=== PATIENT | female | born 1945 | race Caucasian/White ===

== ENCOUNTER 2017-05-07 08:35 | Emergency (ER) | payer MEDICARE, OTHER ==
[~2017-05-07] VITALS: Ht 165.1 cm; Wt 83.5 kg
[~2017-05-07 08:35] MED LIST: ALBUTEROL SULF8.5 GM INH; AMOXICILLIN500 MG ORAL; ASPIR 8181 MG ORAL; ATORVASTATIN CA10 MG ORAL; AZITHROMYCIN250 MG ORAL; BENADRYL A12.5 MG/5 ORAL; DEBROX15 M1 BOTH EARS; IBUPROFEN600 MG ORAL; KEFLEX500 MG ORAL; LEVAQUIN750 MG ORAL; LOSARTAN-HCTZ1 EAC1 PO; PEPCID40 MG PO; PIOGLITAZONE-M1 EAC1 ORAL; PREDNISONE20 MG ORAL; PROMETHAZINE-C118 M1 ORAL; TRAMADOL HCL50 MG ORAL; TRAMADOL-ACETA1 EACH PO; TYLENOL EXTRA500 MG ORAL; ZETIA10 MG ORAL
[2017-05-07 08:53] VITALS: BP 136/89
--- NOTE | 2017-05-07 09:14 | Emergency Room Report ---
History of Present Illness General Chief Complaint: Sore Throat Source: Patient Present Illness HPI 71-year-old female with diabetes presenting with sore throat and not feeling well for 3 days. Complaints of sore throat, worse with eating, however patient states that she has still been able to eat and treatment normally. Denies fever or chills. Also complaining of generalized muscle aches around shoulders. No chest pain shortness of breath nausea vomiting diarrhea. No abdominal pain Allergies: Coded Allergies: Dust (Verified Allergy, Mild, Itching, 11/06/15) Patient History Past Medical History: see triage record Past Surgical History: none Pertinent Family History: none Reviewed Nursing Documentation: PMH: Agreed, PSxH: Agreed Nursing Documentation-PMH Hx Cardiac Problems: No Hx Hypertension: Yes Hx Pacemaker: No Hx Asthma: Yes Hx COPD: Yes Hx Diabetes: Yes Hx Cancer: No Hx Neurological Problems: No Hx Cerebrovascular Accident: No Hx Seizures: No Review of Systems All Other Systems: negative except mentioned in HPI Physical Exam Vital Signs Date Time Temp Pulse Resp B/P (MAP) Pulse Ox O2 Delivery O2 Flow Rate FiO2 05/07/17 08:43 97.0 95 20 136/89 97 Room Air Sp02 EP Interpretation: reviewed, normal General Appearance: normal inspection, well appearing, no apparent distress, alert, GCS 15, non-toxic, other - Well-appearing, nontoxic, c speaking complete sentences Head: normocephalic, atraumatic Eyes: bilateral eye normal inspection, bilateral eye PERRL, bilateral eye EOMI ENT: normal voice, moist mucus membranes, other - Mild tonsillar and uvular erythema, no exudates, no enlargement, uvula is midline Neck: normal inspection, full range of motion, supple Respiratory: normal inspection, lungs clear, normal breath sounds, no respiratory distress, no retraction, no wheezing, speaking full sentences, chest symmetrical Cardiovascular #1: normal inspection, regular rate, rhythm, no edema, normal capillary refill Cardiovascular #2: 2+ radial (R), 2+ radial (L) Gastrointestinal: normal inspection, non tender, soft, non-distended, no guarding Musculoskeletal: normal inspection, back normal, normal range of motion, non- tender Neurologic: normal inspection, alert, oriented x3, responsive, motor strength/ tone normal, sensory intact, normal gait, speech normal Psychiatric: normal inspection, judgement/insight normal, memory normal Skin: normal inspection, normal color, no rash, warm/dry, well hydrated, normal turgor Medical Decision Making Diagnostic Impression: Primary Impression: Acute viral pharyngitis ER Course 71-year-old female sore throat DDX: viral vs. versus. bacterial pharyngitis vs. allergies Other serious causes such as INSTALLMENT LOAN COLLECTOR / RPA / deep space neck infection history/physical most consistent with viral pharyngitis Plan: Tylenol ER course: Patient remains stable in ED. Pt states improvement of pain with motrin. Tolerating by mouth Disposition: Patient will be discharged to home. Patient will follow up with primary care doctor within 5 days. Strict return precautions discussed with patient such as worsening throat pain/swelling, dysphagia, high fever or chills, shortness of breath, abdominal pain, which may indicate severe illness. Patient verbalized understanding and agreed with plan. Please note that this Emergency Department Report was dictated using [employer] process manager technology software, occasionally this can lead to erroneous entry secondary to interpretation by the dictation equipment. Laboratory Tests Test 05/07/17 09:05 Urine Color Pale yellow Urine Appearance Clear Urine pH 5 (4.5-8.0) Urine Specific [place] 1.015 (1.005-1.035) Urine Protein Negative (NEGATIVE) Urine Glucose (UA) Negative (NEGATIVE) Urine Ketones Negative (NEGATIVE) Urine Occult Blood 4+ (NEGATIVE) H Urine Nitrite Negative (NEGATIVE) Urine Bilirubin Negative (NEGATIVE) Urine Urobilinogen Normal MG/DL (0.0-1.0) Urine Leukocyte Esterase 2+ (NEGATIVE) H Urine RBC 5-10 /HPF (0 - 2) H Urine WBC 2-4 /HPF (0 - 2) Urine Squamous Epithelial Cells Few /LPF (NONE/OCC) Urine Bacteria Few /HPF (NONE) Last Vital Signs Date Time Temp Pulse Resp B/P (MAP) Pulse Ox O2 Delivery O2 Flow Rate FiO2 05/07/17 08:53 20 136/89 97 Room Air 05/07/17 08:43 97.0 95 Disposition: HOME, SELF-CARE Condition: Improved Referrals: STEPAN SANTANA (PCP) Eugene Rice M.D. May 07, 2017 09:14
[2017-05-07 09:25] LABS: APPEARANCE,URINE CLEAR; KETONES,URINE NEGATIVE (NEGATIVE); LEUKOCYTE ESTERASE ,URINE 2+ (NEGATIVE); NITRITE,URINE NEGATIVE (NEGATIVE); PH,URINE 5 (4.5-8.0); PROTEIN,URINE NEGATIVE (NEGATIVE); UROBILINOGEN,URINE NORMAL MG/DL (0.0-1.0)
[2017-05-07 09:31] LABS: BACTERIA,URINE FEW /HPF; SQUAMOUS EPITHELIAL CELL,UR FEW /LPF (NONE/OCC)
[2017-05-07 09:34] VITALS: BP 136/89
== END 2017-05-07 09:48 | disposition home or self-care (01) ==
LOC: EMR 09:11
DX: J02.9 Acute pharyngitis, unspecified (principal); E11.9 Type 2 diabetes mellitus without complications; I10 Essential (primary) hypertension; J44.9 Chronic obstructive pulmonary disease, unspecified
CPT/HCPCS: 81001; 99283

== ENCOUNTER 2017-09-22 08:02 | Emergency (ER) | payer MEDICARE, OTHER ==
[~2017-09-22] VITALS: Ht 160 cm; Wt 81.6 kg
--- NOTE | 2017-09-22 08:28 | Emergency Room Report ---
History of Present Illness General Chief Complaint: Sore Throat Source: Patient Present Illness HPI 72-year-old female presents with sore throat for 2 days. States sore throat, +mild dry cough. Pain with swallowing however has still been able to eat/drink. No change in voice. No pain with extension/movement of neck. Denies fever or chills. No sick contacts. Allergies: Coded Allergies: Dust (Verified Allergy, Mild, Itching, 11/06/15) Patient History Past Medical History: see triage record Past Surgical History: none Pertinent Family History: none Now: No Reviewed Nursing Documentation: PMH: Agreed, PSxH: Agreed Nursing Documentation-PMH Past Medical History: No History, Except For Hx Cardiac Problems: No Hx Hypertension: Yes Hx Pacemaker: No Hx Asthma: Yes Hx COPD: Yes Hx Diabetes: Yes Hx Cancer: No Hx Neurological Problems: No Hx Cerebrovascular Accident: No Hx Seizures: No Review of Systems All Other Systems: negative except mentioned in HPI Physical Exam Vital Signs Date Time Temp Pulse Resp B/P (MAP) Pulse Ox O2 Delivery O2 Flow Rate FiO2 09/22/17 08:05 98.0 93 16 124/80 95 Room Air 98.1 Sp02 EP Interpretation: reviewed, normal General Appearance: normal inspection, well appearing, no apparent distress, alert, GCS 15, non-toxic Head: normocephalic, atraumatic Eyes: bilateral eye normal inspection, bilateral eye PERRL, bilateral eye EOMI ENT: normal ENT inspection, normal pharynx, normal voice, moist mucus membranes Neck: normal inspection, full range of motion, supple Respiratory: normal inspection, lungs clear, normal breath sounds, no respiratory distress, no retraction, no wheezing, speaking full sentences, chest symmetrical Cardiovascular #1: normal inspection, regular rate, rhythm, normal capillary refill Cardiovascular #2: 2+ radial (R), 2+ radial (L) Gastrointestinal: normal inspection, non tender, soft, non-distended, no guarding Musculoskeletal: normal inspection, back normal, normal range of motion, non- tender Neurologic: normal inspection, alert, oriented x3, responsive, motor strength/ tone normal, sensory intact, normal gait, speech normal Psychiatric: normal inspection, judgement/insight normal, memory normal Skin: normal inspection, normal color, no rash, warm/dry, well hydrated, normal turgor Medical Decision Making Diagnostic Impression: Primary Impression: Sore throat ER Course 72-year-old female with sore throat DDX: Viral vs. infectious mononucleosis vs. bacterial pharyngitis vs. allergies Other serious causes such as LEAF CONDITIONER / RPA / deep space neck infection history/physical most consistent with viral pharyngitis Plan: Tylenol ER course: Patient remains stable in ED. Pt states improvement of pain Disposition: Patient will be discharged to home. Patient will follow up with primary care doctor within 5 days. Strict return precautions discussed with patient such as worsening throat pain/swelling, dysphagia, high fever or chills, shortness of breath, abdominal pain, which may indicate severe illness. Patient verbalized understanding and agreed with plan. Please note that this Emergency Department Report was dictated using [employer]news department intern technology software, occasionally this can lead to erroneous entry secondary to interpretation by the dictation equipment. Last Vital Signs Date Time Temp Pulse Resp B/P (MAP) Pulse Ox O2 Delivery O2 Flow Rate FiO2 09/22/17 08:15 98.0 93 16 99 Room Air 98.0 Disposition: HOME, SELF-CARE Condition: Improved Referrals: STEPAN SANTANA (PCP) Patient Instructions: Sore Throat Eugene Rice M.D. Sep 22, 2017 08:28
[2017-09-22 09:29] VITALS: BP 129/81
== END 2017-09-22 09:34 | disposition home or self-care (01) ==
LOC: EMR 08:17
DX: J02.9 Acute pharyngitis, unspecified (principal); I10 Essential (primary) hypertension; J45.909 Unspecified asthma, uncomplicated; E11.9 Type 2 diabetes mellitus without complications
CPT/HCPCS: 99282

== ENCOUNTER 2017-12-04 22:07 | Emergency (ER) | payer MEDICARE, OTHER ==
[~2017-12-04] VITALS: Ht 162.6 cm; Wt 68.0 kg
[2017-12-04] MEDS ORDERED: CORTISPORIN EAR10 ML OTIC (22:59)
[2017-12-04] MEDS ORDERED: IBUPROFEN600 MG ORAL (22:59)
[2017-12-04 23:06] VITALS: BP 124/76
--- NOTE | 2017-12-05 02:22 | Emergency Room Report ---
History of Present Illness General Chief Complaint: Earache Source: Patient, Medical Record Present Illness HPI Patient presents with complaints of left ear discomfort Reports that prior to arrival she was having 4 out of 10 pain in that area However upon arrival she had taken 2 Advil and the pain had resolved Denies any fevers or chills denies any trauma denies any chest pain or shortness of breath Denies any neck pain Allergies: Coded Allergies: Dust (Verified Allergy, Mild, Itching, 11/06/15) Patient History Past Medical History: see triage record Pertinent Family History: none Last Menstrual Period: NA Reviewed Nursing Documentation: PMH: Agreed; PSxH: Agreed Nursing Documentation-PMH Hx Cardiac Problems: No Hx Hypertension: Yes Hx Pacemaker: No Hx Asthma: Yes Hx COPD: Yes Hx Diabetes: Yes Hx Cancer: No Hx Neurological Problems: No Hx Cerebrovascular Accident: No Hx Seizures: No Review of Systems All Other Systems: negative except mentioned in HPI Physical Exam Vital Signs Date Time Temp Pulse Resp B/P (MAP) Pulse Ox O2 Delivery O2 Flow Rate FiO2 12/04/17 22:11 98.7 90 18 124/76 98 Room Air 98.8 Sp02 EP Interpretation: reviewed, normal General Appearance: well appearing, no apparent distress Head: normocephalic, atraumatic Eyes: bilateral eye PERRL, bilateral eye EOMI ENT: normal pharynx, no angioedema, other - Left canal is mildly erythematous and edematous however patent tympanic membrane is appropriate, Neck: supple Respiratory: lungs clear Cardiovascular #1: regular rate, rhythm, no edema Gastrointestinal: non tender, soft Musculoskeletal: normal inspection Neurologic: alert, oriented x3, responsive, client services specialist III-XII nml as tested Skin: normal color, warm/dry Lymphatic: no adenopathy Medical Decision Making Diagnostic Impression: Primary Impression: otitis externa ER Course Patient's clinical findings are consistent with otitis externa she is placed on appropriate drops for that patient does use Q-tips she was advised against using that or putting anything else in the ear canal And requires close outpatient follow-up Last Vital Signs Date Time Temp Pulse Resp B/P (MAP) Pulse Ox O2 Delivery O2 Flow Rate FiO2 12/04/17 23:06 98.8 18 124/76 98 Room Air 98.8 12/04/17 22:11 90 Status: improved Disposition: HOME, SELF-CARE Condition: Stable Scripts Ibuprofen* (MOTRIN*) 600 Mg Tablet 600 MG ORAL Q8H PRN for For Pain, #20 TAB 0 Refills Prov: Luis Alberto Barlow DO 12/04/17 Neomycin/Polymyxin B Sulf/Hc* (CORTISPORIN EAR SOLUTION*) 10 Ml Solution 2 DROP OTIC THREE TIMES A DAY for 7 Days, #1 EA Instill in affected ear as directed for 7 days Prov: Luis Alberto Barlow DO 12/04/17 Referrals: Wilfred Boo MD (PCP) Patient Instructions: Otitis Externa Additional Instructions: Patient is provided with the discharge instructions notified to follow up with primary doctor in the next 2-3 days otherwise return to the er with any worsening symptoms. Please note that this report is being documented using [employer] technology. This can lead to erroneous entry secondary to incorrect interpretation by the dictating instrument. Luis Alberto Barlow DO December 05, 2017 02:22
== END 2017-12-04 23:07 | disposition home or self-care (01) ==
LOC: EDUNIT# 22:07 → EDBD 22:07 → EMR 22:28
DX: H60.92 Unspecified otitis externa, left ear (principal); I10 Essential (primary) hypertension; J44.9 Chronic obstructive pulmonary disease, unspecified; E11.9 Type 2 diabetes mellitus without complications
CPT/HCPCS: 99284

== ENCOUNTER 2018-04-27 08:11 | Emergency (ER) | payer MEDICARE, OTHER ==
[~2018-04-27] VITALS: Ht 162.6 cm; Wt 81.6 kg
[~2018-04-27 08:11] MED LIST changes: +CORTISPORIN EAR10 ML OTIC
[2018-04-27 09:32] LABS: BASOPHILS % (AUTO) 1.3 % (0.0-2.0); EOSINOPHILS % (AUTO) 0.4 % (0.0-3.0); HEMATOCRIT 38.9 % (37.0-47.0); HEMOGLOBIN 12.7 G/DL (12.0-16.0); LYMPHOCYTES % (AUTO) 28.5 % (20.0-45.0); MEAN CORPUSCULAR VOLUME 86 FL (80-99); MONOCYTES % (AUTO) 12.8 % (1.0-10.0); PLATELET COUNT 260 K/UL (150-450); RED BLOOD COUNT 4.52 M/UL (4.20-5.40); RED CELL DISTRIBUTION WIDTH 12.6 % (11.6-14.8); WHITE BLOOD COUNT 3.6 K/UL (4.8-10.8)
[2018-04-27 09:36] LABS: ANION GAP 6 mmol/L (5-15); BLOOD UREA NITROGEN 16 mg/dL (7-18); CALCIUM 9.4 MG/DL (8.5-10.1); CARBON DIOXIDE 29 MMOL/L (21-32); CHLORIDE 106 MMOL/L (98-107); CREATININE 0.8 MG/DL (0.55-1.30); POTASSIUM 3.9 MMOL/L (3.5-5.1); SODIUM 140 MMOL/L (136-145)
[2018-04-27 09:50] LABS: ALANINE AMINOTRANSFERASE 20 U/L (12-78); ALBUMIN 3.4 G/DL (3.4-5.0); ALKALINE PHOSPHATASE 52 U/L (46-116); ASPARTATE AMINO TRANSFERASE 15 U/L (15-37); BILIRUBIN,TOTAL 0.9 MG/DL (0.2-1.0); CKMB 1.2 NG/ML (0.0-3.6); CREATINE KINASE 77 U/L (26-308)
--- NOTE | 2018-04-27 09:54 | Emergency Room Report ---
History of Present Illness General Chief Complaint: Pain Source: Patient Present Illness HPI The patient complains of left shoulder pain/left upper back pain. She states that she has had this pain for 2 weeks. She is use ibuprofen and Tylenol without relief. She has a very specific location that is tender and painful. She denies trauma. She denies recent illness. She denies cough or congestion. She denies fever or chills. She has no other complaints. Allergies: Coded Allergies: Dust (Verified Allergy, Mild, Itching, 11/06/15) Patient History Past Medical History: see triage record, DM, HTN, asthma, COPD, other - HLP Social History: Denies: smoking, alcohol use, drug use Last Menstrual Period: na Reviewed Nursing Documentation: PMH: Agreed; PSxH: Agreed Nursing Documentation-PMH Past Medical History: No History, Except For Hx Cardiac Problems: Yes - high cholesterol Hx Hypertension: Yes Hx Pacemaker: No Hx Asthma: Yes Hx COPD: Yes Hx Diabetes: Yes Hx Cancer: No Hx Neurological Problems: No Hx Cerebrovascular Accident: No Hx Seizures: No Review of Systems All Other Systems: negative except mentioned in HPI Physical Exam Vital Signs Date Time Temp Pulse Resp B/P (MAP) Pulse Ox O2 Delivery O2 Flow Rate FiO2 04/27/18 08:21 97.8 84 18 130/84 98 Room Air 97.9 Sp02 EP Interpretation: reviewed, normal General Appearance: no apparent distress, alert, GCS 15, non-toxic Head: normocephalic, atraumatic Eyes: bilateral eye normal inspection, bilateral eye PERRL ENT: hearing grossly normal, normal pharynx, no angioedema, normal voice Neck: full range of motion, supple/symm/no masses Respiratory: chest non-tender, lungs clear, normal breath sounds, no respiratory distress, no retraction, no accessory muscle use, speaking full sentences Cardiovascular #1: regular rate, rhythm, no edema Gastrointestinal: normal bowel sounds, non tender, soft, non-distended, no guarding, no rebound Rectal: deferred Musculoskeletal: back normal, gait/station normal, normal range of motion, other - TTP L. upper back and localized area of trapezius m. Neurologic: alert, oriented x3, responsive, motor strength/tone normal, sensory intact, speech normal Psychiatric: judgement/insight normal, memory normal, mood/affect normal, no suicidal/homicidal ideation Skin: normal color, no rash, warm/dry, well hydrated Medical Decision Making Diagnostic Impression: Primary Impression: Musculoskeletal pain ER Course This patient does have localized pain in her left upper back and shoulder. Given the patient's age, I felt that I should work the patient up for acute coronary syndrome for atypical angina. However, the patient adamantly declined EKG. Initial troponin was negative. The patient's laboratory workup was not back and when she found out a patient Her has pneumonia she demands to leave stating she is very concerned about getting pneumonia. She refused to wait for her workup stating that she has musculoskeletal pain. I did educate her that I could not rule out acute coronary syndrome or cardiac etiology. She was educated on the signs and symptoms of atypical angina. She indicated understanding and left AGAINST MEDICAL ADVICE. Overall, her evaluation is benign but I could not fully evaluate this patient because she would not agree to a full cardiac workup which included EKG. She states this is not my heart and demanded to leave. The patient is competent and able to make her own medical decisions. Laboratory Tests Test 04/27/18 09:15 White Blood Count 3.6 K/UL (4.8-10.8) L Red Blood Count 4.52 M/UL (4.20-5.40) Hemoglobin 12.7 G/DL (12.0-16.0) Hematocrit 38.9 % (37.0-47.0) Mean Corpuscular Volume 86 FL (80-99) Mean Corpuscular Hemoglobin 28.1 PG (27.0-31.0) Mean Corpuscular Hemoglobin Concent 32.6 G/DL (32.0-36.0) Red Cell Distribution Width 12.6 % (11.6-14.8) Platelet Count 260 K/UL (150-450) Mean Platelet Volume 7.5 FL (6.5-10.1) Neutrophils (%) (Auto) 57.0 % (45.0-75.0) Lymphocytes (%) (Auto) 28.5 % (20.0-45.0) Monocytes (%) (Auto) 12.8 % (1.0-10.0) H Eosinophils (%) (Auto) 0.4 % (0.0-3.0) Basophils (%) (Auto) 1.3 % (0.0-2.0) Sodium Level 140 MMOL/L (136-145) Potassium Level 3.9 MMOL/L (3.5-5.1) Chloride Level 106 MMOL/L (98-107) Carbon Dioxide Level 29 MMOL/L (21-32) Anion Gap 6 mmol/L (5-15) Blood Urea Nitrogen 16 mg/dL (7-18) Creatinine 0.8 MG/DL (0.55-1.30) Estimate Glomerular Filtration Rate mL/min (>60) Glucose Level 126 MG/DL (74-106) H Calcium Level 9.4 MG/DL (8.5-10.1) Total Bilirubin Pending Aspartate Amino Transferase (AST) Pending Alanine Aminotransferase (ALT) Pending Alkaline Phosphatase Pending Total Creatine Kinase Pending Creatine Kinase MB Pending Troponin I 0.013 ng/mL (0.000-0.056) Total Protein Pending Albumin Pending Globulin Pending Chest X-Ray Diagnostic Results Chest X-Ray Diagnostic Results : Chest X-Ray Ordered: Yes # of Views/Limited/Complete: 1 View Indication: Other EP Interpretation: Yes Interpretation: no consolidation, no effusion, no pneumothorax, no acute cardiopulmonary disease Impression: No acute disease Electronically Signed by: Greg Other X-Ray Diagnostic Results Other X-Ray Diagnostic Results : X-Ray ordered: L. shoulder # of Views/Limited Vs Complete: Complete Indication: Pain EP Interpretation: Yes Interpretation: no dislocation, no soft tissue swelling, no fractures Impression: No acute disease Electronically Signed by: Greg Last Vital Signs Date Time Temp Pulse Resp B/P (MAP) Pulse Ox O2 Delivery O2 Flow Rate FiO2 04/27/18 08:21 97.8 84 18 130/84 98 Room Air 97.9 Status: improved Disposition: AGAINST MEDICAL ADVICE Condition: Stable Referrals: Wilfred Boo MD (PCP) Myrna Milligan DO Apr 27, 2018 09:54
[2018-04-27] MEDS ORDERED: LIDODERM700 M1 TOPIC (09:55)
--- NOTE | 2018-04-27 09:56 | Diagnostic Imaging Report ---
Indication: Chest pain Technique: One view of the chest Comparison: none Findings: The heart is borderline enlarged. Lung and pleural spaces are clear. Findings are unchanged Impression: No acute process
--- NOTE | 2018-04-27 09:57 | Diagnostic Imaging Report ---
Indication: Shoulder pain Technique: 3 views of the left shoulder Comparison: none Findings: There is calcific tendinosis of the rotator cuff on the left. No acute fractures. No dislocations. The joint spaces are preserved. Impression: No acute process Evidence of rotator cuff calcific tendinosis
[2018-04-27 10:05] VITALS: BP 128/80
== END 2018-04-27 10:05 | disposition left against medical advice (07) ==
LOC: EMR 09:11
DX: M25.512 Pain in left shoulder (principal); M54.6 Pain in thoracic spine; E11.9 Type 2 diabetes mellitus without complications; I10 Essential (primary) hypertension; J44.9 Chronic obstructive pulmonary disease, unspecified; E78.00 Pure hypercholesterolemia, unspecified
CPT/HCPCS: 36415; 71045; 80053; 82550; 82553; 84484; 85025; 99284

== ENCOUNTER 2018-07-18 10:25 | Emergency (ER) | payer MEDICARE, OTHER ==
[~2018-07-18] VITALS: Ht 165.1 cm; Wt 76.7 kg
[~2018-07-18 10:25] MED LIST changes: +LIDODERM700 M1 TOPIC
[2018-07-18 10:32] VITALS: BP 118/75
[2018-07-18] MEDS ORDERED: METFORMIN HCL850 M1 ORAL (10:38)
--- NOTE | 2018-07-18 10:55 | Emergency Room Report ---
History of Present Illness General Chief Complaint: Back Pain-No Injury Source: Patient Present Illness HPI Patient presents with complaints of right lower back pain Points to the posterior superior iliac crest region for the pain Pain started several days ago does not recall any specific trauma Denies any pain or radiation to the lower leg denies any saddle paresthesia denies any midline back pain Pain is 4 out of 10 worse with ambulation and movement better with rest denies any fevers or chills Allergies: Coded Allergies: Dust (Verified Allergy, Mild, Itching, 11/06/15) Patient History Past Medical History: see triage record Pertinent Family History: none Reviewed Nursing Documentation: PMH: Agreed; PSxH: Agreed Nursing Documentation-PMH Past Medical History: No History, Except For Hx Cardiac Problems: Yes - high cholesterol Hx Hypertension: Yes Hx Pacemaker: No Hx Asthma: Yes Hx COPD: Yes Hx Diabetes: Yes Hx Cancer: No Hx Neurological Problems: No Hx Cerebrovascular Accident: No Hx Seizures: No Review of Systems All Other Systems: negative except mentioned in HPI Physical Exam Vital Signs Date Time Temp Pulse Resp B/P (MAP) Pulse Ox O2 Delivery O2 Flow Rate FiO2 07/18/18 10:32 97.7 89 18 118/75 97 Room Air Sp02 EP Interpretation: reviewed, normal General Appearance: well appearing, no apparent distress Head: normocephalic, atraumatic Eyes: bilateral eye PERRL, bilateral eye EOMI ENT: hearing grossly normal, normal pharynx, TMs + canals normal, uvula midline Neck: full range of motion, supple, no meningismus, no bony tend Respiratory: lungs clear, normal breath sounds, no rhonchi, no respiratory distress, no retraction, no accessory muscle use Cardiovascular #1: normal peripheral pulses, regular rate, rhythm, no edema, no gallop, no JVD, no murmur Gastrointestinal: normal bowel sounds, non tender, soft, no mass, no organomegaly, non-distended, no guarding, no hernia, no pulsatile mass, no rebound Genitourinary: no CVA tenderness Musculoskeletal: other - Patient is very specific localized discomfort to the right-sided posterior superior iliac crest region, there is no midline step-off or tenderness, patient is ambulate without focal deficit sensory is intact Neurologic: oriented x3, responsive, roundsman III-XII nml as tested, motor strength/ tone normal, sensory intact Psychiatric: mood/affect normal Skin: normal color, no rash, warm/dry, palpation normal Lymphatic: normal inspection, no adenopathy Medical Decision Making Diagnostic Impression: Primary Impression: Back pain Additional Impression: Sciatica ER Course Given the patient's complaints and presentation multiple differentials were considered Including but not limited to neurological, neurosurgical, infectious and orthopedic Patient's discomfort localizes fairly specifically to the posterior superior iliac crest region on the right side Patient has otherwise a benign medical evaluation sensory is intact there was also no reports of any trauma Patient is initially being treated conservatively Has appropriate close outpatient follow-up and will return with any concerns or changes Last Vital Signs Date Time Temp Pulse Resp B/P (MAP) Pulse Ox O2 Delivery O2 Flow Rate FiO2 07/18/18 10:32 97.7 89 18 118/75 97 Room Air Status: improved Disposition: HOME, SELF-CARE Condition: Improved Scripts Methocarbamol* (ROBAXIN-750*) 750 Mg Tablet 750 MG PO TID, #21 TAB 0 Refills Prov: Luis Alberto Barlow DO 07/18/18 Tramadol Hcl* (ULTRAM*) 50 Mg Tablet 50 MG ORAL Q8HR PRN for For Pain, #15 TAB 0 Refills Prov: Luis Alberto Barlow DO 07/18/18 Referrals: Wilfred Boo MD (PCP) Additional Instructions: Patient is provided with the discharge instructions notified to follow up with primary doctor in the next 2-3 days otherwise return to the er with any worsening symptoms. Please note that this report is being documented using [employer] technology. This can lead to erroneous entry secondary to incorrect interpretation by the dictating instrument. Luis Alberto Barlow DO Jul 18, 2018 10:55
[2018-07-18] MEDS: Methocarbamol 750mg tab ORAL ONE (10:58)
[2018-07-18] MEDS: Ketorolac 60mg Inj IM ONE (10:59)
[2018-07-18] MEDS ORDERED: TRAMADOL HCL50 MG ORAL (11:23)
[2018-07-18] MEDS ORDERED: ROBAXIN-750750 MG PO (11:23)
[2018-07-18 11:52] VITALS: BP 120/68
== END 2018-07-18 11:53 | disposition home or self-care (01) ==
LOC: EMR 10:40
DX: M54.31 Sciatica, right side (principal); M54.9 Dorsalgia, unspecified; I10 Essential (primary) hypertension; E11.9 Type 2 diabetes mellitus without complications; J44.9 Chronic obstructive pulmonary disease, unspecified
CPT/HCPCS: 96372; 99283

== ENCOUNTER 2018-07-20 09:27 | Outpatient (CLI) | payer MEDICARE, OTHER ==
[~2018-07-20 09:27] MED LIST changes: +METFORMIN HCL850 M1 ORAL; +ROBAXIN-750750 MG PO
[2018-07-20] MEDS ORDERED: ROBAXIN-750750 MG PO (11:21)
--- NOTE | 2018-07-20 11:27 | Diagnostic Imaging Report ---
Indication: Mid back pain for one to 2 weeks Technique: Sagittal T1 fast spin echo, sagittal T2 fast echo, sagittal STIR, axial T1 and T2 fast spin echo images were obtained through the thoracic spine Comparison: none Findings: There is very slight anterior offset of C7 on T1, thoracic bony alignment otherwise normal. Intrinsic cord signal is normal. Vertebral body heights are preserved. The thoracic disc spaces are preserved. Within the T3 vertebral body, there is a somewhat irregular area of increased T1 and T2 signal intensity, not visible on the STIR images, consistent with benign vertebral body hemangioma. In the T4 vertebral body there is a 16 mm diameter lesion which is mixed signal intensity on the T1 images with some high signal, fairly homogeneous high signal intensity on the T2-weighted images, and demonstrates slightly high signal intensity on the STIR images. No significant thoracic disc bulge or protrusion, spinal stenosis, or neural foraminal stenosis. The lower cervical spine demonstrates degenerative disc narrowing and posterior disc protrusions at C5-6 and C6-7, both of which results in borderline narrowing of the spinal canal but no definite cord impingement. There is very mild left lateral broad-based posterior disc protrusion at T11-12, which does not significantly compromise the spinal canal or the neural foramina. The included extraspinal soft tissues are unremarkable. Impression: 16 mm lesion within the T4 vertebral body. Signal characteristics not entirely typical of a benign hemangioma. Suspect that this most likely represents an atypical benign hemangioma. However, other pathology such as static or primary neoplasm not completely excludable. Recommend bone scan to assess for metabolic activity No acute bony trauma Minimal degenerative changes, as described
== END 2018-07-20 11:27 | disposition home or self-care (01) ==
LOC: MRI 09:27
DX: M54.9 Dorsalgia, unspecified (principal); E11.9 Type 2 diabetes mellitus without complications; I10 Essential (primary) hypertension; J45.909 Unspecified asthma, uncomplicated; J44.9 Chronic obstructive pulmonary disease, unspecified; G95.89 Other specified diseases of spinal cord
CPT/HCPCS: 72146

== ENCOUNTER 2018-07-20 10:34 | Emergency (ER) | payer MEDICARE, OTHER ==
[~2018-07-20] VITALS: Ht 160 cm; Wt 72.6 kg
[2018-07-20 10:47] VITALS: BP 147/93
[2018-07-20] MEDS ORDERED: ROBAXIN-750750 MG PO (11:21)
[2018-07-20 11:33] VITALS: BP 145/89
--- NOTE | 2018-07-20 16:13 | Emergency Room Report ---
History of Present Illness General Chief Complaint: Back Pain-No Injury Source: Patient, Medical Record Present Illness HPI 72-year-old female presents ED for evaluation. Complaining of right-sided back pain times one week. Was seen here 2 days ago for pain. Was prescribed pain medications but states they're not helping. States that she had an MRI today of her back that was ordered by her PMD. Is here requesting results. Patient wants to know why her pain is not improving. Denies chest pain. Denies fevers or chills. Denies cough. Denies any recent injury. No other aggravating relieving factors. Denies any other associated symptoms Allergies: Coded Allergies: Dust (Verified Allergy, Mild, Itching, 11/06/15) Patient History Past Medical History: DM, HTN, asthma, COPD Past Surgical History: none Pertinent Family History: none Social History: Denies: smoking, alcohol use, drug use Now: No Immunizations: UTD Reviewed Nursing Documentation: PMH: Agreed; PSxH: Agreed Nursing Documentation-PMH Past Medical History: No History, Except For Hx Cardiac Problems: Yes - high cholesterol Hx Hypertension: Yes Hx Pacemaker: No Hx Asthma: Yes Hx COPD: Yes Hx Diabetes: Yes Hx Cancer: No Hx Neurological Problems: No Hx Cerebrovascular Accident: No Hx Seizures: No Review of Systems All Other Systems: negative except mentioned in HPI Physical Exam Vital Signs Date Time Temp Pulse Resp B/P (MAP) Pulse Ox O2 Delivery O2 Flow Rate FiO2 07/20/18 10:39 97.9 82 18 147/93 95 Room Air Sp02 EP Interpretation: reviewed, normal General Appearance: no apparent distress, alert, GCS 15, non-toxic Head: normocephalic Eyes: bilateral eye normal inspection, bilateral eye PERRL ENT: normal ENT inspection Neck: normal inspection Respiratory: chest non-tender, lungs clear, normal breath sounds, speaking full sentences Cardiovascular #1: regular rate, rhythm, no edema Gastrointestinal: normal inspection Rectal: deferred Genitourinary: no CVA tenderness Musculoskeletal: gait/station normal, normal range of motion, non-tender, tender - paraspinal thoracic tenderness Neurologic: alert, oriented x3, responsive, motor strength/tone normal, sensory intact, speech normal Psychiatric: normal inspection Skin: normal inspection Lymphatic: normal inspection Medical Decision Making Diagnostic Impression: Primary Impression: Back pain Qualified Codes: M54.6 - Pain in thoracic spine ER Course Hospital Course 72-year-old female presents ED complaining of upper back pain. No evidence of trauma Differential diagnoses include: pyelonephritis, kidney stone, muscle strain, Lspine fracture Clinical course Patient placed on stretcher. After initial history and physical I ordered lidoderm patch. There is no vertebral body tenderness. No step-offs or bruising. Patient was seen here 2 days ago and was prescribed pain meds. Patient had an MRI completed but not read yet as it was ordered routine by PMD Explained to patient that she needs to follow-up with her PMD as far as MRI reading. Patient has no focal weakness or incontinence suggesting neurological emergency. given lidoderm patch here. will discharge with lidoderm patches. followup with Dr Boo for MRI results Diagnosis - back pain Stable and discharged to home with prescription for lidoderm patch. Followup with PMD. Return to ED if symptoms recur or worsen Last Vital Signs Date Time Temp Pulse Resp B/P (MAP) Pulse Ox O2 Delivery O2 Flow Rate FiO2 07/20/18 11:33 97.7 75 20 145/89 98 Room Air Status: improved Disposition: HOME, SELF-CARE Condition: Stable Scripts Methocarbamol* (ROBAXIN-750*) 750 Mg Tablet 750 MG PO TID, #21 TAB 0 Refills Prov: Jeremy Leone MD 07/20/18 Referrals: Wilfred Boo MD NOT CHOSEN IPA/,REFERRING (PCP) Patient Instructions: Back Pain, Adult Jeremy Leone MD Jul 20, 2018 16:13
== END 2018-07-20 12:00 | disposition home or self-care (01) ==
LOC: EMR 11:39
DX: M54.6 Pain in thoracic spine (principal); I10 Essential (primary) hypertension; E11.9 Type 2 diabetes mellitus without complications; J44.9 Chronic obstructive pulmonary disease, unspecified
CPT/HCPCS: 99283

== ENCOUNTER 2018-08-13 12:16 | Emergency (ER) | payer MEDICARE, OTHER ==
[~2018-08-13] VITALS: Ht 165.1 cm; Wt 79.4 kg
--- NOTE | 2018-08-13 12:20 | NUR ---
ED Nurse Note: patient biba for left ankle pain pt s/p fall from home yesterday, noticed ankle welling gets worse this morning
--- NOTE | 2018-08-13 12:38 | Emergency Room Report ---
History of Present Illness General Chief Complaint: Lower Extremity Injury Source: Medical Record (Alexi Bashir) Present Illness HPI 72-year-old female patient presents the ER brought in by ambulance complaining of left ankle pain times 1 day. Patient reports that she was walking up steps yesterday when she tripped and fell. Reports that she is twisted her left ankle. Denies hitting her head or loss conscious. Denies upper extremity pain. Denies pain elsewhere in her body. Denies syncope or dizziness. Reports has not taken any medication for relief of symptoms. Reports pain with the ablation. Denies other acute aggravating or relieving factors. (Alexi Bashir) Allergies: Coded Allergies: Dust (Verified Allergy, Mild, Itching, 11/06/15) Patient History Past Medical History: see triage record Reviewed Nursing Documentation: PMH: Agreed; PSxH: Agreed (Alexi Bashir) Nursing Documentation-PMH Hx Cardiac Problems: Yes - high cholesterol Hx Hypertension: Yes Hx Pacemaker: No Hx Asthma: Yes Hx COPD: Yes Hx Diabetes: Yes Hx Cancer: No Hx Neurological Problems: No Hx Cerebrovascular Accident: No Hx Seizures: No (Alexi Bashir) Review of Systems All Other Systems: negative except mentioned in HPI (Alexi Bashir) Physical Exam Vital Signs Date Time Temp Pulse Resp B/P (MAP) Pulse Ox O2 Delivery O2 Flow Rate FiO2 08/13/18 12:12 97.7 90 18 125/85 100 Room Air Sp02 EP Interpretation: reviewed, normal General Appearance: well appearing, no apparent distress, alert, GCS 15, non- toxic Head: normocephalic, atraumatic Eyes: bilateral eye normal inspection, bilateral eye PERRL ENT: hearing grossly normal, normal pharynx, no angioedema, normal voice, uvula midline, moist mucus membranes Neck: full range of motion Respiratory: lungs clear, normal breath sounds, no rhonchi, no respiratory distress, no accessory muscle use, no wheezing, speaking full sentences Cardiovascular #1: regular rate, rhythm, no edema Cardiovascular #2: 2+ dorsalis pedis (R), 2+ dorsalis pedis (L) Musculoskeletal: back normal, digits/nails normal, gait/station normal, normal range of motion, no calf tenderness, Rashida's Sign negative, swelling - Left lateral ankle, other - NVI, cap refill less than 2 seconds, negative syndesmotic squeeze test, no erythema, tender - Left ankle lateral malleolus Neurologic: alert, oriented x3, responsive, motor strength/tone normal, sensory intact Psychiatric: mood/affect normal Skin: no rash (Alexi Bashir) Medical Decision Making PA Attestation Dr. Milligan is my supervising Physician whom patient management has been discussed with. (Alexi Bashir) Diagnostic Impression: Primary Impression: Ankle sprain ER Course Pt. presents to the ED c/o left ankle pain. Ddx considered but are not limited to fracture, sprain, strain, contusion, dislocation. No erythema, no warmth to touch, no fever, nontoxic appearing, low suspicion for septic joint. Soft compartments, no pulselessness, no pallor, no paresthesias, low suspicion for compartment syndrome at this time. Vital signs: are WNL, pt. is afebrile Ordered X-ray and pain medication. ER COURSE Provided with pain medication. An X-ray of the left ankle shows no acute fracture per the preliminary reading. Likely sprain causing pain symptoms. Toney wrap applied to the ankle and was checked afterwards by me showing good alignment and support with distal neurovascular functioning intact. Crutches provided. Patient requesting prescription for walker, will provide patient. Patient instructed on RICE method: rest, ice, compression, elevation. Patient instructed on rest, ice and heat. Patient instructed to be WBAT Take Tylenol or ibuprofen for pain symptoms, will provide patient with Rx. Contact information for orthopedic urgent care provided, follow-up with urgent care if unable to followup with primary care provider and get referral to human resources support specialist. Followup with primary care provider. Discuss referral to ortho/pain management/ PT as needed. Discuss further imaging with MRI/CT as needed. Patient in ER with significant other, will take patient home. DISCHARGE: At this time pt. is stable for d/c to home. Patient is resting comfortably, in no acute distress, nontoxic appearing, talking without difficulty. Will provide printed patient care instructions, and any necessary prescriptions. Patient instructed to follow with primary care provider in 3 - 5 days and to request further follow-up as needed. Care plan and follow up instructions have been discussed with the patient prior to discharge. Take medications as directed. Patient questions asked and answered. Patient reports understanding and agreement to treatment plan. ER precautions given, patient instructed to return to ER immediately for any new or worsening of symptoms. - Please note that this Emergency Department Report was dictated using [employer] language pathology assistant technology software, occasionally this can lead to erroneous entry secondary to interpretation by the dictation equipment. (Alexi Bashir) Other X-Ray Diagnostic Results Other X-Ray Diagnostic Results : X-Ray ordered: Left ankle # of Views/Limited Vs Complete: 3 View Indication: Pain EP Interpretation: Yes PA Xray: Interpretation reviewed, by supervising MD, and agrees with findings. Interpretation: no dislocation, no soft tissue swelling, no fractures Impression: No acute disease PA Scribe Text Kurt Bashir PA-C (Alexi Bashir) Other X-Ray Diagnostic Results : Electronically Signed by: Tanya Carter documentation of Xray reviewed by me and is accurate, Travis Miller MD (Travis Miller MD) Last Vital Signs Date Time Temp Pulse Resp B/P (MAP) Pulse Ox O2 Delivery O2 Flow Rate FiO2 08/13/18 12:12 97.7 90 18 125/85 100 Room Air Status: improved (Alexi Bashir) Disposition: HOME, SELF-CARE Condition: Stable Scripts Ibuprofen* (MOTRIN*) 600 Mg Tablet 600 MG ORAL Q8H PRN for For Pain, #30 TAB 0 Refills Prov: Alexi Bsahir 08/13/18 Walker (ULTRA-LIGHT ROLLATOR) 1 Each Each EACH , #1 Prov: Alexi Bashir 08/13/18 Patient Instructions: Ankle Sprain Additional Instructions: Patient instructed to follow up with primary care provider and discuss further referral to orthopedics/physical therapy/pain management as needed. If unable to followup with PCP, followup with orthopedic urgent care in 5-7 days , call to schedule appointment. Patient instructed on RICE method: rest, ice, compression, elevation. Patient instructed to WBAT. Take medications as directed. Patient questions asked and answered. ER precautions given, patient instructed to return to ER immediately for any new or worsening of symptoms. [facility] [address] [facility], [id number] [email or web address] Alexi Bashir Aug 13, 2018 12:38 Travis Miller MD Aug 15, 2018 01:54
--- NOTE | 2018-08-13 14:19 | Diagnostic Imaging Report ---
Indication: left ankle pain Comparison: None Findings: 3 views of the left ankle obtained. No acute fracture, malalignment, periostitis, or osteochondral defects are identified. Soft tissue swelling is present. This may be related to patient's body habitus rather than pathology. Correlate clinically. Impression: No acute findings
[2018-08-13] MEDS ORDERED: ULTRA-LIGHT RO1 EACH MC (14:31)
[2018-08-13] MEDS ORDERED: IBUPROFEN600 MG ORAL (14:31)
[2018-08-13 15:17] VITALS: BP 125/85
== END 2018-08-13 14:40 | disposition home or self-care (01) ==
LOC: EDBD 12:16 → EMR 13:22
DX: S93.402A Sprain of unspecified ligament of left ankle, initial encounter (principal); W01.0XXA Fall on same level from slipping, tripping and stumbling without subsequent striking against object, initial encounter; Y92.89 Other specified places as the place of occurrence of the external cause; I10 Essential (primary) hypertension; E11.9 Type 2 diabetes mellitus without complications; J44.9 Chronic obstructive pulmonary disease, unspecified
CPT/HCPCS: 99283

== ENCOUNTER 2018-08-22 11:09 | Emergency (ER) | payer MEDICARE, OTHER ==
[~2018-08-22] VITALS: Ht 167.6 cm; Wt 79.4 kg
[~2018-08-22 11:09] MED LIST changes: +ULTRA-LIGHT RO1 EACH MC
--- NOTE | 2018-08-22 11:59 | Emergency Room Report ---
History of Present Illness General Chief Complaint: Sore Throat Source: Patient, Medical Record Present Illness HPI Patient presents with sore throat. This is present for 2 days. She is felt feverish but has no documented temperature. She feels muscle aches. There is no ear pain or nasal congestion. She has pain with swallowing that is sharp. Pain is rated 9/10. There is no chest pain, reactive cough, rashes, headache, nausea, vomiting, diarrhea, dysuria. In addition the patient was seen for ankle sprain. She took off the Toney wrap after it got wet. She is requesting that an toney wrap be reapplied. The patient's been treated for pharyngitis multiple times in the past. The patient has a history of asthma but denies wheezing at this time. The patient is diabetic. Allergies: Coded Allergies: Dust (Verified Allergy, Mild, Itching, 11/06/15) Patient History Past Medical History: see triage record Social History: Denies: smoking Social History Narrative Here with family member Last Menstrual Period: none Now: No Reviewed Nursing Documentation: PMH: Agreed; PSxH: Agreed Nursing Documentation-PMH Hx Cardiac Problems: Yes - high cholesterol Hx Hypertension: Yes Hx Pacemaker: No Hx Asthma: Yes Hx COPD: Yes Hx Diabetes: Yes Hx Cancer: No Hx Neurological Problems: No Hx Cerebrovascular Accident: No Hx Seizures: No Review of Systems All Other Systems: negative except mentioned in HPI Physical Exam Vital Signs Date Time Temp Pulse Resp B/P (MAP) Pulse Ox O2 Delivery O2 Flow Rate FiO2 08/22/18 11:27 98.1 86 15 104/68 95 Room Air Sp02 EP Interpretation: reviewed, normal General Appearance: well appearing, no apparent distress, alert, GCS 15 Head: normocephalic, atraumatic Eyes: bilateral eye normal inspection, bilateral eye PERRL ENT: hearing grossly normal, normal voice, TMs + canals normal, moist mucus membranes, pharyngeal erythema Neck: full range of motion, supple Respiratory: lungs clear, no respiratory distress, speaking full sentences Cardiovascular #1: regular rate, rhythm Cardiovascular #2: 2+ radial (R) Gastrointestinal: normal inspection Musculoskeletal: no calf tenderness, swelling - Left ankle with ligaments stable Neurologic: alert, oriented x3, normal gait, grossly normal Psychiatric: mood/affect normal Skin: no rash Medical Decision Making Diagnostic Impression: Primary Impression: Pharyngitis Qualified Codes: J02.9 - Acute pharyngitis, unspecified Additional Impression: Ankle sprain Qualified Codes: S93.412D - Sprain of calcaneofibular ligament of left ankle, subsequent encounter ER Course Patient presents with throat pain. Differential includes viral, strep amongst others. Based on the exam antibiotics are indicated. In addition she is requesting an toney wrap to the left ankle post sprain recently. Antibiotics are administered. An Toney wrap was reapplied. The patient is improved. Distal neurovascular is normal as checked by me. Patient stable for outpatient observation attrition of treatment. Last Vital Signs Date Time Temp Pulse Resp B/P (MAP) Pulse Ox O2 Delivery O2 Flow Rate FiO2 08/22/18 12:10 98.1 75 15 104/68 95 Room Air Status: improved Disposition: HOME, SELF-CARE Condition: Improved Scripts Acetaminophen (Tylenol) 325 Mg Tablet 650 MG ORAL Q6H PRN for Prn Pain/Headache/Temp > 101, #20 TAB 0 Refills Prov: Travis Miller MD 08/22/18 Amoxicillin* (AMOXIL*) 500 Mg Capsule 500 MG ORAL THREE TIMES A DAY, #21 CAP Prov: Travis Miller MD 08/22/18 Travis Miller MD Aug 22, 2018 11:59
[2018-08-22] MEDS ORDERED: AMOXICILLIN500 MG ORAL ×2 (12:01)
[2018-08-22] MEDS ORDERED: TYLENOL325 MG ORAL ×2 (12:01)
[2018-08-22 12:03] VITALS: BP 104/68
[2018-08-22 12:10] VITALS: BP 104/68
--- NOTE | 2018-08-22 12:11 | NUR ---
ED Nurse Note:pt. was treated and cleared for d/c by ER MD, she received d/c instructions and left ER with steady gait
[2018-12-19] MEDS ORDERED: CHLORASEPTIC177 M2 MM ×2 (10:59)
[2018-12-19] MEDS ORDERED: TYLENOL325 MG ORAL ×2 (10:59)
[2018-12-19] MEDS ORDERED: LUNESTA1 MG ORAL (10:59)
== END 2018-08-22 12:10 | disposition home or self-care (01) ==
LOC: EMR 12:00
DX: J02.9 Acute pharyngitis, unspecified (principal); S93.402D Sprain of unspecified ligament of left ankle, subsequent encounter; X58.XXXD Exposure to other specified factors, subsequent encounter; I10 Essential (primary) hypertension; J44.9 Chronic obstructive pulmonary disease, unspecified
CPT/HCPCS: 99282

== ENCOUNTER 2018-12-14 10:13 | Emergency (ER) | payer MEDICARE, OTHER ==
[~2018-12-14] VITALS: Ht 162.6 cm; Wt 79.4 kg
[~2018-12-14 10:13] MED LIST changes: +TYLENOL325 MG ORAL
[2018-12-14 10:44] VITALS: BP 125/76
--- NOTE | 2018-12-14 10:45 | NUR ---
ED Nurse Note: Patient walked in to ER accompanied by brother c/o sore throat for a week. pt aao x4 but forgetful and ambulatory. skin clean and intact. no coughing and pt denied N/V/D or headache or dizziness. calm and cooperative.
[2018-12-14] MEDS ORDERED: NYSTATIN-TRIAMC15 G2 TP (11:11)
[2018-12-14] MEDS ORDERED: AMOXICILLIN500 MG ORAL (11:11)
--- NOTE | 2018-12-14 11:20 | NUR ---
ER DISCHARGE NOTE: Patient is cleared to be discharged per ERMD, pt is aox4, accompanied by brother, on room air, with stable vital signs. pt was given dc and prescription instructions, pt was able to verbalize understanding, pt id band removed. pt is able to ambulate with steady gait. pt took all belongings.
--- NOTE | 2018-12-14 13:59 | Emergency Room Report ---
History of Present Illness General Chief Complaint: Sore Throat Source: Patient Present Illness HPI Patient presents with complaints of sore throat Reports that ongoing for the past 3 days pain is worse with swallowing No obvious fever Denies any posterior neck pain or photophobia denies any chest pain or shortness of breath denies any vomiting or diarrhea denies any rash Allergies: Coded Allergies: Dust (Verified Allergy, Mild, Itching, 11/06/15) Patient History Past Medical History: see triage record Pertinent Family History: none Reviewed Nursing Documentation: PMH: Agreed; PSxH: Agreed Nursing Documentation-PMH Past Medical History: No History, Except For Hx Cardiac Problems: Yes - high cholesterol Hx Hypertension: Yes Hx Pacemaker: No Hx Asthma: No Hx COPD: Yes Hx Diabetes: Yes Hx Cancer: No Hx Neurological Problems: No Hx Cerebrovascular Accident: No Hx Seizures: No Review of Systems All Other Systems: negative except mentioned in HPI Physical Exam Vital Signs Date Time Temp Pulse Resp B/P (MAP) Pulse Ox O2 Delivery O2 Flow Rate FiO2 12/14/18 10:28 97.3 84 16 94 Room Air 12/14/18 10:44 125/76 Sp02 EP Interpretation: reviewed, normal General Appearance: well appearing, no apparent distress Head: normocephalic, atraumatic Eyes: bilateral eye PERRL, bilateral eye EOMI ENT: hearing grossly normal, TMs + canals normal, uvula midline, pharyngeal erythema Neck: full range of motion, supple, no meningismus, no bony tend Respiratory: lungs clear, normal breath sounds, no rhonchi, no respiratory distress, no retraction, no accessory muscle use Cardiovascular #1: normal peripheral pulses, regular rate, rhythm, no edema, no gallop, no JVD, no murmur Gastrointestinal: normal bowel sounds, non tender, soft, no mass, no organomegaly, non-distended, no guarding, no hernia, no pulsatile mass, no rebound Genitourinary: no CVA tenderness Musculoskeletal: normal inspection Neurologic: oriented x3, responsive, 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 as tested, motor strength/ tone normal, sensory intact Psychiatric: mood/affect normal Skin: warm/dry, palpation normal, other - Small area of erythema on the left foot second toe Lymphatic: normal inspection, no adenopathy Medical Decision Making Diagnostic Impression: Primary Impression: Pharyngitis ER Course Patient's findings are consistent with pharyngitis Other differentials such as retropharyngeal abscess, peritonsillar abscess considered Patient otherwise does not appear septic or toxic and will have initial conservative outpatient trial Last Vital Signs Date Time Temp Pulse Resp B/P (MAP) Pulse Ox O2 Delivery O2 Flow Rate FiO2 12/14/18 11:19 97.8 75 16 123/74 96 Room Air Status: unchanged Disposition: HOME, SELF-CARE Condition: Stable Scripts Nystatin/Triamcin (NYSTATIN-TRIAMCINOLONE CREAM) 15 Gm Cream..g. 1 INCH TP BID for 7 Days, GM Prov: Luis Alberto Barlow DO 12/14/18 Amoxicillin* (AMOXIL*) 500 Mg Capsule 500 MG ORAL THREE TIMES A DAY, #21 CAP Prov: Luis Alberto Barlow DO 12/14/18 Referrals: Wilfred oBo MD (PCP) Patient Instructions: Pharyngitis, [id number] Additional Instructions: Patient is provided with the discharge instructions notified to follow up with primary doctor in the next 2-3 days otherwise return to the er with any worsening symptoms. Please note that this report is being documented using [employer] technology. This can lead to erroneous entry secondary to incorrect interpretation by the dictating instrument. Luis Alberto Barlow DO December 14, 2018 13:59
== END 2018-12-14 11:20 | disposition home or self-care (01) ==
LOC: EMR 11:11
DX: J02.9 Acute pharyngitis, unspecified (principal); Z91.09 Other allergy status, other than to drugs and biological substances; E11.9 Type 2 diabetes mellitus without complications; J44.9 Chronic obstructive pulmonary disease, unspecified; I10 Essential (primary) hypertension; E78.00 Pure hypercholesterolemia, unspecified
CPT/HCPCS: 99282

== ENCOUNTER 2018-12-22 20:47 | Inpatient (IN) | payer MEDICARE, OTHER ==
[~2018-12-22] VITALS: Ht 162.6 cm; Wt 80.7 kg
[~2018-12-22 20:47] MED LIST changes: +CHLORASEPTIC177 M2 MM; +LUNESTA1 MG ORAL; +NYSTATIN-TRIAMC15 G2 TP
[2018-12-22] MEDS ORDERED: LIPITOR80 MG ORAL (21:00)
[2018-12-22] MEDS ORDERED: LORazepam 1mg tab ORAL ONE (21:00)
[2018-12-22 21:10] VITALS: BP 149/98
--- NOTE | 2018-12-22 21:10 | NUR ---
ED Nurse Note: Patient was brought by ambulance from home c/o SOB. Per patient she is having difficulty to breath, states that did not sleep for 3 days. Patient's O2 sat uppon arrival 94% at 2L, having some difficulty to brearth. Patient anxious, keep asking " Am I going to ?" AAO x4, VSS at this time, skin is dry, warm to touch. Dr. Miller by bed side, will continue to monitor.
--- NOTE | 2018-12-22 21:17 | Emergency Room Report ---
History of Present Illness General Chief Complaint: Dyspnea/Respdistress Source: Patient Present Illness HPI Patient presents with shortness of breath. She's not slept for 3 days. It's developed gradually over the last 24 hours that she feels anxious and trouble getting her breath. She denies any chest pain. She also denies fevers, chills , productive cough, nausea, vomiting, diarrhea, dysuria, joint pain or calf pain and edema. She's eating well. She's worried that she is dying. She was seen here 3 days ago for pharyngitis. Before that she was seen 5 days before and given a prescription of amoxicillin. She hadn't finished the amoxicillin. The sore throat is better at this time. During that visit 3 days ago she was complaining of insomnia and given a prescription for Lunesta. It's unclear whether she filled that prescription and took it. The patient's been seen for recurrent bronchitis and pharyngitis. She's not using an inhaler at this time. Full ROS unable due to respiratory distress. Allergies: Coded Allergies: Dust (Verified Allergy, Mild, Itching, 11/06/15) Patient History Limited by: medical condition Past Medical History: see triage record, old chart reviewed Social History: Denies: smoking, alcohol use, drug use Social History Narrative from home Last Menstrual Period: NA Reviewed Nursing Documentation: PMH: Agreed; PSxH: Agreed Nursing Documentation-PMH Hx Cardiac Problems: Yes - high cholesterol Hx Hypertension: Yes Hx Pacemaker: No Hx Asthma: No Hx COPD: Yes Hx Diabetes: Yes Hx Cancer: No Hx Neurological Problems: No Hx Cerebrovascular Accident: No Hx Seizures: No Review of Systems All Other Systems: limited Physical Exam Vital Signs Date Time Temp Pulse Resp B/P (MAP) Pulse Ox O2 Delivery O2 Flow Rate FiO2 12/22/18 20:47 97.9 106 18 149/98 (115) 97 Room Air Sp02 EP Interpretation: reviewed, normal General Appearance: well appearing, no apparent distress, GCS 15 Head: normocephalic Eyes: bilateral eye normal inspection, bilateral eye PERRL, bilateral eye EOMI ENT: moist mucus membranes Neck: supple Respiratory: chest non-tender, lungs clear, normal breath sounds, respiratory distress - mild, decreased breath sounds Cardiovascular #1: regular rate, rhythm, JVD Cardiovascular #2: 2+ radial (R) Gastrointestinal: normal inspection, normal bowel sounds, non tender, no mass, non-distended, decreased bowel sounds Genitourinary: no CVA tenderness Musculoskeletal: back normal, normal range of motion, no calf tenderness, Rashida 's Sign negative Neurologic: alert, oriented x3, grossly normal Psychiatric: anxious Skin: normal inspection, no rash, warm/dry Procedures Critical Care Time Critical Care Time Total Critical Care Time: 120 min bedside evaluation and treatment excludes procedures (EKG, intubation). Reason for critical care: flash pulmonary edema Possible complications: hypotension, hypertension, HI, shock, arrhythmias, metabolic acidosis, end organ damage, respiratory failure. Interventions: airway control, nitrates, lasix, intubation, sedation Course: Patient with dyspnea. Rapid deterioration in the face of hypertension. Glycerin administered by me. Continued deterioration. Lasix given. Initially requested BiPAP but due to the extent of respiratory distress and failure center for intubation. Patient intubated. Sedation requiring multiple re-evaluations and boluses of propofol. Discussion with family. Stabilization for CT angiogram. Discussion with radiologist after incomplete CT angiogram results. Sedation adjusted for intermittent hypotension. Adequate sedation finally obtained with adequate blood pressure. Patient with adequate oxygenation and improved post intubation with marked diuresis. Admitting physician notified. Admitted to ICU in critical condition but greatly improved. Consultations: nursing staff, EMS, family, RT Performed by: Dr. Miller Tolerated well condition = critical Intubation Intubation : Consent: Emergent Intubation Method: orotracheal Tube Size (cm): 7.5 - 23 cm teeth Medications: Etomidate, Versed Breath Sounds after Intubation: equal Intubation Complications: no complications Post Intubation Xray: Yes Attempts: One Patient Tolerated: Well Complications: None Medical Decision Making Diagnostic Impression: Primary Impression: Pulmonary edema Qualified Codes: J81.0 - Acute pulmonary edema Additional Impression: Respiratory failure Qualified Codes: J96.01 - Acute respiratory failure with hypoxia ER Course Patient presents with insomnia and dyspnea. Differential includes acute myocardial infarction, pulmonary embolus, anxiety, electrolyte imbalance, bronchitis amongst others. The patient will be evaluated with EKG, chest x-ray and labs. She is placed on a quality assurance monitor final. She will receive gentle IV hydration and also dose of Ativan orally. Clinically although she her oxygen saturation is slightly low and she is minimally tachycardic she is low risk for pulmonary embolus. EKG with ST. labs with negative troponin but elevated BNP. Normal white count. No evidence of infection identified. Troponin negative. Increased dyspnea and anxiety. Ativan just given orally. Oxygen begun. 21:25 CTA ordered. CXR with CHF. NTG, lasix ordered. I administered NTG @ 21:34. Contd resp distress. Assisted vents by me tanna set up for intubation sats 100% . Versed, Etomidate, Versed. Intubated good BS. Discussed with . Repeat x-ray with adequate intubation. Blood gas adequate on vent settings. Increasing propofol. Versed repeat. Titrated propofol with 2 boluses as light. 23:20. Still needing bolus to sedate. 23:48 To CTA with RN and RT. 0:35 Diuresing. Increase propofol. Varying rate of propofol due to intermittent hypotension. Good sedation. Calling radiologist for clarification of reading. No PE. Contact Dr. Boo for admission. Etiology of flash pulmonary edema unclear. Hypertension suspected. Laboratory Tests Test 12/22/18 21:25 12/22/18 22:35 12/22/18 23:07 12/22/18 23:10 White Blood Count 6.8 K/UL (4.8-10.8) Red Blood Count 4.76 M/UL (4.20-5.40) Hemoglobin 13.2 G/DL (12.0-16.0) Hematocrit 39.1 % (37.0-47.0) Mean Corpuscular Volume 82 FL (80-99) Mean Corpuscular Hemoglobin 27.8 PG (27.0-31.0) Mean Corpuscular Hemoglobin Concent 33.8 G/DL (32.0-36.0) Red Cell Distribution Width 13.1 % (11.6-14.8) Platelet Count 279 K/UL (150-450) Mean Platelet Volume 6.7 FL (6.5-10.1) Neutrophils (%) (Auto) 55.4 % (45.0-75.0) Lymphocytes (%) (Auto) 35.3 % (20.0-45.0) Monocytes (%) (Auto) 7.7 % (1.0-10.0) Eosinophils (%) (Auto) 0.7 % (0.0-3.0) Basophils (%) (Auto) 0.8 % (0.0-2.0) Prothrombin Time 10.8 SEC (9.30-11.50) Prothrombin Time INR 1.0 (0.9-1.1) PTT 27 SEC (23-33) Sodium Level 140 MMOL/L (136-145) Potassium Level 3.8 MMOL/L (3.5-5.1) Chloride Level 104 MMOL/L (98-107) Carbon Dioxide Level 25 MMOL/L (21-32) Anion Gap 11 mmol/L (5-15) Blood Urea Nitrogen 21 mg/dL (7-18) H Creatinine 0.9 MG/DL (0.55-1.30) Estimate Glomerular Filtration Rate mL/min (>60) Glucose Level 144 MG/DL (74-106) H Calcium Level 9.4 MG/DL (8.5-10.1) Total Bilirubin 1.2 MG/DL (0.2-1.0) H Direct Bilirubin 0.2 MG/DL (0.0-0.3) Aspartate Amino Transferase (AST) 42 U/L (15-37) H Alanine Aminotransferase (ALT) 55 U/L (12-78) Alkaline Phosphatase 60 U/L (46-116) Troponin I 0.012 ng/mL (0.000-0.056) Pro-B-Type Natriuretic Peptide 3006 pg/mL (0-125) H Total Protein 7.4 G/DL (6.4-8.2) Albumin 3.9 G/DL (3.4-5.0) Globulin 3.5 g/dL Albumin/Globulin Ratio 1.1 (1.0-2.7) Triglycerides Level 50 MG/DL (30-150) Urine Color Pale yellow Urine Appearance Clear Urine pH 6 (4.5-8.0) Urine Specific [place] 1.010 (1.005-1.035) Urine Protein Negative (NEGATIVE) Urine Glucose (UA) 2+ (NEGATIVE) H Urine Ketones Negative (NEGATIVE) Urine Blood 3+ (NEGATIVE) H Urine Nitrite Negative (NEGATIVE) Urine Bilirubin Negative (NEGATIVE) Urine Urobilinogen Normal MG/DL (0.0-1.0) Urine Leukocyte Esterase Negative (NEGATIVE) Urine RBC Pending Urine WBC Pending Urine Squamous Epithelial Cells Pending Urine Bacteria Pending Arterial Blood pH 7.331 (7.350-7.450) Arterial Blood Partial Pressure CO2 37.4 mmHg (35.0-45.0) Arterial Blood Partial Pressure O2 78.0 mmHg (75.0-100.0) Arterial Blood HCO3 19.3 mmol/L (22.0-26.0) L Arterial Blood Oxygen Saturation 94.0 % (95-100) L Arterial Blood Base Excess -6 (-2-2) L Black Test Positive Lactic Acid Level Pending EKG Diagnostic Results Rate: tachycardiac Rhythm: NSR ST Segments: no acute changes Rhythm Strip Diag. Results EP Interpretation: yes Rhythm: no PVC's, no ectopy, other - st Chest X-Ray Diagnostic Results Chest X-Ray Diagnostic Results #1: Chest X-Ray Ordered: Yes # of Views/Limited/Complete: 1 View Indication: Shortness of Breath Interpretation: no effusion, no pneumothorax, other - DHF Impression: Other Electronically Signed by: Electronically signed by Travis Miller MD Chest X-Ray Diagnostic Results #2: Chest X-Ray Ordered: Yes # of Views/Limited/Complete: 1 View Indication: Other EP Interpretation: Yes Interpretation: no effusion, no pneumothorax, other - ET good and pulm edema Impression: Other Electronically Signed by: Electronically signed by Travis Miller MD CT/MRI/US Diagnostic Results CT/MRI/US Diagnostic Results : Imaging Test Ordered: CTA lungs Impression No PE, chf Last Vital Signs Date Time Temp Pulse Resp B/P (MAP) Pulse Ox O2 Delivery O2 Flow Rate FiO2 12/23/18 03:11 90 12/23/18 02:36 16 45 12/23/18 02:30 97.5 110/70 (83) 97 12/23/18 02:25 Mechanical Ventilator 12/23/18 00:10 2.0 Status: improved Disposition: ADMITTED INPATIENT Condition: Critical Travis Miller MD December 22, 2018 21:17
[2018-12-22] MEDS ORDERED: Isovue-370 150ml vial INJ PRN (21:30)
--- NOTE | 2018-12-22 21:30 | NUR ---
ED Nurse Note: Patient is very anxious, can not hold still, states " I can not breath." Patient's lungs sound are diminished, craclles all over the lungs, O2 sat 92 % on 2L. Patient becom diaphoretic, aggitated.
[2018-12-22] MEDS ORDERED: Nitroglycerin Subl 0.4mg tab SL STA (21:31)
[2018-12-22] MEDS: Sodium Chloride 550 ML IV SCH (21:31)
[2018-12-22] MEDS ORDERED: Midazolam 2mg/2ml Inj IVP ONE ×4 (21:45→23:00)
[2018-12-22] MEDS ORDERED: Morphine Sulfate 4mg/ml Inj (IV USE ONLY) IVP ONE (21:45)
[2018-12-22] MEDS ORDERED: Nitroglycerin 2% oint pkt TOPIC ONE (21:45)
[2018-12-22] MEDS ORDERED: Etomidate 40mg/20ml Inj IV ONE (21:45)
[2018-12-22] MEDS ORDERED: Midazolam 2mg/2ml Inj ONE (21:49)
[2018-12-22 21:55] LABS: BASOPHILS % (AUTO) 0.8 % (0.0-2.0); EOSINOPHILS % (AUTO) 0.7 % (0.0-3.0); HEMATOCRIT 39.1 % (37.0-47.0); HEMOGLOBIN 13.2 G/DL (12.0-16.0); LYMPHOCYTES % (AUTO) 35.3 % (20.0-45.0); MEAN CORPUSCULAR VOLUME 82 FL (80-99); MONOCYTES % (AUTO) 7.7 % (1.0-10.0); NEUTROPHILS % (AUTO) 55.4 % (45.0-75.0); PLATELET COUNT 279 K/UL (150-450); RED BLOOD COUNT 4.76 M/UL (4.20-5.40); RED CELL DISTRIBUTION WIDTH 13.1 % (11.6-14.8); WHITE BLOOD COUNT 6.8 K/UL (4.8-10.8)
--- NOTE | 2018-12-22 21:56 | NUR ---
ED Nurse Note: Patient keep continuously increase agitation, diaphoretic. O2 sat 88% on 2L. Dr. Miller decided to intubate a patient. Patient was intubatet at 2156. ETT-7.5, 23cm at (R) lip.
[2018-12-22 21:57] LABS: ANION GAP 11 mmol/L (5-15); BLOOD UREA NITROGEN 21 mg/dL (7-18); CALCIUM 9.4 MG/DL (8.5-10.1); CARBON DIOXIDE 25 MMOL/L (21-32); CHLORIDE 104 MMOL/L (98-107); CREATININE 0.9 MG/DL (0.55-1.30); POTASSIUM 3.8 MMOL/L (3.5-5.1); SODIUM 140 MMOL/L (136-145)
[2018-12-22 22:07] LABS: ALANINE AMINOTRANSFERASE 55 U/L (12-78); ALBUMIN 3.9 G/DL (3.4-5.0); ALBUMIN/GLOBULIN RATIO 1.1 (1.0-2.7); ALKALINE PHOSPHATASE 60 U/L (46-116); ASPARTATE AMINO TRANSFERASE 42 U/L (15-37); BILIRUBIN,TOTAL 1.2 MG/DL (0.2-1.0)
[2018-12-22 22:08] LABS: BILIRUBIN,DIRECT 0.2 MG/DL (0.0-0.3)
[2018-12-22 22:10] VITALS: BP 177/105
[2018-12-22 23:04] LABS: APPEARANCE,URINE CLEAR; BILIRUBIN, URINE NEGATIVE (NEGATIVE); COLOR,URINE PALE YELLOW; GLUCOSE, URINE (UA) 2+ (NEGATIVE); KETONES,URINE NEGATIVE (NEGATIVE); LEUKOCYTE ESTERASE ,URINE NEGATIVE (NEGATIVE); NITRITE,URINE NEGATIVE (NEGATIVE); PH,URINE 6 (4.5-8.0); PROTEIN,URINE NEGATIVE (NEGATIVE); UROBILINOGEN,URINE NORMAL MG/DL (0.0-1.0)
--- NOTE | 2018-12-22 23:14 | NUR ---
ED Nurse Note: 1mL of propofol was administered IV push by Dr. Miller
[2018-12-22 23:15] VITALS: BP 99/60
--- NOTE | 2018-12-22 23:30 | NUR ---
ED Nurse Note: 1mL of propofol was administered IV push by Dr. Miller
--- NOTE | 2018-12-22 23:50 | NUR ---
ED Nurse Note: 1mL of propofol was administered IV push by Dr. Miller
[2018-12-23] VITALS (45 sets, daily range): BP systolic 88–121; BP diastolic 55–93
[2018-12-23] MEDS: Sodium Chloride 550 ML IV SCH (01:24)
--- NOTE | 2018-12-23 02:25 | NUR ---
ED Nurse Note: Patient was admited to ICU due to respiratory distress. Patient's IV intact, propofol infusing, pt intubated, RT present. Patient was taken via gurney by ACLS protocol, with all belongings.
--- NOTE | 2018-12-23 02:30 | NUR ---
NURSE NOTES:Received 73 y.o. female pt with DX CHF, orally intubated with 7.5ETT. Pls see vent setting, On Diprivan drip at 35mcg/kg/sammie but still restless. Bp 110/60 SR 80s afebrile. Bilateral soft wrist restraints on for safety to avoid self extubation. NPO at this time, oral care done. IV site left hand g22 patent with the Diprivan drip, Rt hand g 20 patent and asymptomatic. Will continue to monitor.
--- NOTE | 2018-12-23 02:55 | NUR ---
NURSE NOTES:Notify Dr Boo with pts condition, labs and needs admission orders.
[2018-12-23] MEDS ORDERED: Acetaminophen 500mg (ES) tab ORAL PRN (03:45)
[2018-12-23] MEDS ORDERED: traMADol 50mg tab ORAL PRN (03:45)
--- NOTE | 2018-12-23 03:45 | NUR ---
NURSE NOTES:Re called Dr Boo for admission orders- able to speak to Dr Boo with orders given and carried out.
--- NOTE | 2018-12-23 05:00 | NUR ---
NURSE NOTES:NGT was placed FR 18- Verified plcement with supercharge repair supervisorANGELITO garrett
--- NOTE | 2018-12-23 05:00 | NUR ---
NURSE NOTES:Complete bed bath with bed changed done.
[2018-12-23 05:49] LABS: BASOPHILS % (AUTO) 0.7 % (0.0-2.0); EOSINOPHILS % (AUTO) 0.1 % (0.0-3.0); HEMATOCRIT 33.3 % (37.0-47.0); LYMPHOCYTES % (AUTO) 15.7 % (20.0-45.0); MEAN CORPUSCULAR VOLUME 85 FL (80-99); MONOCYTES % (AUTO) 8.6 % (1.0-10.0); NEUTROPHILS % (AUTO) 74.8 % (45.0-75.0); PLATELET COUNT 235 K/UL (150-450); RED BLOOD COUNT 3.93 M/UL (4.20-5.40); RED CELL DISTRIBUTION WIDTH 13.3 % (11.6-14.8); WHITE BLOOD COUNT 7.9 K/UL (4.8-10.8)
--- NOTE | 2018-12-23 06:00 | NUR ---
NURSE NOTES:Pt still sedated with Diprivan drip at 35mcg/kg/min. VSS.
[2018-12-23 06:01] LABS: ANION GAP 9 mmol/L (5-15); BLOOD UREA NITROGEN 17 mg/dL (7-18); CALCIUM 8.5 MG/DL (8.5-10.1); CARBON DIOXIDE 25 MMOL/L (21-32); CHLORIDE 106 MMOL/L (98-107); CREATININE 0.6 MG/DL (0.55-1.30); POTASSIUM 3.1 MMOL/L (3.5-5.1); SODIUM 140 MMOL/L (136-145)
--- NOTE | 2018-12-23 07:00 | NUR ---
RESPIRATORY NOTE:Patient received mechanically ventilated on PB 840 with current ordered vent settings. Patient is orally intubated and is secured with an anchor fast. Vitals and 02 sat are WNL and there is not pt distress noted. There is an ambu bag available at the bedside and the vent is connected to a red outlet. Vent alarms are functional and audible. Will continue to monitor.
--- NOTE | 2018-12-23 07:04 | NUR ---
RADIOLOGY DEPT., TWO CHEST X-RAYS PERFORMED 21:00 AND 22:28HRS ON BY TECH. ROSANA SIN
--- NOTE | 2018-12-23 07:30 | NUR ---
HAND-OFF: Report given to Iban EATON.
--- NOTE | 2018-12-23 07:31 | NUR ---
NURSE NOTES: Report received from ANGELITO Huynh. Pt is lightly sedated. Pt is impulsive at times, trying to pull out ETT. On bilateral soft wrist restraints. Sinus rhythm on classroom monitor. Orally intubated. ETT 7.5/23cm at lip line. AC 16, TV 500, FiO2 45%, P 5. NG tube in place and kept NPO as per order. Mosley in place draining to gravity. IV to right FA G20 and left wrist G22 patent and asymptomatic. Pt is on Propofol at 35mcg/kg/min. Bed in lowest position. Side rails up x3. Bed exit alarm on. Will resume plan of care. Addendum: 12/23/18 at 0746 by JOSUE HAND RN RN NURSE NOTES: Report received from ANGELITO Huynh. Pt is lightly sedated. Pt is impulsive at times, trying to pull out ETT. On bilateral soft wrist restraints. Sinus rhythm on classroom monitor. Orally intubated. ETT 7.5/23cm at lip line. AC 16, TV 500, FiO2 45%, P 5. No respiratory distress noted. Lungs clear. O2 sat 98%. NG tube in place and kept NPO as per order. Mosley in place draining to gravity. IV to right FA G20 and left wrist G22 patent and asymptomatic. Pt is on Propofol at 35mcg/kg/min. Bed in lowest position. Side rails up x3. Bed exit alarm on. Will resume plan of care.
--- NOTE | 2018-12-23 07:55 | NUR ---
NURSE NOTES: Pt woke up and became agitated and restless. Pt is trying to pull out ETT. Restraints continued to be on. Orientation and teaching regarding intubation and mechanical ventilator done. Propofol drip rate increased to 40mcg/kg/min. Will continue to monitor.
--- NOTE | 2018-12-23 08:10 | NUR ---
NURSE NOTES: Pt is agitated and restless, trying to pull out ETT. Propofol drip increased to 45mcg/kg/min. Dr Batista here to see the patient. Updated him with pt's current condition, including low K. Notified Dr Boo regarding ABG result. Order for ABG regarding ABG tomorrow AM received, noted, and carried out. Addendum: 12/23/18 at 1024 by JOSUE HAND RN RN NURSE NOTES: Pt is agitated and restless, trying to pull out ETT. Propofol drip increased to 45mcg/kg/min. Reorientation givena and pt was repositioned. Dr Batista here to see the patient. Updated him with pt's current condition, including low K. Notified Dr Boo regarding ABG result. Order for ABG tomorrow AM received, noted, and carried out.
[2018-12-23] MEDS: Heparin 5000 units/ml inj SUBQ SCH ×2 (08:49→20:42)
[2018-12-23] MEDS ORDERED: Sodium Chloride for KCL Premix X 4hrs IV SCH ×2 (09:00)
--- NOTE | 2018-12-23 10:12 | NUR ---
NURSE NOTES: KUB done to check NGT placement. Will administer oral medication through NGT once placement is confirmed. Pt is lightly sedated with propofol drip at 45mcg/mg/min.
--- NOTE | 2018-12-23 10:16 | Diagnostic Imaging Report ---
ndication: Shortness of breath Technique: IV administration nonionic contrast. Spiral acquisitions obtained from the lung bases to the lung apices. Multiplanar and 3-D reconstructions were generated. Total dose length product 1437.08 mGycm. CTDIvol(s) 44.82 mGy. Dose reduction achieved using automated exposure control Comparison: none Findings: There is good quality opacification of the pulmonary arteries. No intraluminal filling defects or other findings to suggest acute pulmonary embolus demonstrated. Normal caliber pulmonary arteries. No evidence of isolated right ventricular dilatation. The heart is diffusely enlarged. No evidence of thoracic aortic aneurysm or dissection. Patent normal caliber proximal great neck vessels. There are small bilateral pleural effusions. There is extensive parenchymal consolidation bilaterally, predominantly involving the lower lobes, with some consolidation and groundglass opacity also seen involving the upper lobes. Considerable atelectasis is also seen involving the lower lobes. No pericardial effusion. The esophagus is somewhat fluid-filled proximally, without definite distal obstructive lesion. There is an endotracheal tube in place, tip in good position. No mediastinal or hilar mass or adenopathy demonstrated. No axillary or chest wall mass or adenopathy. Included upper abdominal anatomy is unremarkable. Impression: Negative for evidence of acute pulmonary embolus Marked cardiomegaly Extensive bilateral parenchymal consolidation and groundglass opacity. Probably on the basis of pulmonary edema,, but could also represent pneumonia Bilateral pleural effusions Satisfactory endotracheal intubation Distended esophagus which is fluid-filled This agrees with the preliminary interpretation provided overnight by [facility] teleradiology service. The CT scanner at [facility] is accredited by the [employer] and the scans are performed using protocols designed to limit radiation exposure to as low as reasonably achievable to attain images of sufficient resolution adequate for diagnostic evaluation.
--- NOTE | 2018-12-23 10:16 | NUR ---
RADIOLOGY DEPT., ABDOMEN X-RAY FOR NGT PLMT COMPLETED.-P.DYE
--- NOTE | 2018-12-23 10:59 | NUR ---
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 RESPIRATORY FAILURE VS: BP 177/105, P 117, T 97.9, RR 25, SpO2 97 on 2.0 NC RBC 3.93, H&H 11.0/33.3, K 3.1, CTA: Bilateral pleural effusions IS:PROPOFOL 100ml IV MIDAZOLAM HCI 1mg LASIX 20mg IV NITROGLYCERIN 1inch TOPICAL AMIDATE 7mg NITROGLYCERIN 0.8mg SL ATIVAN 1mg NS 550ml IV INTUBATED IN ER-AC 16, TV 500, PEEP 5.0, FiO2 45 ADMITTED TO ICU DCP: RETURN HOME
--- NOTE | 2018-12-23 11:12 | Diagnostic Imaging Report ---
Indication: Shortness of breath Technique: One view of the chest Comparison: 04/27/2018 Findings: Heart is enlarged. There is bilateral interstitial edema. There may be a slight component of airspace disease as well. There may be small bilateral pleural effusions. Impression: Findings consistent with congestive heart failure
--- NOTE | 2018-12-23 11:16 | Diagnostic Imaging Report ---
Indication: Post intubation Technique: One view of the chest Comparison: One hour earlier Findings: Interim endotracheal intubation, endotracheal tube tip projecting approximately 4 cm above the kai, in good position. There is again demonstrated bilateral interstitial edema, with slightly increased airspace edema/consolidation in the right infrahilar region. There may be a small right pleural effusion. The heart size is borderline enlarged. Impression: Satisfactory endotracheal intubation Slightly increased airspace edema in the right infrahilar region. This agrees with the preliminary interpretation provided overnight by [facility] service.
[2018-12-23] MEDS: NovoLOG Insulin Flexpen SUBQ SCH ×3 (11:31→20:43)
--- NOTE | 2018-12-23 11:42 | Diagnostic Imaging Report ---
Indication: Post nasogastric tube Technique: Supine view of the upper abdomen Comparison: None Findings: There is a gastric tube in place, tip which projects at the level gastric body, proximal port beyond the expected level of the gastroesophageal junction. The visualized bowel gas pattern is unremarkable Impression: Satisfactory gastric tube placement ICU nurse notified at the time of interpretation
--- NOTE | 2018-12-23 11:42 | NUR ---
Social Work This Sw met with patient, who is currently in the ICU (currently intubated/sedated). This SW made attempts to contact brotherKae ([phone]: no longer in service). This Sw spoke with patients sister in law, Glenny @ [phone] who explains patient lives with her brother, Kae, who was assisting patient as needed. Patient was ambulatory prior and did not use any DME. Patient does not have an AD or POLST (family request full code, full treatment). brother Pal is coming to visit patient this afternoon, but can be reached at home at the following number: [phone]. Pending current progress; SNF recommended vs home with home care as needed. Patient does not have any history of substance abuse or mental health concerns. Her baseline for cognition: alert/oriented x4. Patient speaks [place]atian (but also speaks/understands Urdu). Addendum: 12/23/18 at 1356 by KAILEE MCNAMARA Addendum: This Sw left a message with patients Kae cantu @ [phone] (awaiting call back at this time).
[2018-12-23] MEDS: Aspirin EC 81mg tab ORAL SCH (11:43)
[2018-12-23] MEDS: Methocarbamol 750mg tab ORAL SCH ×3 (11:44→17:10)
--- NOTE | 2018-12-23 12:00 | NUR ---
NURSE NOTES: Pt is agitated and restless. Pt is constantly trying to lift up upper body and to pull out ETT. Propofol drip rate increased to 50mcg/kg/min. Will continue to monitor.
[2018-12-23] MEDS ORDERED: LORazepam Inj 2mg/ml 1ml IV PRN (13:00)
--- NOTE | 2018-12-23 13:15 | NUR ---
NURSE NOTES: Notified Dr Boo regarding pt's current condition. Pt is on Propofol drip at max rate. Pt is still agitated and restless at times. Order for PRN Ativan received, noted, and carried out. 1mg Ativan IVP given. Will continue to monitor. Brother at bedside.
--- NOTE | 2018-12-23 14:19 | NUR ---
NURSE NOTES: Pt is calm and lightly sedated with Propofol drip at max rate. BP 105/59, RR 16. Brother at bedside. No respiratory distress noted.
--- NOTE | 2018-12-23 15:45 | NUR ---
RD ASSESSMENT & RECOMMENDATIONS SEE CARE ACTIVITY FOR COMPLETE ASSESSMENT DAILY ESTIMATED NEEDS: Needs based on DM, Cardiac, Critical Care/ 61kg abw 22-28 kcals/kg 0997-0465 total kcals 1-2 g protein/kg 61-122 g total protein 20-25 mL/kg 2630-5803 total fluid mLs NUTRITION DIAGNOSIS: * Swallowing difficulty R/T respiratory status as evidenced by pt orally intubated, NPO at this time. * Altered nutrition related lab values R/T CHF, diabetes as evidenced by elev BNP (3006), on lasix, A1C of 7.0. CURRENT TF:NPO PO DIET RECOMMENDATIONS: REMOTE PILOT OPERATOR evaluation post extubation -> LOW NA, CCHO MED/ texture per REMOTE PILOT OPERATOR ENTERAL NUTRITION RECOMMENDATIONS: Glucerna 1.5 @ 40ml/hr x 24 hrs to provide 960ml, 1440kcal, 79g prot, 729ml free water * As medically appropriate, initiate Glucerna 1.5 @ 20ml/hr x 6 hrs * Advance 10ml q 4-6 hrs as tolerated to goal rate * HOB over 30 degrees/ water flush per MD. ADDITIONAL RECOMMENDATIONS: * Calibrated bedscale wt for accurate CBW * Monitor lytes w/ diuretics, replete as needed * Monitor BGs closely w/ prednisone * REMOTE PILOT OPERATOR evaluation post extubation
--- NOTE | 2018-12-23 16:00 | History and Physical Report ---
DATE OF ADMISSION: 12/22/2018 CHIEF COMPLAINT: Respiratory failure and shortness of breath. HISTORY OF PRESENT ILLNESS: The patient is a 73-year-old female. She has a history of asthma, diabetes, and hypertension. She presented with complaints of shortness of breath. According to the patient's brother, she was well until several days prior to admission. She believes she got some type of a cold. She did present to an outside hospital over a week and received antibiotics for pharyngitis. On evaluation in the emergency room, the patient was noted to be dyspneic, but she became progressively more short of breath, required eventual intubation. She is now on the ventilator. She is awake, alert, but somewhat anxious and agitated. PAST MEDICAL HISTORY: As above. PAST SURGICAL HISTORY: Some type of gynecologic surgery and the family is not sure of exactly what type of surgery. CURRENT MEDICATIONS: Reconciled and reviewed. ALLERGIES: None. FAMILY HISTORY: Negative for heart problems. SOCIAL HISTORY: Negative for tobacco, ethanol, or drugs. REVIEW OF SYSTEMS: Unobtainable as the patient is currently intubated. PHYSICAL EXAMINATION: VITAL SIGNS: Temperature 98.5, pulse 81, respirations 16, blood pressure 110/61. GENERAL: The patient is a well-developed female, in no apparent distress. HEART: Regular rate and rhythm. LUNGS: Clear. ABDOMEN: Soft, nontender, nondistended. EXTREMITIES: Without clubbing, cyanosis, or edema. CURRENT DATA: Chest x-ray showed CHF. CT angio of the chest showed no evidence of PE. White count of 7, hemoglobin of 13, hematocrit 39, and platelets of 279,000. Coags are normal. Sodium 140 and potassium 3.1. ASSESSMENT: This is a pleasant female with a history of asthma, diabetes, hypertension, admitted with complaints of respiratory failure secondary to CHF exacerbation. Cannot rule out some component of asthma exacerbation. PLAN: With ventilatory support, diuresis, respiratory treatments, intravenous steroids. Monitor blood sugars. Venkat Ling JOB#: [id number] CC:
--- NOTE | 2018-12-23 16:13 | Cardiology Report ---
APPROVED REPORT EKG Measurement Heart [id number] Normal sinus rhythm Low voltage QRS Nonspecific T wave abnormality Abnormal ECG
--- NOTE | 2018-12-23 16:16 | NUR ---
NURSE NOTES: Cleaned and repositioned pt. Pt is lightly sedated. Pt is tolerating the current vent setting.
--- NOTE | 2018-12-23 16:27 | Cardiology Report ---
APPROVED REPORT EKG Measurement Heart [id number] Sinus tachycardia with premature supraventricular complexes Possible Anterior infarct, age undetermined Abnormal ECG
--- NOTE | 2018-12-23 18:17 | NUR ---
NURSE NOTES: Dr Martínez here to see the patient. Updated him with pt's current condition. Awaiting new orders.
--- NOTE | 2018-12-23 19:13 | NUR ---
RESPIRATORY NOTE: Received pt on AC 16, 500VT, 45%, PEEP +5. Pt intubated w/ ETT 7.5 @ 23cm lipline, secured by anchorfast. Pt currently sedated, tends to be combative when agitated. B/S eulogio. diminished, sxn scant amounts of thin, clear secretions. Both hands on soft restraints to prevent pt from self-extubation. Vent plugged into red outlet, ambubag at bedside. Pt in no apparent distress at this time. Will continue to monitor pt.
--- NOTE | 2018-12-23 19:19 | NUR ---
HAND-OFF: Report given to ANGELITO Fischer.
--- NOTE | 2018-12-23 19:20 | NUR ---
NURSE NOTES: Endorsement received from Petra Zamarripa RN. Patient sedated with RASS goal of -2. Orally intubated with ET 7.5, 23 lipline. AC 16 500 PEEP 5 45% FiO2. With NGT at right nare. Placement rechecked per auscultation. With right forearm g 20, left wrist g22. Propofol drip 50mcg/kg/min. Mosley catheter connected to urimeter. Head of bed elevated. Locked and in low position. Bed alarm on. Bilateral soft wrist restraints present for attempting to pull out tubings. Call light within reach.
[2018-12-23] MEDS: Atorvastatin 20mg tab ORAL SCH (20:40)
--- NOTE | 2018-12-23 21:00 | NUR ---
NURSE NOTES: Repositioned patient. Secretions suctioned. Noted with scant thick bloody secretions.
--- NOTE | 2018-12-23 23:00 | NUR ---
NURSE NOTES: Continues on propofol 50mcg/kg/min. RASS score of -2.
--- NOTE | 2018-12-23 23:15 | Consultation ---
DATE OF CONSULTATION: 12/23/2018 PULMONARY CONSULTATION REASON FOR CONSULTATION: Respiratory failure. HISTORY: This is a 73-year-old female, well known to me, who presents with acute respiratory failure. The patient presented to the emergency room with significant shortness of breath. The patient apparently developed it gradually over the past 24 hours and had difficulty catching a breath. The patient is noted to be orthopneic and dyspneic. The patient has recently completed antibiotics for possible pharyngitis, but did not improve. He came to the emergency room and the patient was noted to be in acute respiratory distress and required intubation. The patient has been agitated since and placed on propofol for sedation. X-ray is suggestive of probable pulmonary edema including pleural effusions. The patient did undergo CT of the chest for pulmonary embolism, which was negative. The patient was noted to have bilateral pulmonary changes with pleural effusions. The patient's care was discussed and reviewed with the family as well at the bedside and the findings discussed in detail. PAST MEDICAL HISTORY: Notable for hypercholesterolemia, asthma, sleep apnea, hypertension, cardiomyopathy with reduced ejection fraction of 45%, diabetes, pulmonary hypertension, and carotid stenosis. The patient also has history of asthma. PAST SURGICAL HISTORY: Prolapse bladder repair. FAMILY HISTORY: Notable for disease in old age, but also history of heart disease and stroke. SOCIAL HISTORY: The patient is retired. She lives with her brother. She does not smoke or drink and never did. REVIEW OF SYSTEMS: Unobtainable. PHYSICAL EXAMINATION: GENERAL: A well-developed female, currently sedated on the ventilator. VITAL SIGNS: Reviewed. Blood pressure 106/57, pulse 72, respirations 16, sats 97%, and temperature is 99. HEENT: Negative. NECK: Supple. The patient is orally intubated. Carotids 2+. Mild jugular venous distention noted. LUNGS: With crackles at both bases with reduced air entry. CARDIAC: S1, S2. Regular rate and rhythm without murmurs, rubs, or gallops. ABDOMEN: Overall soft, nontender, and nondistended. G-tube in place. EXTREMITIES: No cyanosis, clubbing, or edema. NEUROLOGICALLY: Sedated and difficult to fully assess. SKIN: Noted and reviewed. LABORATORY DATA: Reviewed. White count 7.9, hemoglobin 11, hematocrit 33, and platelets 235,000. Chemistries noted, potassium 3.1 and blood sugar 127. Troponin 0.012. CT scan was reviewed and discussed. EKG reviewed. IMPRESSION: 1. Respiratory failure, acute. 2. Pulmonary edema, acute. 3. History of cardiomyopathy. 4. History of asthma. 5. Debility. 6. History of coronary artery disease. 7. History of diabetes. 8. Recent pharyngitis. 9. Hypercholesterolemia. RECOMMENDATIONS: 1. Supportive care. 2. Propofol and Ativan. 3. Monitor clinically. 4. Recommend ventilatory support overnight and try to wean off the ventilator in a.m. 5. IV Lasix. 6. Resume home medications and taper prednisone. 7. Maintain cholesterol level. 8. Obtain Cardiology evaluation. 9. Reassess and recommend further with hope for improvement in disposition once overall improved. Wilfred Boo M.D. DR: STEPH JOB#: [id number] CC:
[2018-12-24] VITALS (31 sets, daily range): BP systolic 95–138; BP diastolic 55–75
--- NOTE | 2018-12-24 01:00 | NUR ---
NURSE NOTES: Patient sedated. No desaturation. Normal sinus rhythm on the monitor. Bilateral soft wrist restraints in place. Bilateral feet kept elevated.
--- NOTE | 2018-12-24 03:00 | NUR ---
NURSE NOTES: Bed bath, oral care, change of linens done. Skin intact.
--- NOTE | 2018-12-24 04:00 | NUR ---
NURSE NOTES: Propofol drip decreased to 45mcg/kg/min for sedation vacation. Will continue to titrate accordingly. Addendum: 12/24/18 at 0429 by GIOVANA TSE RN NURSE NOTES: Propofol drip decreased to 45mcg/kg/min to keep RASS -2. Will continue to titrate accordingly.
[2018-12-24 05:39] LABS: BASOPHILS % (AUTO) 0.9 % (0.0-2.0); EOSINOPHILS % (AUTO) 0.1 % (0.0-3.0); HEMATOCRIT 34.8 % (37.0-47.0); HEMOGLOBIN 11.4 G/DL (12.0-16.0); LYMPHOCYTES % (AUTO) 17.7 % (20.0-45.0); MEAN CORPUSCULAR VOLUME 86 FL (80-99); MONOCYTES % (AUTO) 9.9 % (1.0-10.0); NEUTROPHILS % (AUTO) 71.4 % (45.0-75.0); PLATELET COUNT 228 K/UL (150-450); RED BLOOD COUNT 4.07 M/UL (4.20-5.40); RED CELL DISTRIBUTION WIDTH 13.5 % (11.6-14.8); WHITE BLOOD COUNT 7.7 K/UL (4.8-10.8)
[2018-12-24] MEDS: NovoLOG Insulin Flexpen SUBQ SCH ×4 (05:43→20:57)
--- NOTE | 2018-12-24 06:00 | Consultation ---
DATE OF CONSULTATION: 12/23/2018 CARDIOLOGY CONSULTATION CONSULTING PHYSICIAN: Travis Martínez M.D. REQUESTING PHYSICIANS: 1. Claus Batista M.D. 2. Wilfred Boo M.D. REASON FOR CONSULTATION: Congestive heart failure in the setting of respiratory failure. HISTORY: This is a 73-year-old female, who presented to the emergency room with shortness of breath that was relatively acute in onset and resulted in acute respiratory failure requiring intubation and mechanical ventilation. The patient has never been on a mechanical ventilator in the past. PAST MEDICAL HISTORY: Hyperlipidemia, chronic obstructive pulmonary disease, sleep apnea, hypertension, hypertensive cardiomyopathy, diabetes mellitus, pulmonary hypertension, carotid stenosis, and prolapsed bladder. FAMILY HISTORY: Noncontributory. SOCIAL HISTORY: Negative for smoking, alcohol, or substance abuse. She lives with her brother. REVIEW OF SYSTEMS: Unremarkable. PHYSICAL EXAM: GENERAL: Orally intubated, sedated, and noncommunicative. VITAL SIGNS: Blood pressure 105/50, pulse 72, respirations 16. Afebrile. T-max 99. HEENT: Conjunctiva pink. Orally intubated. NECK: Supple. Jugular venous pressure elevated. LUNGS: With bilateral rales. Had reduced breath sounds. CARDIAC: Regular rhythm and rate. Normal S1, S2 with no murmur. ABDOMEN: Soft and nontender. EXTREMITIES: No clubbing, cyanosis, or edema. NEUROLOGIC: Moves all extremities. LABORATORY DATA: White count 7.9 and hemoglobin 11. Potassium 3.1. Troponin 0.012. Chest x-ray, bilateral effusions and pulmonary venous congestion. EKG, sinus rhythm and nonspecific ST-T wave change. IMPRESSION: 1. Acute respiratory failure. 2. Pulmonary edema. 3. Hypertensive cardiomyopathy. 4. Bronchospastic lung disease. 5. Coronary atherosclerosis. 6. Type 2 diabetes mellitus. 7. Pleural effusion. PLAN: 1. Ventilator support. 2. Diuresis. 3. Respiratory hygiene. 4. Inhaled bronchodilators. 5. Venous duplex scan. 6. DVT prophylaxis. 7. Echocardiogram. 8. Further recommendations will follow based on clinical course. Travis Martínez M.D. DR: DANA JOB#: [id number] CC:
--- NOTE | 2018-12-24 06:00 | NUR ---
NURSE NOTES: Patient on Propofol drip 30mcg/kg/min, maintaining RASS -2
[2018-12-24 06:12] LABS: ALANINE AMINOTRANSFERASE 39 U/L (12-78); ALBUMIN/GLOBULIN RATIO 0.9 (1.0-2.7); ALKALINE PHOSPHATASE 43 U/L (46-116); ANION GAP 12 mmol/L (5-15); ASPARTATE AMINO TRANSFERASE 22 U/L (15-37); BILIRUBIN,DIRECT 0.2 MG/DL (0.0-0.3); BILIRUBIN,TOTAL 1.3 MG/DL (0.2-1.0); BLOOD UREA NITROGEN 14 mg/dL (7-18); CALCIUM 8.3 MG/DL (8.5-10.1); CARBON DIOXIDE 24 MMOL/L (21-32); CHLORIDE 104 MMOL/L (98-107); CREATININE 0.7 MG/DL (0.55-1.30); POTASSIUM 2.8 MMOL/L (3.5-5.1); SODIUM 139 MMOL/L (136-145); TRIGLYCERIDES 105 MG/DL (30-150)
--- NOTE | 2018-12-24 07:00 | NUR ---
RESPIRATORY- Received Patient on Vent settings ACVC RR 16, VT 500, FIO2 45%, PEEP +5. Patient is intubated with 7.5 ETT at 23 cm at the lip, secured with anchorfast. Bilateral rhonchi breath sounds heard throughout lung daugherty. Suctioned small amounts of bloody secretions through the ET tube. Alarms are on and audible. Vent plugged into red outlet. Will continue to closely monitor throughout the day.
--- NOTE | 2018-12-24 07:14 | NUR ---
HAND-OFF: Report given to ANGELITO Damon.
--- NOTE | 2018-12-24 08:00 | NUR ---
NURSE NOTES: Opens eyes, sedated. SR on nursing officer. INtubated 7.5 /23 cm lipline. AC 16 VT 500 Peep 5 Fio2 45%. Lung sounds diminished bilaterally. Patietn has R nare ngt. hypoactive bowel sounds present. Patient has R foearm 20 L wrist 22. Propofol at 30 mcg/kg/hr. VSS at this time. Family updated of patient status and plan of care. Bilateral restraints intact. WIll continue plan of care.
[2018-12-24] MEDS: Aspirin EC 81mg tab ORAL SCH (09:00)
[2018-12-24] MEDS: Methocarbamol 750mg tab ORAL SCH ×3 (09:01→17:05)
[2018-12-24] MEDS: Heparin 5000 units/ml inj SUBQ SCH ×2 (09:02→21:00)
--- NOTE | 2018-12-24 09:12 | NUR ---
Weaning criteria passed. Spontaneous Breathing Trial started at 0912. Placed on PS +8 PEEP +5 FIO2 45%. Will continue to closely monitor. ANGELITO Trevinoi aware.
--- NOTE | 2018-12-24 10:00 | NUR ---
NURSE NOTES: Patient stable. VSS. Dr. Boo at bedside. Doctor wants patient to be weaned ON Propofol with close monitoring. RT aware. Will continue plan of care.
--- NOTE | 2018-12-24 11:20 | NUR ---
ABG drawn at 1118. Results show improvement. Placed patient back on to ACVC previous settings at 1120. Tolerated weaning very well. RN Ani aware.
--- NOTE | 2018-12-24 12:00 | NUR ---
NURSE NOTES: VSS. CPAP PS 8. TOlerating well. No distress noted. MD notified. ORder obtained for extubation.
--- NOTE | 2018-12-24 12:41 | Cardiology Report ---
APPROVED REPORT EXAM: Two-dimensional and M-mode echocardiogram with Doppler and color Doppler. INDICATION Congestive Heart Failure M-Mode DIMENSIONS IVSd1.2 (0.7-1.1cm)Left Atrium (MM)3.3 (1.6-4.0cm) LVDd4.5 (3.5-5.6cm)Aortic Root2.4 (2.0-3.7cm) PWd1.1 (0.7-1.1cm)Aortic Cusp Exc.1.7 (1.5-2.0cm) LVDs4.0 (2.5-4.0cm) PWs1.4 cm Normal left ventricular chamber size. Global left ventricular hypokinesis. Left ventricular ejection fraction estimated to be 35 %. Mild left ventricular hypertrophy. Anterior Echo-free space, may be due to pericardial fat or effusion. All other cardiac chamber sizes are within normal limits. Focal aortic valve sclerosis with adequate cusp excursion. Thickened mitral valve leaflets with normal excursion. Mild mitral annulus and aortic root calcification. Pulmonic valve not well visualized. Normal tricuspid valve structure. IVC dilated at 2.2 cm without physiological collapse, suggestive of increased RA pressure. A color flow and spectral Doppler study was performed and revealed: No aortic insufficiency. Mild mitral regurgitation. Mitral inflow indicates increased left atrial pressure, suggestive restrictive pattern (Grade III). Mild tricuspid regurgitation. Tricuspid systolic velocities suggests peak right ventricular systolic pressure of 48 mmHg, consistent with moderate pulmonary hypertension. Trace pulmonic regurgitation present.
--- NOTE | 2018-12-24 13:14 | NUR ---
NURSE NOTES: Patient extubated at 13:05. VSS. No distress noted. Patient remains uncooperative and agitated. VItals stable at this time.
--- NOTE | 2018-12-24 13:17 | NUR ---
Successfully extubated patient at 1305. Placed on venturi mask 12LPM 50%Fio2. Will continue to monitor patient at this time.
--- NOTE | 2018-12-24 15:43 | Critical Care Progress Note ---
Assessment/Plan Assessment/Plan IMPRESSION: 1. Respiratory failure, acute. 2. Pulmonary edema, acute. 3. History of cardiomyopathy. 4. History of asthma. 5. Debility. 6. History of coronary artery disease. 7. History of diabetes. 8. Recent pharyngitis. 9. Hypercholesterolemia. PLAN ventilator support wean and per discussion- successfully extubated respiratory care cards follow up monitor for change in ICU monitor swallow ability ICU care and management monitor as is will follow up for change medications/laboratory data/nursing notes/ICU care reviewed in detail note reviewed and edited care discussed with RN and RT ICU time spent 30 minutes Critical Care - Subjective Interval Events: seen earlier on vent when seen d/w RN- tolerated wean; extubated ROS Limited/Unobtainable: Yes Condition: critical EKG Rhythm: Sinus Rhythm I&O: Intake and Output 12/23/18 12/24/18 19:00 07:00 Intake Total 510.994 ml 314.808 ml Output Total 860 ml 380 ml Balance -349.006 ml -65.192 ml Intake Oral 0 ml 0 ml IV Total 430.994 ml 254.808 ml Other 80 ml 60 ml Output Urine Total 860 ml 380 ml Critical Care - Objective ET-Tube: 7.5 ET Position: 23 Last 24 Hour Vital Signs Date Time Temp Pulse Resp B/P (MAP) Pulse Ox O2 Delivery O2 Flow Rate FiO2 12/24/18 15:00 82 16 113/65 (81) 99 12/24/18 14:00 80 16 115/70 (85) 99 12/24/18 13:15 99 Venturi Mask 12.0 50 12/24/18 13:14 Venturi Mask 12.0 50 12/24/18 13:00 88 16 110/68 (82) 99 12/24/18 12:00 Mechanical Ventilator 12/24/18 12:00 98.4 84 18 120/65 (83) 99 12/24/18 12:00 88 12/24/18 12:00 45 12/24/18 11:20 97 19 45 12/24/18 11:15 80 19 45 12/24/18 11:00 87 16 108/68 (81) 99 12/24/18 10:00 90 16 105/65 (78) 99 12/24/18 09:13 93 16 45 12/24/18 09:12 92 16 45 45 12/24/18 09:00 92 16 95/60 (72) 99 12/24/18 09:00 100 12/24/18 08:21 22 108/64 Mechanical Ventilator 12/24/18 08:00 45 12/24/18 08:00 20 105/58 Mechanical Ventilator 12/24/18 08:00 98.8 89 16 108/64 (79) 99 12/24/18 08:00 81 12/24/18 08:00 Mechanical Ventilator 12/24/18 07:13 93 16 45 12/24/18 07:00 16 100/59 Mechanical Ventilator 45 12/24/18 07:00 95 16 100/59 (73) 99 12/24/18 06:00 90 16 110/55 (73) 99 12/24/18 06:00 16 110/55 Mechanical Ventilator 45 12/24/18 05:11 90 16 45 12/24/18 05:00 92 16 108/62 (77) 100 12/24/18 05:00 16 113/92 Mechanical Ventilator 45 12/24/18 04:45 16 113/62 Mechanical Ventilator 45 12/24/18 04:45 76 15 113/62 (79) 100 12/24/18 04:30 82 16 107/66 (80) 99 12/24/18 04:30 16 107/66 Mechanical Ventilator 45 12/24/18 04:15 82 16 107/63 (78) 99 12/24/18 04:15 16 107/63 Mechanical Ventilator 45 12/24/18 04:00 45 12/24/18 04:00 Mechanical Ventilator 12/24/18 04:00 16 107/63 Mechanical Ventilator 45 12/24/18 04:00 98.3 92 16 110/69 (83) 100 12/24/18 04:00 79 12/24/18 03:03 89 16 45 12/24/18 03:00 16 107/63 Mechanical Ventilator 45 12/24/18 03:00 81 16 107/63 (78) 99 12/24/18 02:00 16 114/58 Mechanical Ventilator 45 12/24/18 02:00 89 16 111/65 (80) 99 12/24/18 01:49 16 101/60 Non-Rebreather 45 12/24/18 01:08 90 16 45 12/24/18 01:00 91 16 107/61 (76) 99 12/24/18 01:00 16 107/61 Mechanical Ventilator 45 12/24/18 00:00 80 12/24/18 00:00 16 101/54 Mechanical Ventilator 45 12/24/18 00:00 Mechanical Ventilator 12/24/18 00:00 45 12/24/18 00:00 98.5 85 16 104/62 (76) 99 12/23/18 23:04 80 16 45 12/23/18 23:00 80 16 103/56 (72) 99 12/23/18 23:00 16 102/56 Mechanical Ventilator 45 12/23/18 22:00 16 119/70 Mechanical Ventilator 45 12/23/18 22:00 84 16 119/70 (86) 100 12/23/18 21:37 16 119/74 Mechanical Ventilator 45 12/23/18 21:09 86 16 45 12/23/18 21:00 16 120/71 Mechanical Ventilator 45 12/23/18 21:00 82 15 118/78 (91) 99 12/23/18 20:00 45 12/23/18 20:00 98.7 79 16 111/66 (81) 98 12/23/18 20:00 78 12/23/18 20:00 16 111/66 Mechanical Ventilator 45 12/23/18 20:00 Mechanical Ventilator 12/23/18 19:30 79 16 106/64 (78) 98 12/23/18 19:11 78 16 45 12/23/18 19:00 16 112/66 Mechanical Ventilator 45 12/23/18 19:00 73 16 112/66 (81) 98 12/23/18 18:00 16 108/61 Mechanical Ventilator 45 12/23/18 18:00 74 16 108/61 (77) 98 12/23/18 17:28 80 16 45 12/23/18 17:13 16 114/66 Mechanical Ventilator 45 12/23/18 17:00 16 110/69 Mechanical Ventilator 45 12/23/18 17:00 84 16 110/69 (83) 98 12/23/18 16:00 Mechanical Ventilator 12/23/18 16:00 98.9 72 16 106/57 (73) 97 12/23/18 16:00 16 105/63 Mechanical Ventilator 45 12/23/18 16:00 45 Labs: Laboratory Tests Test 12/24/18 04:35 12/24/18 08:20 12/24/18 11:06 White Blood Count 7.7 K/UL (4.8-10.8) Red Blood Count 4.07 M/UL (4.20-5.40) L Hemoglobin 11.4 G/DL (12.0-16.0) L Hematocrit 34.8 % (37.0-47.0) L Mean Corpuscular Volume 86 FL (80-99) Mean Corpuscular Hemoglobin 28.0 PG (27.0-31.0) Mean Corpuscular Hemoglobin Concent 32.7 G/DL (32.0-36.0) Red Cell Distribution Width 13.5 % (11.6-14.8) Platelet Count 228 K/UL (150-450) Mean Platelet Volume 7.7 FL (6.5-10.1) Neutrophils (%) (Auto) 71.4 % (45.0-75.0) Lymphocytes (%) (Auto) 17.7 % (20.0-45.0) L Monocytes (%) (Auto) 9.9 % (1.0-10.0) Eosinophils (%) (Auto) 0.1 % (0.0-3.0) Basophils (%) (Auto) 0.9 % (0.0-2.0) Sodium Level 139 MMOL/L (136-145) Potassium Level 2.8 MMOL/L (3.5-5.1) L Chloride Level 104 MMOL/L (98-107) Carbon Dioxide Level 24 MMOL/L (21-32) Anion Gap 12 mmol/L (5-15) Blood Urea Nitrogen 14 mg/dL (7-18) Creatinine 0.7 MG/DL (0.55-1.30) Estimat Glomerular Filtration Rate mL/min (>60) Glucose Level 124 MG/DL (74-106) H Calcium Level 8.3 MG/DL (8.5-10.1) L Total Bilirubin 1.3 MG/DL (0.2-1.0) H Direct Bilirubin 0.2 MG/DL (0.0-0.3) Aspartate Amino Transf (AST/SGOT) 22 U/L (15-37) Alanine Aminotransferase (ALT/SGPT) 39 U/L (12-78) Alkaline Phosphatase 43 U/L (46-116) L Total Protein 6.2 G/DL (6.4-8.2) L Albumin 3.0 G/DL (3.4-5.0) L Globulin 3.2 g/dL Albumin/Globulin Ratio 0.9 (1.0-2.7) L Triglycerides Level 105 MG/DL (30-150) Arterial Blood pH 7.479 (7.350-7.450) 7.457 (7.350-7.450) Arterial Blood Partial Pressure CO2 30.6 mmHg (35.0-45.0) L 34.1 mmHg (35.0-45.0) L Arterial Blood Partial Pressure O2 132.8 mmHg (75.0-100.0) H 97.8 mmHg (75.0-100.0) Arterial Blood HCO3 22.2 mmol/L (22.0-26.0) 23.5 mmol/L (22.0-26.0) Arterial Blood Oxygen Saturation 98.5 % (95-100) 97.3 % (95-100) Arterial Blood Base Excess -0.5 (-2-2) 0.2 (-2-2) Black Test Positive Positive Objective: GENERAL: A well-developed female, currently sedated on the ventilator. when seen HEENT: Negative. NECK: Supple. The patient is orally intubated. Carotids 2+. Mild jugular venous distention noted. LUNGS: With reduced breath sounds at both bases with reduced air entry. occasional rhonchi CARDIAC: S1, S2. Regular rate and rhythm without murmurs, rubs, or gallops. ABDOMEN: Overall soft, nontender, and nondistended. G-tube in place. EXTREMITIES: No cyanosis, clubbing, or edema. NEUROLOGICALLY: Sedated and difficult to fully assess. SKIN: Noted and reviewed. reviewed and edited Micro: Microbiology Date/Time Source Procedure Growth Status 12/23/18 06:00 Sputum Gram Stain - Final Resulted 12/23/18 06:00 Sputum Sputum Culture - Preliminary NORMAL UPPER RESPIRATORY MERLIN AT 24 ... Resulted 12/23/18 01:55 Rectum Received Accucheck: 118 Wilfred Boo MD December 24, 2018 15:43
--- NOTE | 2018-12-24 15:49 | NUR ---
NURSE NOTES: VSS. No distress noted. Family at bedside. Restraints DCed. Will continue plan of care.
[2018-12-24] MEDS ORDERED: Etomidate 40mg/20ml Inj IV ONE (16:01)
--- NOTE | 2018-12-24 16:41 | General Progress Note ---
Assessment/Plan Problem List: (1) Dyspnea ICD Codes: R06.00 - Dyspnea, unspecified SNOMED: 775542230 (2) Reactive airway disease ICD Codes: J45.909 - Unspecified asthma, uncomplicated SNOMED: 141466689159 (3) COPD exacerbation ICD Codes: J44.1 - Chronic obstructive pulmonary disease with (acute) exacerbation SNOMED: 043906812, 878455376 (4) Hypertension ICD Codes: I10 - Essential (primary) hypertension SNOMED: 49319543 (5) Bronchitis ICD Codes: J40 - Bronchitis, not specified as acute or chronic SNOMED: 73475472 (6) CHF (congestive heart failure) ICD Codes: I50.9 - Heart failure, unspecified SNOMED: 28439475 (7) SOB (shortness of breath) ICD Codes: R06.02 - Shortness of breath SNOMED: 955172322 Status: stable, progressing Assessment/Plan: wean vent wean sedation steroids replace k abx dvt/stress ulcer prophylaxis Subjective Time patient seen: 07:00 ROS Limited/Unobtainable: No Constitutional: Reports: malaise, weakness HEENT: Reports: no symptoms Cardiovascular: Reports: no symptoms Respiratory: Reports: no symptoms Gastrointestinal/Abdominal: Reports: no symptoms Genitourinary: Reports: no symptoms Neurologic/Psychiatric: Reports: no symptoms Endocrine: Reports: no symptoms Hematologic/Lymphatic: Reports: no symptoms Allergies: Coded Allergies: Dust (Verified Allergy, Mild, Itching, 11/06/15) All Systems: reviewed and negative except above Subjective no events. remains intubated and sedated. easily agitated. Objective Last 24 Hour Vital Signs Date Time Temp Pulse Resp B/P (MAP) Pulse Ox O2 Delivery O2 Flow Rate FiO2 12/24/18 15:00 82 16 113/65 (81) 99 12/24/18 14:00 80 16 115/70 (85) 99 12/24/18 13:15 99 Venturi Mask 12.0 50 12/24/18 13:14 Venturi Mask 12.0 50 12/24/18 13:00 88 16 110/68 (82) 99 12/24/18 12:00 Mechanical Ventilator 12/24/18 12:00 98.4 84 18 120/65 (83) 99 12/24/18 12:00 88 12/24/18 12:00 45 12/24/18 11:20 97 19 45 12/24/18 11:15 80 19 45 12/24/18 11:00 87 16 108/68 (81) 99 12/24/18 10:00 90 16 105/65 (78) 99 12/24/18 09:13 93 16 45 12/24/18 09:12 92 16 45 45 12/24/18 09:00 92 16 95/60 (72) 99 12/24/18 09:00 100 12/24/18 08:51 22 100/65 Mechanical Ventilator 12/24/18 08:36 21 102/52 Mechanical Ventilator 12/24/18 08:21 22 108/64 Mechanical Ventilator 12/24/18 08:00 45 12/24/18 08:00 20 105/58 Mechanical Ventilator 12/24/18 08:00 98.8 89 16 108/64 (79) 99 12/24/18 08:00 81 12/24/18 08:00 Mechanical Ventilator 12/24/18 07:13 93 16 45 12/24/18 07:00 16 100/59 Mechanical Ventilator 45 12/24/18 07:00 95 16 100/59 (73) 99 12/24/18 06:00 90 16 110/55 (73) 99 12/24/18 06:00 16 110/55 Mechanical Ventilator 45 12/24/18 05:11 90 16 45 12/24/18 05:00 92 16 108/62 (77) 100 12/24/18 05:00 16 113/92 Mechanical Ventilator 45 12/24/18 04:45 16 113/62 Mechanical Ventilator 45 12/24/18 04:45 76 15 113/62 (79) 100 12/24/18 04:30 82 16 107/66 (80) 99 12/24/18 04:30 16 107/66 Mechanical Ventilator 45 12/24/18 04:15 82 16 107/63 (78) 99 12/24/18 04:15 16 107/63 Mechanical Ventilator 45 12/24/18 04:00 45 12/24/18 04:00 Mechanical Ventilator 12/24/18 04:00 16 107/63 Mechanical Ventilator 45 12/24/18 04:00 98.3 92 16 110/69 (83) 100 12/24/18 04:00 79 12/24/18 03:03 89 16 45 12/24/18 03:00 16 107/63 Mechanical Ventilator 45 12/24/18 03:00 81 16 107/63 (78) 99 12/24/18 02:00 16 114/58 Mechanical Ventilator 45 12/24/18 02:00 89 16 111/65 (80) 99 12/24/18 01:49 16 101/60 Non-Rebreather 45 12/24/18 01:08 90 16 45 12/24/18 01:00 91 16 107/61 (76) 99 12/24/18 01:00 16 107/61 Mechanical Ventilator 45 12/24/18 00:00 80 12/24/18 00:00 16 101/54 Mechanical Ventilator 45 12/24/18 00:00 Mechanical Ventilator 12/24/18 00:00 45 12/24/18 00:00 98.5 85 16 104/62 (76) 99 12/23/18 23:04 80 16 45 12/23/18 23:00 80 16 103/56 (72) 99 12/23/18 23:00 16 102/56 Mechanical Ventilator 45 12/23/18 22:00 16 119/70 Mechanical Ventilator 45 12/23/18 22:00 84 16 119/70 (86) 100 12/23/18 21:37 16 119/74 Mechanical Ventilator 45 12/23/18 21:09 86 16 45 12/23/18 21:00 16 120/71 Mechanical Ventilator 45 12/23/18 21:00 82 15 118/78 (91) 99 12/23/18 20:00 45 12/23/18 20:00 98.7 79 16 111/66 (81) 98 12/23/18 20:00 78 12/23/18 20:00 16 111/66 Mechanical Ventilator 45 12/23/18 20:00 Mechanical Ventilator 12/23/18 19:30 79 16 106/64 (78) 98 12/23/18 19:11 78 16 45 12/23/18 19:00 16 112/66 Mechanical Ventilator 45 12/23/18 19:00 73 16 112/66 (81) 98 12/23/18 18:00 16 108/61 Mechanical Ventilator 45 12/23/18 18:00 74 16 108/61 (77) 98 12/23/18 17:28 80 16 45 12/23/18 17:13 16 114/66 Mechanical Ventilator 45 12/23/18 17:00 16 110/69 Mechanical Ventilator 45 12/23/18 17:00 84 16 110/69 (83) 98 Intake and Output 12/23/18 12/24/18 19:00 07:00 Intake Total 510.994 ml 314.808 ml Output Total 860 ml 380 ml Balance -349.006 ml -65.192 ml Intake Oral 0 ml 0 ml IV Total 430.994 ml 254.808 ml Other 80 ml 60 ml Output Urine Total 860 ml 380 ml Laboratory Tests 12/24/18 04:35: White Blood Count 7.7, Red Blood Count 4.07L, Hemoglobin 11.4L, Hematocrit 34.8L , Mean Corpuscular Volume 86, Mean Corpuscular Hemoglobin 28.0, Mean Corpuscular Hemoglobin Concent 32.7, Red Cell Distribution Width 13.5, Platelet Count 228, Mean Platelet Volume 7.7, Neutrophils (%) (Auto) 71.4, Lymphocytes (% ) (Auto) 17.7L, Monocytes (%) (Auto) 9.9, Eosinophils (%) (Auto) 0.1, Basophils (%) (Auto) 0.9, Sodium Level 139, Potassium Level 2.8L, Chloride Level 104, Carbon Dioxide Level 24, Anion Gap 12, Blood Urea Nitrogen 14, Creatinine 0.7, Estimat Glomerular Filtration Rate , Glucose Level 124H, Calcium Level 8.3L, Total Bilirubin 1.3H, Direct Bilirubin 0.2, Aspartate Amino Transf (AST/SGOT) 22 , Alanine Aminotransferase (ALT/SGPT) 39, Alkaline Phosphatase 43L, Total Protein 6.2L, Albumin 3.0L, Globulin 3.2, Albumin/Globulin Ratio 0.9L, Triglycerides Level 105 12/24/18 08:20: Arterial Blood pH 7.479H, Arterial Blood Partial Pressure CO2 30.6L, Arterial Blood Partial Pressure O2 132.8H, Arterial Blood HCO3 22.2, Arterial Blood Oxygen Saturation 98.5, Arterial Blood Base Excess -0.5, Black Test Positive 12/24/18 11:06: Arterial Blood pH 7.457H, Arterial Blood Partial Pressure CO2 34.1L, Arterial Blood Partial Pressure O2 97.8, Arterial Blood HCO3 23.5, Arterial Blood Oxygen Saturation 97.3, Arterial Blood Base Excess 0.2, Black Test Positive Height (Feet): 5 Height (Inches): 4.00 Weight (Pounds): 180 General Appearance: WD/WN, lethargic Neck: supple Cardiovascular: regular rhythm Respiratory/Chest: chest wall non-tender, lungs clear, normal breath sounds Abdomen: normal bowel sounds, non tender, soft, no organomegaly Edema: no edema noted Arm (L), no edema noted Arm (R), no edema noted Leg (L), no edema noted Leg (R), no edema noted Pedal (L), no edema noted Pedal (R), no edema noted Generalized Neurologic: unresponsive Claus Batista MD December 24, 2018 16:41
--- NOTE | 2018-12-24 18:07 | NUR ---
NURSE NOTES: VSS. A&O x4. No distress noted. Will continue plan of care.
--- NOTE | 2018-12-24 19:00 | NUR ---
NURSE NOTES: Endorsement received from ANGELITO Damon. Patient alert and oriented x3. On Venti mask 40%. S/P extubation this afternoon. No shortness of breath. NGT at right nare, patent and intact. Pending swallow eval. With right forearm g 20 and left wrist g 22. Mosley cath F16 draining to urimeter. Bed locked and in low position. Bed alarm on. Call light within reach. Reminded patient to use call light for assistance.
[2018-12-24] MEDS: Atorvastatin 20mg tab ORAL SCH (20:58)
--- NOTE | 2018-12-24 21:00 | NUR ---
NURSE NOTES: Patient informed RN that she's taking an inhaler before going to sleep at home and also requesting for sleeping pill. As per her, her brother knows the name of the inhaler. Called her brother and confirmed that she takes Breo [address] Boo and received an order for Ambien 5mg QHS PRN for insomnia and Breo 10/25 1 puff at HS.
[2018-12-24] MEDS ORDERED: Zolpidem 5mg tab NG PRN (21:15)
[2018-12-24] MEDS ORDERED: Breo Ellipta 100/25mcg - 14 dose INH SCH (21:30)
--- NOTE | 2018-12-24 22:00 | NUR ---
NURSE NOTES: Assisted patient in changing gown, linens before going to sleep
--- NOTE | 2018-12-24 23:00 | NUR ---
NURSE NOTES: Patient with eyes closed. 97% saturation on the monitor.
[2018-12-25] VITALS (15 sets, daily range): BP systolic 100–129; BP diastolic 48–72
--- NOTE | 2018-12-25 | NUR ---
NURSE NOTES: Patient awake. No shortness of breath. Complained of 6/10 pain at throat. Advil PRN given. Will reassess
[2018-12-25] MEDS ORDERED: Lisinopril 20mg tab ORAL ONE (00:30)
--- NOTE | 2018-12-25 01:00 | Progress Note ---
DATE: 12/24/2018 SUBJECTIVE: The patient remains in the intensive care unit. Orally intubated. Mechanically, ventilated. Sedated and agitated at times. OBJECTIVE: VITAL SIGNS: Blood pressure is 113/65, heart rate 82, respiratory rate 16. Monitored rhythm, sinus. No change in review of systems. LUNGS: Coarse breath sounds. Scattered rhonchi. HEART: Regular rhythm and rate. Normal S1, S2. ABDOMEN: Soft. EXTREMITIES: Trace edema. LABORATORY AND DIAGNOSTIC DATA: Echocardiogram has revealed significant reduction and ejection fraction of 35% to 40% with moderate pulmonary hypertension. White count 7.7, hemoglobin 11.4. Sodium 139, potassium 3.8, bicarbonate 24, BUN 14, creatinine 0.7. Albumin 3.0. IMPRESSION: 1. Respiratory failure. 2. Acute on chronic systolic congestive heart failure. 3. Pulmonary hypertension. 4. COPD. 5. Hypokalemia. PLAN: 1. Ventilator support, wean as able. 2. Diuresis. 3. Maximize anti-failure rate therapy. 4. Respiratory hygiene. 5. DVT prophylaxis. Travis Martínez M.D. DR: ANGELA JOB#: [id number] CC:
--- NOTE | 2018-12-25 02:00 | NUR ---
NURSE NOTES: Patient asleep. No pain or discomfort.
--- NOTE | 2018-12-25 04:00 | NUR ---
NURSE NOTES: Patient awake, reported her lips are dry. Applied A&D. Went back to sleep afterwards
[2018-12-25 05:44] LABS: EOSINOPHILS % (AUTO) 0.2 % (0.0-3.0); HEMATOCRIT 36.4 % (37.0-47.0); LYMPHOCYTES % (AUTO) 23.8 % (20.0-45.0); MEAN CORPUSCULAR VOLUME 85 FL (80-99); PLATELET COUNT 237 K/UL (150-450); RED BLOOD COUNT 4.26 M/UL (4.20-5.40); RED CELL DISTRIBUTION WIDTH 13.7 % (11.6-14.8); WHITE BLOOD COUNT 6.8 K/UL (4.8-10.8)
[2018-12-25 06:21] LABS: ALANINE AMINOTRANSFERASE 31 U/L (12-78); ALBUMIN/GLOBULIN RATIO 0.8 (1.0-2.7); ALKALINE PHOSPHATASE 45 U/L (46-116); ANION GAP 9 mmol/L (5-15); ASPARTATE AMINO TRANSFERASE 21 U/L (15-37); BILIRUBIN,TOTAL 1.6 MG/DL (0.2-1.0); BLOOD UREA NITROGEN 21 mg/dL (7-18); CALCIUM 8.7 MG/DL (8.5-10.1); CARBON DIOXIDE 27 MMOL/L (21-32); CHLORIDE 107 MMOL/L (98-107); CREATININE 0.7 MG/DL (0.55-1.30); SODIUM 143 MMOL/L (136-145)
[2018-12-25] MEDS: NovoLOG Insulin Flexpen SUBQ SCH ×4 (06:27→22:09)
[2018-12-25 06:29] LABS: BILIRUBIN,DIRECT 8.9 MG/DL (0.0-0.3)
--- NOTE | 2018-12-25 06:30 | NUR ---
NURSE NOTES: Blood sugar checked, 91mg/dl. Offered morning care, refused at this time. As per her she wants to sleep more.
--- NOTE | 2018-12-25 07:18 | NUR ---
HAND-OFF: Report given to Je.
--- NOTE | 2018-12-25 07:37 | NUR ---
NURSE NOTES: Received patient from ANGELITO Walters. patient is awake and verbally responsive to commands. patient complains of throat pain at this time. 3 liters of oxygen via nasal cannula, no s/sx of respiratory distress noted. patient has NGT, patent and intact. IV sites patent and intact. bed in lowest position and locked, siderails up X2, call light within reach. will continue to monitor.
--- NOTE | 2018-12-25 07:41 | General Progress Note ---
Assessment/Plan Problem List: (1) Dyspnea ICD Codes: R06.00 - Dyspnea, unspecified SNOMED: 543211018 (2) Reactive airway disease ICD Codes: J45.909 - Unspecified asthma, uncomplicated SNOMED: 577706105900 (3) COPD exacerbation ICD Codes: J44.1 - Chronic obstructive pulmonary disease with (acute) exacerbation SNOMED: 309969974, 857490785 (4) Hypertension ICD Codes: I10 - Essential (primary) hypertension SNOMED: 80985282 (5) Bronchitis ICD Codes: J40 - Bronchitis, not specified as acute or chronic SNOMED: 79374722 (6) CHF (congestive heart failure) ICD Codes: I50.9 - Heart failure, unspecified SNOMED: 79633819 (7) SOB (shortness of breath) ICD Codes: R06.02 - Shortness of breath SNOMED: 765175275 Status: stable, progressing Assessment/Plan: replace k st eval ?start diet pain rx Subjective ROS Limited/Unobtainable: No Constitutional: Reports: malaise, weakness HEENT: Reports: no symptoms Cardiovascular: Reports: no symptoms Respiratory: Reports: cough Gastrointestinal/Abdominal: Reports: no symptoms Genitourinary: Reports: no symptoms Neurologic/Psychiatric: Reports: no symptoms Endocrine: Reports: no symptoms Hematologic/Lymphatic: Reports: no symptoms Allergies: Coded Allergies: Dust (Verified Allergy, Mild, Itching, 11/06/15) All Systems: reviewed and negative except above Subjective c/o throat pain. "give me antibiotics." no cp/sob. has ngt Objective Last 24 Hour Vital Signs Date Time Temp Pulse Resp B/P (MAP) Pulse Ox O2 Delivery O2 Flow Rate FiO2 12/25/18 06:47 96 Nasal Cannula 3.0 32 12/25/18 06:00 84 20 111/61 (78) 99 12/25/18 05:00 76 20 101/49 (66) 96 12/25/18 04:00 Nasal Cannula 3.0 Nasal Cannula 3.0 12/25/18 04:00 97.9 83 18 129/68 (88) 97 12/25/18 04:00 84 12/25/18 03:00 88 20 123/68 (86) 98 12/25/18 02:00 92 20 105/58 (74) 98 12/25/18 01:12 113/55 12/25/18 01:11 98.8 12/25/18 01:00 82 20 114/48 (70) 98 12/25/18 00:00 98.0 99 18 122/72 (89) 97 12/25/18 00:00 88 12/25/18 00:00 Nasal Cannula 3.0 Nasal Cannula 3.0 12/24/18 23:00 93 17 118/69 (85) 97 12/24/18 22:00 92 20 116/65 (82) 98 12/24/18 21:39 92 18 98 Nasal Cannula 3.0 32 12/24/18 21:37 90 18 98 Nasal Cannula 3.0 32 12/24/18 21:10 97 Nasal Cannula 3.0 32 12/24/18 21:00 94 18 121/74 (90) 98 12/24/18 20:00 Venturi Mask 40.0 Venturi Mask 40.0 12/24/18 20:00 97.9 94 18 130/70 (90) 100 12/24/18 20:00 94 12/24/18 19:00 85 16 135/75 (95) 99 12/24/18 18:00 80 16 132/72 (92) 99 12/24/18 17:00 84 16 138/70 (92) 99 12/24/18 16:00 98.8 85 20 125/70 (88) 99 12/24/18 16:00 90 12/24/18 16:00 Venturi Mask Venturi Mask 12/24/18 15:00 82 16 113/65 (81) 99 12/24/18 14:00 80 16 115/70 (85) 99 12/24/18 13:15 99 Venturi Mask 12.0 50 12/24/18 13:14 Venturi Mask 12.0 50 12/24/18 13:00 88 16 110/68 (82) 99 12/24/18 12:00 Mechanical Ventilator 12/24/18 12:00 98.4 84 18 120/65 (83) 99 12/24/18 12:00 88 12/24/18 12:00 45 12/24/18 11:20 97 19 45 12/24/18 11:15 80 19 45 12/24/18 11:00 87 16 108/68 (81) 99 12/24/18 10:00 90 16 105/65 (78) 99 12/24/18 09:13 93 16 45 12/24/18 09:12 92 16 45 45 12/24/18 09:00 92 16 95/60 (72) 99 12/24/18 09:00 100 12/24/18 08:51 22 100/65 Mechanical Ventilator 12/24/18 08:36 21 102/52 Mechanical Ventilator 12/24/18 08:21 22 108/64 Mechanical Ventilator 12/24/18 08:00 45 12/24/18 08:00 20 105/58 Mechanical Ventilator 12/24/18 08:00 98.8 89 16 108/64 (79) 99 12/24/18 08:00 81 12/24/18 08:00 Mechanical Ventilator Intake and Output 12/24/18 12/25/18 19:00 07:00 Intake Total 32.720 ml 0 ml Output Total 650 ml 480 ml Balance -617.280 ml -480 ml Intake Oral 0 ml 0 ml IV Total 32.720 ml Output Urine Total 650 ml 480 ml Laboratory Tests 12/24/18 08:20: Arterial Blood pH 7.479H, Arterial Blood Partial Pressure CO2 30.6L, Arterial Blood Partial Pressure O2 132.8H, Arterial Blood HCO3 22.2, Arterial Blood Oxygen Saturation 98.5, Arterial Blood Base Excess -0.5, Black Test Positive 12/24/18 11:06: Arterial Blood pH 7.457H, Arterial Blood Partial Pressure CO2 34.1L, Arterial Blood Partial Pressure O2 97.8, Arterial Blood HCO3 23.5, Arterial Blood Oxygen Saturation 97.3, Arterial Blood Base Excess 0.2, Black Test Positive 12/25/18 04:55: White Blood Count 6.8, Red Blood Count 4.26, Hemoglobin 12.0, Hematocrit 36.4L, Mean Corpuscular Volume 85, Mean Corpuscular Hemoglobin 28.1, Mean Corpuscular Hemoglobin Concent 32.9, Red Cell Distribution Width 13.7, Platelet Count 237, Mean Platelet Volume 7.6, Neutrophils (%) (Auto) 64.0, Lymphocytes (%) (Auto) 23.8, Monocytes (%) (Auto) 11.0H, Eosinophils (%) (Auto) 0.2, Basophils (%) ( Auto) 1.0, Sodium Level 143, Potassium Level 3.0L, Chloride Level 107, Carbon Dioxide Level 27, Anion Gap 9, Blood Urea Nitrogen 21H, Creatinine 0.7, Estimat Glomerular Filtration Rate , Glucose Level 96, Calcium Level 8.7, Magnesium Level 2.2, Total Bilirubin 1.6H, Direct Bilirubin 8.9H, Aspartate Amino Transf ( AST/SGOT) 21, Alanine Aminotransferase (ALT/SGPT) 31, Alkaline Phosphatase 45L, Pro-B-Type Natriuretic Peptide 3265H, Total Protein 6.6, Albumin 3.0L, Globulin 3.6, Albumin/Globulin Ratio 0.8L Height (Feet): 5 Height (Inches): 4.00 Weight (Pounds): 180 General Appearance: WD/WN, alert Neck: supple Cardiovascular: normal rate Respiratory/Chest: chest wall non-tender, lungs clear, normal breath sounds Abdomen: normal bowel sounds, non tender, soft, no organomegaly Edema: no edema noted Arm (L), no edema noted Arm (R), no edema noted Leg (L), no edema noted Leg (R), no edema noted Pedal (L), no edema noted Pedal (R), no edema noted 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
[2018-12-25] MEDS: Lisinopril 20mg tab ORAL SCH ×2 (08:40→17:06)
[2018-12-25] MEDS: Methocarbamol 750mg tab ORAL SCH ×3 (08:51→17:06)
[2018-12-25] MEDS: Aspirin EC 81mg tab ORAL SCH (08:52)
--- NOTE | 2018-12-25 08:52 | Critical Care Progress Note ---
Assessment/Plan Assessment/Plan IMPRESSION: 1. Respiratory failure, acute. 2. Pulmonary edema, acute. 3. History of cardiomyopathy. 4. History of asthma. 5. Debility. 6. History of coronary artery disease. 7. History of diabetes. 8. Recent pharyngitis. 9. Hypercholesterolemia. PLAN ventilator support off wean successful respiratory care cards follow up monitor for change and may transfer to [facility] monitor swallow ability and start diet start inhaler therapy ICU care and management will follow up for change medications/laboratory data/nursing notes/ICU care reviewed in detail note reviewed and edited care discussed with RN and RT ICU time spent 35 minutes Critical Care - Subjective Interval Events: extubated alert stable on o2 ROS Limited/Unobtainable: Yes Condition: improving EKG Rhythm: Sinus Rhythm I&O: Intake and Output 12/24/18 12/25/18 19:00 07:00 Intake Total 32.720 ml 0 ml Output Total 650 ml 530 ml Balance -617.280 ml -530 ml Intake Oral 0 ml 0 ml IV Total 32.720 ml Output Urine Total 650 ml 530 ml Critical Care - Objective ET-Tube: 7.5 ET Position: 23 Last 24 Hour Vital Signs Date Time Temp Pulse Resp B/P (MAP) Pulse Ox O2 Delivery O2 Flow Rate FiO2 12/25/18 08:40 101/54 12/25/18 08:00 Nasal Cannula 3.0 Nasal Cannula 3.0 12/25/18 08:00 99.1 78 18 101/54 (70) 97 12/25/18 08:00 79 12/25/18 07:00 77 17 100/52 (68) 98 12/25/18 06:47 96 Nasal Cannula 3.0 32 12/25/18 06:00 84 20 111/61 (78) 99 12/25/18 05:00 76 20 101/49 (66) 96 12/25/18 04:00 Nasal Cannula 3.0 Nasal Cannula 3.0 12/25/18 04:00 97.9 83 18 129/68 (88) 97 12/25/18 04:00 84 12/25/18 03:00 88 20 123/68 (86) 98 12/25/18 02:00 92 20 105/58 (74) 98 12/25/18 01:12 113/55 12/25/18 01:11 98.8 5/31/19 01:00 82 20 114/48 (70) 98 12/25/18 00:00 98.0 99 18 122/72 (89) 97 12/25/18 00:00 88 12/25/18 00:00 Nasal Cannula 3.0 Nasal Cannula 3.0 12/24/18 23:00 93 17 118/69 (85) 97 12/24/18 22:00 92 20 116/65 (82) 98 12/24/18 21:39 92 18 98 Nasal Cannula 3.0 32 12/24/18 21:37 90 18 98 Nasal Cannula 3.0 32 12/24/18 21:10 97 Nasal Cannula 3.0 32 12/24/18 21:00 94 18 121/74 (90) 98 12/24/18 20:00 Venturi Mask 40.0 Venturi Mask 40.0 12/24/18 20:00 97.9 94 18 130/70 (90) 100 12/24/18 20:00 94 12/24/18 19:00 85 16 135/75 (95) 99 12/24/18 18:00 80 16 132/72 (92) 99 12/24/18 17:00 84 16 138/70 (92) 99 12/24/18 16:00 98.8 85 20 125/70 (88) 99 12/24/18 16:00 90 12/24/18 16:00 Venturi Mask Venturi Mask 12/24/18 15:00 82 16 113/65 (81) 99 12/24/18 14:00 80 16 115/70 (85) 99 12/24/18 13:15 99 Venturi Mask 12.0 50 12/24/18 13:14 Venturi Mask 12.0 50 12/24/18 13:00 88 16 110/68 (82) 99 12/24/18 12:00 Mechanical Ventilator 12/24/18 12:00 98.4 84 18 120/65 (83) 99 12/24/18 12:00 88 12/24/18 12:00 45 12/24/18 11:20 97 19 45 12/24/18 11:15 80 19 45 12/24/18 11:00 87 16 108/68 (81) 99 12/24/18 10:00 90 16 105/65 (78) 99 12/24/18 09:13 93 16 45 12/24/18 09:12 92 16 45 45 12/24/18 09:00 92 16 95/60 (72) 99 12/24/18 09:00 100 12/24/18 08:51 22 100/65 Mechanical Ventilator Labs: Labs Test 12/22/18 21:25 12/22/18 22:35 12/22/18 23:07 12/22/18 23:10 White Blood Count 6.8 K/UL (4.8-10.8) Red Blood Count 4.76 M/UL (4.20-5.40) Hemoglobin 13.2 G/DL (12.0-16.0) Hematocrit 39.1 % (37.0-47.0) Mean Corpuscular Volume 82 FL (80-99) Mean Corpuscular Hemoglobin 27.8 PG (27.0-31.0) Mean Corpuscular Hemoglobin Concent 33.8 G/DL (32.0-36.0) Red Cell Distribution Width 13.1 % (11.6-14.8) Platelet Count 279 K/UL (150-450) Mean Platelet Volume 6.7 FL (6.5-10.1) Neutrophils (%) (Auto) 55.4 % (45.0-75.0) Lymphocytes (%) (Auto) 35.3 % (20.0-45.0) Monocytes (%) (Auto) 7.7 % (1.0-10.0) Eosinophils (%) (Auto) 0.7 % (0.0-3.0) Basophils (%) (Auto) 0.8 % (0.0-2.0) Prothrombin Time 10.8 SEC (9.30-11.50) Prothromb Time International Ratio 1.0 (0.9-1.1) Activated Partial Thromboplast Time 27 SEC (23-33) Sodium Level 140 MMOL/L (136-145) Potassium Level 3.8 MMOL/L (3.5-5.1) Chloride Level 104 MMOL/L (98-107) Carbon Dioxide Level 25 MMOL/L (21-32) Anion Gap 11 mmol/L (5-15) Blood Urea Nitrogen 21 mg/dL (7-18) Creatinine 0.9 MG/DL (0.55-1.30) Estimat Glomerular Filtration Rate mL/min (>60) Glucose Level 144 MG/DL (74-106) Calcium Level 9.4 MG/DL (8.5-10.1) Total Bilirubin 1.2 MG/DL (0.2-1.0) Direct Bilirubin 0.2 MG/DL (0.0-0.3) Aspartate Amino Transf (AST/SGOT) 42 U/L (15-37) Alanine Aminotransferase (ALT/SGPT) 55 U/L (12-78) Alkaline Phosphatase 60 U/L (46-116) Troponin I 0.012 ng/mL (0.000-0.056) Pro-B-Type Natriuretic Peptide 3006 pg/mL (0-125) Total Protein 7.4 G/DL (6.4-8.2) Albumin 3.9 G/DL (3.4-5.0) Globulin 3.5 g/dL Albumin/Globulin Ratio 1.1 (1.0-2.7) Triglycerides Level 50 MG/DL (30-150) Urine Color Pale yellow Urine Appearance Clear Urine pH 6 (4.5-8.0) Urine Specific [place] 1.010 (1.005-1.035) Urine Protein Negative (NEGATIVE) Urine Glucose (UA) 2+ (NEGATIVE) Urine Ketones Negative (NEGATIVE) Urine Blood 3+ (NEGATIVE) Urine Nitrite Negative (NEGATIVE) Urine Bilirubin Negative (NEGATIVE) Urine Urobilinogen Normal MG/DL (0.0-1.0) Urine Leukocyte Esterase Negative (NEGATIVE) Urine RBC 5-10 /HPF (0 - 2) Urine WBC 0-2 /HPF (0 - 2) Urine Squamous Epithelial Cells Occasional /LPF Urine Bacteria Occasional /HPF (NONE) Arterial Blood pH 7.331 (7.350-7.450) Arterial Blood Partial Pressure CO2 37.4 mmHg (35.0-45.0) Arterial Blood Partial Pressure O2 78.0 mmHg (75.0-100.0) Arterial Blood HCO3 19.3 mmol/L (22.0-26.0) Arterial Blood Oxygen Saturation 94.0 % (95-100) Arterial Blood Base Excess -6 (-2-2) Black Test Positive Lactic Acid Level 1.90 mmol/L (0.4-2.0) Test 12/23/18 05:30 12/23/18 06:31 12/24/18 04:35 12/24/18 08:20 White Blood Count 7.9 K/UL (4.8-10.8) 7.7 K/UL (4.8-10.8) Red Blood Count 3.93 M/UL (4.20-5.40) 4.07 M/UL (4.20-5.40) Hemoglobin 11.0 G/DL (12.0-16.0) 11.4 G/DL (12.0-16.0) Hematocrit 33.3 % (37.0-47.0) 34.8 % (37.0-47.0) Mean Corpuscular Volume 85 FL (80-99) 86 FL (80-99) Mean Corpuscular Hemoglobin 28.0 PG (27.0-31.0) 28.0 PG (27.0-31.0) Mean Corpuscular Hemoglobin Concent 33.0 G/DL (32.0-36.0) 32.7 G/DL (32.0-36.0) Red Cell Distribution Width 13.3 % (11.6-14.8) 13.5 % (11.6-14.8) Platelet Count 235 K/UL (150-450) 228 K/UL (150-450) Mean Platelet Volume 7.4 FL (6.5-10.1) 7.7 FL (6.5-10.1) Neutrophils (%) (Auto) 74.8 % (45.0-75.0) 71.4 % (45.0-75.0) Lymphocytes (%) (Auto) 15.7 % (20.0-45.0) 17.7 % (20.0-45.0) Monocytes (%) (Auto) 8.6 % (1.0-10.0) 9.9 % (1.0-10.0) Eosinophils (%) (Auto) 0.1 % (0.0-3.0) 0.1 % (0.0-3.0) Basophils (%) (Auto) 0.7 % (0.0-2.0) 0.9 % (0.0-2.0) Sodium Level 140 MMOL/L (136-145) 139 MMOL/L (136-145) Potassium Level 3.1 MMOL/L (3.5-5.1) 2.8 MMOL/L (3.5-5.1) Chloride Level 106 MMOL/L (98-107) 104 MMOL/L (98-107) Carbon Dioxide Level 25 MMOL/L (21-32) 24 MMOL/L (21-32) Anion Gap 9 mmol/L (5-15) 12 mmol/L (5-15) Blood Urea Nitrogen 17 mg/dL (7-18) 14 mg/dL (7-18) Creatinine 0.6 MG/DL (0.55-1.30) 0.7 MG/DL (0.55-1.30) Estimat Glomerular Filtration Rate mL/min (>60) mL/min (>60) Glucose Level 127 MG/DL (74-106) 124 MG/DL (74-106) Hemoglobin A1c 7.0 % (4.3-6.0) Calcium Level 8.5 MG/DL (8.5-10.1) 8.3 MG/DL (8.5-10.1) Troponin I 0.012 ng/mL (0.000-0.056) Triglycerides Level 56 MG/DL (30-150) 105 MG/DL (30-150) Arterial Blood pH 7.500 (7.350-7.450) 7.479 (7.350-7.450) Arterial Blood Partial Pressure CO2 29.6 mmHg (35.0-45.0) 30.6 mmHg (35.0-45.0) Arterial Blood Partial Pressure O2 94.8 mmHg (75.0-100.0) 132.8 mmHg (75.0-100.0) Arterial Blood HCO3 22.6 mmol/L (22.0-26.0) 22.2 mmol/L (22.0-26.0) Arterial Blood Oxygen Saturation 97.0 % (95-100) 98.5 % (95-100) Arterial Blood Base Excess 0.2 (-2-2) -0.5 (-2-2) Black Test Positive Positive Total Bilirubin 1.3 MG/DL (0.2-1.0) Direct Bilirubin 0.2 MG/DL (0.0-0.3) Aspartate Amino Transf (AST/SGOT) 22 U/L (15-37) Alanine Aminotransferase (ALT/SGPT) 39 U/L (12-78) Alkaline Phosphatase 43 U/L (46-116) Total Protein 6.2 G/DL (6.4-8.2) Albumin 3.0 G/DL (3.4-5.0) Globulin 3.2 g/dL Albumin/Globulin Ratio 0.9 (1.0-2.7) Test 12/24/18 11:06 12/25/18 04:55 Arterial Blood pH 7.457 (7.350-7.450) Arterial Blood Partial Pressure CO2 34.1 mmHg (35.0-45.0) Arterial Blood Partial Pressure O2 97.8 mmHg (75.0-100.0) Arterial Blood HCO3 23.5 mmol/L (22.0-26.0) Arterial Blood Oxygen Saturation 97.3 % (95-100) Arterial Blood Base Excess 0.2 (-2-2) Black Test Positive White Blood Count 6.8 K/UL (4.8-10.8) Red Blood Count 4.26 M/UL (4.20-5.40) Hemoglobin 12.0 G/DL (12.0-16.0) Hematocrit 36.4 % (37.0-47.0) Mean Corpuscular Volume 85 FL (80-99) Mean Corpuscular Hemoglobin 28.1 PG (27.0-31.0) Mean Corpuscular Hemoglobin Concent 32.9 G/DL (32.0-36.0) Red Cell Distribution Width 13.7 % (11.6-14.8) Platelet Count 237 K/UL (150-450) Mean Platelet Volume 7.6 FL (6.5-10.1) Neutrophils (%) (Auto) 64.0 % (45.0-75.0) Lymphocytes (%) (Auto) 23.8 % (20.0-45.0) Monocytes (%) (Auto) 11.0 % (1.0-10.0) Eosinophils (%) (Auto) 0.2 % (0.0-3.0) Basophils (%) (Auto) 1.0 % (0.0-2.0) Sodium Level 143 MMOL/L (136-145) Potassium Level 3.0 MMOL/L (3.5-5.1) Chloride Level 107 MMOL/L (98-107) Carbon Dioxide Level 27 MMOL/L (21-32) Anion Gap 9 mmol/L (5-15) Blood Urea Nitrogen 21 mg/dL (7-18) Creatinine 0.7 MG/DL (0.55-1.30) Estimat Glomerular Filtration Rate mL/min (>60) Glucose Level 96 MG/DL (74-106) Calcium Level 8.7 MG/DL (8.5-10.1) Magnesium Level 2.2 MG/DL (1.8-2.4) Total Bilirubin 1.6 MG/DL (0.2-1.0) Direct Bilirubin 8.9 MG/DL (0.0-0.3) Aspartate Amino Transf (AST/SGOT) 21 U/L (15-37) Alanine Aminotransferase (ALT/SGPT) 31 U/L (12-78) Alkaline Phosphatase 45 U/L (46-116) Pro-B-Type Natriuretic Peptide 3265 pg/mL (0-125) Total Protein 6.6 G/DL (6.4-8.2) Albumin 3.0 G/DL (3.4-5.0) Globulin 3.6 g/dL Albumin/Globulin Ratio 0.8 (1.0-2.7) Objective: GENERAL: A well-developed female, alert HEENT: Negative. NECK: Supple. The patient is comfortable on o2. Carotids 2+. Mild jugular venous distention noted. LUNGS: With reduced breath sounds at both bases with reduced air entry. no rhonchi or wheeze CARDIAC: S1, S2. Regular rate and rhythm without murmurs, rubs, or gallops. abdomen is soft and nontender NABS EXTREMITIES: No cyanosis, clubbing, or edema. NEUROLOGICALLY: alert and communicative SKIN: Noted and reviewed. reviewed and edited Micro: Microbiology Date/Time Source Procedure Growth Status 12/23/18 06:00 Sputum Gram Stain - Final Complete 12/23/18 06:00 Sputum Sputum Culture - Final NORMAL UPPER RESPIRATORY MERLIN AT 48 ... Complete 12/23/18 01:55 Rectum - Final NO CARBAPENEM-RESISTANT ENTEROBACTERI... Complete 12/23/18 01:55 Rectum VRE Culture - Final NO VANCOMYCIN RESISTANT ENTEROCOCCUS ... Complete Accucheck: 91 Wilfred Boo MD December 25, 2018 08:52
[2018-12-25] MEDS: Heparin 5000 units/ml inj SUBQ SCH ×2 (08:53→21:15)
--- NOTE | 2018-12-25 10:00 | NUR ---
NURSE NOTES: Patient is in bed sleeping. Denies pain at this time. Seen by Dr. Boo with new order of removal of NGT and F/C. Also new order for diet. Order carried out. Patient was able to eat her breakfast. Stable condition.
--- NOTE | 2018-12-25 10:24 | NUR ---
RD ASSESSMENT & RECOMMENDATIONS SEE CARE ACTIVITY FOR COMPLETE ASSESSMENT DAILY ESTIMATED NEEDS: Needs based on DM, Cardiac / 61kg abw 25-30 kcals/kg 3586-0039 total kcals 1-1.3 g protein/kg 61-79 g total protein 20-25 mL/kg 2818-3409 total fluid mLs NUTRITION DIAGNOSIS: * Swallowing difficulty R/T respiratory status as evidenced by pt now extubated, w/ an order for soft easy chew texture diet. * Altered nutrition related lab values R/T CHF, diabetes as evidenced by elev BNP (3006), on lasix, A1C of 7.0. CURRENT DIET:SOFT diet -> Ordered this AM, s/p extubation PO DIET RECOMMENDATIONS: LOW NA, CCHO MED/ texture per PAINTER PLATE ADDITIONAL RECOMMENDATIONS: * Calibrated bedscale wt or standing wt for accurate CBW * Monitor lytes w/ diuretics, replete as needed * Monitor BGs closely w/ prednisone .
--- NOTE | 2018-12-25 11:31 | NUR ---
ST NOTE: BEDSIDE SWALLOW EVAL RECEIVED BEDSIDE SWALLOW EVAL ORDER CHART REVIEWED PRIOR THE EVALUATION PT IS A 73-YEAR-OLD FEMALE WHO WAS ADMITTED DUE TO CHF AND RESP FAILURE. PT WAS INTUBATED FOR 2 DAYS, S/P EXTUBATION FOR 1 DAY. PT HAS HISTORY OF COPD, HTN, BRONCHITIS, DMII. PT RESIDES AT HOME WITH FAMILY. CURRENT STATUS: PT SEEN AT BEDSIDE IN AM. ALERT, COOPERATIVE, FOLLOW DIRECTIONS, VERBAL, ORIENTED X 4 PT STATED THAT HAVING THROAT PAIN. GIVEN PO TRIAL WITH BREAKFAST TRAY: THIN, PUREE AND MASTICATED SOLID INITIAL IMPRESSION: GOOD DENTITION. GOOD LABIAL AND LINGUAL MOVEMENT AND STRENGTH GOOD ORAL TRANSIT TIME TILL PT INITIATED PHARYNGEAL SWALLOW, GOOD LARYNGEAL ELEVATION, NO OVERT S/S OF ASPIRATION. OVERALL, PT'S SWALLOWING IS FUNCTIONAL. RECOMMENDATIONS: 1. CONTINUE SOFT, EASY CHEW WITH THIN LIQUIDS DIET (RD RECOMMENDED CCHO(MEDIUM) AND LOW NA DIET TYPE) 2. GENERAL ASPIRATION PRECAUTIONS 3. SKILLED ST SERVICE TO FOLLOW UP X 1 TIME. D/W PT AND THE STAFF POSTED ASPIRATION PRECAUTIONS SIGN.
--- NOTE | 2018-12-25 12:18 | NUR ---
NURSE NOTES: patient is able to walk to restroom with minimal assistance. bed linen changed, cleaned patient, tolerated well.
--- NOTE | 2018-12-25 13:18 | NUR ---
Social Work Patients sister in [place] ([phone]) contacted this SW, explaining they plan to take patient home upon discharge, sister in law and brother to assist as needed. Sister suleiman santiago is requesting home care to follow (does not have preference which agency). This Sw recommended short term SNF, as needed. in declined this option, stating she prefers for patient to return home upon discharge.
--- NOTE | 2018-12-25 14:00 | NUR ---
NURSE NOTES: Patient in bed. Turn and repositioning by herself. No acute distress noted with 2L of oxygen via N/C. Will continue to monitor.
--- NOTE | 2018-12-25 16:00 | NUR ---
NURSE NOTES: Patient's family member at bedside. Awake and verbally responsive. No distress noted. Will continue to monitor.
--- NOTE | 2018-12-25 18:10 | NUR ---
TRANSFER TO FLOOR: Patient transferred to Tele via hospital bed. Report given to ANGELITO Cruz. Belongings and medications given to RN. Family at bedside. patient is in stable condition.
--- NOTE | 2018-12-25 18:20 | NUR ---
NURSE NOTES: Report received from ANGELITO Davis. Pt shows no signs of distress, denies pain/SOB. Respirations even and unlabored on 2 L NC. Bed is at lowest position, brakes engaged, siderails x2, bed alarm on, and call light within reach. Will continue to monitor.
[2018-12-25] MEDS ORDERED: traMADol 50mg tab ORAL PRN (18:45)
--- NOTE | 2018-12-25 19:28 | NUR ---
HAND-OFF: Report given to ANGELITO Gutiérrez. Pt is in stable condition; plan of care endorsed.
--- NOTE | 2018-12-25 19:30 | NUR ---
NURSE NOTES: Received report from ANGELITO Cruz. Patient in bed awake showing no signs of acute distress. Respiration even and non labored on room air. No SOB noted. IV line patent and intact. Bed in lowest position, wheels locked and alarm on. All needs attended and met. Will continue plan of care.
[2018-12-25] MEDS ORDERED: Acetaminophen 500mg (ES) tab ORAL PRN (19:45)
[2018-12-25] MEDS: Atorvastatin 20mg tab ORAL SCH (21:11)
[2018-12-25] MEDS: Breo Ellipta 100/25mcg - 14 dose INH SCH (21:39)
[2018-12-26] VITALS: BP 110/53
--- NOTE | 2018-12-26 02:30 | Progress Note ---
DATE: 12/25/2018 CARDIOLOGY PROGRESS NOTE SUBJECTIVE: The patient has been successfully extubated, complaining of throat irritation. No respiratory distress. Monitored rhythm, sinus. OBJECTIVE: VITAL SIGNS: Blood pressure 101/54, pulse 78, and respirations 18. LUNGS: Diminished breath sounds and a few rales. HEART: Regular rhythm and rate. Normal S1 and S2 with a 1/6 systolic apical murmur. ABDOMEN: Soft and nontender. EXTREMITIES: No edema. LABORATORY DATA: Cultures remain negative. White count 6.8 and hemoglobin 12. Sodium 143, potassium 3, bicarbonate 27, BUN 21, and creatinine 0.7. Magnesium 2.2. Pro-natriuretic peptide is 8200. IMPRESSION: 1. Acute respiratory failure, status post extubation. 2. Pleural effusion. 3. Acute on chronic systolic congestive heart failure. 4. Pulmonary hypertension. 5. Chronic obstructive pulmonary disease. 6. Hypokalemia. PLAN: 1. Diuresis. 2. Titrate anti-failure and antihypertensive regimen. 3. Bronchodilators and respiratory hygiene. 4. DVT prophylaxis. Travis Martínez M.D. DR: ANGELA JOB#: [id number] CC:
[2018-12-26 04:00] VITALS: BP 136/55
[2018-12-26] MEDS ORDERED: Guaifenesin/DM 10ml syrup ORAL PRN ×2 (04:15→08:15)
[2018-12-26 05:27] LABS: BASOPHILS % (AUTO) 0.8 % (0.0-2.0); EOSINOPHILS % (AUTO) 0.3 % (0.0-3.0); HEMATOCRIT 36.8 % (37.0-47.0); HEMOGLOBIN 12.3 G/DL (12.0-16.0); LYMPHOCYTES % (AUTO) 23.9 % (20.0-45.0); MEAN CORPUSCULAR VOLUME 85 FL (80-99); MONOCYTES % (AUTO) 10.8 % (1.0-10.0); NEUTROPHILS % (AUTO) 64.2 % (45.0-75.0); PLATELET COUNT 266 K/UL (150-450); RED BLOOD COUNT 4.33 M/UL (4.20-5.40); RED CELL DISTRIBUTION WIDTH 13.4 % (11.6-14.8); WHITE BLOOD COUNT 8.7 K/UL (4.8-10.8)
[2018-12-26] MEDS: NovoLOG Insulin Flexpen SUBQ SCH ×4 (05:54→21:00)
[2018-12-26 06:00] LABS: ALANINE AMINOTRANSFERASE 32 U/L (12-78); ALBUMIN 3.2 G/DL (3.4-5.0); ALBUMIN/GLOBULIN RATIO 0.9 (1.0-2.7); ALKALINE PHOSPHATASE 45 U/L (46-116); ANION GAP 11 mmol/L (5-15); ASPARTATE AMINO TRANSFERASE 23 U/L (15-37); BILIRUBIN,TOTAL 1.2 MG/DL (0.2-1.0); BLOOD UREA NITROGEN 28 mg/dL (7-18); CALCIUM 9.2 MG/DL (8.5-10.1); CARBON DIOXIDE 25 MMOL/L (21-32); CHLORIDE 106 MMOL/L (98-107); CREATININE 0.9 MG/DL (0.55-1.30); POTASSIUM 3.4 MMOL/L (3.5-5.1); SODIUM 142 MMOL/L (136-145)
[2018-12-26 06:05] LABS: BILIRUBIN,DIRECT 0.2 MG/DL (0.0-0.3)
--- NOTE | 2018-12-26 07:45 | NUR ---
HAND-OFF: Report given to ANGELITO Weaver.
--- NOTE | 2018-12-26 07:46 | NUR ---
NURSE NOTES: Received report from ANGELITO Ac. Patient is sitting in bed, eating her breakfast. Patient has no signs of acute distress at this moment. Respiration even and non labored on room air. No SOB noted. Bed in lowest position with two side rails up, wheels locked and alarm on. Bed side table and Call light within reach. Will continue plan of care.
[2018-12-26 08:00] VITALS: BP 124/74
[2018-12-26] MEDS ORDERED: guaiFENesin 100mg/5ml Liq ud ORAL PRN (08:15)
[2018-12-26] MEDS: Aspirin EC 81mg tab ORAL SCH (08:49)
[2018-12-26] MEDS: Methocarbamol 750mg tab ORAL SCH ×3 (08:50→17:07)
[2018-12-26] MEDS: Lisinopril 20mg tab ORAL SCH ×2 (08:51→17:07)
[2018-12-26] MEDS: Heparin 5000 units/ml inj SUBQ SCH ×2 (09:02→21:54)
--- NOTE | 2018-12-26 09:43 | NUR ---
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 CHF VS: BP 126/64, P 102, T 97.6, RR 20, SpO2 94 HCT 36.8, K 3.4, BUN 25 CXR: Prominent cardiac size with persistent but improved bilateral lower lung zone opacities. Removal of endotracheal tube. IS:PREDNISONE 40mg LASIX 40mg IV K-DUR 30meq NOVOLOG SUBQ ZETIA 10mg TELE STATUS
[2018-12-26] MEDS ORDERED: NS 500ML ONE (10:03)
[2018-12-26] MEDS ORDERED: Sterile Water Irrig 1000ml IRRIG ONE (10:03)
[2018-12-26] MEDS ORDERED: NS 275ml ONE (10:03)
--- NOTE | 2018-12-26 10:23 | Critical Care Progress Note ---
Assessment/Plan Assessment/Plan IMPRESSION: 1. Respiratory failure, acute. 2. Pulmonary edema, acute. 3. History of cardiomyopathy. 4. History of asthma. 5. Debility. 6. History of coronary artery disease. 7. History of diabetes. 8. Recent pharyngitis. 9. Hypercholesterolemia. PLAN respiratory care as is cards follow up monitor for change in tele advance diet start inhaler therapy dc planning medications/laboratory data/nursing notes reviewed in detail note reviewed and edited care discussed with RN and RT Critical Care - Subjective Condition: improving EKG Rhythm: Sinus Rhythm I&O: Intake and Output 12/25/18 12/26/18 19:00 07:00 Intake Total 350 ml 240 ml Output Total 788 ml 2 ml Balance -438 ml 238 ml Intake Oral 350 ml 240 ml Output Urine Total 788 ml 2 ml # Voids 1 # Bowel Movements 2 Critical Care - Objective ET-Tube: 7.5 ET Position: 23 Last 24 Hour Vital Signs Date Time Temp Pulse Resp B/P (MAP) Pulse Ox O2 Delivery O2 Flow Rate FiO2 12/26/18 09:38 94 Room Air 21 12/26/18 08:51 124/74 12/26/18 08:00 98.0 93 18 124/74 (91) 96 12/26/18 04:00 90 12/26/18 04:00 97.5 73 18 136/55 (82) 95 12/26/18 00:00 97.8 92 18 110/53 (72) 95 12/26/18 00:00 93 12/25/18 21:35 88 20 97 Nasal Cannula 3.0 32 12/25/18 21:33 96 20 89 Nasal Cannula 3.0 32 12/25/18 21:31 95 Nasal Cannula 3.0 32 12/25/18 20:00 96.9 92 18 128/71 (90) 92 12/25/18 20:00 80 12/25/18 17:06 127/72 12/25/18 16:00 Nasal Cannula 2.0 Nasal Cannula 2.0 12/25/18 16:00 90 12/25/18 16:00 98.8 99 20 127/72 (90) 98 12/25/18 12:00 98.2 85 20 112/56 (74) 98 12/25/18 12:00 85 12/25/18 12:00 Nasal Cannula 2.0 Nasal Cannula 2.0 12/25/18 11:00 82 20 105/56 (72) 96 Labs: Laboratory Tests Test 12/26/18 04:47 White Blood Count 8.7 K/UL (4.8-10.8) Red Blood Count 4.33 M/UL (4.20-5.40) Hemoglobin 12.3 G/DL (12.0-16.0) Hematocrit 36.8 % (37.0-47.0) L Mean Corpuscular Volume 85 FL (80-99) Mean Corpuscular Hemoglobin 28.3 PG (27.0-31.0) Mean Corpuscular Hemoglobin Concent 33.3 G/DL (32.0-36.0) Red Cell Distribution Width 13.4 % (11.6-14.8) Platelet Count 266 K/UL (150-450) Mean Platelet Volume 7.8 FL (6.5-10.1) Neutrophils (%) (Auto) 64.2 % (45.0-75.0) Lymphocytes (%) (Auto) 23.9 % (20.0-45.0) Monocytes (%) (Auto) 10.8 % (1.0-10.0) H Eosinophils (%) (Auto) 0.3 % (0.0-3.0) Basophils (%) (Auto) 0.8 % (0.0-2.0) Sodium Level 142 MMOL/L (136-145) Potassium Level 3.4 MMOL/L (3.5-5.1) L Chloride Level 106 MMOL/L (98-107) Carbon Dioxide Level 25 MMOL/L (21-32) Anion Gap 11 mmol/L (5-15) Blood Urea Nitrogen 28 mg/dL (7-18) H Creatinine 0.9 MG/DL (0.55-1.30) Estimat Glomerular Filtration Rate mL/min (>60) Glucose Level 130 MG/DL (74-106) H Calcium Level 9.2 MG/DL (8.5-10.1) Magnesium Level 1.9 MG/DL (1.8-2.4) Total Bilirubin 1.2 MG/DL (0.2-1.0) H Direct Bilirubin 0.2 MG/DL (0.0-0.3) Aspartate Amino Transf (AST/SGOT) 23 U/L (15-37) Alanine Aminotransferase (ALT/SGPT) 32 U/L (12-78) Alkaline Phosphatase 45 U/L (46-116) L Pro-B-Type Natriuretic Peptide 2859 pg/mL (0-125) H Total Protein 6.9 G/DL (6.4-8.2) Albumin 3.2 G/DL (3.4-5.0) L Globulin 3.7 g/dL Albumin/Globulin Ratio 0.9 (1.0-2.7) L Objective: GENERAL: A well-developed female, alert HEENT: Negative. NECK: Supple. The patient is comfortable on o2. Carotids 2+. no jugular venous distention noted. LUNGS: improved breath sounds at both bases with reduced air entry. no rhonchi or wheeze CARDIAC: S1, S2. Regular rate and rhythm without murmurs, rubs, or gallops. ABDOMEN: Overall soft, nontender, and nondistended. EXTREMITIES: No cyanosis, clubbing, or edema. NEUROLOGICALLY: nonfocal and alert SKIN: Noted and reviewed. reviewed and edited Accucheck: 143 Wilfred Boo MD Dec 26, 2018 10:23
--- NOTE | 2018-12-26 10:27 | Diagnostic Imaging Report ---
AP CXR: INDICATION: Cough COMPARISON: Chest x-ray of 12/22/18 FINDINGS: Single frontal view demonstrates a prominent cardiac mediastinal silhouette. Interval removal of endotracheal tube. Persistent but improved bilateral lower lung zone opacities. No pleural effusions. The visualized osseous structures are within normal limits. IMPRESSION: Prominent cardiac size with persistent but improved bilateral lower lung zone opacities. Removal of endotracheal tube.
--- NOTE | 2018-12-26 10:37 | General Progress Note ---
Assessment/Plan Problem List: (1) Dyspnea ICD Codes: R06.00 - Dyspnea, unspecified SNOMED: 255360884 (2) Reactive airway disease ICD Codes: J45.909 - Unspecified asthma, uncomplicated SNOMED: 206850615219 (3) COPD exacerbation ICD Codes: J44.1 - Chronic obstructive pulmonary disease with (acute) exacerbation SNOMED: 373927690, 479840463 (4) Hypertension ICD Codes: I10 - Essential (primary) hypertension SNOMED: 81343178 (5) Bronchitis ICD Codes: J40 - Bronchitis, not specified as acute or chronic SNOMED: 34493639 (6) CHF (congestive heart failure) ICD Codes: I50.9 - Heart failure, unspecified SNOMED: 07662901 (7) SOB (shortness of breath) ICD Codes: R06.02 - Shortness of breath SNOMED: 564312815 Status: stable, progressing Assessment/Plan: replace k st eval po steroids taper cough rx resp rx pain rx Subjective ROS Limited/Unobtainable: No Constitutional: Reports: malaise, weakness HEENT: Reports: no symptoms Cardiovascular: Reports: no symptoms Respiratory: Reports: cough Gastrointestinal/Abdominal: Reports: no symptoms Genitourinary: Reports: no symptoms Neurologic/Psychiatric: Reports: no symptoms Endocrine: Reports: no symptoms Hematologic/Lymphatic: Reports: no symptoms Allergies: Coded Allergies: Dust (Verified Allergy, Mild, Itching, 11/06/15) All Systems: reviewed and negative except above Subjective c/o cough. no cp/spb. labs noted. on steroids and resp rx. Objective Last 24 Hour Vital Signs Date Time Temp Pulse Resp B/P (MAP) Pulse Ox O2 Delivery O2 Flow Rate FiO2 12/26/18 09:38 94 Room Air 21 12/26/18 08:51 124/74 12/26/18 08:00 98.0 93 18 124/74 (91) 96 12/26/18 04:00 90 12/26/18 04:00 97.5 73 18 136/55 (82) 95 12/26/18 00:00 97.8 92 18 110/53 (72) 95 12/26/18 00:00 93 12/25/18 21:35 88 20 97 Nasal Cannula 3.0 32 12/25/18 21:33 96 20 89 Nasal Cannula 3.0 32 12/25/18 21:31 95 Nasal Cannula 3.0 32 12/25/18 20:00 96.9 92 18 128/71 (90) 92 12/25/18 20:00 80 12/25/18 17:06 127/72 12/25/18 16:00 Nasal Cannula 2.0 Nasal Cannula 2.0 12/25/18 16:00 90 12/25/18 16:00 98.8 99 20 127/72 (90) 98 12/25/18 12:00 98.2 85 20 112/56 (74) 98 12/25/18 12:00 85 12/25/18 12:00 Nasal Cannula 2.0 Nasal Cannula 2.0 12/25/18 11:00 82 20 105/56 (72) 96 Intake and Output 12/25/18 12/26/18 19:00 07:00 Intake Total 350 ml 240 ml Output Total 788 ml 2 ml Balance -438 ml 238 ml Intake Oral 350 ml 240 ml Output Urine Total 788 ml 2 ml # Voids 1 # Bowel Movements 2 Laboratory Tests 12/26/18 04:47: White Blood Count 8.7, Red Blood Count 4.33, Hemoglobin 12.3, Hematocrit 36.8L, Mean Corpuscular Volume 85, Mean Corpuscular Hemoglobin 28.3, Mean Corpuscular Hemoglobin Concent 33.3, Red Cell Distribution Width 13.4, Platelet Count 266, Mean Platelet Volume 7.8, Neutrophils (%) (Auto) 64.2, Lymphocytes (%) (Auto) 23.9, Monocytes (%) (Auto) 10.8H, Eosinophils (%) (Auto) 0.3, Basophils (%) ( Auto) 0.8, Sodium Level 142, Potassium Level 3.4L, Chloride Level 106, Carbon Dioxide Level 25, Anion Gap 11, Blood Urea Nitrogen 28H, Creatinine 0.9, Estimat Glomerular Filtration Rate , Glucose Level 130H, Calcium Level 9.2, Magnesium Level 1.9, Total Bilirubin 1.2H, Direct Bilirubin 0.2, Aspartate Amino Transf (AST/SGOT) 23, Alanine Aminotransferase (ALT/SGPT) 32, Alkaline Phosphatase 45L, Pro-B-Type Natriuretic Peptide 2859H, Total Protein 6.9, Albumin 3.2L, Globulin 3.7, Albumin/Globulin Ratio 0.9L Height (Feet): 5 Height (Inches): 4.00 Weight (Pounds): 175 General Appearance: WD/WN, alert Neck: supple Cardiovascular: normal rate, regular rhythm Respiratory/Chest: chest wall non-tender, lungs clear, normal breath sounds, no respiratory distress Abdomen: normal bowel sounds, non tender, soft, no organomegaly Edema: no edema noted Arm (L), no edema noted Arm (R), no edema noted Leg (L), no edema noted Leg (R), no edema noted Pedal (L), no edema noted Pedal (R), no edema noted Generalized Claus Batista MD Dec 26, 2018 10:37
[2018-12-26 12:00] VITALS: BP 126/64
[2018-12-26 16:00] VITALS: BP 120/76
[2018-12-26] MEDS ORDERED: PREDNISONE20 MG ORAL (17:17)
--- NOTE | 2018-12-26 19:53 | NUR ---
HAND-OFF: Report given to ANGELITO Danielson.
[2018-12-26 20:00] VITALS: BP 124/76
--- NOTE | 2018-12-26 20:00 | NUR ---
NURSE NOTES: received pt from day shift nurse, pt ambulatory, no acute distress noted. bed locked and lowest position, bedside rail upx2, call light within reach. will continue to monitor for any change in condition.
[2018-12-26] MEDS: Breo Ellipta 100/25mcg - 14 dose INH SCH (21:22)
[2018-12-26] MEDS: Atorvastatin 20mg tab ORAL SCH (21:49)
--- NOTE | 2018-12-26 22:33 | NUR ---
NURSE NOTES: report given to ANGELITO Cisse. pt in stable condition, no change in condition,
--- NOTE | 2018-12-26 22:34 | NUR ---
HAND-OFF: Report given to ANGELITO Cisse.
--- NOTE | 2018-12-26 22:42 | NUR ---
NURSE NOTES: Report received from Erum. Pt is in stable condition, Bed in the lowest position, bed brakes engaged, side rails up x3 with call light within reach. Will continue to monitor.
[2018-12-26] MEDS: Zolpidem 5mg tab NG PRN (23:19)
[2018-12-27] VITALS: BP 141/104
--- NOTE | 2018-12-27 00:15 | Progress Note ---
DATE: 12/26/2018 CARDIOLOGY PROGRESS NOTE SUBJECTIVE: The patient ____ congestion with irritated throat. She remains on steroid. She was extubated yesterday. OBJECTIVE: VITAL SIGNS: Blood pressure 124/74, pulse 93, and respiratory rate 18. Monitored rhythm sinus. LUNGS: Bilateral breath sounds with rales. NECK: Jugular venous pressure elevated. HEART: Regular rhythm and rate. Normal S1 and S2 with a 1/6 systolic murmur at apex. ABDOMEN: Soft. EXTREMITIES: Trace edema. LABORATORY DATA: White count 8.7 and hemoglobin 12.3. Pro-natriuretic peptide 2859. Magnesium 1.9, potassium 3.4, BUN 28, and creatinine 0.9. Chest x-ray reveals cardiomegaly, improving bilateral lower lung opacity. IMPRESSION: 1. Status post respiratory failure. 2. Acute on chronic systolic and diastolic congestive heart failure with pleural effusions, improved. 3. Pulmonary hypertension. 4. Chronic obstructive pulmonary disease. 5. Hypokalemia. PLAN: 1. Continue diureses. 2. Continue titration of anti-failure medications as tolerated by blood pressure. 3. Respiratory hygiene. 4. DVT prophylaxis. 5. Steroid taper per puller over. Travis Martínez M.D. DR: DOUG JOB#: [id number] CC:
[2018-12-27] MEDS ORDERED: dilTIAZem HCl 25mg/5ml Inj IVP SCH ×2 (01:15→07:11)
[2018-12-27 04:00] VITALS: BP 127/59
[2018-12-27] MEDS: Nitroglycerin 2% oint pkt TOPIC SCH ×3 (05:55→18:25)
[2018-12-27] MEDS: NovoLOG Insulin Flexpen SUBQ SCH ×4 (05:55→21:00)
--- NOTE | 2018-12-27 06:22 | Diagnostic Imaging Report ---
EXAM: CT Head Without Intravenous Contrast CLINICAL HISTORY: Ground-level fall with head trauma TECHNIQUE: Axial computed tomography images of the head/brain without intravenous contrast. CTDI is 70.53 mGy and DLP is 1340 mGy-cm. One or more of the following dose reduction techniques were used: automated exposure control, adjustment of the mA and/or kV according to patient size, use of iterative reconstruction technique. Coronal reformatted images were created and reviewed. COMPARISON: No relevant prior studies available. FINDINGS: Brain: Mild white matter hypoattenuation likely reflects chronic microvascular ischemic change. 1.4 mm hyperdense thickening along the anterior falx may reflect calcification. Trace subdural blood products not excluded in the absence of prior imaging to document stability. No CT evidence of acute territorial infarction. Ventricles: Unremarkable. No midline shift or ventriculomegaly. Bones/joints: No depressed calvarial fracture. Soft tissues: Small midline posterior scalp contusion. Sinuses: No fluid level in the visualized sinuses. Mastoid air cells: No mastoid effusion. IMPRESSION: 1. Small midline posterior scalp contusion without depressed calvarial fracture. 2. 1.4 mm hyperdense thickening along the anterior falx may reflect calcification. Trace subdural blood products not excluded in the absence of prior imaging to document stability. Short interval followup head CT recommended. 3. Chronic microvascular ischemic change without CT evidence of acute territorial infarction. <MYCVCSECTION> Critical [employer] 12/27/18 07:10 Call Doctor Regarding Other, called Gurpreet BAEZ on 12/27 07: 11 (-07:00)
--- NOTE | 2018-12-27 06:57 | Diagnostic Imaging Report ---
EXAM: CT Cervical Spine Without Intravenous Contrast CLINICAL HISTORY: Ground-level fall with head and neck trauma TECHNIQUE: Axial computed tomography images of the cervical spine without intravenous contrast. CTDI is 16.91 mGy and DLP is 348 mGy-cm. One or more of the following dose reduction techniques were used: automated exposure control, adjustment of the mA and/or kV according to patient size, use of iterative reconstruction technique. Coronal and sagittal reformatted images were created and reviewed. COMPARISON: No relevant prior studies available. FINDINGS: Vertebrae: Multilevel degenerative spondylolistheses and reversal of the cervical lordosis. Chronic C5 and C6 vertebral body height loss. No CT evidence of acute cervical fracture. The atlantoaxial and atlantooccipital articulations are intact. No facet dislocation or subluxation. Discs/spinal canal/neural foramina: Multilevel disc space narrowing and ventral osteophytosis most pronounced at C5-C6 and C6-C7. Multilevel spinal canal stenosis of varying degrees is present ranging from mild to moderate. Multilevel neuroforaminal stenosis of varying degrees also noted most pronounced on the right at C3-C4 and C4-C5. Left-sided foraminal stenosis is most pronounced at C3-C4 and C6-C7. Soft tissues: No prevertebral soft tissue thickening. Vasculature: Atherosclerotic vascular calcifications. Thyroid: 3.5 mm low-density right thyroid lobe nodule. IMPRESSION: 1. No CT evidence of acute cervical fracture or traumatic subluxation. 2. Cervical spondylosis.
--- NOTE | 2018-12-27 07:25 | NUR ---
HAND-OFF: Report given to ANGELITO Longoria.
--- NOTE | 2018-12-27 07:27 | NUR ---
HAND-OFF: Report given to ANGELITO Longoria.
[2018-12-27 08:00] VITALS: BP 110/67
--- NOTE | 2018-12-27 08:30 | NUR ---
NURSE NOTES: Per Dr. Boo cepacol q2h prn for sore throat. Order noted, entered, carried out.
--- NOTE | 2018-12-27 08:32 | NUR ---
NURSE NOTES: Received report from ANGELITO Cisse. Patient in bed resting, no active s/s cardiac, respiratory distress noticed at this time. Patient AOx2. Endorsed patient c/o status post fall last night, CT neck, CT head taken and MD aware of result. Reinforced not to get out of bed without calling staff member. IV on left wrist 22G, asymptomatic, patent, intact. Bed in lowest position, side rails upx3, call light within reach, bed alarm on. Will continue to monitor.
[2018-12-27] MEDS: Lisinopril 20mg tab ORAL SCH ×2 (09:00→18:00)
[2018-12-27] MEDS: Aspirin EC 81mg tab ORAL SCH (09:00)
[2018-12-27] MEDS: Heparin 5000 units/ml inj SUBQ SCH ×2 (09:00→21:00)
[2018-12-27] MEDS: Metoprolol 25mg tab ORAL SCH ×2 (09:00→21:08)
--- NOTE | 2018-12-27 09:11 | Critical Care Progress Note ---
Assessment/Plan Assessment/Plan IMPRESSION: 1. Respiratory failure, acute. 2. Pulmonary edema, acute. 3. History of cardiomyopathy. 4. History of asthma. 5. Debility. 6. History of coronary artery disease. 7. History of diabetes. 8. Recent pharyngitis. 9. Hypercholesterolemia. PLAN respiratory care as is cards follow up monitor for change in tele advance diet inhaler therapy dc prednisone po meds dc planning with HH medications/laboratory data/nursing notes reviewed in detail note reviewed and edited care discussed with RN and RT Critical Care - Subjective Interval Events: doing well no distress Condition: improving EKG Rhythm: Sinus Rhythm I&O: Intake and Output 12/26/18 12/27/18 18:59 06:59 Intake Total 360 ml Balance 360 ml Intake Oral 360 ml # Voids 3 1 Critical Care - Objective ET-Tube: 7.5 ET Position: 23 Last 24 Hour Vital Signs Date Time Temp Pulse Resp B/P (MAP) Pulse Ox O2 Delivery O2 Flow Rate FiO2 12/27/18 07:37 140 127/59 12/27/18 05:55 127/59 12/27/18 04:00 140 12/27/18 04:00 97.2 138 18 127/59 (81) 95 12/27/18 01:13 154 141/104 12/27/18 00:00 97.7 154 18 141/104 (116) 95 12/27/18 00:00 140 12/26/18 21:25 93 20 93 Room Air 21 12/26/18 21:22 90 18 92 Room Air 21 12/26/18 20:00 98.1 93 19 124/76 (92) 96 12/26/18 20:00 95 12/26/18 19:52 94 Room Air 21 12/26/18 17:07 120/76 12/26/18 16:00 90 12/26/18 16:00 97.6 102 18 120/76 (91) 96 12/26/18 12:00 90 12/26/18 12:00 97.9 96 20 126/64 (84) 96 12/26/18 09:38 94 Room Air 21 Labs: Laboratory Tests Test 12/27/18 07:45 Sodium Level Pending Potassium Level Pending Chloride Level Pending Carbon Dioxide Level Pending Blood Urea Nitrogen Pending Creatinine Pending Estimat Glomerular Filtration Rate Pending Glucose Level Pending Calcium Level Pending Total Bilirubin Pending Aspartate Amino Transf (AST/SGOT) Pending Alanine Aminotransferase (ALT/SGPT) Pending Alkaline Phosphatase Pending Pro-B-Type Natriuretic Peptide Pending Total Protein Pending Albumin Pending Globulin Pending Objective: GENERAL: A well-developed female, alert HEENT: Negative. NECK: Supple. The patient is comfortable on o2. Carotids 2+. Mild jugular venous distention noted. LUNGS: With reduced breath sounds at both bases with reduced air entry. no rhonchi or wheeze CARDIAC: S1, S2. Regular rate and rhythm without murmurs, rubs, or gallops. abdomen is soft and nontender NABS EXTREMITIES: No cyanosis, clubbing, or edema. NEUROLOGICALLY: alert and communicative SKIN: Noted and reviewed. reviewed and edited Accucheck: 129 Wilfred Boo MD Dec 27, 2018 09:11
[2018-12-27 09:14] LABS: ALANINE AMINOTRANSFERASE 43 U/L (12-78); ALBUMIN 3.1 G/DL (3.4-5.0); ALBUMIN/GLOBULIN RATIO 0.9 (1.0-2.7); ALKALINE PHOSPHATASE 41 U/L (46-116); ANION GAP 10 mmol/L (5-15); ASPARTATE AMINO TRANSFERASE 35 U/L (15-37); BILIRUBIN,TOTAL 1.1 MG/DL (0.2-1.0); BLOOD UREA NITROGEN 25 mg/dL (7-18); CALCIUM 9.2 MG/DL (8.5-10.1); CARBON DIOXIDE 25 MMOL/L (21-32); CHLORIDE 104 MMOL/L (98-107); CREATININE 0.8 MG/DL (0.55-1.30); POTASSIUM 3.3 MMOL/L (3.5-5.1); SODIUM 139 MMOL/L (136-145)
[2018-12-27 09:16] LABS: BILIRUBIN,DIRECT 0.2 MG/DL (0.0-0.3)
--- NOTE | 2018-12-27 10:00 | NUR ---
NURSE NOTES: Patient refused medication, all benefits and disadvantages explained, patient stated, will take medication at afternoon. Patient's right respected.
[2018-12-27] MEDS: Methocarbamol 750mg tab ORAL SCH ×3 (10:05→18:14)
--- NOTE | 2018-12-27 11:19 | Diagnostic Imaging Report ---
INDICATION: Trauma TECHNIQUE: Multiple, contiguous 2.5 mm axial cuts of the brain are obtained from the posterior fossa to the cranial vault. Sagittal and coronal reformatted images provided. No IV contrast is administered. One or more of the following dose reduction techniques were used: automated exposure control, adjustment of the mA and/or kV according to patient size, use of iterative reconstruction technique. COMPARISON: 12/27/18 at 5:15 FINDINGS: No intracranial hemorrhage, abnormal intra- or extra-axial collections or parenchymal lesions are seen. There are involutional changes with prominence of the sulci, basal cisterns and ventricles. Scattered white matter hypoattenuations are present, likely from small vessel disease. The perez-white differentiation is preserved. No evidence of mass effect, midline shift, or edema. The previously identified hyperdensity along the anterior falx is grossly unchanged and less likely represents blood. The osseous structures are unremarkable. The visualized portions of the paranasal sinuses are clear. IMPRESSION: 1. No acute intracranial process. 2. Involutional changes with small vessel disease. 3. The previously identified hyperdensity along the anterior falx is grossly unchanged and less likely represents blood. CTDI: 70.38 mGy DLP: 1277.34 mGycm
--- NOTE | 2018-12-27 11:55 | General Progress Note ---
Assessment/Plan Problem List: (1) Dyspnea ICD Codes: R06.00 - Dyspnea, unspecified SNOMED: 507532845 (2) Reactive airway disease ICD Codes: J45.909 - Unspecified asthma, uncomplicated SNOMED: 457959824384 (3) COPD exacerbation ICD Codes: J44.1 - Chronic obstructive pulmonary disease with (acute) exacerbation SNOMED: 271940525, 030800235 (4) Hypertension ICD Codes: I10 - Essential (primary) hypertension SNOMED: 62387505 (5) Bronchitis ICD Codes: J40 - Bronchitis, not specified as acute or chronic SNOMED: 78627713 (6) CHF (congestive heart failure) ICD Codes: I50.9 - Heart failure, unspecified SNOMED: 73931571 (7) SOB (shortness of breath) ICD Codes: R06.02 - Shortness of breath SNOMED: 345606454 Status: stable, progressing Assessment/Plan: d/w radiology- initial ct showed lucency along the falx- repeat ct shows no change rate control per cards- given single dose of iv cardizem cough rx resp rx pain rx xray sacrum/hips Subjective ROS Limited/Unobtainable: No Constitutional: Reports: malaise, weakness HEENT: Reports: no symptoms Cardiovascular: Reports: no symptoms Respiratory: Reports: no symptoms Gastrointestinal/Abdominal: Reports: no symptoms Genitourinary: Reports: no symptoms Neurologic/Psychiatric: Reports: no symptoms Endocrine: Reports: no symptoms Hematologic/Lymphatic: Reports: no symptoms Allergies: Coded Allergies: Dust (Verified Allergy, Mild, Itching, 11/06/15) All Systems: reviewed and negative except above Subjective c/o cough. no cp/spb. labs noted. currently afib with rvr. rate uncontrolled had fall on to buttocks and back of the head while cleaning the floor last night. no LOC. no headache. Objective Last 24 Hour Vital Signs Date Time Temp Pulse Resp B/P (MAP) Pulse Ox O2 Delivery O2 Flow Rate FiO2 12/27/18 09:22 97 Room Air 21 12/27/18 09:00 75 110/67 12/27/18 09:00 110/67 12/27/18 08:00 114 12/27/18 08:00 97.2 75 18 110/67 (81) 99 12/27/18 07:37 140 127/59 12/27/18 05:55 127/59 12/27/18 04:00 140 12/27/18 04:00 97.2 138 18 127/59 (81) 95 12/27/18 01:13 154 141/104 12/27/18 00:00 97.7 154 18 141/104 (116) 95 12/27/18 00:00 140 12/26/18 21:25 93 20 93 Room Air 21 12/26/18 21:22 90 18 92 Room Air 21 12/26/18 20:00 98.1 93 19 124/76 (92) 96 12/26/18 20:00 95 12/26/18 19:52 94 Room Air 21 12/26/18 17:07 120/76 12/26/18 16:00 90 12/26/18 16:00 97.6 102 18 120/76 (91) 96 12/26/18 12:00 90 12/26/18 12:00 97.9 96 20 126/64 (84) 96 Intake and Output 12/26/18 12/27/18 18:59 06:59 Intake Total 360 ml Balance 360 ml Intake Oral 360 ml # Voids 3 1 Laboratory Tests 12/27/18 07:45: Sodium Level 139, Potassium Level 3.3L, Chloride Level 104, Carbon Dioxide Level 25, Anion Gap 10, Blood Urea Nitrogen 25H, Creatinine 0.8, Estimat Glomerular Filtration Rate , Glucose Level 150H, Calcium Level 9.2, Total Bilirubin 1.1H, Direct Bilirubin 0.2, Aspartate Amino Transf (AST/SGOT) 35, Alanine Aminotransferase (ALT/SGPT) 43, Alkaline Phosphatase 41L, Pro-B-Type Natriuretic Peptide 3638H, Total Protein 6.7, Albumin 3.1L, Globulin 3.6, Albumin/Globulin Ratio 0.9L Height (Feet): 5 Height (Inches): 4.00 Weight (Pounds): 178 General Appearance: WD/WN, alert Neck: supple Cardiovascular: regular rhythm Respiratory/Chest: chest wall non-tender, lungs clear, normal breath sounds Abdomen: normal bowel sounds, non tender, soft, no organomegaly Edema: no edema noted Arm (L), no edema noted Arm (R), no edema noted Leg (L), no edema noted Leg (R), no edema noted Pedal (L), no edema noted Pedal (R), no edema noted Generalized Edema: trace edema 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
[2018-12-27 12:00] VITALS: BP 105/66
--- NOTE | 2018-12-27 12:36 | NUR ---
NURSE NOTES: Paged Dr. Martínez regarding patient having A.fib 130-160s and two dose of Cardizem IVP given . Awaiting for callback. Will continue to monitor.
[2018-12-27] MEDS: LORazepam Inj 2mg/ml 1ml IV PRN ×2 (14:37→21:07)
[2018-12-27] MEDS ORDERED: Metoprolol Tartrate 10 MG in D5W 55 ML IVPB SCH (15:00)
--- NOTE | 2018-12-27 15:00 | NUR ---
NURSE NOTES: Per Dr. Martínez, Metoprolol 10mg IVPB once for A.fib HR 140s. Order noted, entered, carried out.
[2018-12-27 16:00] VITALS: BP 97/76
--- NOTE | 2018-12-27 16:00 | Progress Note ---
CARDIOLOGY PROGRESS NOTE DATE: 12/27/2018 SUBJECTIVE: The patient had episodes of rapid atrial fibrillation last night. She was given IV Cardizem with improvement. The patient also took a fall and apparently hit her head. She had a CAT scan of the brain this morning, that was questionable for bleed, but repeated and felt to be normal. CT scan of the neck was performed as well. OBJECTIVE: VITAL SIGNS: Blood pressure 110/67, pulse 75, and respirations 18. LUNGS: Few rales at the bases. CARDIAC: Regular rhythm and rate. Normal S1, S2 with fourth heart sound. ABDOMEN: Soft. EXTREMITIES: No edema. IMAGING: Chest x-ray yesterday revealed basilar opacity, slightly improved. LABORATORY DATA: Labs today notable for BUN 25, creatinine 0.8, pro-natriuretic peptide 3600, and potassium 3.3. Albumin 3.1. IMPRESSION: 1. Mechanical fall. 2. Head trauma, no signs of bleeding. 3. Status post respiratory failure. 4. Acute on chronic systolic and diastolic congestive heart failure. 5. Hypokalemia. 6. Mild protein-calorie malnutrition. 7. Hypertensive cardiomyopathy. PLAN: 1. Additional potassium. 2. Continue cardiac monitoring. 3. Additional diuresis. 4. Add beta-marley therapy. 5. Respiratory hygiene. 6. Limit beta-agonist. 7. Neuro checks. Travis Martínez M.D. DR: JEMIMA JOB#: [id number] CC:
--- NOTE | 2018-12-27 17:30 | NUR ---
NURSE NOTES: Dr. martínez made aware IVPB metoprolol given HR 125, BP 95/66. Per Dr. Martínez will put order for digoxin 0.25 IVP. Order noted, entered, carried out.
[2018-12-27] MEDS ORDERED: Digoxin 0.5mg/2ml Inj IVP SCH (18:00)
--- NOTE | 2018-12-27 18:40 | NUR ---
NURSE NOTES: Dr. Martínez made aware IVP digoxin given, BP 116/77, HR 128. No order given at this time, MD stated continue monitor the patient. Will continue to monitor.
--- NOTE | 2018-12-27 19:00 | NUR ---
NURSE NOTES: CN, fabrication and assembly supervisor made aware of Sitter order.
--- NOTE | 2018-12-27 19:52 | NUR ---
HAND-OFF: Report given to ANGELITO Danielson.
--- NOTE | 2018-12-27 19:55 | NUR ---
NURSE NOTES: received pt from ANGELITO Longoria. pt very confused, pt trying to get out bed, sitter order in place. reoriented pt to stay in the bed, pt still trying to get out bed. no acute distress noted, safety precaution in place: bed locked and lowest position, bed locked and alarm on. call light within reach. will continue to monitor pt to ensure pt's safety and avoids falls.
[2018-12-27 20:00] VITALS: BP 145/61
[2018-12-27] MEDS: Zolpidem 5mg tab NG PRN (21:08)
[2018-12-27] MEDS: Atorvastatin 20mg tab ORAL SCH (21:09)
[2018-12-27] MEDS: Breo Ellipta 100/25mcg - 14 dose INH SCH (21:31)
[2018-12-28] VITALS: BP 134/73
--- NOTE | 2018-12-28 | NUR ---
NURSE NOTES: pt sleeping, sitter at bedside. no acute distress noted. no change in condition. will continue to monitor for any change in condition.
[2018-12-28] MEDS: Metoprolol Tartrate 10 MG in D5W 55 ML IVPB SCH ×4 (01:06→17:58)
[2018-12-28] MEDS: LORazepam Inj 2mg/ml 1ml IV PRN (03:02)
[2018-12-28 04:00] VITALS: BP 143/69
--- NOTE | 2018-12-28 04:00 | NUR ---
NURSE NOTES: no change in condition. sitter at bedside. will continue to monitor to ensure pt's safety.
[2018-12-28] MEDS: Nitroglycerin 2% oint pkt TOPIC SCH ×3 (06:23→17:58)
[2018-12-28] MEDS: NovoLOG Insulin Flexpen SUBQ SCH ×4 (06:24→22:20)
--- NOTE | 2018-12-28 06:34 | NUR ---
NURSE NOTES: pt remains stable, no change in condition. pt received Ativan 0.5ml twice she was very confused and trying to get out of bed. sitter at bedside. all needs met during my shift. bed locked and lowest position. side rail upx2. call light within reach. will endorse plan of care to incoming nurse.
[2018-12-28 07:16] LABS: BASOPHILS % (AUTO) 0.9 % (0.0-2.0); EOSINOPHILS % (AUTO) 1.6 % (0.0-3.0); HEMATOCRIT 38.7 % (37.0-47.0); HEMOGLOBIN 12.6 G/DL (12.0-16.0); LYMPHOCYTES % (AUTO) 19.5 % (20.0-45.0); MEAN CORPUSCULAR VOLUME 85 FL (80-99); MONOCYTES % (AUTO) 10.2 % (1.0-10.0); NEUTROPHILS % (AUTO) 67.9 % (45.0-75.0); PLATELET COUNT 275 K/UL (150-450); RED BLOOD COUNT 4.55 M/UL (4.20-5.40); RED CELL DISTRIBUTION WIDTH 13.1 % (11.6-14.8); WHITE BLOOD COUNT 7.8 K/UL (4.8-10.8)
--- NOTE | 2018-12-28 07:31 | NUR ---
HAND-OFF: Report given to ANGELITO Little.
--- NOTE | 2018-12-28 07:32 | NUR ---
NURSE NOTES: Received report from ANGELITO Fox. The patient is sleeping on the bed without acute distress or shortness of breath. The patient's bed in the lowest position, call light in reach, and fall precaution reinforced. Intact and patent IV confirmed. Will continue plan of care.
--- NOTE | 2018-12-28 07:37 | General Progress Note ---
Assessment/Plan Problem List: (1) Dyspnea ICD Codes: R06.00 - Dyspnea, unspecified SNOMED: 286868498 (2) Reactive airway disease ICD Codes: J45.909 - Unspecified asthma, uncomplicated SNOMED: 048695822529 (3) COPD exacerbation ICD Codes: J44.1 - Chronic obstructive pulmonary disease with (acute) exacerbation SNOMED: 474029000, 136665846 (4) Hypertension ICD Codes: I10 - Essential (primary) hypertension SNOMED: 56207220 (5) Bronchitis ICD Codes: J40 - Bronchitis, not specified as acute or chronic SNOMED: 18533031 (6) CHF (congestive heart failure) ICD Codes: I50.9 - Heart failure, unspecified SNOMED: 08341703 (7) SOB (shortness of breath) ICD Codes: R06.02 - Shortness of breath SNOMED: 264239141 Status: stable, progressing Assessment/Plan: rate control per cards- HR low 100s cough rx resp rx pain rx xray sacrum/hips compliance stressed ?heparin drip vs NOAC Subjective ROS Limited/Unobtainable: No Constitutional: Reports: malaise, weakness HEENT: Reports: no symptoms Cardiovascular: Reports: no symptoms Respiratory: Reports: cough Gastrointestinal/Abdominal: Reports: no symptoms Genitourinary: Reports: no symptoms Neurologic/Psychiatric: Reports: anxiety Endocrine: Reports: no symptoms Hematologic/Lymphatic: Reports: no symptoms Allergies: Coded Allergies: Dust (Verified Allergy, Mild, Itching, 11/06/15) All Systems: reviewed and negative except above Subjective resting. no new complaints. remains uncooperative with staying in bed. nurse sitting at the bedside remains in afib- rate low 100s Objective Last 24 Hour Vital Signs Date Time Temp Pulse Resp B/P (MAP) Pulse Ox O2 Delivery O2 Flow Rate FiO2 12/28/18 06:23 105 143/69 12/28/18 06:23 143/69 12/28/18 04:00 105 12/28/18 04:00 97.4 110 20 143/69 (93) 98 12/28/18 01:06 124 134/73 12/28/18 00:00 98.4 103 19 134/73 (93) 99 12/28/18 00:00 124 12/27/18 21:33 90 20 94 Room Air 21 12/27/18 21:32 88 18 94 Room Air 21 12/27/18 21:08 130 145/61 12/27/18 20:15 96 Room Air 21 12/27/18 20:00 122 12/27/18 20:00 98.6 130 18 145/61 (89) 94 12/27/18 18:25 116/77 12/27/18 18:14 125 12/27/18 18:00 95/66 12/27/18 16:57 144 124/81 12/27/18 16:00 145 12/27/18 16:00 98.0 144 20 97/76 (83) 97 12/27/18 12:57 124/99 12/27/18 12:00 98.3 136 18 105/66 (79) 96 12/27/18 12:00 161 12/27/18 09:22 97 Room Air 21 12/27/18 09:00 75 110/67 12/27/18 09:00 110/67 12/27/18 08:00 114 12/27/18 08:00 97.2 75 18 110/67 (81) 99 12/27/18 07:37 140 127/59 Intake and Output 12/27/18 12/28/18 19:00 07:00 Intake Total 240 ml 360 ml Output Total 300 ml Balance 240 ml 60 ml Intake Oral 240 ml 360 ml Output Urine Total 300 ml # Voids 4 2 Laboratory Tests 12/27/18 07:45: Sodium Level 139, Potassium Level 3.3L, Chloride Level 104, Carbon Dioxide Level 25, Anion Gap 10, Blood Urea Nitrogen 25H, Creatinine 0.8, Estimat Glomerular Filtration Rate , Glucose Level 150H, Calcium Level 9.2, Total Bilirubin 1.1H, Direct Bilirubin 0.2, Aspartate Amino Transf (AST/SGOT) 35, Alanine Aminotransferase (ALT/SGPT) 43, Alkaline Phosphatase 41L, Pro-B-Type Natriuretic Peptide 3638H, Total Protein 6.7, Albumin 3.1L, Globulin 3.6, Albumin/Globulin Ratio 0.9L 12/27/18 23:00: Arterial Blood pH 7.446, Arterial Blood Partial Pressure CO2 39.1, Arterial Blood Partial Pressure O2 61.4L, Arterial Blood HCO3 26.3H, Arterial Blood Oxygen Saturation 89.9*L, Arterial Blood Base Excess 2.2H, Black Test Positive 12/28/18 06:22: Sodium Level [Pending], Potassium Level [Pending], Chloride Level [Pending], Carbon Dioxide Level [Pending], Blood Urea Nitrogen [Pending], Creatinine [ Pending], Estimat Glomerular Filtration Rate [Pending], Glucose Level [Pending] , Calcium Level [Pending], Total Bilirubin [Pending], Aspartate Amino Transf ( AST/SGOT) [Pending], Alanine Aminotransferase (ALT/SGPT) [Pending], Alkaline Phosphatase [Pending], Total Protein [Pending], Albumin [Pending], Globulin [ Pending], White Blood Count 7.8, Red Blood Count 4.55, Hemoglobin 12.6, Hematocrit 38.7, Mean Corpuscular Volume 85, Mean Corpuscular Hemoglobin 27.7, Mean Corpuscular Hemoglobin Concent 32.6, Red Cell Distribution Width 13.1, Platelet Count 275, Mean Platelet Volume 7.5, Neutrophils (%) (Auto) 67.9, Lymphocytes (%) (Auto) 19.5L, Monocytes (%) (Auto) 10.2H, Eosinophils (%) (Auto ) 1.6, Basophils (%) (Auto) 0.9, Magnesium Level [Pending] Height (Feet): 5 Height (Inches): 4.00 Weight (Pounds): 174 General Appearance: WD/WN, alert Neck: supple Cardiovascular: normal rate Respiratory/Chest: chest wall non-tender, lungs clear, normal breath sounds Abdomen: normal bowel sounds, non tender, soft, no organomegaly Edema: no edema noted Arm (L), no edema noted Arm (R), no edema noted Leg (L), no edema noted Leg (R), no edema noted Pedal (L), no edema noted Pedal (R), no edema noted Generalized Claus Batista MD Dec 28, 2018 07:37
[2018-12-28 07:45] LABS: ALANINE AMINOTRANSFERASE 44 U/L (12-78); ALBUMIN 2.9 G/DL (3.4-5.0); ALBUMIN/GLOBULIN RATIO 0.8 (1.0-2.7); ALKALINE PHOSPHATASE 40 U/L (46-116); ANION GAP 9 mmol/L (5-15); ASPARTATE AMINO TRANSFERASE 32 U/L (15-37); BILIRUBIN,TOTAL 1.1 MG/DL (0.2-1.0); BLOOD UREA NITROGEN 23 mg/dL (7-18); CALCIUM 9.4 MG/DL (8.5-10.1); CARBON DIOXIDE 26 MMOL/L (21-32); CHLORIDE 105 MMOL/L (98-107); CREATININE 0.8 MG/DL (0.55-1.30); POTASSIUM 3.6 MMOL/L (3.5-5.1); SODIUM 140 MMOL/L (136-145)
[2018-12-28 07:46] LABS: BILIRUBIN,DIRECT 0.2 MG/DL (0.0-0.3)
--- NOTE | 2018-12-28 07:55 | Critical Care Progress Note ---
Assessment/Plan Assessment/Plan IMPRESSION: 1. Respiratory failure, acute. 2. Pulmonary edema, acute. 3. History of cardiomyopathy. 4. History of asthma. 5. Debility. 6. History of coronary artery disease. 7. History of diabetes. 8. Recent pharyngitis. 9. Hypercholesterolemia. PLAN stable dc home meds noted and will call in dc planning with medications/laboratory data/nursing notes reviewed in detail note reviewed and edited care discussed with RN and RT Critical Care - Subjective Condition: stable I&O: Intake and Output 12/27/18 12/28/18 19:00 07:00 Intake Total 240 ml 360 ml Output Total 300 ml Balance 240 ml 60 ml Intake Oral 240 ml 360 ml Output Urine Total 300 ml # Voids 4 2 Critical Care - Objective ET-Tube: 7.5 ET Position: 23 Last 24 Hour Vital Signs Date Time Temp Pulse Resp B/P (MAP) Pulse Ox O2 Delivery O2 Flow Rate FiO2 12/28/18 06:23 105 143/69 12/28/18 06:23 143/69 12/28/18 04:00 105 12/28/18 04:00 97.4 110 20 143/69 (93) 98 12/28/18 01:06 124 134/73 12/28/18 00:00 98.4 103 19 134/73 (93) 99 12/28/18 00:00 124 12/27/18 21:33 90 20 94 Room Air 21 12/27/18 21:32 88 18 94 Room Air 12/27/18 21:08 130 145/61 12/27/18 20:15 96 Room Air 21 12/27/18 20:00 122 12/27/18 20:00 98.6 130 18 145/61 (89) 94 12/27/18 18:25 116/77 12/27/18 18:14 125 12/27/18 18:00 95/66 12/27/18 16:57 144 124/81 12/27/18 16:00 145 12/27/18 16:00 98.0 144 20 97/76 (83) 97 12/27/18 12:57 124/99 12/27/18 12:00 98.3 136 18 105/66 (79) 96 12/27/18 12:00 161 12/27/18 09:22 97 Room Air 21 12/27/18 09:00 75 110/67 12/27/18 09:00 110/67 12/27/18 08:00 114 12/27/18 08:00 97.2 75 18 110/ (81) 99 Labs: Labs Test 12/26/18 04:47 12/27/18 07:45 12/27/18 23:00 12/28/18 06:22 White Blood Count 8.7 K/UL (4.8-10.8) 7.8 K/UL (4.8-10.8) Red Blood Count 4.33 M/UL (4.20-5.40) 4.55 M/UL (4.20-5.40) Hemoglobin 12.3 G/DL (12.0-16.0) 12.6 G/DL (12.0-16.0) Hematocrit 36.8 % (37.0-47.0) 38.7 % (37.0-47.0) Mean Corpuscular Volume 85 FL (80-99) 85 FL (80-99) Mean Corpuscular Hemoglobin 28.3 PG (27.0-31.0) 27.7 PG (27.0-31.0) Mean Corpuscular Hemoglobin Concent 33.3 G/DL (32.0-36.0) 32.6 G/DL (32.0-36.0) Red Cell Distribution Width 13.4 % (11.6-14.8) 13.1 % (11.6-14.8) Platelet Count 266 K/UL (150-450) 275 K/UL (150-450) Mean Platelet Volume 7.8 FL (6.5-10.1) 7.5 FL (6.5-10.1) Neutrophils (%) (Auto) 64.2 % (45.0-75.0) 67.9 % (45.0-75.0) Lymphocytes (%) (Auto) 23.9 % (20.0-45.0) 19.5 % (20.0-45.0) Monocytes (%) (Auto) 10.8 % (1.0-10.0) 10.2 % (1.0-10.0) Eosinophils (%) (Auto) 0.3 % (0.0-3.0) 1.6 % (0.0-3.0) Basophils (%) (Auto) 0.8 % (0.0-2.0) 0.9 % (0.0-2.0) Sodium Level 142 MMOL/L (136-145) 139 MMOL/L (136-145) 140 MMOL/L (136-145) Potassium Level 3.4 MMOL/L (3.5-5.1) 3.3 MMOL/L (3.5-5.1) 3.6 MMOL/L (3.5-5.1) Chloride Level 106 MMOL/L (98-107) 104 MMOL/L (98-107) 105 MMOL/L (98-107) Carbon Dioxide Level 25 MMOL/L (21-32) 25 MMOL/L (21-32) 26 MMOL/L (21-32) Anion Gap 11 mmol/L (5-15) 10 mmol/L (5-15) 9 mmol/L (5-15) Blood Urea Nitrogen 28 mg/dL (7-18) 25 mg/dL (7-18) 23 mg/dL (7-18) Creatinine 0.9 MG/DL (0.55-1.30) 0.8 MG/DL (0.55-1.30) 0.8 MG/DL (0.55-1.30) Estimat Glomerular Filtration Rate mL/min (>60) mL/min (>60) mL/min (>60) Glucose Level 130 MG/DL (74-106) 150 MG/DL (74-106) 139 MG/DL (74-106) Calcium Level 9.2 MG/DL (8.5-10.1) 9.2 MG/DL (8.5-10.1) 9.4 MG/DL (8.5-10.1) Magnesium Level 1.9 MG/DL (1.8-2.4) 1.8 MG/DL (1.8-2.4) Total Bilirubin 1.2 MG/DL (0.2-1.0) 1.1 MG/DL (0.2-1.0) 1.1 MG/DL (0.2-1.0) Direct Bilirubin 0.2 MG/DL (0.0-0.3) 0.2 MG/DL (0.0-0.3) 0.2 MG/DL (0.0-0.3) Aspartate Amino Transf (AST/SGOT) 23 U/L (15-37) 35 U/L (15-37) 32 U/L (15-37) Alanine Aminotransferase (ALT/SGPT) 32 U/L (12-78) 43 U/L (12-78) 44 U/L (12-78) Alkaline Phosphatase 45 U/L (46-116) 41 U/L (46-116) 40 U/L (46-116) Pro-B-Type Natriuretic Peptide 2859 pg/mL (0-125) 3638 pg/mL (0-125) Total Protein 6.9 G/DL (6.4-8.2) 6.7 G/DL (6.4-8.2) 6.5 G/DL (6.4-8.2) Albumin 3.2 G/DL (3.4-5.0) 3.1 G/DL (3.4-5.0) 2.9 G/DL (3.4-5.0) Globulin 3.7 g/dL 3.6 g/dL 3.6 g/dL Albumin/Globulin Ratio 0.9 (1.0-2.7) 0.9 (1.0-2.7) 0.8 (1.0-2.7) Arterial Blood pH 7.446 (7.350-7.450) Arterial Blood Partial Pressure CO2 39.1 mmHg (35.0-45.0) Arterial Blood Partial Pressure O2 61.4 mmHg (75.0-100.0) Arterial Blood HCO3 26.3 mmol/L (22.0-26.0) Arterial Blood Oxygen Saturation 89.9 % (95-100) Arterial Blood Base Excess 2.2 (-2-2) Black Test Positive Objective: GENERAL: A well-developed female, alert HEENT: Negative. NECK: Supple. The patient is comfortable on o2. Carotids 2+. Mild jugular venous distention noted. LUNGS: With reduced breath sounds at both bases with reduced air entry. no rhonchi or wheeze CARDIAC: S1, S2. Regular rate and rhythm without murmurs, rubs, or gallops. abdomen is soft and nontender NABS EXTREMITIES: No cyanosis, clubbing, or edema. NEUROLOGICALLY: alert and communicative SKIN: Noted and reviewed. reviewed and edited Accucheck: 130 Wilfred Boo MD Dec 28, 2018 07:55
[2018-12-28 08:00] VITALS: BP 114/67
[2018-12-28] MEDS: Heparin 5000 units/ml inj SUBQ SCH ×2 (09:00→22:21)
[2018-12-28] MEDS: Aspirin EC 81mg tab ORAL SCH (09:00)
[2018-12-28] MEDS: Lisinopril 20mg tab ORAL SCH ×2 (09:34→18:00)
[2018-12-28] MEDS: Methocarbamol 750mg tab ORAL SCH ×4 (09:35→18:00)
--- NOTE | 2018-12-28 10:00 | NUR ---
NURSE NOTES: Called radiology for incompleted x-ray of hip and pelvis. Dr. Boo ordered for discharge. Will confirm home health order with pillowcase cleaner and will work on discharge.
--- NOTE | 2018-12-28 11:50 | Diagnostic Imaging Report ---
Indications: hip pain Findings: 2 views of both hips were obtained. No acute fracture is demonstrated. Alignment of the hips is within normal limits. Mild joint space narrowing and osteophyte formation noted. Soft tissues are unremarkable. Impression: No acute injury. Mild osteoarthritis of both hips.
--- NOTE | 2018-12-28 11:50 | NUR ---
RADIOLOGY DEPT., PELVIS, BILATERAL HIPS, SACRUM /COCCYX X-RAYS COMPLETED.--.DYE
[2018-12-28 12:00] VITALS: BP 122/64
--- NOTE | 2018-12-28 13:08 | NUR ---
DISCHARGE PLANNING Discharge order noted Patient has been referred to [facility] . Await Acceptance Addendum: 12/28/18 at 1555 by CECILIA LIRA CM 1999 verified acceptance
--- NOTE | 2018-12-28 13:44 | Diagnostic Imaging Report ---
Indication: Pelvic trauma and pain Comparison: None Findings: 3 views of the sacrum and coccyx were obtained. No acute fracture is identified. The sacrum is grossly intact. The sacral ala appear symmetric. Part of the sacrum is obscured by bowel gas and stool in the rectal vault. The bones are osteopenic. Vascular calcifications are present. IMPRESSION: No acute injury appreciated
--- NOTE | 2018-12-28 14:20 | NUR ---
NURSE NOTES: The patient has heart rate of 140. Called Dr. Martínez and received one time IVPB Metoprolol 10mg order. Will closely monitor the patient.
[2018-12-28] MEDS ORDERED: Metoprolol Tartrate 10 MG in D5W 55 ML IVPB SCH (14:22)
--- NOTE | 2018-12-28 15:30 | NUR ---
NURSE NOTES: After administration of Metoprolol 10mg IVPB, the patient's heart rate is around 120-130s. Notified Dr. Martínez again. No new order but closely monitor at this time.
[2018-12-28 16:00] VITALS: BP 108/78
--- NOTE | 2018-12-28 18:00 | NUR ---
NURSE NOTES: Hung another Metoprolol 10mg IVPB for heart rate of 129. Per Dr. Martínez, no new order but closely monitor the patient at this point. Notified to Dr. Boo for change in patient condition. Dr. Boo cancelled discharge order due to change in patient condition. 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 The patient family member understood the situation. Will closely monitor the patient. The patient denies of chest pain or shortness of breath. The patient's blood pressure is systolic 108 with Spo2 of 98%.
--- NOTE | 2018-12-28 18:30 | NUR ---
NURSE NOTES: Dr. Martínez came to the hospital and notified that two doses of Metoprolol 10mg IVPB administered, but the patient's heart rate is still 130s. Will closely monitor the patient. Will carry out the order as soon as receives it.
--- NOTE | 2018-12-28 19:30 | NUR ---
NURSE NOTES: received pt form day shift nurse. pt in bed resting comfortably.no acute distress noted. bed locked and lowest position, bedside rail upx2, call light within reach. will continue to monitor for any change in condition.
--- NOTE | 2018-12-28 19:34 | NUR ---
HAND-OFF: Report given to ANGELITO Fox. The patient is sleeping on the bed without acute distress or shortness of breath. The patient's bed in the lowest position, call light in reach, and fall and aspiration precaution reinforced. Endorsed plan of care.
[2018-12-28 20:00] VITALS: BP 128/63
[2018-12-28] MEDS: Breo Ellipta 100/25mcg - 14 dose INH SCH (21:29)
[2018-12-28] MEDS: Atorvastatin 20mg tab ORAL SCH (22:18)
[2018-12-29] VITALS: BP 96/49
--- NOTE | 2018-12-29 | NUR ---
pt sleeping, no acute distress noted. will continue to monitor for any change in condition.
[2018-12-29] MEDS: Metoprolol Tartrate 10 MG in D5W 55 ML IVPB SCH ×3 (01:05→12:55)
[2018-12-29] MEDS ORDERED: Digoxin 0.5mg/2ml Inj IVP ONE (03:00)
--- NOTE | 2018-12-29 03:15 | Progress Note ---
DATE: 12/28/2018 CARDIOLOGY PROGRESS NOTE SUBJECTIVE: The patient has confusion last night and into this morning, but is improved in the afternoon . She has a poor appetite. She denies chest pain or shortness of breath. Monitored rhythm is atrial fibrillation with frequent episodes of rapid ventricular response. OBJECTIVE: VITAL SIGNS: Blood pressure 143/69, heart rate 105 to 140, and respirations 22. Afebrile. LUNGS: With diminished breath sounds. CARDIAC: Irregularly irregular rhythm. Normal S1, S2. ABDOMEN: Soft. EXTREMITIES: No edema. LABORATORY DATA: White count 7.8 and hemoglobin 12.6. Sodium 140, potassium 3.6, BUN 23, and creatinine 0.8. Albumin 2.9. Magnesium 1.8. ABG, pH 7.44, pCO2 39, and pO2 61 from last night. IMPRESSION: 1. Paroxysmal atrial fibrillation with rapid ventricular response. 2. Hypertensive heart disease. 3. Acute and chronic systolic and diastolic congestive heart failure. 4. Status post respiratory failure. 5. Chronic obstructive pulmonary disease. 6. Cardiomyopathy. 7. Diuresis. PLAN: 1. Multidrug regimen for rate control of atrial fibrillation. 2. Respiratory hygiene. 3. Replace potassium. 4. Consider anticoagulation for cardioembolic prophylaxis. Travis Martínez M.D. DR: DANA JOB#: [id number] CC:
[2018-12-29 04:00] VITALS: BP 129/56
--- NOTE | 2018-12-29 04:28 | NUR ---
NURSE NOTES: no change in condition. will continue to monitor to ensure pt's safety.
[2018-12-29] MEDS: Nitroglycerin 2% oint pkt TOPIC SCH ×2 (05:35→12:51)
[2018-12-29] MEDS: NovoLOG Insulin Flexpen SUBQ SCH ×2 (05:40→12:25)
--- NOTE | 2018-12-29 06:43 | NUR ---
NURSE NOTES: pt remains stable, no change in condition. all needs met during my shift. bed locked and lowest position. side rail upx2. call light within reach. will endorse plan of care to incoming nurse.
--- NOTE | 2018-12-29 07:27 | NUR ---
HAND-OFF: Report given to ANGELITO Rey.
--- NOTE | 2018-12-29 07:28 | NUR ---
NURSE NOTES: Received report from ANGELITO Fox. The patient is having a breakfast on the bed without acute distress or shortness of breath. The patient's bed in the lowest position, call light in reach, and fall and aspiration precaution reinforced. Will continue plan of care.
[2018-12-29 08:00] VITALS: BP 123/68
--- NOTE | 2018-12-29 08:36 | General Progress Note ---
Assessment/Plan Problem List: (1) Dyspnea ICD Codes: R06.00 - Dyspnea, unspecified SNOMED: 021749781 (2) Reactive airway disease ICD Codes: J45.909 - Unspecified asthma, uncomplicated SNOMED: 546408852856 (3) COPD exacerbation ICD Codes: J44.1 - Chronic obstructive pulmonary disease with (acute) exacerbation SNOMED: 959880352, 170567210 (4) Hypertension ICD Codes: I10 - Essential (primary) hypertension SNOMED: 53465416 (5) Bronchitis ICD Codes: J40 - Bronchitis, not specified as acute or chronic SNOMED: 99292404 (6) CHF (congestive heart failure) ICD Codes: I50.9 - Heart failure, unspecified SNOMED: 93243041 (7) SOB (shortness of breath) ICD Codes: R06.02 - Shortness of breath SNOMED: 355571231 Status: stable, progressing Assessment/Plan: rate control per cards- cough rx resp rx pain rx xray sacrum/hips monitor for bleeding on eliquis compliance stressed Subjective Allergies: Coded Allergies: Dust (Verified Allergy, Mild, Itching, 11/06/15) Subjective resting. no new complaints. remains uncooperative with staying in bed. nurse sitting at the bedside remains in afib- rate 120s most of the night per telegraph equipment maintainer. Objective Last 24 Hour Vital Signs Date Time Temp Pulse Resp B/P (MAP) Pulse Ox O2 Delivery O2 Flow Rate FiO2 12/29/18 08:00 97.5 94 18 123/68 (86) 97 12/29/18 07:09 98 Nasal Cannula 2.0 28 12/29/18 05:35 129/56 12/29/18 05:34 109 129/56 12/29/18 04:07 109 12/29/18 04:00 111 12/29/18 04:00 98.0 110 20 129/56 (80) 96 12/29/18 01:05 111 114/54 12/29/18 00:00 130 12/29/18 00:00 97.9 110 20 96/49 (65) 96 12/28/18 21:30 80 18 96 Room Air 21 12/28/18 21:30 80 18 96 Room Air 21 12/28/18 21:09 98 Nasal Cannula 2.0 28 12/28/18 20:00 125 12/28/18 20:00 98.0 110 18 128/63 (84) 97 12/28/18 18:00 108/78 12/28/18 17:58 129 108/78 12/28/18 17:58 108/78 12/28/18 16:00 96.8 129 20 108/78 (88) 98 12/28/18 16:00 119 12/28/18 14:31 140 99/55 12/28/18 13:00 122/64 12/28/18 12:00 135 12/28/18 12:00 97.7 58 20 122/64 (83) 95 12/28/18 12:00 58 122/64 12/28/18 09:34 114/67 Intake and Output 12/28/18 12/29/18 19:00 07:00 Intake Total 130 ml 120 ml Balance 130 ml 120 ml Intake Oral 120 ml IV Total 130 ml # Voids 2 2 Height (Feet): 5 Height (Inches): 4.00 Weight (Pounds): 178 General Appearance: WD/WN, alert Neck: supple Cardiovascular: normal rate, irregularly irregular Respiratory/Chest: chest wall non-tender, lungs clear, normal breath sounds, no respiratory distress Abdomen: normal bowel sounds, non tender, soft, no organomegaly Edema: no edema noted Arm (L), no edema noted Arm (R), no edema noted Leg (L), no edema noted Leg (R), no edema noted Pedal (L), no edema noted Pedal (R), no edema noted Generalized Neurologic: 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
[2018-12-29] MEDS ORDERED: Digoxin 0.125mg tab ORAL SCH (09:00)
[2018-12-29] MEDS ORDERED: Eliquis 5mg tablet ORAL SCH (09:00)
[2018-12-29] MEDS: Aspirin EC 81mg tab ORAL SCH (09:49)
[2018-12-29] MEDS: Lisinopril 20mg tab ORAL SCH (09:50)
[2018-12-29] MEDS: Methocarbamol 750mg tab ORAL SCH ×2 (09:51→13:39)
--- NOTE | 2018-12-29 10:06 | NUR ---
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 CHF VS: BP 129/56, P 109, T 97.5, RR 18, SpO2 97 BUN 23 HIP XRAY: Mild osteoarthritis of both hips. IS:ROBAXIN 750mg LISINOPRIL 20mg DIGOXIN 0.125mg ASPIRIN 81mg METFORMIN 850mg ELIQUIS 5mg LASIX 40mg IV METOPROLOL 65ml DIGOXIN 0.25mg IVP TELE STATUS
[2018-12-29 12:00] VITALS: BP 125/80
[2018-12-29 12:55] VITALS: BP 125/80
--- NOTE | 2018-12-29 12:57 | Critical Care Progress Note ---
Assessment/Plan Assessment/Plan IMPRESSION: 1. Respiratory failure, acute. 2. Pulmonary edema, acute. 3. History of cardiomyopathy. 4. History of asthma. 5. Debility. 6. History of coronary artery disease. 7. History of diabetes. 8. Recent pharyngitis. 9. Hypercholesterolemia. PLAN stable dc home called in RX to her pharmacy including imdur, eliquis, digoxin meds noted and will call in dc planning with HH medications/laboratory data/nursing notes reviewed in detail note reviewed and edited care discussed with RN and RT Critical Care - Subjective Interval Events: dc held had fast heart rate added digoxin and eliquis overall better Condition: stable EKG Rhythm: Sinus Rhythm I&O: Intake and Output 12/28/18 12/29/18 19:00 07:00 Intake Total 130 ml 120 ml Balance 130 ml 120 ml Intake Oral 120 ml IV Total 130 ml # Voids 2 2 Critical Care - Objective ET-Tube: 7.5 ET Position: 23 Last 24 Hour Vital Signs Date Time Temp Pulse Resp B/P (MAP) Pulse Ox O2 Delivery O2 Flow Rate FiO2 12/29/18 12:51 125/80 12/29/18 09:50 94 12/29/18 09:50 123/68 12/29/18 09:00 Room Air Room Air 12/29/18 08:00 97.5 94 18 123/68 (86) 97 12/29/18 07:09 98 Nasal Cannula 2.0 28 12/29/18 05:35 129/56 12/29/18 05:34 109 129/56 12/29/18 04:07 109 12/29/18 04:00 111 12/29/18 04:00 98.0 110 20 129/56 (80) 96 12/29/18 01:05 111 114/54 12/29/18 00:00 130 12/29/18 00:00 97.9 110 20 96/49 (65) 96 12/28/18 21:30 80 18 96 Room Air 21 12/28/18 21:30 80 18 96 Room Air 21 12/28/18 21:09 98 Nasal Cannula 2.0 28 12/28/18 20:00 125 12/28/18 20:00 98.0 110 18 128/63 (84) 97 12/28/18 18:00 108/78 6/3/19 17:58 129 108/78 12/28/18 17:58 108/78 12/28/18 16:00 96.8 129 20 108/78 (88) 98 12/28/18 16:00 119 12/28/18 14:31 140 99/55 12/28/18 13:00 122/64 Labs: Labs Test 12/27/18 07:45 12/27/18 23:00 12/28/18 06:22 Sodium Level 139 MMOL/L (136-145) 140 MMOL/L (136-145) Potassium Level 3.3 MMOL/L (3.5-5.1) 3.6 MMOL/L (3.5-5.1) Chloride Level 104 MMOL/L (98-107) 105 MMOL/L (98-107) Carbon Dioxide Level 25 MMOL/L (21-32) 26 MMOL/L (21-32) Anion Gap 10 mmol/L (5-15) 9 mmol/L (5-15) Blood Urea Nitrogen 25 mg/dL (7-18) 23 mg/dL (7-18) Creatinine 0.8 MG/DL (0.55-1.30) 0.8 MG/DL (0.55-1.30) Estimat Glomerular Filtration Rate mL/min (>60) mL/min (>60) Glucose Level 150 MG/DL (74-106) 139 MG/DL (74-106) Calcium Level 9.2 MG/DL (8.5-10.1) 9.4 MG/DL (8.5-10.1) Total Bilirubin 1.1 MG/DL (0.2-1.0) 1.1 MG/DL (0.2-1.0) Direct Bilirubin 0.2 MG/DL (0.0-0.3) 0.2 MG/DL (0.0-0.3) Aspartate Amino Transf (AST/SGOT) 35 U/L (15-37) 32 U/L (15-37) Alanine Aminotransferase (ALT/SGPT) 43 U/L (12-78) 44 U/L (12-78) Alkaline Phosphatase 41 U/L (46-116) 40 U/L (46-116) Pro-B-Type Natriuretic Peptide 3638 pg/mL (0-125) Total Protein 6.7 G/DL (6.4-8.2) 6.5 G/DL (6.4-8.2) Albumin 3.1 G/DL (3.4-5.0) 2.9 G/DL (3.4-5.0) Globulin 3.6 g/dL 3.6 g/dL Albumin/Globulin Ratio 0.9 (1.0-2.7) 0.8 (1.0-2.7) Arterial Blood pH 7.446 (7.350-7.450) Arterial Blood Partial Pressure CO2 39.1 mmHg (35.0-45.0) Arterial Blood Partial Pressure O2 61.4 mmHg (75.0-100.0) Arterial Blood HCO3 26.3 mmol/L (22.0-26.0) Arterial Blood Oxygen Saturation 89.9 % (95-100) Arterial Blood Base Excess 2.2 (-2-2) Black Test Positive White Blood Count 7.8 K/UL (4.8-10.8) Red Blood Count 4.55 M/UL (4.20-5.40) Hemoglobin 12.6 G/DL (12.0-16.0) Hematocrit 38.7 % (37.0-47.0) Mean Corpuscular Volume 85 FL (80-99) Mean Corpuscular Hemoglobin 27.7 PG (27.0-31.0) Mean Corpuscular Hemoglobin Concent 32.6 G/DL (32.0-36.0) Red Cell Distribution Width 13.1 % (11.6-14.8) Platelet Count 275 K/UL (150-450) Mean Platelet Volume 7.5 FL (6.5-10.1) Neutrophils (%) (Auto) 67.9 % (45.0-75.0) Lymphocytes (%) (Auto) 19.5 % (20.0-45.0) Monocytes (%) (Auto) 10.2 % (1.0-10.0) Eosinophils (%) (Auto) 1.6 % (0.0-3.0) Basophils (%) (Auto) 0.9 % (0.0-2.0) Magnesium Level 1.8 MG/DL (1.8-2.4) Objective: GENERAL: A well-developed female, alert HEENT: Negative. NECK: Supple. The patient is comfortable on o2. Carotids 2+. Mild jugular venous distention noted. LUNGS: With reduced breath sounds at both bases with reduced air entry. no rhonchi or wheeze CARDIAC: S1, S2. Regular rate and rhythm without murmurs, rubs, or gallops. (rate controlled) abdomen is soft and nontender NABS EXTREMITIES: No cyanosis, clubbing, or edema. NEUROLOGICALLY: alert and communicative SKIN: Noted and reviewed. reviewed and edited Accucheck: 192 Wilfred Boo MD Dec 29, 2018 12:57
[2018-12-29] MEDS ORDERED: ELIQUIS5 MG PO ×2 (13:53→13:54)
[2018-12-29] MEDS ORDERED: ASPIRIN EC81 MG ORAL (13:54)
[2018-12-29] MEDS ORDERED: ATORVASTATIN CA40 MG ORAL (13:55)
[2018-12-29] MEDS ORDERED: DIGOX125 MCG PO (13:55)
[2018-12-29] MEDS ORDERED: ZETIA10 MG ORAL (13:56)
[2018-12-29] MEDS ORDERED: LISINOPRIL20 MG ORAL (13:57)
[2018-12-29] MEDS ORDERED: METFORMIN HCL850 M1 ORAL (13:58)
[2018-12-29] MEDS ORDERED: METHOCARBAMOL750 MG ORAL (13:58)
--- NOTE | 2018-12-29 14:50 | NUR ---
NURSE NOTES: The patient is transferred safely back home with brother Pal via private vehicle. The patient was stable in terms of vital signs and without acute distress of shortness of breath. The discharge instruction and teaching given to the patient and brother. The patient verbalized understanding. The patient's telebox, IV, and name band are off. The patient's inventory confirmed and signed by the patient family member. Discharge instruction given and signed by the patient.
--- NOTE | 2018-12-30 01:00 | Progress Note ---
DATE: 12/29/2018 CARDIOLOGY PROGRESS NOTE SUBJECTIVE: The patient remains in atrial fibrillation, now rate controlled. She is on anticoagulation for cardioembolic prophylaxis with apixaban. She is more alert and in no shortness of breath. OBJECTIVE: VITAL SIGNS: Blood pressure 125/80, pulse 94, respiratory rate 18. LUNGS: Clear. CARDIAC: Irregularly irregular. Normal S1, S2. A 1/6 systolic murmur at apex. ABDOMEN: Soft. EXTREMITIES: Trace edema. IMPRESSION: 1. Status post respiratory failure. 2. COPD. 3. Resolving encephalopathy. 4. Paroxysmal atrial fibrillation. 5. Acute on chronic systolic and diastolic congestive heart failure. 6. Fwme-iu-jsychtri protein-calorie malnutrition. 7. Hypertensive heart disease. PLAN: 1. Discharge with outpatient followup. 2. Medication regimen reviewed to include digitalis and beta-marley as well as apixaban. 3. Monitor electrolytes. 4. Continue anti-lipid regimen. 5. We would titrate diuretic dosing based on clinical parameters as an outpatient. Venkat Harris JOB#: [id number] CC:
--- NOTE | 2018-12-30 11:39 | Discharge Summary ---
Discharge Summary Discharge Summary _ DATE OF ADMISSION: 12/22/2018 DATE OF DISCHARGE: 12/29/2018 DISCHARGED BY: Dr. Boo REASON FOR ADMISSION: 73 years old female with past medical history of obstructive sleep apnea, asthma , hypertension, cardiomyopathy with ejection fraction of 45%, pulmonary hypertension, diabetes mellitus, hypercholesterolemia, carotid stenosis, presented to emergency department with shortness of breath. Shortness of breath developed gradually over the last 24 hours. Patient reported difficulty catching her breath. Patient was orthopneic and dyspneic on presentation. Patient recently completed antibiotic for pharyngitis . Chest x-ray was suggestive of pulmonary edema and pleural effusion. Patient required emergent oral intubation. Patient was sedated with propofol. Laboratory work-up revealed no leukocytosis, hemoglobin 11, hematocrit 33.3. Stable electrolytes and renal parameters. Glucose 144. Troponin - 0.012. ProBNP -3006. EKG revealed sinus tachycardia, no acute ischemic changes. Lactic acid 1.9. Urinalysis revealed no evidence of UTI. CTA of the chest revealed no evidence of acute pulmonary emboli. Marked cardiomegaly noted. Extensive bilateral parenchymal consolidation and ground- glass opacity probably on the basis of pulmonary edema , but could represent pneumonia. Bilateral pleural effusion. Patient subsequently admitted to ICU for further management CONSULTANTS: slurry control tender Dr. Martínez pulmonary Dr. Boo internal medicine [facility] COURSE: Patient admitted to ICU. Patient was provided with sedation. Ventilator support and pulmonary toilet provided. Patient started on IV diuresis with close monitoring of volumes and cardiorenal parameters. Patient started on steroid therapy with tapering. Animal Therapist and medical genetics director closely followed. DVT prophylaxis provided Echocardiogram revealed ejection fraction of 35% with global left ventricular hypokinesis and mild left ventricular hypertrophy. Mitral inflow indicated increased left atrial pressure , suggesting restrictive pattern grade 3. Right ventricular systolic pressure of 48 consistent with moderate pulmonary hypertension. Patient was followed-up with chest x-ray and ABG. Settings titrated as needed . Patient started on weaning protocol and was able to be extubated on 12/24. Supplemental oxygen provided as needed to keep pulse oximetry above 92% Prior to discharge pulse oximetry stable on room air. Sputum culture was negative. Anti-failure medication regimen was maximized. Antiplatelet therapy with aspirin , nitrite m statin and Zetia continued. Additional diuresis provided as per slurry control tender. Patient was continued on cardiac monitoring. Beta-marley therapy added Bedside swallow evaluation completed. Patient was continued on soft easy chew diet with thin liquids with general aspiration precaution. Cepacol lozenges provided for comfort after extubation. Patient noted to have episodes of paroxysmal atrial fibrillation with rapid ventricular response. Multidrug regimen for rate control of atrial fibrillation instituted . Anticoagulation for cardioembolic prophylaxis with Eliquis started. Heart rate stabilized, but patient continued to have evidence of atrial fibrillation on monitor. Patient status post mechanical fall . CT of the head revealed small midline posterior scalp contusion without depressed calvarial fracture. CT scan of the neck revealed no acute cervical fracture or traumatic subluxation. Cervical spondylosis noted. Repeated in few hours CT of the head showed no acute intracranial process. X-ray of the sacrum and coccyx revealed no acute injury. Bilateral hip and pelvis x-ray revealed mild osteoarthritis of both hips no acute injury. Pain management was addressed. Neuro-checks performed and remained stable. Fall precaution maintained. Supportive care provided. Protein supplements implemented in plan of care as recommended by registered respiratory technician. Blood sugar was managed with metformin. Sliding scale of insulin was on board as needed. Hemoglobin A1c 7.0 Renal parameters and electrolytes were closely monitored. Electrolytes corrected as needed/potassium. Hemoglobin and hematocrit were closely monitored and remained stable , no evidence of bleeding . Prior to discharge hemoglobin 12.6, hematocrit 38.7. Diuretic regimen further titrated by slurry control tender based on clinical parameters . Patient to follow-up with slurry control tender and medical genetics director as outpatient. Patient stabilized and was ready for discharge home with home health service for close monitoring . FINAL DIAGNOSES: Acute respiratory failure requiring intubation, status post extubation Acute pulmonary edema Hypertensive cardiomyopathy Acute and chronic systolic and diastolic congestive heart failure COPD/asthma Paroxysmal l atrial fibrillation with rapid ventricular response Hypertensive heart disease Coronary artery disease Diabetes mellitus type 2 Hypercholesterolemia Pleural effusion Pulmonary hypertension Hypokalemia Encephalopathy - resolving Mild to moderate protein calorie malnutrition Recent pharyngitis Debility DISCHARGE MEDICATIONS: See Medication Reconciliation list. DISCHARGE INSTRUCTIONS: Patient was discharged home with home health services. Follow up with primary care provider in one week. I have been assigned to dictate discharge summary for this account. I was not involved in the patient's management. Camilla Mi NP Dec 30, 2018 11:38
== END 2018-12-29 14:50 | disposition home health service (06) | DRG 208 ==
LOC: EDBD 20:47 → EMR 21:02 → EDBEDREQSVC 21:59 → EDBEDREQ 21:59 → ICU 22:22 → EDBEDREQ 23:09 → ICU 23:28 → 2E 12-25 18:15
PROC: 0BH17EZ Insertion of Endotracheal Airway into Trachea, Via Natural or Artificial Opening (ICD-10-PCS; principal; 2018-12-22)
PROC: 5A1945Z Respiratory Ventilation, 24-96 Consecutive Hours (ICD-10-PCS; principal; 2018-12-22)
DX: J96.01 Acute respiratory failure with hypoxia (principal); I50.43 Acute on chronic combined systolic (congestive) and diastolic (congestive) heart failure; J44.1 Chronic obstructive pulmonary disease with (acute) exacerbation; E44.0 Moderate protein-calorie malnutrition; I42.9 Cardiomyopathy, unspecified; J90 Pleural effusion, not elsewhere classified; G93.40 Encephalopathy, unspecified; I11.0 Hypertensive heart disease with heart failure; Z68.30 Body mass index [BMI] 30.0-30.9, adult; E11.9 Type 2 diabetes mellitus without complications; I65.29 Occlusion and stenosis of unspecified carotid artery; I25.10 Atherosclerotic heart disease of native coronary artery without angina pectoris; E78.00 Pure hypercholesterolemia, unspecified; I27.20 Pulmonary hypertension, unspecified; E87.6 Hypokalemia; I48.0 Paroxysmal atrial fibrillation
CPT/HCPCS: 31500; 36415; 36600; 70450; 70490; 71045; 71275; 72220; 73521; 74018; 80048; 80053; 81003; 82248; 82803; 82962; 83036; 83605; 83735; 83880; 84478; 84484; 85025; 85610; 85730; 87070; 87081; 87205; 93005; 93306; 94002; 94003; 94640; 94664; 96374; 96375; 96376; 99291; J1815; J2250; J8499

== ENCOUNTER 2019-01-04 01:02 | Emergency (ER) | payer MEDICARE, OTHER ==
[~2019-01-04] VITALS: Ht 157.5 cm; Wt 81.6 kg
[~2019-01-04 01:02] MED LIST changes: +ASPIRIN EC81 MG ORAL; +ATORVASTATIN CA40 MG ORAL; +DIGOX125 MCG PO; +ELIQUIS5 MG PO; +LIPITOR80 MG ORAL; +LISINOPRIL20 MG ORAL; +METHOCARBAMOL750 MG ORAL
--- NOTE | 2019-01-04 01:25 | NUR ---
ED Nurse Note: patient ambulated to ed c/o insomnia and diaphoresis x4 days. pt presents tachycardic; highest 145. ao4. nad. family at bedside.
[2019-01-04] MEDS ORDERED: dilTIAZem HCl 25mg/5ml Inj IVP ONE ×2 (01:30→02:45)
--- NOTE | 2019-01-04 01:30 | NUR ---
ED Nurse Note: iv access established. blood and urine collected; sent down to lab.
--- NOTE | 2019-01-04 01:31 | Emergency Room Report ---
History of Present Illness General Chief Complaint: General Complaint Source: Patient Present Illness HPI This is a 73-year-old female with a history of atrial fibrillation on Eliquis. She also has a history of high blood pressure and diabetes. She was just discharged from the hospital 5 days ago for CHF and rapid A. fib. She presents with chief complaint of insomnia. This has been ongoing for 3 days. Says she cannot fall asleep. She tried Advil PM not helping. No nausea no vomiting. No chest pain. No suicidal thoughts or depression. No shortness of breath. Denies any other complaint. Allergies: Coded Allergies: Dust (Verified Allergy, Mild, Itching, 11/06/15) Patient History Past Medical History: see triage record, old chart reviewed, DM, HTN, CHF, AFib Past Surgical History: other Pertinent Family History: none Social History: Denies: smoking Now: No Immunizations: other Reviewed Nursing Documentation: PMH: Agreed; PSxH: Agreed Nursing Documentation-PMH Hx Cardiac Problems: Yes - high cholesterol Hx Hypertension: Yes Hx Pacemaker: No Hx Asthma: No Hx COPD: Yes Hx Diabetes: Yes Hx Cancer: No Hx Gastrointestinal Problems: No Hx Neurological Problems: No Hx Cerebrovascular Accident: No Hx Seizures: No Review of Systems Eye: Denies: eye pain, blurred vision ENT: Denies: ear pain, nose congestion, throat swelling Respiratory: Denies: cough, shortness of breath Cardiovascular: Denies: chest pain, palpitations Gastrointestinal: Denies: abdominal pain, diarrhea, nausea, vomiting Musculoskeletal: Denies: back pain, joint pain Skin: Denies: rash Neurological: Denies: headache, numbness Endocrine: Denies: increased thirst, increased urine Hematologic/Lymphatic: Denies: easy bruising All Other Systems: negative except mentioned in HPI Physical Exam Vital Signs Date Time Temp Pulse Resp B/P (MAP) Pulse Ox O2 Delivery O2 Flow Rate FiO2 01/04/19 01:06 98.2 120 14 146/111 (123) 100 Room Air Vitals with tachycardia and hypertension Sp02 EP Interpretation: reviewed, normal General Appearance: well appearing, no apparent distress, alert Head: normocephalic, atraumatic Eyes: bilateral eye PERRL, bilateral eye EOMI ENT: hearing grossly normal, normal pharynx Neck: full range of motion, supple, no meningismus Respiratory: chest non-tender, lungs clear, normal breath sounds Cardiovascular #1: no murmur, tachycardia, irregularly irregular Gastrointestinal: normal bowel sounds, non tender, no mass, no organomegaly, no bruit, non-distended Musculoskeletal: back normal, gait/station normal, normal range of motion Psychiatric: mood/affect normal Skin: warm/dry Medical Decision Making Diagnostic Impression: Primary Impression: Insomnia Qualified Codes: G47.00 - Insomnia, unspecified Additional Impressions: Rapid atrial fibrillation CHF (congestive heart failure) Qualified Codes: I50.9 - Heart failure, unspecified UTI (urinary tract infection) Qualified Codes: N30.00 - Acute cystitis without hematuria ER Course Patient presents with insomnia. This may be secondary to stress regarding her recent illness. She was just discharged from the hospital. Oxygenation is normal. She does have a history of chronic A. fib for which she is on Eliquis. Chest x-ray looks improved compared to last one on admission. Her heart rate ranged from 90s to 130s. I gave her couple doses of Cardizem and is better control. She does appear to have a urinary tract infection. Probably from the last admission with Mosley catheter. Patient felt better after Ativan. She says she wants to go home. Does not want to stay in the hospital. No evidence of ACS or PE. No evidence of any dissection to name a few. Will discharge home. Lab Results Impression Labs with elevated BNP EKG Diagnostic Results Rate: tachycardiac Rhythm: other - afib ST Segments: other - NSST changes Rhythm Strip Diag. Results EP Interpretation: yes Rate: 95 Rhythm: no PVC's, no ectopy, other - afib Chest X-Ray Diagnostic Results Chest X-Ray Diagnostic Results : Chest X-Ray Ordered: Yes # of Views/Limited/Complete: 1 View Indication: Other EP Interpretation: Yes Interpretation: no consolidation, no effusion, no pneumothorax, other - CM with mild vasc congestion Impression: Other - CM Electronically Signed by: Micah Martinez MD Last Vital Signs Date Time Temp Pulse Resp B/P (MAP) Pulse Ox O2 Delivery O2 Flow Rate FiO2 01/04/19 01:06 98.2 120 14 146/111 (123) 100 Room Air Status: improved Disposition: HOME, SELF-CARE Condition: Stable Scripts Zolpidem Tartrate* (AMBIEN*) 5 Mg Tablet 5 MG ORAL BEDTIME PRN for Insomnia, #30 TAB Prov: Micah Martinez MD 01/04/19 Nitrofurantoin Monohyd/M-Cryst (Nitrofurantoin [place]-Mcr 100 mg) 100 Mg Capsule 100 MG ORAL Q12H, #14 CAP Prov: Micah Martinez MD 01/04/19 Referrals: Wilfred Boo MD (PCP) Additional Instructions: Follow-up with your doctor in 3 to 5 days. Return if symptoms worsen. Micah Martinez MD Jan 04, 2019 01:31
[2019-01-04 01:52] VITALS: BP 146/111
[2019-01-04 01:54] LABS: APPEARANCE,URINE SLIGHTLY CLOUDY; BILIRUBIN, URINE NEGATIVE (NEGATIVE); COLOR,URINE PALE YELLOW; GLUCOSE, URINE (UA) NEGATIVE (NEGATIVE); KETONES,URINE NEGATIVE (NEGATIVE); LEUKOCYTE ESTERASE ,URINE 3+ (NEGATIVE); NITRITE,URINE NEGATIVE (NEGATIVE); PH,URINE 5 (4.5-8.0); PROTEIN,URINE 3+ (NEGATIVE); UROBILINOGEN,URINE NORMAL MG/DL (0.0-1.0)
[2019-01-04 01:58] LABS: BASOPHILS % (AUTO) 0.8 % (0.0-2.0); EOSINOPHILS % (AUTO) 0.9 % (0.0-3.0); HEMATOCRIT 35.2 % (37.0-47.0); HEMOGLOBIN 11.6 G/DL (12.0-16.0); LYMPHOCYTES % (AUTO) 26.3 % (20.0-45.0); MEAN CORPUSCULAR VOLUME 84 FL (80-99); PLATELET COUNT 295 K/UL (150-450); RED BLOOD COUNT 4.16 M/UL (4.20-5.40); RED CELL DISTRIBUTION WIDTH 12.8 % (11.6-14.8); WHITE BLOOD COUNT 7.9 K/UL (4.8-10.8)
[2019-01-04 02:04] LABS: ANION GAP 9 mmol/L (5-15); BLOOD UREA NITROGEN 21 mg/dL (7-18); CALCIUM 9.1 MG/DL (8.5-10.1); CARBON DIOXIDE 24 MMOL/L (21-32); CHLORIDE 106 MMOL/L (98-107); CREATININE 0.9 MG/DL (0.55-1.30); POTASSIUM 4.2 MMOL/L (3.5-5.1); SODIUM 139 MMOL/L (136-145)
[2019-01-04] MEDS ORDERED: LORazepam Inj 2mg/ml 1ml IV ONE (02:15)
[2019-01-04 02:18] LABS: ALANINE AMINOTRANSFERASE 37 U/L (12-78); ALBUMIN 3.3 G/DL (3.4-5.0); ALBUMIN/GLOBULIN RATIO 1.1 (1.0-2.7); ALKALINE PHOSPHATASE 43 U/L (46-116); ASPARTATE AMINO TRANSFERASE 22 U/L (15-37); BILIRUBIN,TOTAL 0.4 MG/DL (0.2-1.0); CKMB 1.1 NG/ML (0.0-3.6); CREATINE KINASE 62 U/L (26-308)
[2019-01-04 02:37] VITALS: BP 101/57
[2019-01-04] MEDS ORDERED: cefTRIAXone 1 GM in NS 55 ML IVPB ONE (02:45)
[2019-01-04] MEDS ORDERED: MACROBID100 MG ORAL (02:52)
[2019-01-04] MEDS ORDERED: AMBIEN5 MG ORAL (02:52)
[2019-01-04 03:00] VITALS: BP 134/68
--- NOTE | 2019-01-04 03:00 | NUR ---
ER DISCHARGE NOTE: Patient is cleared to be discharged per ERMD, pt is aox4, on room air, with stable vital signs. accompanied by family member. pt and family member given dc and prescription instructions, pt was able to verbalize understanding, pt id band and iv site removed without complications. pt wheelchair assist to private vehicle. pt took all belongings.
--- NOTE | 2019-01-04 10:28 | Diagnostic Imaging Report ---
Indication: Dyspnea Comparison: 12/26/2018 A single view chest radiograph was obtained. Findings: No definite infiltrate or pulmonary vascular congestion identified. The heart is enlarged. The aorta is mildly enlarged consistent with atherosclerotic vascular disease. The bones are osteopenic. Impression: No acute disease
--- NOTE | 2019-01-06 21:09 | Cardiology Report ---
APPROVED REPORT EKG Measurement Heart [id number] Atrial fibrillation with rapid ventricular response Low voltage QRS Septal infarct, age undetermined Abnormal ECG
== END 2019-01-04 03:00 | disposition home or self-care (01) ==
LOC: EMR 01:23
DX: G47.00 Insomnia, unspecified (principal); I48.2 Chronic atrial fibrillation; N30.00 Acute cystitis without hematuria; I50.9 Heart failure, unspecified; E11.9 Type 2 diabetes mellitus without complications; E78.00 Pure hypercholesterolemia, unspecified; J44.9 Chronic obstructive pulmonary disease, unspecified; I11.0 Hypertensive heart disease with heart failure; Z79.01 Long term (current) use of anticoagulants
CPT/HCPCS: 36415; 71045; 80053; 81003; 82550; 82553; 83880; 84484; 85025; 87086; 87181; 93005; 96365; 96375; 99284; J0696; J1940

== ENCOUNTER 2019-01-06 14:50 | Inpatient (IN) | payer MEDICARE, OTHER ==
[~2019-01-06] VITALS: Ht 160 cm; Wt 73.5 kg
[~2019-01-06 14:50] MED LIST changes: +AMBIEN5 MG ORAL; +MACROBID100 MG ORAL
[2019-01-06] MEDS ORDERED: Metoprolol 5mg/5ml Inj IVP STA (14:57)
[2019-01-06 15:04] VITALS: BP 137/94
--- NOTE | 2019-01-06 15:05 | Emergency Room Report ---
History of Present Illness General Chief Complaint: General Complaint Source: Patient, Medical Record Present Illness HPI CT angiogram was performed presents with dyspnea and palpitations. She was referred from a clinic. They had an EKG with tachyarrhythmia that suggested atrial fibrillation. She is supposed be taking digoxin at this time as well as antihypertensives. She denies any pain at this time. There is no dizziness. The patient is being treated for hypertension and diabetes. She denies fevers, chills, nausea, vomiting, diarrhea, dysuria, joint pain or rashes. She does denies edema or calf pain. Several weeks ago she had an episode of flash pulmonary edema requiring intubation and also ICU admission. During that admission and there was no evidence of pulmonary embolus. She is on Eliquis at this time and aspirin. She denies any fevers or chills. There is no bleeding. Chronic anxiety. Several family members to have recently. Allergies: Coded Allergies: Dust (Verified Allergy, Mild, Itching, 11/06/15) Patient History Past Medical History: see triage record Social History: Denies: smoking, alcohol use, drug use Social History Narrative With brother Reviewed Nursing Documentation: PMH: Agreed; PSxH: Agreed Nursing Documentation-PMH Past Medical History: No History, Except For Hx Cardiac Problems: Yes - high cholesterol Hx Hypertension: Yes Hx Pacemaker: No Hx Asthma: No Hx COPD: Yes Hx Diabetes: Yes Hx Cancer: No Hx Gastrointestinal Problems: No Hx Neurological Problems: No Hx Cerebrovascular Accident: No Hx Seizures: No Review of Systems All Other Systems: negative except mentioned in HPI Physical Exam Vital Signs Date Time Temp Pulse Resp B/P (MAP) Pulse Ox O2 Delivery O2 Flow Rate FiO2 01/06/19 14:54 98.4 141 19 137/94 (108) 95 Room Air Sp02 EP Interpretation: reviewed, normal General Appearance: well appearing, no apparent distress, GCS 15, non-toxic Head: normocephalic, atraumatic Eyes: bilateral eye normal inspection, bilateral eye PERRL, bilateral eye EOMI ENT: moist mucus membranes Neck: supple Respiratory: chest non-tender, lungs clear, normal breath sounds Cardiovascular #1: tachycardia, irregularly irregular, other - [place] A waves Cardiovascular #2: 2+ radial (R) Gastrointestinal: normal inspection, normal bowel sounds, non tender, no mass, non-distended Musculoskeletal: back normal, gait/station normal, normal range of motion, no calf tenderness, Rashida's Sign negative Neurologic: alert, oriented x3, grossly normal Psychiatric: anxious Skin: normal inspection, warm/dry Procedures Critical Care Time Critical Care Time Total Critical Care Time: 30 min bedside evaluation and treatment excludes procedures (EKG). Reason for critical care: Atrial fibrillation with rapid ventricular response congestive heart failure, Possible complications: hypotension, hypertension, [place], shock, arrhythmias, metabolic acidosis, end organ damage, respiratory failure. Interventions: Multiple doses of beta-blockers and calcium channel blockers with repeated examinations, Lasix Course: Patient presents with atrial fibrillation with rapid ventricular response. Multiple doses of beta-blockers including metoprolol and esmolol were given with repeat evaluations in between dosing. Rate felt to be controlled with these. Diltiazem was given with control of the rate. Patient had evidence of congestive heart failure with elevated BNP and increased simmons on chest x-ray. Lasix was given. The patient began to diurese. Consultations: nursing staff, EMS, family, admitting physician Performed by: Dr. Miller Tolerated well condition = serious Medical Decision Making Diagnostic Impression: Primary Impression: Atrial fibrillation with rapid ventricular response Additional Impressions: CHF (congestive heart failure) Qualified Codes: I50.42 - Chronic combined systolic (congestive) and diastolic (congestive) heart failure HTN (hypertension) Qualified Codes: I10 - Essential (primary) hypertension ER Course Patient with atrial fibrillation with rapid ventricular response. Frontal includes acute myocardial infarction, pulmonary embolus, other cause of atrial fibrillation amongst others. Patient will be evaluated with EKG, chest x-ray and labs. The patient will be treated with metoprolol as her blood pressure is high and her heart rate is high also she is placed on a land survey technician. The fact that she is taking Eliquis makes pulmonary embolus less likely. EKG A fib RVR, no injury. CXR increased simmons bilaterally. Initial labs essentially unremarkable aside from minimally elevated blood glucose, elevated BNP and negative troponin. After metoprolol and esmolol, slightly better, but still rapid rate. Repeat metoprolol. Still tachycardic. Diltiazem ordered. HR controlled. Repeat EKG.17:12 Still A fib, Rate 54, No injury. Lasix given for CXR and elevated BNP. Patient improved with treatment but needs further evaluation and observation with repeated troponins and consideration for more appropriate control of atrial fibrillation and possible consideration for cardioversion. Admit stepdown unit Dr. Boo. Laboratory Tests Test 01/06/19 15:00 01/06/19 16:20 White Blood Count 8.0 K/UL (4.8-10.8) Red Blood Count 4.52 M/UL (4.20-5.40) Hemoglobin 12.4 G/DL (12.0-16.0) Hematocrit 37.9 % (37.0-47.0) Mean Corpuscular Volume 84 FL (80-99) Mean Corpuscular Hemoglobin 27.4 PG (27.0-31.0) Mean Corpuscular Hemoglobin Concent 32.8 G/DL (32.0-36.0) Red Cell Distribution Width 12.4 % (11.6-14.8) Platelet Count 265 K/UL (150-450) Mean Platelet Volume 6.1 FL (6.5-10.1) L Neutrophils (%) (Auto) 84.5 % (45.0-75.0) H Lymphocytes (%) (Auto) 6.6 % (20.0-45.0) L Monocytes (%) (Auto) 6.8 % (1.0-10.0) Eosinophils (%) (Auto) 1.5 % (0.0-3.0) Basophils (%) (Auto) 0.6 % (0.0-2.0) Prothrombin Time 11.5 SEC (9.30-11.50) Prothrombin Time INR 1.1 (0.9-1.1) PTT 29 SEC (23-33) Sodium Level 139 MMOL/L (136-145) Potassium Level 4.2 MMOL/L (3.5-5.1) Chloride Level 105 MMOL/L (98-107) Carbon Dioxide Level 25 MMOL/L (21-32) Anion Gap 9 mmol/L (5-15) Blood Urea Nitrogen 14 mg/dL (7-18) Creatinine 0.9 MG/DL (0.55-1.30) Estimate Glomerular Filtration Rate mL/min (>60) Glucose Level 153 MG/DL (74-106) H Calcium Level 9.5 MG/DL (8.5-10.1) Total Bilirubin 0.8 MG/DL (0.2-1.0) Aspartate Amino Transferase (AST) 35 U/L (15-37) Alanine Aminotransferase (ALT) 60 U/L (12-78) Alkaline Phosphatase 73 U/L (46-116) Total Creatine Kinase 44 U/L (26-308) Troponin I 0.016 ng/mL (0.000-0.056) Pro-B-Type Natriuretic Peptide 6411 pg/mL (0-125) H Total Protein 6.7 G/DL (6.4-8.2) Albumin 3.4 G/DL (3.4-5.0) Globulin 3.3 g/dL Albumin/Globulin Ratio 1.0 (1.0-2.7) Digoxin Level 1.0 NG/ML (0.9-2.0) Urine Color Yellow Urine Appearance Clear Urine pH 6 (4.5-8.0) Urine Specific [place] 1.015 (1.005-1.035) Urine Protein 1+ (NEGATIVE) H Urine Glucose (UA) Negative (NEGATIVE) Urine Ketones 2+ (NEGATIVE) H Urine Blood 4+ (NEGATIVE) H Urine Nitrite Negative (NEGATIVE) Urine Bilirubin Negative (NEGATIVE) Urine Urobilinogen Normal MG/DL (0.0-1.0) Urine Leukocyte Esterase 1+ (NEGATIVE) H Urine RBC 10-15 /HPF (0 - 2) H Urine WBC 2-4 /HPF (0 - 2) Urine Squamous Epithelial Cells Occasional /LPF Urine Bacteria Occasional /HPF (NONE) EKG Diagnostic Results Rate: tachycardiac Rhythm: other - Serial fibrillation rapid ventricular response rate [address] Segments: other Rhythm Strip Diag. Results EP Interpretation: yes Rhythm: no PVC's, no ectopy, other - She will fibrillation rapid ventricular response Chest X-Ray Diagnostic Results Chest X-Ray Diagnostic Results : Chest X-Ray Ordered: Yes # of Views/Limited/Complete: 1 View Indication: Other EP Interpretation: Yes Interpretation: no effusion, no pneumothorax, other - increase simmons bilat Impression: Other Electronically Signed by: Electronically signed by Travis Miller MD HR 99 when left ED Status: improved Disposition: ADMITTED INPATIENT Condition: Serious Travis Miller MD Jan 06, 2019 15:05
[2019-01-06] MEDS ORDERED: Esmolol 100mg/10ml Inj IV ONE (15:30)
--- NOTE | 2019-01-06 15:36 | Diagnostic Imaging Report ---
Indication: Shortness of breath Technique: One view of the chest Comparison: 01/04/2019 Findings: The heart is enlarged. There is apparent increased interstitial prominence, although this may be exaggerated by less optimal exposure technique. The pleural spaces are clear. Impression: Question developing interstitial congestion, versus artifact of different exposure technique. Correlate with clinical findings Cardiomegaly
[2019-01-06 15:43] LABS: ANION GAP 9 mmol/L (5-15); BLOOD UREA NITROGEN 14 mg/dL (7-18); CALCIUM 9.5 MG/DL (8.5-10.1); CARBON DIOXIDE 25 MMOL/L (21-32); CHLORIDE 105 MMOL/L (98-107); CREATININE 0.9 MG/DL (0.55-1.30); POTASSIUM 4.2 MMOL/L (3.5-5.1); SODIUM 139 MMOL/L (136-145)
[2019-01-06 15:48] LABS: BASOPHILS % (AUTO) 0.6 % (0.0-2.0); EOSINOPHILS % (AUTO) 1.5 % (0.0-3.0); HEMATOCRIT 37.9 % (37.0-47.0); HEMOGLOBIN 12.4 G/DL (12.0-16.0); LYMPHOCYTES % (AUTO) 6.6 % (20.0-45.0); MEAN CORPUSCULAR VOLUME 84 FL (80-99); MONOCYTES % (AUTO) 6.8 % (1.0-10.0); NEUTROPHILS % (AUTO) 84.5 % (45.0-75.0); PLATELET COUNT 265 K/UL (150-450); RED BLOOD COUNT 4.52 M/UL (4.20-5.40); RED CELL DISTRIBUTION WIDTH 12.4 % (11.6-14.8)
[2019-01-06 15:53] LABS: ALANINE AMINOTRANSFERASE 60 U/L (12-78); ALBUMIN 3.4 G/DL (3.4-5.0); ALKALINE PHOSPHATASE 73 U/L (46-116); ASPARTATE AMINO TRANSFERASE 35 U/L (15-37); BILIRUBIN,TOTAL 0.8 MG/DL (0.2-1.0); CREATINE KINASE 44 U/L (26-308)
[2019-01-06 16:00] LABS: INR 1.1 (0.9-1.1)
[2019-01-06 16:27] VITALS: BP 133/95
[2019-01-06] MEDS: Metoprolol 5mg/5ml Inj IVP SCH ×2 (16:27→16:36)
[2019-01-06 16:40] LABS: APPEARANCE,URINE CLEAR; BILIRUBIN, URINE NEGATIVE (NEGATIVE); GLUCOSE, URINE (UA) NEGATIVE (NEGATIVE); KETONES,URINE 2+ (NEGATIVE); LEUKOCYTE ESTERASE ,URINE 1+ (NEGATIVE); NITRITE,URINE NEGATIVE (NEGATIVE); PH,URINE 6 (4.5-8.0); PROTEIN,URINE 1+ (NEGATIVE); UROBILINOGEN,URINE NORMAL MG/DL (0.0-1.0)
[2019-01-06 16:42] LABS: COLOR,URINE YELLOW
[2019-01-06] MEDS ORDERED: dilTIAZem HCl 25mg/5ml Inj IVP ONE (16:45)
[2019-01-06 17:17] VITALS: BP 102/58
[2019-01-06 19:50] VITALS: BP 143/74
[2019-01-06] MEDS ORDERED: Zolpidem 5mg tab ORAL PRN (20:30)
[2019-01-06] MEDS ORDERED: Methocarbamol 750mg tab ORAL PRN (20:30)
[2019-01-06] MEDS ORDERED: Atorvastatin 20mg tab ORAL SCH (21:00)
[2019-01-06] MEDS ORDERED: dilTIAZem HCl 30mg tab ORAL SCH (22:00)
[2019-01-06] MEDS: Breo Ellipta 200/25mcg-14 dose INH SCH (22:16)
[2019-01-06] MEDS ORDERED: Digoxin 0.5mg/2ml Inj IVP SCH (23:15)
[2019-01-06] MEDS ORDERED: dilTIAZem HCl 25mg/5ml Inj IVP SCH (23:15)
[2019-01-07] VITALS: BP 117/85
--- NOTE | 2019-01-07 03:01 | History and Physical Report ---
DATE OF ADMISSION: 01/06/2019 REASON FOR ADMISSION: Rapid atrial fibrillation. HISTORY OF PRESENT ILLNESS: This is a 73-year-old female, recently discharged from [facility]. The patient presents today with worsening shortness of breath and also rapid atrial fibrillation in the office. The patient was discharged to home. She was noted to have cardiomyopathy with ejection fraction of 45%. She was eventually extubated, diuresed aggressively, and rate was controlled upon discharge. The patient otherwise had been doing fairly well from discharge day, 12/29/2018. The patient had been taking her medications, reviewed closely with her brother; however, the patient was noted to have atrial fibrillation on arrival to the office. The patient was transferred to the emergency room and was handed off in stable condition. The patient was noted to have persistent rapid atrial fibrillation, now rate controlled after IV drugs. The patient denies any chest pain at present. No radiation of pain. PAST MEDICAL HISTORY: Notable for obstructive sleep apnea, asthma, hypertension, cardiomyopathy, atrial fibrillation, hypercholesteremia, carotid stenosis, diabetes, and pulmonary hypertension. MEDICATIONS: Reviewed. ALLERGIES: Reviewed. SOCIAL HISTORY: The patient is a nonsmoker and nondrinker. She is retired at present. She lives with her brother. REVIEW OF SYSTEMS: All 10 points reviewed are otherwise negative. The patient's medications and allergies are reviewed in detail. PHYSICAL EXAMINATION: GENERAL: A well-developed female. The patient is currently more dyspneic than baseline. VITAL SIGNS: Upon arrival to the emergency room, pulse rate 141, blood pressure 137/94, O2 saturation 95%, temperature 98.4, and respiratory rate 18. HEENT: Negative. Extraocular movements are intact. NECK: Supple. LUNGS: Fairly clear overall. No rhonchi or wheezes. CARDIAC: Irregularly irregular and tachycardic. ABDOMEN: Soft, nontender, and nondistended. EXTREMITIES: No cyanosis, clubbing, or edema. NEUROLOGIC: Grossly nonfocal. LABORATORY DATA: Reviewed. Glucose 153. Electrolytes are otherwise negative. BNP 6411. Troponin 0.06. CBC essentially negative. EKG with rapid atrial fibrillation. IMPRESSION: 1. Atrial fibrillation with rapid ventricular response and cardiomyopathy per history. 2. History of pulmonary edema. 3. History of elevated natriuretic peptide, possibly consistent with elevated pulmonary pressure. 4. History of asthma. 5. History of obstructive sleep apnea. RECOMMENDATIONS: 1. Supportive care. 2. Rate control. 3. Lasix as needed. 4. Cardiology evaluation. 5. Resume medications from home. 6. Oxygen therapy. 7. Monitor telemetry and discharge once stabilized. 8. Continue anticoagulation as previously outlined from recent discharge. Wilfred Boo M.D. DR: STEPH JOB#: [id number] CC: [email or web address]
[2019-01-07 04:00] VITALS: BP 125/68
[2019-01-07 04:27] LABS: BASOPHILS % (AUTO) 0.4 % (0.0-2.0); EOSINOPHILS % (AUTO) 1.8 % (0.0-3.0); HEMATOCRIT 37.1 % (37.0-47.0); HEMOGLOBIN 12.3 G/DL (12.0-16.0); LYMPHOCYTES % (AUTO) 6.1 % (20.0-45.0); MEAN CORPUSCULAR VOLUME 85 FL (80-99); MONOCYTES % (AUTO) 9.3 % (1.0-10.0); NEUTROPHILS % (AUTO) 82.4 % (45.0-75.0); PLATELET COUNT 271 K/UL (150-450); RED BLOOD COUNT 4.38 M/UL (4.20-5.40); RED CELL DISTRIBUTION WIDTH 12.8 % (11.6-14.8); WHITE BLOOD COUNT 7.4 K/UL (4.8-10.8)
--- NOTE | 2019-01-07 04:30 | Consultation ---
DATE OF CONSULTATION: 01/06/2019 CARDIOLOGY CONSULTATION CONSULTING PHYSICIAN: Travis Martínez M.D. REQUESTING PHYSICIAN: Wilfred Boo M.D. REASON FOR CONSULTATION: Congestive heart failure and atrial fibrillation with rapid ventricular response. HISTORY OF PRESENT ILLNESS: This is a 73-year-old female known to have an ischemic cardiomyopathy with systolic and diastolic congestive heart failure and paroxysmal atrial fibrillation. She was noted to have a rapid atrial fibrillation at a clinic today. She apparently has not been compliant with all her medications. She did not complain of any chest pain, but has had palpitations and shortness of breath. She was hospitalized here few weeks ago with respiratory failure due to acute systolic and diastolic congestive heart failure and had episodes of rapid atrial fibrillation. She has been on cardioembolic prophylaxis with Eliquis. She has been on a multidrug anti failure and anti-ischemic regimen as well. MEDICATIONS: Prior to admission, reviewed and reconciled. ALLERGIES TO MEDICATIONS: None known. SOCIAL HISTORY: Nonsmoker. No alcohol or substance abuse. She lives with her brother. MEDICAL HISTORY: Hyperlipidemia, coronary artery disease, systolic and diastolic congestive heart failure, chronic obstructive pulmonary disease, sleep apnea, hypertension with hypertensive cardiomyopathy, pulmonary hypertension, carotid stenosis, bladder prolapse, and type 2 diabetes mellitus. REVIEW OF SYSTEMS: A 10-point review of systems cannot be performed due to the patient's language barrier and clinical condition. However, review of recent hospitalization revealed data as outlined above. The patient also had an echocardiogram during her recent hospitalization here that was notable for an ejection fraction in the range of 40% with global hypokinesis and cytl-he-mpxooexo pulmonary hypertension. PHYSICAL EXAMINATION: VITAL SIGNS: Oxygen saturation on 2 liters 97%, blood pressure 143/74, heart rate 139, respiratory 20, and afebrile. HEENT: Temporal wasting. Pale conjunctivae. Oropharynx clear. NECK: Supple. Jugular venous pressure is slightly elevated. LUNGS: Few rales at the bases. CARDIAC: Irregularly irregular rhythm. Rapid rate. Normal S1, S2. A 1/6 systolic apical murmur. ABDOMEN: Soft and nontender. EXTREMITIES: A 1+ dependent edema. NEUROLOGIC: Nonfocal. DIAGNOSTIC DATA: EKG, atrial fibrillation with rapid ventricular response, nonspecific ST-T wave changes. Chest x-ray, cardiomegaly and mild pulmonary venous congestion. LABORATORY DATA: White count 8 and hemoglobin 12. Potassium 4.2, BUN 14, creatinine 0.9, and glucose 153. Troponin 0.016. Pro-natriuretic peptide 6411. IMPRESSION: 1. Paroxysmal atrial fibrillation now with rapid ventricular response. 2. Acute myocardial ischemia. 3. Acute on chronic systolic and diastolic congestive heart failure. 4. Chronic obstructive pulmonary disease with no active bronchospasm. PLAN: 1. Cardiac monitoring. 2. Intravenous therapy with digoxin and diltiazem. 3. Diuresis with caution. 4. Continue cardioembolic prophylaxis with Eliquis. 5. Respiratory hygiene. Travis Martínez M.D. DR: DANA JOB#: [id number] CC:
[2019-01-07 05:04] LABS: ANION GAP 13 mmol/L (5-15); BLOOD UREA NITROGEN 12 mg/dL (7-18); CALCIUM 8.8 MG/DL (8.5-10.1); CARBON DIOXIDE 22 MMOL/L (21-32); CHLORIDE 103 MMOL/L (98-107); CREATININE 0.7 MG/DL (0.55-1.30); SODIUM 138 MMOL/L (136-145)
[2019-01-07] MEDS: dilTIAZem HCl 30mg tab ORAL SCH ×3 (05:45→22:04)
[2019-01-07] MEDS: NovoLOG Insulin Flexpen SUBQ SCH ×4 (05:46→21:04)
[2019-01-07 08:00] VITALS: BP 113/43
--- NOTE | 2019-01-07 08:22 | Pulmonology Progress Note ---
Assessment/Plan Assessment/Plan 1. Atrial fibrillation with rapid ventricular response and cardiomyopathy per history. 2. History of pulmonary edema. 3. History of elevated natriuretic peptide, possibly consistent with elevated pulmonary pressure. 4. History of asthma. 5. History of obstructive sleep apnea. PLAN supportive care oxygen rate control dig and cardizem breo daily and monitor dc once stable impression, plan, and exam edited and reviewed in detail care discussed with RN Subjective Allergies: Coded Allergies: Dust (Verified Allergy, Mild, Itching, 11/06/15) Subjective care noted and reviewed some sob heart rate still tachy at times Objective Last 24 Hour Vital Signs Date Time Temp Pulse Resp B/P (MAP) Pulse Ox O2 Delivery O2 Flow Rate FiO2 01/07/19 08:00 Nasal Cannula 2.0 01/07/19 06:48 96 Nasal Cannula 2.0 28 01/07/19 05:45 121 125/68 01/07/19 04:00 Room Air 2.0 01/07/19 04:00 98.1 121 20 125/68 (87) 97 01/07/19 03:31 124 01/07/19 00:00 136 01/07/19 00:00 98.4 76 20 117/85 (96) 96 01/07/19 00:00 Room Air 2.0 01/06/19 23:46 139 143/74 01/06/19 23:45 139 01/06/19 22:15 98 20 97 Nasal Cannula 2.0 28 01/06/19 22:11 99 20 97 Nasal Cannula 2.0 28 01/06/19 22:10 97 Nasal Cannula 2.0 28 01/06/19 22:08 99 20 97 Nasal Cannula 2.0 28 01/06/19 21:58 130 143/74 01/06/19 19:50 100.1 130 20 143/74 (97) 99 01/06/19 19:50 Room Air 2.0 01/06/19 17:17 98.7 63 23 102/58 97 Room Air 01/06/19 16:56 118 139/101 01/06/19 16:36 124 133/95 01/06/19 16:27 98.0 141 15 133/95 99 Room Air 01/06/19 16:27 140 133/95 01/06/19 15:10 137 140/107 01/06/19 15:04 98.4 141 19 137/94 95 Room Air 01/06/19 15:04 141 19 Room Air 01/06/19 14:54 98.4 141 19 137/94 (108) 95 Room Air Intake and Output 01/06/19 01/07/19 19:00 07:00 Intake Total 500 ml Output Total 1600 ml Balance -1100 ml Intake Oral 500 ml Output Urine Total 1600 ml # Voids 1 Objective WDWN NAD clear breath sounds bilaterally without rhonchi or wheeze S1S2 iRRR without MRG NABS nontender no HSM no CCE nonfocal Laboratory Tests 01/06/19 15:00: White Blood Count 8.0, Red Blood Count 4.52, Hemoglobin 12.4, Hematocrit 37.9, Mean Corpuscular Volume 84, Mean Corpuscular Hemoglobin 27.4, Mean Corpuscular Hemoglobin Concent 32.8, Red Cell Distribution Width 12.4, Platelet Count 265, Mean Platelet Volume 6.1L, Neutrophils (%) (Auto) 84.5H, Lymphocytes (%) (Auto) 6.6L, Monocytes (%) (Auto) 6.8, Eosinophils (%) (Auto) 1.5, Basophils (%) (Auto ) 0.6, Prothrombin Time 11.5, Prothromb Time International Ratio 1.1, Activated Partial Thromboplast Time 29, Sodium Level 139, Potassium Level 4.2, Chloride Level 105, Carbon Dioxide Level 25, Anion Gap 9, Blood Urea Nitrogen 14, Creatinine 0.9, Estimat Glomerular Filtration Rate , Glucose Level 153H, Calcium Level 9.5, Total Bilirubin 0.8, Aspartate Amino Transf (AST/SGOT) 35, Alanine Aminotransferase (ALT/SGPT) 60, Alkaline Phosphatase 73, Total Creatine Kinase 44, Troponin I 0.016, Pro-B-Type Natriuretic Peptide 6411H, Total Protein 6.7, Albumin 3.4, Globulin 3.3, Albumin/Globulin Ratio 1.0, Digoxin Level 1.0 01/06/19 16:20: Urine Color Yellow, Urine Appearance Clear, Urine pH 6, Urine Specific [place] 1.015, Urine Protein 1+H, Urine Glucose (UA) Negative, Urine Ketones 2+H, Urine Blood 4+H, Urine Nitrite Negative, Urine Bilirubin Negative, Urine Urobilinogen Normal, Urine Leukocyte Esterase 1+H, Urine RBC 10-15H, Urine WBC 2-4, Urine Squamous Epithelial Cells Occasional, Urine Bacteria Occasional 01/07/19 03:15: White Blood Count 7.4, Red Blood Count 4.38, Hemoglobin 12.3, Hematocrit 37.1, Mean Corpuscular Volume 85, Mean Corpuscular Hemoglobin 28.0, Mean Corpuscular Hemoglobin Concent 33.0, Red Cell Distribution Width 12.8, Platelet Count 271, Mean Platelet Volume 7.6, Neutrophils (%) (Auto) 82.4H, Lymphocytes (%) (Auto) 6.1L, Monocytes (%) (Auto) 9.3, Eosinophils (%) (Auto) 1.8, Basophils (%) (Auto ) 0.4, Sodium Level 138, Potassium Level 4.0, Chloride Level 103, Carbon Dioxide Level 22, Anion Gap 13, Blood Urea Nitrogen 12, Creatinine 0.7, Estimat Glomerular Filtration Rate , Glucose Level 139H, Calcium Level 8.8, Troponin I 0.019, Pro-B-Type Natriuretic Peptide 9267H, Magnesium Level 1.7L Current Medications Medications (Trade) Dose Ordered Sig/Aisha Route PRN Reason Start Time Stop Time Status Last Admin Dose Admin Acetaminophen (Tylenol) 650 mg Q4H PRN ORAL Mild Pain/Temp > 100.5 01/06/19 20:30 02/05/19 20:29 Al Hydroxide/Mg Hydroxide (Mylanta) 30 ml Q4H PRN ORAL Abdominal cramps 01/06/19 20:30 02/05/19 20:29 Apixaban (Eliquis) 5 mg BID ORAL 01/07/19 09:00 02/06/19 08:59 Aspirin (Ecotrin) 81 mg DAILY ORAL 01/07/19 09:00 02/06/19 08:59 Atorvastatin Calcium (Lipitor) 40 mg BEDTIME ORAL 01/06/19 21:00 02/05/19 20:59 Dextrose (Dextrose 50%) 25 ml Q30M PRN IV Hypoglycemia 01/06/19 22:30 02/05/19 22:29 Dextrose (Dextrose 50%) 50 ml Q30M PRN IV Hypoglycemia 01/06/19 22:30 02/05/19 22:29 Digoxin (Lanoxin) 0.125 mg DAILY ORAL 01/07/19 09:00 02/06/19 08:59 Diltiazem HCl (Cardizem) 60 mg EVERY 8 HOURS ORAL 01/07/19 06:00 02/06/19 05:59 01/07/19 05:45 EZETIMIBE (Zetia) 10 mg BEDTIME ORAL 01/06/19 21:00 02/05/19 20:59 Fluticasone/ Vilanterol (Breo Ellipta 200/25) 1 puffs DAILY INH 01/06/19 22:00 02/05/19 21:59 01/06/19 22:16 Insulin Aspart (NovoLOG) BEFORE MEALS AND HS SUBQ 01/07/19 06:30 02/06/19 06:29 01/07/19 05:46 Lisinopril (Prinivil) 20 mg Q12HR ORAL 01/07/19 09:00 02/06/19 08:59 Methocarbamol (Robaxin) 750 mg TIDPRN PRN ORAL For muscle pain/spasm 01/06/19 20:30 02/05/19 20:29 Pantoprazole (Protonix) 40 mg ACBREAKFAST ORAL 01/07/19 06:30 02/06/19 06:29 01/07/19 05:44 Zolpidem Tartrate (Ambien) 5 mg HSPRN PRN ORAL Insomnia 01/06/19 20:30 01/13/19 20:29 01/06/19 21:57 Wilfred Boo MD Jan 07, 2019 08:22
[2019-01-07] MEDS: Breo Ellipta 200/25mcg-14 dose INH SCH (08:58)
[2019-01-07] MEDS: Eliquis 5mg tablet ORAL SCH ×2 (08:59→17:44)
[2019-01-07] MEDS ORDERED: Aspirin EC 81mg tab ORAL SCH (09:00)
[2019-01-07] MEDS ORDERED: Lisinopril 20mg tab ORAL SCH (09:00)
[2019-01-07] MEDS ORDERED: Digoxin 0.125mg tab ORAL SCH (09:00)
--- NOTE | 2019-01-07 09:03 | General Progress Note ---
Assessment/Plan Problem List: (1) Dyspnea ICD Codes: R06.00 - Dyspnea, unspecified SNOMED: 704391865 (2) SOB (shortness of breath) ICD Codes: R06.02 - Shortness of breath SNOMED: 225818293 (3) Bronchitis ICD Codes: J40 - Bronchitis, not specified as acute or chronic SNOMED: 94096981 (4) COPD exacerbation ICD Codes: J44.1 - Chronic obstructive pulmonary disease with (acute) exacerbation SNOMED: 938244208, 948599211 (5) CHF (congestive heart failure) ICD Codes: I50.9 - Heart failure, unspecified SNOMED: 56944133 Qualifiers: Qualified Codes: I50.42 - Chronic combined systolic (congestive) and diastolic (congestive) heart failure Status: stable, progressing Assessment/Plan: o2 resp rx lasix prn BP rx Subjective ROS Limited/Unobtainable: No Constitutional: Reports: malaise, weakness HEENT: Reports: no symptoms Cardiovascular: Reports: no symptoms Respiratory: Reports: cough Gastrointestinal/Abdominal: Reports: no symptoms Genitourinary: Reports: no symptoms Neurologic/Psychiatric: Reports: no symptoms Endocrine: Reports: no symptoms Hematologic/Lymphatic: Reports: no symptoms Allergies: Coded Allergies: Dust (Verified Allergy, Mild, Itching, 11/06/15) All Systems: reviewed and negative except above Subjective no events. stable. cant sleep. no chest pain decreased sob. Objective Last 24 Hour Vital Signs Date Time Temp Pulse Resp B/P (MAP) Pulse Ox O2 Delivery O2 Flow Rate FiO2 01/07/19 08:59 56 15 97 Nasal Cannula 2.0 28 01/07/19 08:00 Nasal Cannula 2.0 01/07/19 08:00 96.4 87 19 113/43 (66) 97 01/07/19 06:48 96 Nasal Cannula 2.0 28 01/07/19 05:45 121 125/68 01/07/19 04:00 Room Air 2.0 01/07/19 04:00 98.1 121 20 125/68 (87) 97 01/07/19 03:31 124 01/07/19 00:00 136 01/07/19 00:00 98.4 76 20 117/85 (96) 96 01/07/19 00:00 Room Air 2.0 01/06/19 23:46 139 143/74 01/06/19 23:45 139 01/06/19 22:15 98 20 97 Nasal Cannula 2.0 28 01/06/19 22:11 99 20 97 Nasal Cannula 2.0 28 01/06/19 22:10 97 Nasal Cannula 2.0 28 01/06/19 22:08 99 20 97 Nasal Cannula 2.0 28 01/06/19 21:58 130 143/74 01/06/19 19:50 100.1 130 20 143/74 (97) 99 01/06/19 19:50 Room Air 2.0 01/06/19 17:17 98.7 63 23 102/58 97 Room Air 01/06/19 16:56 118 139/101 01/06/19 16:36 124 133/95 01/06/19 16:27 98.0 141 15 133/95 99 Room Air 01/06/19 16:27 140 133/95 01/06/19 15:10 137 140/107 01/06/19 15:04 98.4 141 19 137/94 95 Room Air 01/06/19 15:04 141 19 Room Air 01/06/19 14:54 98.4 141 19 137/94 (108) 95 Room Air Intake and Output 01/06/19 01/07/19 19:00 07:00 Intake Total 500 ml Output Total 1600 ml Balance -1100 ml Intake Oral 500 ml Output Urine Total 1600 ml # Voids 1 Laboratory Tests 01/06/19 15:00: White Blood Count 8.0, Red Blood Count 4.52, Hemoglobin 12.4, Hematocrit 37.9, Mean Corpuscular Volume 84, Mean Corpuscular Hemoglobin 27.4, Mean Corpuscular Hemoglobin Concent 32.8, Red Cell Distribution Width 12.4, Platelet Count 265, Mean Platelet Volume 6.1L, Neutrophils (%) (Auto) 84.5H, Lymphocytes (%) (Auto) 6.6L, Monocytes (%) (Auto) 6.8, Eosinophils (%) (Auto) 1.5, Basophils (%) (Auto ) 0.6, Prothrombin Time 11.5, Prothromb Time International Ratio 1.1, Activated Partial Thromboplast Time 29, Sodium Level 139, Potassium Level 4.2, Chloride Level 105, Carbon Dioxide Level 25, Anion Gap 9, Blood Urea Nitrogen 14, Creatinine 0.9, Estimat Glomerular Filtration Rate , Glucose Level 153H, Calcium Level 9.5, Total Bilirubin 0.8, Aspartate Amino Transf (AST/SGOT) 35, Alanine Aminotransferase (ALT/SGPT) 60, Alkaline Phosphatase 73, Total Creatine Kinase 44, Troponin I 0.016, Pro-B-Type Natriuretic Peptide 6411H, Total Protein 6.7, Albumin 3.4, Globulin 3.3, Albumin/Globulin Ratio 1.0, Digoxin Level 1.0 01/06/19 16:20: Urine Color Yellow, Urine Appearance Clear, Urine pH 6, Urine Specific [place] 1.015, Urine Protein 1+H, Urine Glucose (UA) Negative, Urine Ketones 2+H, Urine Blood 4+H, Urine Nitrite Negative, Urine Bilirubin Negative, Urine Urobilinogen Normal, Urine Leukocyte Esterase 1+H, Urine RBC 10-15H, Urine WBC 2-4, Urine Squamous Epithelial Cells Occasional, Urine Bacteria Occasional 01/07/19 03:15: White Blood Count 7.4, Red Blood Count 4.38, Hemoglobin 12.3, Hematocrit 37.1, Mean Corpuscular Volume 85, Mean Corpuscular Hemoglobin 28.0, Mean Corpuscular Hemoglobin Concent 33.0, Red Cell Distribution Width 12.8, Platelet Count 271, Mean Platelet Volume 7.6, Neutrophils (%) (Auto) 82.4H, Lymphocytes (%) (Auto) 6.1L, Monocytes (%) (Auto) 9.3, Eosinophils (%) (Auto) 1.8, Basophils (%) (Auto ) 0.4, Sodium Level 138, Potassium Level 4.0, Chloride Level 103, Carbon Dioxide Level 22, Anion Gap 13, Blood Urea Nitrogen 12, Creatinine 0.7, Estimat Glomerular Filtration Rate , Glucose Level 139H, Calcium Level 8.8, Troponin I 0.019, Pro-B-Type Natriuretic Peptide 9267H, Magnesium Level 1.7L Height (Feet): 5 Height (Inches): 3.00 Weight (Pounds): 160 General Appearance: WD/WN, alert Neck: supple Cardiovascular: normal rate Respiratory/Chest: chest wall non-tender, lungs clear, normal breath sounds Abdomen: normal bowel sounds, non tender, soft, no organomegaly Edema: no edema noted Arm (L), no edema noted Arm (R), no edema noted Leg (L), no edema noted Leg (R), no edema noted Pedal (L), no edema noted Pedal (R), no edema noted Generalized Neurologic: orthopedic mechanic II-XII grossly normal, no motor/sensory deficits, abnormal gait , alert, oriented x 3 Claus Batista MD Jan 07, 2019 09:03
--- NOTE | 2019-01-07 09:19 | Diagnostic Imaging Report ---
Indication: Shortness of breath Technique: One view of the chest Comparison: 01/06/2018 Findings: The heart is enlarged. The patient is slightly rotated to the right. Questionable minimal interstitial prominence persists, unchanged Impression: Unchanged, over one day, findings as above.
[2019-01-07 12:00] VITALS: BP 126/82
[2019-01-07 16:00] VITALS: BP 115/67
[2019-01-07] MEDS ORDERED: Guaifenesin/DM 10ml syrup ORAL PRN ×2 (17:00→19:00)
[2019-01-07] MEDS ORDERED: Methocarbamol 750mg tab ORAL PRN (19:30)
[2019-01-07 20:00] VITALS: BP 113/75
[2019-01-07] MEDS: Lisinopril 20mg tab ORAL SCH (21:05)
[2019-01-07] MEDS: Atorvastatin 20mg tab ORAL SCH (21:06)
[2019-01-07] MEDS: Zolpidem 5mg tab ORAL PRN (22:59)
[2019-01-08] VITALS: BP 117/65
[2019-01-08 04:00] VITALS: BP 113/75
--- NOTE | 2019-01-08 05:30 | Progress Note ---
DATE: 01/07/2019 CARDIOLOGY PROGRESS NOTE SUBJECTIVE: The patient has less shortness of breath and congestion. Heart rates are better controlled. OBJECTIVE: VITAL SIGNS: Blood pressure 115/74, heart rate 84, respiratory rate 18. LUNGS: Diminished breath sounds. Scattered rales. HEART: Irregularly irregular rhythm. Normal S1, S2. ABDOMEN: Soft. EXTREMITIES: Trace edema. LABORATORY DATA: Chest x-ray reveals interstitial prominence. White count 7 and hemoglobin 12.3. Magnesium 1.7. Potassium 4. Troponin negative. Pro-natriuretic peptide 90 to 100. IMPRESSION: 1. Acute on chronic diastolic congestive heart failure. 2. Paroxysmal atrial fibrillation with rapid ventricular response now controlled. 3. Hypomagnesemia. 4. Chronic obstructive pulmonary disease. 5. History of respiratory failure. PLAN: 1. Replace magnesium. 2. Continue current regimen for rate control. 3. Cautiously diurese. 4. Anticoagulation for cardioembolic prophylaxis. Travis Martínez M.D. DR: DANA JOB#: [id number] CC:
[2019-01-08] MEDS: dilTIAZem HCl 30mg tab ORAL SCH ×3 (06:14→20:59)
[2019-01-08] MEDS: NovoLOG Insulin Flexpen SUBQ SCH ×4 (06:20→21:03)
[2019-01-08 08:00] VITALS: BP 101/69
[2019-01-08] MEDS: Aspirin EC 81mg tab ORAL SCH (09:00)
[2019-01-08] MEDS: Lisinopril 20mg tab ORAL SCH ×2 (09:00→20:59)
[2019-01-08] MEDS: Breo Ellipta 200/25mcg-14 dose INH SCH (09:00)
[2019-01-08] MEDS: Digoxin 0.125mg tab ORAL SCH (09:22)
[2019-01-08] MEDS: Eliquis 5mg tablet ORAL SCH ×2 (09:23→17:47)
[2019-01-08 11:32] VITALS: BP 119/74
--- NOTE | 2019-01-08 13:19 | Pulmonology Progress Note ---
Assessment/Plan Assessment/Plan Pulmonary Progress Note Assessment/Plan 1. Atrial fibrillation with rapid ventricular response and cardiomyopathy per history. 2. History of pulmonary edema. 3. History of elevated natriuretic peptide, possibly consistent with elevated pulmonary pressure. 4. History of asthma. 5. History of obstructive sleep apnea. PLAN supportive care oxygen rate control dig and cardizem breo daily and monitor dc once stable impression, plan, and exam edited and reviewed in detail care discussed with RN Subjective Allergies: Coded Allergies: Dust (Verified Allergy, Mild, Itching, 11/06/15) Subjective care noted and reviewed some sob heart rate still tachy at times Objective Vital Signs Noted Objective WDWN NAD clear breath sounds bilaterally without rhonchi or wheeze S1S2 RRR without MRG NABS nontender no HSM no CCE nonfocal Laboratory Tests 01/06/19 15:00: White Blood Count 8.0, Red Blood Count 4.52, Hemoglobin 12.4, Hematocrit 37.9, Mean Corpuscular Volume 84, Mean Corpuscular Hemoglobin 27.4, Mean Corpuscular Hemoglobin Concent 32.8, Red Cell Distribution Width 12.4, Platelet Count 265, Mean Platelet Volume 6.1L, Neutrophils (%) (Auto) 84.5H, Lymphocytes (%) (Auto) 6.6L, Monocytes (%) (Auto) 6.8, Eosinophils (%) (Auto) 1.5, Basophils (%) (Auto ) 0.6, Prothrombin Time 11.5, Prothromb Time International Ratio 1.1, Activated Partial Thromboplast Time 29, Sodium Level 139, Potassium Level 4.2, Chloride Level 105, Carbon Dioxide Level 25, Anion Gap 9, Blood Urea Nitrogen 14, Creatinine 0.9, Estimat Glomerular Filtration Rate , Glucose Level 153H, Calcium Level 9.5, Total Bilirubin 0.8, Aspartate Amino Transf (AST/SGOT) 35, Alanine Aminotransferase (ALT/SGPT) 60, Alkaline Phosphatase 73, Total Creatine Kinase 44, Troponin I 0.016, Pro-B-Type Natriuretic Peptide 6411H, Total Protein 6.7, Albumin 3.4, Globulin 3.3, Albumin/Globulin Ratio 1.0, Digoxin Level 1.0 01/06/19 16:20: Urine Color Yellow, Urine Appearance Clear, Urine pH 6, Urine Specific [place] 1.015, Urine Protein 1+H, Urine Glucose (UA) Negative, Urine Ketones 2+H, Urine Blood 4+H, Urine Nitrite Negative, Urine Bilirubin Negative, Urine Urobilinogen Normal, Urine Leukocyte Esterase 1+H, Urine RBC 10-15H, Urine WBC 2-4, Urine Squamous Epithelial Cells Occasional, Urine Bacteria Occasional 01/07/19 03:15: White Blood Count 7.4, Red Blood Count 4.38, Hemoglobin 12.3, Hematocrit 37.1, Mean Corpuscular Volume 85, Mean Corpuscular Hemoglobin 28.0, Mean Corpuscular Hemoglobin Concent 33.0, Red Cell Distribution Width 12.8, Platelet Count 271, Mean Platelet Volume 7.6, Neutrophils (%) (Auto) 82.4H, Lymphocytes (%) (Auto) 6.1L, Monocytes (%) (Auto) 9.3, Eosinophils (%) (Auto) 1.8, Basophils (%) (Auto ) 0.4, Sodium Level 138, Potassium Level 4.0, Chloride Level 103, Carbon Dioxide Level 22, Anion Gap 13, Blood Urea Nitrogen 12, Creatinine 0.7, Estimat Glomerular Filtration Rate , Glucose Level 139H, Calcium Level 8.8, Troponin I 0.019, Pro-B-Type Natriuretic Peptide 9267H, Magnesium Level 1.7L Current Medications Medications (Trade) Dose Ordered Sig/Aisha Route PRN Reason Start Time Stop Time Status Last Admin Dose Admin Acetaminophen (Tylenol) 650 mg Q4H PRN ORAL Mild Pain/Temp > 100.5 01/06/19 20:30 02/05/19 20:29 Al Hydroxide/Mg Hydroxide (Mylanta) 30 ml Q4H PRN ORAL Abdominal cramps 01/06/19 20:30 02/05/19 20:29 Apixaban (Eliquis) 5 mg BID ORAL 01/07/19 09:00 02/06/19 08:59 Aspirin (Ecotrin) 81 mg DAILY ORAL 01/07/19 09:00 02/06/19 08:59 Atorvastatin Calcium (Lipitor) 40 mg BEDTIME ORAL 01/06/19 21:00 02/05/19 20:59 Dextrose (Dextrose 50%) 25 ml Q30M PRN IV Hypoglycemia 01/06/19 22:30 02/05/19 22:29 Dextrose (Dextrose 50%) 50 ml Q30M PRN IV Hypoglycemia 01/06/19 22:30 02/05/19 22:29 Digoxin (Lanoxin) 0.125 mg DAILY ORAL 01/07/19 09:00 02/06/19 08:59 Diltiazem HCl (Cardizem) 60 mg EVERY 8 HOURS ORAL 01/07/19 06:00 02/06/19 05:59 01/07/19 05:45 EZETIMIBE (Zetia) 10 mg BEDTIME ORAL 01/06/19 21:00 02/05/19 20:59 Fluticasone/ Vilanterol (Breo Ellipta 200/25) 1 puffs DAILY INH 01/06/19 22:00 02/05/19 21:59 01/06/19 22:16 Insulin Aspart (NovoLOG) BEFORE MEALS AND HS SUBQ 01/07/19 06:30 02/06/19 06:29 01/07/19 05:46 Lisinopril (Prinivil) 20 mg Q12HR ORAL 01/07/19 09:00 02/06/19 08:59 Methocarbamol (Robaxin) 750 mg TIDPRN PRN ORAL For muscle pain/spasm 01/06/19 20:30 02/05/19 20:29 Pantoprazole (Protonix) 40 mg ACBREAKFAST ORAL 01/07/19 06:30 02/06/19 06:29 01/07/19 05:44 Zolpidem Tartrate (Ambien) 5 mg HSPRN PRN ORAL Insomnia 01/06/19 20:30 01/13/19 20:29 01/06/19 21:57 Subjective ROS Limited/Unobtainable: No Allergies: Coded Allergies: Dust (Verified Allergy, Mild, Itching, 11/06/15) Objective Last 24 Hour Vital Signs Date Time Temp Pulse Resp B/P (MAP) Pulse Ox O2 Delivery O2 Flow Rate FiO2 01/08/19 11:32 98.5 74 19 119/74 (89) 94 01/08/19 09:22 61 01/08/19 09:00 101/69 01/08/19 09:00 Nasal Cannula 2.0 01/08/19 08:05 68 01/08/19 08:00 97.6 61 20 101/69 (80) 97 01/08/19 06:14 102 121/82 01/08/19 04:00 97.9 93 20 113/75 (88) 96 01/08/19 04:00 93 01/08/19 00:00 72 01/08/19 00:00 97.9 72 20 117/65 (82) 96 01/07/19 22:04 84 116/70 01/07/19 21:05 115/74 01/07/19 21:00 Nasal Cannula 2.0 01/07/19 20:00 98.0 79 20 113/75 (88) 97 01/07/19 20:00 79 01/07/19 19:02 97 Nasal Cannula 2.0 28 01/07/19 16:00 98.4 82 21 115/67 (83) 95 01/07/19 16:00 Nasal Cannula 2.0 01/07/19 16:00 78 Intake and Output 01/07/19 01/08/19 19:00 07:00 Intake Total 850 ml 120 ml Output Total 1000 ml 2800 ml Balance -150 ml -2680 ml Intake Oral 650 ml 120 ml IV Total 200 ml Output Urine Total 1000 ml 2800 ml # Bowel Movements 2 Current Medications Medications (Trade) Dose Ordered Sig/Aisha Route PRN Reason Start Time Stop Time Status Last Admin Dose Admin Acetaminophen (Tylenol) 650 mg Q4H PRN ORAL Mild Pain/Temp > 100.5 01/07/19 19:30 02/05/19 19:29 Al Hydroxide/Mg Hydroxide (Mylanta) 30 ml Q4H PRN ORAL Abdominal cramps 01/07/19 19:30 02/05/19 19:29 Apixaban (Eliquis) 5 mg BID ORAL 01/08/19 09:00 02/06/19 08:59 01/08/19 09:23 Aspirin (Ecotrin) 81 mg DAILY ORAL 01/08/19 09:00 02/06/19 08:59 Atorvastatin Calcium (Lipitor) 40 mg BEDTIME ORAL 01/07/19 21:00 02/05/19 20:59 01/07/19 21:06 Dextrose (Dextrose 50%) 25 ml Q30M PRN IV Hypoglycemia 01/07/19 19:30 02/05/19 22:29 Dextrose (Dextrose 50%) 50 ml Q30M PRN IV Hypoglycemia 01/07/19 19:30 02/05/19 22:29 Digoxin (Lanoxin) 0.125 mg DAILY ORAL 01/08/19 09:00 02/06/19 08:59 01/08/19 09:22 Diltiazem HCl (Cardizem) 60 mg EVERY 8 HOURS ORAL 01/07/19 22:00 02/06/19 05:59 01/08/19 06:14 EZETIMIBE (Zetia) 10 mg BEDTIME ORAL 01/07/19 21:00 02/05/19 20:59 01/07/19 21:06 Fluticasone/ Vilanterol (Breo Ellipta 200/25) 1 puffs DAILY INH 01/08/19 09:00 02/05/19 21:59 Guaifenesin/ Dextromethorphan (Robitussin DM Syrup) 5 ml Q4H PRN ORAL For Cough 01/07/19 19:00 02/06/19 18:59 Insulin Aspart (NovoLOG) BEFORE MEALS AND HS SUBQ 01/07/19 21:00 02/06/19 06:29 01/08/19 13:05 Lisinopril (Prinivil) 20 mg Q12HR ORAL 01/07/19 21:00 02/06/19 08:59 01/07/19 21:05 Methocarbamol (Robaxin) 750 mg TIDPRN PRN ORAL For muscle pain/spasm 01/07/19 19:30 02/05/19 19:29 Pantoprazole (Protonix) 40 mg ACBREAKFAST ORAL 01/08/19 06:30 02/06/19 06:29 01/08/19 06:14 Zolpidem Tartrate (Ambien) 5 mg HSPRN PRN ORAL Insomnia 01/07/19 20:30 01/13/19 20:29 01/07/19 22:59 Travis Blue MD Jan 08, 2019 13:19
[2019-01-08 16:00] VITALS: BP 127/76
--- NOTE | 2019-01-08 16:15 | General Progress Note ---
Assessment/Plan Problem List: (1) Dyspnea ICD Codes: R06.00 - Dyspnea, unspecified SNOMED: 616981248 (2) SOB (shortness of breath) ICD Codes: R06.02 - Shortness of breath SNOMED: 595763592 (3) Bronchitis ICD Codes: J40 - Bronchitis, not specified as acute or chronic SNOMED: 54487308 (4) COPD exacerbation ICD Codes: J44.1 - Chronic obstructive pulmonary disease with (acute) exacerbation SNOMED: 669296112, 041962580 (5) CHF (congestive heart failure) ICD Codes: I50.9 - Heart failure, unspecified SNOMED: 72507756 Qualifiers: Qualified Codes: I50.42 - Chronic combined systolic (congestive) and diastolic (congestive) heart failure Status: stable, progressing Assessment/Plan: o2 resp rx lasix prn BP rx sleeping meds dc planning per pulm Subjective ROS Limited/Unobtainable: No Constitutional: Reports: malaise, weakness HEENT: Reports: no symptoms Cardiovascular: Reports: no symptoms Respiratory: Reports: cough, shortness of breath Gastrointestinal/Abdominal: Reports: no symptoms Genitourinary: Reports: no symptoms Neurologic/Psychiatric: Reports: no symptoms Endocrine: Reports: no symptoms Hematologic/Lymphatic: Reports: no symptoms Allergies: Coded Allergies: Dust (Verified Allergy, Mild, Itching, 11/06/15) All Systems: reviewed and negative except above Subjective no events. stable. cant sleep. no chest pain decreased sob. states shes going home. Objective Last 24 Hour Vital Signs Date Time Temp Pulse Resp B/P (MAP) Pulse Ox O2 Delivery O2 Flow Rate FiO2 01/08/19 15:58 84 01/08/19 15:26 74 119/74 01/08/19 11:32 98.5 74 19 119/74 (89) 94 01/08/19 09:22 61 01/08/19 09:00 101/69 01/08/19 09:00 Nasal Cannula 2.0 01/08/19 08:05 68 01/08/19 08:00 97.6 61 20 101/69 (80) 97 01/08/19 06:14 102 121/82 01/08/19 04:00 97.9 93 20 113/75 (88) 96 01/08/19 04:00 93 6/14/19 00:00 72 01/08/19 00:00 97.9 72 20 117/65 (82) 96 01/07/19 22:04 84 116/70 01/07/19 21:05 115/74 01/07/19 21:00 Nasal Cannula 2.0 01/07/19 20:00 98.0 79 20 113/75 (88) 97 01/07/19 20:00 79 01/07/19 19:02 97 Nasal Cannula 2.0 28 Intake and Output 01/07/19 01/08/19 19:00 07:00 Intake Total 850 ml 120 ml Output Total 1000 ml 2800 ml Balance -150 ml -2680 ml Intake Oral 650 ml 120 ml IV Total 200 ml Output Urine Total 1000 ml 2800 ml # Bowel Movements 2 Height (Feet): 5 Height (Inches): 3.00 Weight (Pounds): 164 Objective General Appearance: WD/WN, alert Neck: supple Cardiovascular: normal rate Respiratory/Chest: chest wall non-tender, lungs clear, normal breath sounds Abdomen: normal bowel sounds, non tender, soft, no organomegaly Edema: no edema noted Arm (L), no edema noted Arm (R), no edema noted Leg (L), no edema noted Leg (R), no edema noted Pedal (L), no edema noted Pedal (R), no edema noted 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
[2019-01-08 20:00] VITALS: BP 136/85
[2019-01-08] MEDS: Atorvastatin 20mg tab ORAL SCH (20:59)
[2019-01-08] MEDS: Zolpidem 5mg tab ORAL PRN (21:57)
--- NOTE | 2019-01-08 23:45 | Progress Note ---
DATE: 01/08/2019 CARDIOLOGY PROGRESS NOTE SUBJECTIVE: The patient remains with controlled heart rate. Underlying rhythm is atrial fibrillation. She has less shortness of breath. OBJECTIVE: VITAL SIGNS: Blood pressure 119/74, heart rate 74, and respirations 19. LUNGS: Diminished breath sounds. Few rales. HEART: Irregularly irregular rhythm. Normal S1, S2. A 1/6 systolic murmur at apex. ABDOMEN: Soft. EXTREMITIES: No edema. IMPRESSION: 1. Paroxysmal atrial fibrillation, now rate controlled. 2. Chronic obstructive pulmonary disease. 3. Status post respiratory failure. 4. Acute on chronic diastolic and systolic congestive heart failure. 5. Ischemic cardiomyopathy with stable angina. 6. Hypomagnesemia, status post replacement. PLAN: 1. Titration of anti-failure regimen. 2. Cardioembolic prophylaxis with apixaban. 3. Continue current cardiovascular regimen for rate control. 4. Maintenance dose diuretic. 5. Discharge per primary care physician. Travis Martínez M.D. DR: DANA JOB#: [id number] CC:
[2019-01-09] VITALS: BP 116/71
[2019-01-09 04:00] VITALS: BP 121/74
[2019-01-09] MEDS: dilTIAZem HCl 30mg tab ORAL SCH ×2 (06:22→15:11)
[2019-01-09] MEDS: NovoLOG Insulin Flexpen SUBQ SCH ×4 (06:41→22:05)
[2019-01-09 07:07] LABS: BASOPHILS % (AUTO) 0.6 % (0.0-2.0); EOSINOPHILS % (AUTO) 5.7 % (0.0-3.0); HEMATOCRIT 37.9 % (37.0-47.0); HEMOGLOBIN 12.9 G/DL (12.0-16.0); LYMPHOCYTES % (AUTO) 17.8 % (20.0-45.0); MEAN CORPUSCULAR VOLUME 83 FL (80-99); MONOCYTES % (AUTO) 11.6 % (1.0-10.0); NEUTROPHILS % (AUTO) 64.3 % (45.0-75.0); PLATELET COUNT 279 K/UL (150-450); RED BLOOD COUNT 4.59 M/UL (4.20-5.40); RED CELL DISTRIBUTION WIDTH 12.4 % (11.6-14.8); WHITE BLOOD COUNT 6.1 K/UL (4.8-10.8)
[2019-01-09 08:00] VITALS: BP 104/67
[2019-01-09 08:04] LABS: ALANINE AMINOTRANSFERASE 36 U/L (12-78); ALBUMIN 3.1 G/DL (3.4-5.0); ALKALINE PHOSPHATASE 79 U/L (46-116); ANION GAP 9 mmol/L (5-15); ASPARTATE AMINO TRANSFERASE 17 U/L (15-37); BILIRUBIN,TOTAL 1.2 MG/DL (0.2-1.0); BLOOD UREA NITROGEN 12 mg/dL (7-18); CALCIUM 8.9 MG/DL (8.5-10.1); CARBON DIOXIDE 28 MMOL/L (21-32); CHLORIDE 104 MMOL/L (98-107); CREATININE 0.8 MG/DL (0.55-1.30); POTASSIUM 3.1 MMOL/L (3.5-5.1); SODIUM 141 MMOL/L (136-145)
[2019-01-09 08:05] LABS: BILIRUBIN,DIRECT 0.2 MG/DL (0.0-0.3)
[2019-01-09] MEDS: Breo Ellipta 200/25mcg-14 dose INH SCH ×2 (09:00→21:58)
[2019-01-09] MEDS: Digoxin 0.125mg tab ORAL SCH (09:00)
[2019-01-09] MEDS: Lisinopril 20mg tab ORAL SCH ×2 (09:00→22:10)
[2019-01-09] MEDS: Furosemide 40mg tab ORAL SCH ×2 (09:00→17:16)
[2019-01-09] MEDS: Aspirin EC 81mg tab ORAL SCH (09:10)
[2019-01-09] MEDS: Spironolactone 25mg tab ORAL SCH (09:10)
[2019-01-09] MEDS: Eliquis 5mg tablet ORAL SCH ×2 (09:10→17:15)
--- NOTE | 2019-01-09 10:07 | General Progress Note ---
Assessment/Plan Problem List: (1) Dyspnea ICD Codes: R06.00 - Dyspnea, unspecified SNOMED: 206522334 (2) SOB (shortness of breath) ICD Codes: R06.02 - Shortness of breath SNOMED: 062473023 (3) Bronchitis ICD Codes: J40 - Bronchitis, not specified as acute or chronic SNOMED: 09881688 (4) COPD exacerbation ICD Codes: J44.1 - Chronic obstructive pulmonary disease with (acute) exacerbation SNOMED: 959019026, 447472808 (5) CHF (congestive heart failure) ICD Codes: I50.9 - Heart failure, unspecified SNOMED: 53178942 Qualifiers: Qualified Codes: I50.42 - Chronic combined systolic (congestive) and diastolic (congestive) heart failure Status: stable, progressing Assessment/Plan: o2 resp rx lasix prn BP rx sleeping meds dc planning per pulm Subjective ROS Limited/Unobtainable: No Constitutional: Reports: malaise, weakness HEENT: Reports: no symptoms Cardiovascular: Reports: no symptoms Respiratory: Reports: cough Gastrointestinal/Abdominal: Reports: no symptoms Genitourinary: Reports: no symptoms Neurologic/Psychiatric: Reports: no symptoms Endocrine: Reports: no symptoms Hematologic/Lymphatic: Reports: no symptoms Allergies: Coded Allergies: Dust (Verified Allergy, Mild, Itching, 11/06/15) All Systems: reviewed and negative except above Subjective no events. stable. feels better. decreased cough and sob. no chest pain no bleeding . Objective Last 24 Hour Vital Signs Date Time Temp Pulse Resp B/P (MAP) Pulse Ox O2 Delivery O2 Flow Rate FiO2 01/09/19 09:00 104/67 01/09/19 09:00 81 01/09/19 08:32 Nasal Cannula 2.0 01/09/19 08:05 114 01/09/19 08:00 98.2 84 20 104/67 (79) 96 01/09/19 06:22 81 121/74 01/09/19 04:00 98.2 81 20 121/74 (90) 96 01/09/19 04:00 103 01/09/19 00:00 98.2 78 20 116/71 (86) 98 01/09/19 00:00 90 01/08/19 21:00 Nasal Cannula 2.0 01/08/19 20:59 136/85 01/08/19 20:59 66 136/85 01/08/19 20:10 93 Nasal Cannula 2.0 28 01/08/19 20:00 98.9 66 20 136/85 (102) 96 01/08/19 20:00 80 01/08/19 16:00 96.0 80 19 127/76 (93) 94 01/08/19 15:58 84 01/08/19 15:26 74 119/74 01/08/19 15:25 85 01/08/19 12:00 85 01/08/19 11:32 98.5 74 19 119/74 (89) 94 Intake and Output 01/08/19 01/09/19 19:00 07:00 Intake Total 140 ml 620 ml Output Total 600 ml 750 ml Balance -460 ml -130 ml Intake Oral 140 ml 620 ml Output Urine Total 600 ml 750 ml Laboratory Tests 01/09/19 06:05: White Blood Count 6.1, Red Blood Count 4.59, Hemoglobin 12.9, Hematocrit 37.9, Mean Corpuscular Volume 83, Mean Corpuscular Hemoglobin 28.1, Mean Corpuscular Hemoglobin Concent 34.1, Red Cell Distribution Width 12.4, Platelet Count 279, Mean Platelet Volume 7.1, Neutrophils (%) (Auto) 64.3, Lymphocytes (%) (Auto) 17.8L, Monocytes (%) (Auto) 11.6H, Eosinophils (%) (Auto) 5.7H, Basophils (%) ( Auto) 0.6, Sodium Level 141, Potassium Level 3.1L, Chloride Level 104, Carbon Dioxide Level 28, Anion Gap 9, Blood Urea Nitrogen 12, Creatinine 0.8, Estimat Glomerular Filtration Rate , Glucose Level 187H, Calcium Level 8.9, Magnesium Level 1.9, Total Bilirubin 1.2H, Direct Bilirubin 0.2, Aspartate Amino Transf ( AST/SGOT) 17, Alanine Aminotransferase (ALT/SGPT) 36, Alkaline Phosphatase 79, Pro-B-Type Natriuretic Peptide 2203H, Total Protein 6.3L, Albumin 3.1L, Globulin 3.2, Albumin/Globulin Ratio 1.0 Height (Feet): 5 Height (Inches): 3.00 Weight (Pounds): 165 Objective General Appearance: WD/WN, alert Neck: supple Cardiovascular: normal rate Respiratory/Chest: chest wall non-tender, lungs clear, normal breath sounds Abdomen: normal bowel sounds, non tender, soft, no organomegaly Edema: no edema noted Arm (L), no edema noted Arm (R), no edema noted Leg (L), no edema noted Leg (R), no edema noted Pedal (L), no edema noted Pedal (R), no edema noted 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
[2019-01-09 12:00] VITALS: BP 149/80
[2019-01-09] MEDS ORDERED: Zolpidem 5mg tab ORAL PRN (12:45)
[2019-01-09 15:49] VITALS: BP 137/75
[2019-01-09] MEDS: dilTIAZem HCl CD 180mg cap ORAL SCH (17:15)
--- NOTE | 2019-01-09 17:55 | Pulmonology Progress Note ---
Assessment/Plan Assessment/Plan 1. Atrial fibrillation with rapid ventricular response and cardiomyopathy per history. 2. History of pulmonary edema. 3. History of elevated natriuretic peptide, possibly consistent with elevated pulmonary pressure. 4. History of asthma. 5. History of obstructive sleep apnea. PLAN supportive care oxygen rate control improved dig and cardizem breo daily and monitor dc hope in am impression, plan, and exam edited and reviewed in detail care discussed with RN Subjective Allergies: Coded Allergies: Dust (Verified Allergy, Mild, Itching, 11/06/15) Subjective care noted and reviewed reduced sob heart rate still tachy at times Objective Last 24 Hour Vital Signs Date Time Temp Pulse Resp B/P (MAP) Pulse Ox O2 Delivery O2 Flow Rate FiO2 01/09/19 17:15 82 137/75 01/09/19 15:49 98.0 82 17 137/75 (95) 96 01/09/19 15:36 131 01/09/19 15:11 85 149/80 01/09/19 12:00 98.1 85 17 149/80 (103) 96 01/09/19 11:40 85 01/09/19 09:00 104/67 01/09/19 09:00 81 01/09/19 08:32 Nasal Cannula 2.0 01/09/19 08:05 114 01/09/19 08:00 98.2 84 20 104/67 (79) 96 01/09/19 07:00 95 Nasal Cannula 2.0 28 01/09/19 06:22 81 121/74 01/09/19 04:00 98.2 81 20 121/74 (90) 96 01/09/19 04:00 103 01/09/19 00:00 98.2 78 20 116/71 (86) 98 01/09/19 00:00 90 01/08/19 21:00 Nasal Cannula 2.0 01/08/19 20:59 136/85 01/08/19 20:59 66 136/85 01/08/19 20:10 93 Nasal Cannula 2.0 28 01/08/19 20:00 98.9 66 20 136/85 (102) 96 01/08/19 20:00 80 Intake and Output 01/08/19 01/09/19 19:00 07:00 Intake Total 140 ml 620 ml Output Total 600 ml 750 ml Balance -460 ml -130 ml Intake Oral 140 ml 620 ml Output Urine Total 600 ml 750 ml Objective WDWN NAD clear breath sounds bilaterally without rhonchi or wheeze S1S2 iRRR without MRG NABS nontender no HSM no CCE nonfocal Laboratory Tests 01/09/19 06:05: White Blood Count 6.1, Red Blood Count 4.59, Hemoglobin 12.9, Hematocrit 37.9, Mean Corpuscular Volume 83, Mean Corpuscular Hemoglobin 28.1, Mean Corpuscular Hemoglobin Concent 34.1, Red Cell Distribution Width 12.4, Platelet Count 279, Mean Platelet Volume 7.1, Neutrophils (%) (Auto) 64.3, Lymphocytes (%) (Auto) 17.8L, Monocytes (%) (Auto) 11.6H, Eosinophils (%) (Auto) 5.7H, Basophils (%) ( Auto) 0.6, Sodium Level 141, Potassium Level 3.1L, Chloride Level 104, Carbon Dioxide Level 28, Anion Gap 9, Blood Urea Nitrogen 12, Creatinine 0.8, Estimat Glomerular Filtration Rate , Glucose Level 187H, Calcium Level 8.9, Magnesium Level 1.9, Total Bilirubin 1.2H, Direct Bilirubin 0.2, Aspartate Amino Transf ( AST/SGOT) 17, Alanine Aminotransferase (ALT/SGPT) 36, Alkaline Phosphatase 79, Pro-B-Type Natriuretic Peptide 2203H, Total Protein 6.3L, Albumin 3.1L, Globulin 3.2, Albumin/Globulin Ratio 1.0 Current Medications Medications (Trade) Dose Ordered Sig/Aisha Route PRN Reason Start Time Stop Time Status Last Admin Dose Admin Acetaminophen (Tylenol) 650 mg Q4H PRN ORAL Mild Pain/Temp > 100.5 01/07/19 19:30 02/05/19 19:29 Al Hydroxide/Mg Hydroxide (Mylanta) 30 ml Q4H PRN ORAL Abdominal cramps 01/07/19 19:30 02/05/19 19:29 Apixaban (Eliquis) 5 mg BID ORAL 01/08/19 09:00 02/06/19 08:59 01/09/19 17:15 Aspirin (Ecotrin) 81 mg DAILY ORAL 01/08/19 09:00 02/06/19 08:59 01/09/19 09:10 Atorvastatin Calcium (Lipitor) 40 mg BEDTIME ORAL 01/07/19 21:00 02/05/19 20:59 01/08/19 20:59 Dextrose (Dextrose 50%) 25 ml Q30M PRN IV Hypoglycemia 01/07/19 19:30 02/05/19 22:29 Dextrose (Dextrose 50%) 50 ml Q30M PRN IV Hypoglycemia 01/07/19 19:30 02/05/19 22:29 Digoxin (Lanoxin) 0.125 mg DAILY ORAL 01/08/19 09:00 02/06/19 08:59 01/08/19 09:22 Diltiazem HCl (Cardizem CD) 180 mg BID ORAL 01/09/19 18:00 02/08/19 17:59 01/09/19 17:15 Fluticasone/ Vilanterol (Breo Ellipta 200/25) 1 puffs DAILY INH 01/08/19 09:00 02/05/19 21:59 Furosemide (Lasix) 40 mg DAILY ORAL 01/09/19 09:00 02/08/19 08:59 01/09/19 17:16 Guaifenesin/ Dextromethorphan (Robitussin DM Syrup) 5 ml Q4H PRN ORAL For Cough 01/07/19 19:00 02/06/19 18:59 01/08/19 21:17 Insulin Aspart (NovoLOG) BEFORE MEALS AND HS SUBQ 01/07/19 21:00 02/06/19 06:29 01/09/19 16:41 Lisinopril (Prinivil) 20 mg Q12HR ORAL 01/09/19 21:00 02/08/19 20:59 Methocarbamol (Robaxin) 750 mg TIDPRN PRN ORAL For muscle pain/spasm 01/07/19 19:30 02/05/19 19:29 Pantoprazole (Protonix) 40 mg ACBREAKFAST ORAL 01/08/19 06:30 02/06/19 06:29 01/09/19 06:22 Potassium Chloride (K-Dur) 40 meq ONCE ORAL 01/09/19 17:15 01/09/19 18:15 01/09/19 17:15 Spironolactone (Aldactone) 25 mg DAILY ORAL 01/09/19 09:00 02/08/19 08:59 01/09/19 09:10 Zolpidem Tartrate (Ambien) 5 mg HSPRN PRN ORAL Insomnia 01/07/19 20:30 01/13/19 20:29 01/08/19 21:57 Wilfred Boo MD Jan 09, 2019 17:55
[2019-01-09 20:00] VITALS: BP 140/76
[2019-01-09] MEDS: Atorvastatin 20mg tab ORAL SCH (22:06)
[2019-01-10] VITALS: BP 128/81
[2019-01-10] MEDS: Zolpidem 5mg tab ORAL PRN ×2 (00:24→23:55)
--- NOTE | 2019-01-10 02:30 | Progress Note ---
DATE: 01/09/2019 CARDIOLOGY PROGRESS NOTE SUBJECTIVE: The patient still has episodes of rapid atrial fibrillation ___ overall rate however is better controlled on admission. She denies chest pain or shortness of breath. OBJECTIVE: VITAL SIGNS: Blood pressure 149/80, heart rate 85 to 131, respiratory rate 18, and afebrile. LUNGS: Clear with slightly diminished breath sounds. CARDIAC: Irregularly irregular. Normal S1 and S2. ABDOMEN: Soft. EXTREMITIES: There is trace edema. LABORATORY DATA: White count 6.1 and hemoglobin 12.9. Sodium is 141, potassium 3.1, bicarbonate 28, magnesium 1.9, BUN 12, creatinine 0.8, and pro-natriuretic peptide has decreased to 2200. Albumin 3.1. IMPRESSIONS: 1. Paroxysmal atrial fibrillation with rapid ventricular response. 2. Hypokalemia. 3. Mild protein calorie malnutrition. 4. Acute on chronic systolic and diastolic congestive heart failure. 5. Ischemic cardiomyopathy. 6. Type 2 diabetes mellitus. 7. Hypomagnesemia, status post replacement therapy. 8. Chronic obstructive pulmonary disease. PLAN: 1. Maintenance dose diuretic therapy. 2. Replace potassium. 3. Continue Aldactone. 4. Advance diltiazem dose for tighter rate control. 5. Continue digoxin without change. Travis Martínez M.D. DR: DOUG JOB#: [id number] CC:
[2019-01-10 04:00] VITALS: BP 137/87
[2019-01-10] MEDS: NovoLOG Insulin Flexpen SUBQ SCH ×4 (06:30→21:51)
[2019-01-10 07:35] LABS: BASOPHILS % (AUTO) 0.7 % (0.0-2.0); HEMATOCRIT 41.2 % (37.0-47.0); LYMPHOCYTES % (AUTO) 32.2 % (20.0-45.0); MEAN CORPUSCULAR VOLUME 84 FL (80-99); MONOCYTES % (AUTO) 12.3 % (1.0-10.0); NEUTROPHILS % (AUTO) 50.8 % (45.0-75.0); PLATELET COUNT 359 K/UL (150-450); RED BLOOD COUNT 4.92 M/UL (4.20-5.40); RED CELL DISTRIBUTION WIDTH 12.7 % (11.6-14.8); WHITE BLOOD COUNT 8.1 K/UL (4.8-10.8)
[2019-01-10 07:48] LABS: ALANINE AMINOTRANSFERASE 34 U/L (12-78); ALBUMIN 3.6 G/DL (3.4-5.0); ALBUMIN/GLOBULIN RATIO 1.1 (1.0-2.7); ALKALINE PHOSPHATASE 97 U/L (46-116); ANION GAP 11 mmol/L (5-15); ASPARTATE AMINO TRANSFERASE 17 U/L (15-37); BILIRUBIN,TOTAL 1.3 MG/DL (0.2-1.0); BLOOD UREA NITROGEN 13 mg/dL (7-18); CALCIUM 9.8 MG/DL (8.5-10.1); CARBON DIOXIDE 26 MMOL/L (21-32); CHLORIDE 104 MMOL/L (98-107); CREATININE 0.8 MG/DL (0.55-1.30); POTASSIUM 3.8 MMOL/L (3.5-5.1); SODIUM 141 MMOL/L (136-145)
[2019-01-10 07:50] LABS: BILIRUBIN,DIRECT 0.3 MG/DL (0.0-0.3)
[2019-01-10 08:00] VITALS: BP 106/63
[2019-01-10] MEDS: Lisinopril 20mg tab ORAL SCH ×2 (09:00→21:49)
[2019-01-10] MEDS: Digoxin 0.125mg tab ORAL SCH (09:15)
[2019-01-10] MEDS: Aspirin EC 81mg tab ORAL SCH (09:15)
[2019-01-10] MEDS: Spironolactone 25mg tab ORAL SCH (09:16)
[2019-01-10] MEDS: dilTIAZem HCl CD 180mg cap ORAL SCH ×2 (09:16→17:13)
[2019-01-10] MEDS: Furosemide 40mg tab ORAL SCH (09:16)
[2019-01-10] MEDS: Eliquis 5mg tablet ORAL SCH ×2 (09:17→17:13)
--- NOTE | 2019-01-10 09:42 | General Progress Note ---
Assessment/Plan Problem List: (1) Dyspnea ICD Codes: R06.00 - Dyspnea, unspecified SNOMED: 801813389 (2) SOB (shortness of breath) ICD Codes: R06.02 - Shortness of breath SNOMED: 397654809 (3) Bronchitis ICD Codes: J40 - Bronchitis, not specified as acute or chronic SNOMED: 19833661 (4) COPD exacerbation ICD Codes: J44.1 - Chronic obstructive pulmonary disease with (acute) exacerbation SNOMED: 887588928, 039015296 (5) CHF (congestive heart failure) ICD Codes: I50.9 - Heart failure, unspecified SNOMED: 08754496 Qualifiers: Qualified Codes: I50.42 - Chronic combined systolic (congestive) and diastolic (congestive) heart failure Status: stable, progressing Assessment/Plan: o2 resp rx lasix prn BP rx rate control tele sleeping meds not ready for dc Subjective ROS Limited/Unobtainable: No Constitutional: Reports: malaise HEENT: Reports: no symptoms Cardiovascular: Reports: irregular heart rate Respiratory: Reports: cough, shortness of breath Gastrointestinal/Abdominal: Reports: no symptoms Genitourinary: Reports: no symptoms Neurologic/Psychiatric: Reports: no symptoms Endocrine: Reports: no symptoms Hematologic/Lymphatic: Reports: no symptoms Allergies: Coded Allergies: Dust (Verified Allergy, Mild, Itching, 11/06/15) All Systems: reviewed and negative except above Subjective uncontrolled afib. rates as high [id number]. denies chest pain. c/o cough Objective Last 24 Hour Vital Signs Date Time Temp Pulse Resp B/P (MAP) Pulse Ox O2 Delivery O2 Flow Rate FiO2 01/10/19 09:16 142 106/63 01/10/19 09:15 142 01/10/19 09:00 106/63 01/10/19 08:00 98.5 142 22 106/63 (77) 94 01/10/19 07:00 96 Nasal Cannula 2.0 28 01/10/19 04:00 98.0 139 19 137/87 (104) 93 01/10/19 04:00 139 01/10/19 00:00 106 01/10/19 00:00 98.2 106 19 128/81 (97) 96 01/09/19 22:10 134/87 01/09/19 21:00 Room Air 01/09/19 20:00 116 01/09/19 20:00 98.8 116 17 140/76 (97) 94 01/09/19 17:15 82 137/75 01/09/19 15:49 98.0 82 17 137/75 (95) 96 01/09/19 15:36 131 01/09/19 15:11 85 149/80 01/09/19 12:00 98.1 85 17 149/80 (103) 96 01/09/19 11:40 85 Intake and Output 01/09/19 01/10/19 19:00 07:00 Output Total 800 ml 700 ml Balance -800 ml -700 ml Output Urine Total 800 ml 700 ml # Voids 2 3 Laboratory Tests 01/10/19 06:41: White Blood Count 8.1, Red Blood Count 4.92, Hemoglobin 14.0, Hematocrit 41.2, Mean Corpuscular Volume 84, Mean Corpuscular Hemoglobin 28.4, Mean Corpuscular Hemoglobin Concent 33.9, Red Cell Distribution Width 12.7, Platelet Count 359, Mean Platelet Volume 7.0, Neutrophils (%) (Auto) 50.8, Lymphocytes (%) (Auto) 32.2, Monocytes (%) (Auto) 12.3H, Eosinophils (%) (Auto) 4.0H, Basophils (%) ( Auto) 0.7, Sodium Level 141, Potassium Level 3.8, Chloride Level 104, Carbon Dioxide Level 26, Anion Gap 11, Blood Urea Nitrogen 13, Creatinine 0.8, Estimat Glomerular Filtration Rate , Glucose Level 172H, Calcium Level 9.8, Magnesium Level 2.0, Total Bilirubin 1.3H, Direct Bilirubin 0.3, Aspartate Amino Transf ( AST/SGOT) 17, Alanine Aminotransferase (ALT/SGPT) 34, Alkaline Phosphatase 97, Total Protein 7.0, Albumin 3.6, Globulin 3.4, Albumin/Globulin Ratio 1.1, Digoxin Level 0.7L Height (Feet): 5 Height (Inches): 3.00 Weight (Pounds): 169 Objective General Appearance: WD/WN, alert Neck: supple Cardiovascular: irreg irreg Respiratory/Chest: chest wall non-tender, lungs clear, normal breath sounds Abdomen: normal bowel sounds, non tender, soft, no organomegaly Edema: no edema noted Arm (L), no edema noted Arm (R), no edema noted Leg (L), no edema noted Leg (R), no edema noted Pedal (L), no edema noted Pedal (R), no edema noted Generalized Neurologic: technology risk intern II-XII grossly normal, no motor/sensory deficits, abnormal gait , alert, oriented x 3 Claus Batista MD Jan 10, 2019 09:42
--- NOTE | 2019-01-10 10:54 | Pulmonology Progress Note ---
Assessment/Plan Assessment/Plan 1. Atrial fibrillation with rapid ventricular response and cardiomyopathy per history. 2. History of pulmonary edema. 3. History of elevated natriuretic peptide, possibly consistent with elevated pulmonary pressure. 4. History of asthma. 5. History of obstructive sleep apnea. PLAN supportive care oxygen rate control improved dig and cardizem breo daily and monitor defer care and rate control to cardiology impression, plan, and exam edited and reviewed in detail care discussed with RN Subjective Allergies: Coded Allergies: Dust (Verified Allergy, Mild, Itching, 11/06/15) Subjective care noted and reviewed again tachycardic Objective Last 24 Hour Vital Signs Date Time Temp Pulse Resp B/P (MAP) Pulse Ox O2 Delivery O2 Flow Rate FiO2 01/10/19 09:16 142 106/63 01/10/19 09:15 142 01/10/19 09:00 Room Air 01/10/19 09:00 106/63 01/10/19 08:00 98.5 142 22 106/63 (77) 94 01/10/19 07:00 96 Nasal Cannula 2.0 28 01/10/19 04:00 98.0 139 19 137/87 (104) 93 01/10/19 04:00 139 01/10/19 00:00 106 01/10/19 00:00 98.2 106 19 128/81 (97) 96 01/09/19 22:10 134/87 01/09/19 21:00 Room Air 01/09/19 20:00 116 01/09/19 20:00 98.8 116 17 140/76 (97) 94 01/09/19 17:15 82 137/75 01/09/19 15:49 98.0 82 17 137/75 (95) 96 01/09/19 15:36 131 01/09/19 15:11 85 149/80 01/09/19 12:00 98.1 85 17 149/80 (103) 96 01/09/19 11:40 85 Intake and Output 01/09/19 01/10/19 19:00 07:00 Output Total 800 ml 700 ml Balance -800 ml -700 ml Output Urine Total 800 ml 700 ml # Voids 2 3 Objective WDWN NAD clear breath sounds bilaterally without rhonchi or wheeze S1S2 iRR tachy without MRG NABS nontender no HSM no CCE nonfocal Laboratory Tests 01/10/19 06:41: White Blood Count 8.1, Red Blood Count 4.92, Hemoglobin 14.0, Hematocrit 41.2, Mean Corpuscular Volume 84, Mean Corpuscular Hemoglobin 28.4, Mean Corpuscular Hemoglobin Concent 33.9, Red Cell Distribution Width 12.7, Platelet Count 359, Mean Platelet Volume 7.0, Neutrophils (%) (Auto) 50.8, Lymphocytes (%) (Auto) 32.2, Monocytes (%) (Auto) 12.3H, Eosinophils (%) (Auto) 4.0H, Basophils (%) ( Auto) 0.7, Sodium Level 141, Potassium Level 3.8, Chloride Level 104, Carbon Dioxide Level 26, Anion Gap 11, Blood Urea Nitrogen 13, Creatinine 0.8, Estimat Glomerular Filtration Rate , Glucose Level 172H, Calcium Level 9.8, Magnesium Level 2.0, Total Bilirubin 1.3H, Direct Bilirubin 0.3, Aspartate Amino Transf ( AST/SGOT) 17, Alanine Aminotransferase (ALT/SGPT) 34, Alkaline Phosphatase 97, Total Protein 7.0, Albumin 3.6, Globulin 3.4, Albumin/Globulin Ratio 1.1, Digoxin Level 0.7L Current Medications Medications (Trade) Dose Ordered Sig/Aisha Route PRN Reason Start Time Stop Time Status Last Admin Dose Admin Acetaminophen (Tylenol) 650 mg Q4H PRN ORAL Mild Pain/Temp > 100.5 01/07/19 19:30 02/05/19 19:29 Al Hydroxide/Mg Hydroxide (Mylanta) 30 ml Q4H PRN ORAL Abdominal cramps 01/07/19 19:30 02/05/19 19:29 Apixaban (Eliquis) 5 mg BID ORAL 01/08/19 09:00 02/06/19 08:59 01/10/19 09:17 Aspirin (Ecotrin) 81 mg DAILY ORAL 01/08/19 09:00 02/06/19 08:59 01/10/19 09:15 Atorvastatin Calcium (Lipitor) 40 mg BEDTIME ORAL 01/07/19 21:00 02/05/19 20:59 01/09/19 22:06 Dextrose (Dextrose 50%) 25 ml Q30M PRN IV Hypoglycemia 01/07/19 19:30 02/05/19 22:29 Dextrose (Dextrose 50%) 50 ml Q30M PRN IV Hypoglycemia 01/07/19 19:30 02/05/19 22:29 Digoxin (Lanoxin) 0.125 mg DAILY ORAL 01/08/19 09:00 02/06/19 08:59 01/10/19 09:15 Diltiazem HCl (Cardizem CD) 180 mg BID ORAL 01/09/19 18:00 02/08/19 17:59 01/10/19 09:16 Fluticasone/ Vilanterol (Breo Ellipta 200/25) 1 puffs DAILY INH 01/08/19 09:00 02/05/19 21:59 01/09/19 21:58 Furosemide (Lasix) 40 mg DAILY ORAL 01/09/19 09:00 02/08/19 08:59 01/10/19 09:16 Guaifenesin/ Dextromethorphan (Robitussin DM Syrup) 5 ml Q4H PRN ORAL For Cough 01/07/19 19:00 02/06/19 18:59 01/08/19 21:17 Insulin Aspart (NovoLOG) BEFORE MEALS AND HS SUBQ 01/07/19 21:00 02/06/19 06:29 01/10/19 06:30 Lisinopril (Prinivil) 20 mg Q12HR ORAL 01/09/19 21:00 02/08/19 20:59 01/09/19 22:10 Methocarbamol (Robaxin) 750 mg TIDPRN PRN ORAL For muscle pain/spasm 01/07/19 19:30 02/05/19 19:29 Pantoprazole (Protonix) 40 mg ACBREAKFAST ORAL 01/08/19 06:30 02/06/19 06:29 01/10/19 06:31 Spironolactone (Aldactone) 25 mg DAILY ORAL 01/09/19 09:00 02/08/19 08:59 01/10/19 09:16 Zolpidem Tartrate (Ambien) 5 mg HSPRN PRN ORAL Insomnia 01/07/19 20:30 01/13/19 20:29 01/10/19 00:24 Wilfred Boo MD Jan 10, 2019 10:54
[2019-01-10 12:00] VITALS: BP 129/77
--- NOTE | 2019-01-10 13:56 | Cardiology Report ---
APPROVED REPORT EKG Measurement Heart [id number] Atrial fibrillation with slow ventricular response Low voltage QRS Cannot rule out Anterior infarct, age undetermined Abnormal ECG
--- NOTE | 2019-01-10 13:58 | Cardiology Report ---
APPROVED REPORT EKG Measurement Heart [id number] Atrial fibrillation with rapid ventricular response Low voltage QRS Cannot rule out Anterior infarct, age undetermined Abnormal ECG
[2019-01-10] MEDS: Amiodarone 200mg tab ORAL SCH ×2 (15:43→22:52)
[2019-01-10 16:00] VITALS: BP 117/76
--- NOTE | 2019-01-10 17:09 | Consultation ---
Consult Note Consult Note Cardiac EP Full note dictated #[id number] Soco Hawkins MD Jan 10, 2019 17:09
[2019-01-10 20:00] VITALS: BP 139/78
--- NOTE | 2019-01-10 20:00 | Consultation ---
DATE OF CONSULTATION: 01/10/2019 CARDIAC ELECTROPHYSIOLOGY CONSULT CONSULTING PHYSICIAN: Soco Hawkins M.D. REFERRING PHYSICIAN: Travis Martínez M.D. REASON FOR CONSULT: Rapidly conducted atrial fibrillation. HISTORY OF PRESENT ILLNESS: The patient is a 73-year-old woman with a history of ischemic cardiomyopathy, mild systolic and diastolic heart failure with most recent EF about 45% by echo, also with recently diagnosed persistent atrial fibrillation. She was admitted with increasing dyspnea on 01/06/2019. She was reportedly not compliant with medications having been hospitalized recently with acute systolic heart failure and rapid atrial fibrillation. She was noted to be in atrial fibrillation with rates up to the 130s to 140s. Diltiazem was started as well as diuretics. Cardiac electrophysiology evaluation was requested. MEDICATIONS: Currently lisinopril 20 mg q.12 hours, Cardizem 180 mg b.i.d., Aldactone 25 mg daily, Lasix 40 mg daily, Eliquis 5 mg b.i.d., aspirin 81 mg daily, Breo Ellipta 1 puff daily, Protonix 40 mg daily, atorvastatin 40 mg daily, insulin sliding scale. ALLERGIES: No known drug allergies. PAST MEDICAL HISTORY: As noted above. Also, history of obstructive sleep apnea, asthma, hyperlipidemia, hypertension, and type 2 diabetes. SOCIAL HISTORY: The patient is a lifelong nonsmoker. She has no history of alcohol abuse. REVIEW OF SYSTEMS: As per HPI. PHYSICAL EXAMINATION: VITAL SIGNS: Pulse irregularly irregular, 130s to 140s, blood pressure 129/77, respirations 22, afebrile. GENERAL: Alert, somewhat agitated white female, in no acute distress. HEENT: Normocephalic and atraumatic. Pupils are equal, round, and reactive to light. Sclerae anicteric. Oral mucosa are moist. NECK: Supple. There is no jugular venous distention. LUNGS: Minimal right base crackles. HEART: Tachycardic. Irregularly regular. S1 and S2 with no murmurs or S3. ABDOMEN: Soft, nondistended, and nontender. No palpable masses. EXTREMITIES: Trace pedal edema bilaterally. NEUROLOGIC: No focal motor deficits. IMAGING: EKG from 01/06/2019 shows atrial fibrillation, ventricular rate 146 beats per minute. Poor R-wave progression anteriorly. Telemetry currently shows atrial fibrillation with rates in the 80s up to the 140s. LABORATORY DATA: Hemoglobin 14, white blood count 8100, platelets 359,000. Sodium 141, potassium 3.8, chloride 104, bicarb 26, BUN 13, creatinine 0.8, glucose 172. Troponin 0.019. ProBNP 2203, on admission 9267. Chest x-ray from 01/07/2019 shows cardiomegaly, minimal interstitial prominence. ASSESSMENT AND RECOMMENDATIONS: The patient is a 73-year-old woman with history of hypertension, diabetes, asthma/obstructive sleep apnea, and recently diagnosed with atrial flutter with rapid ventricular rate. She remains with tachycardia despite treatment with Cardizem. We will add digoxin and low-dose amiodarone. She is appropriately on anticoagulation with Eliquis and low-dose amiodarone for rate control. If remains in atrial fibrillation with [id number] ventricular rates, we would favor ESTRADA and cardioversion. Over the longer term, she may be a candidate for catheter ablation. She would need treatment for her sleep apnea as well with sleep study and CPAP. Further recommendations will be made based on her clinical course. Thank you for allowing me to participate in her care. Soco Hawkins M.D. DR: ROVERTO JOB#: [id number] CC:
[2019-01-10] MEDS: Atorvastatin 20mg tab ORAL SCH (21:50)
[2019-01-10] MEDS: Breo Ellipta 200/25mcg-14 dose INH SCH (21:57)
[2019-01-11] VITALS: BP 131/65
[2019-01-11 04:00] VITALS: BP 114/61
--- NOTE | 2019-01-11 04:15 | Progress Note ---
DATE: 01/10/2019 CARDIOLOGY PROGRESS NOTE SUBJECTIVE: The patient has palpitations, but no chest pain or shortness of breath. She is again having episodes of rapid atrial fibrillation. She has been receiving her medications. OBJECTIVE: VITAL SIGNS: Blood pressure 106/63, pulse 142, respiratory rate 22, afebrile. LUNGS: Clear. CARDIAC: Irregularly irregular. Normal S1, S2. A 1/6 systolic murmur at apex. ABDOMEN: Soft. EXTREMITIES: No edema. LABORATORY DATA: Labs today notable for potassium of 3.8. IMPRESSION: 1. Hypertensive heart disease. 2. Ischemic cardiomyopathy. 3. Acute on chronic systolic and diastolic congestive heart failure. 4. Paroxysmal atrial fibrillation and flutter with rapid ventricular response. PLAN: The patient is on digoxin and diltiazem and does not have adequate rate control. Amiodarone has been avoided due to her underlying lung disease and at this point it may have to be initiated. An EP consultation will be obtained at this time. Travis Martínez M.D. DR: ALANNAH JOB#: [id number] CC:
[2019-01-11] MEDS: Amiodarone 200mg tab ORAL SCH ×2 (06:28→21:25)
[2019-01-11] MEDS: NovoLOG Insulin Flexpen SUBQ SCH ×4 (06:29→21:29)
--- NOTE | 2019-01-11 07:53 | General Progress Note ---
Assessment/Plan Problem List: (1) Dyspnea ICD Codes: R06.00 - Dyspnea, unspecified SNOMED: 870836643 (2) SOB (shortness of breath) ICD Codes: R06.02 - Shortness of breath SNOMED: 456832310 (3) Bronchitis ICD Codes: J40 - Bronchitis, not specified as acute or chronic SNOMED: 65498170 (4) COPD exacerbation ICD Codes: J44.1 - Chronic obstructive pulmonary disease with (acute) exacerbation SNOMED: 224610857, 804651885 (5) CHF (congestive heart failure) ICD Codes: I50.9 - Heart failure, unspecified SNOMED: 61327788 Qualifiers: Qualified Codes: I50.42 - Chronic combined systolic (congestive) and diastolic (congestive) heart failure Status: stable, progressing Assessment/Plan: o2 resp rx lasix prn BP rx rate control tele sleeping meds not ready for dc Subjective ROS Limited/Unobtainable: No Constitutional: Reports: malaise, weakness HEENT: Reports: no symptoms Cardiovascular: Reports: irregular heart rate Respiratory: Reports: no symptoms Gastrointestinal/Abdominal: Reports: no symptoms Genitourinary: Reports: no symptoms Neurologic/Psychiatric: Reports: no symptoms Endocrine: Reports: no symptoms Hematologic/Lymphatic: Reports: anemia Allergies: Coded Allergies: Dust (Verified Allergy, Mild, Itching, 11/06/15) All Systems: reviewed and negative except above Subjective afib better controlled. HR low 100s. no cp/sob Objective Last 24 Hour Vital Signs Date Time Temp Pulse Resp B/P (MAP) Pulse Ox O2 Delivery O2 Flow Rate FiO2 01/11/19 07:24 95 Nasal Cannula 2.0 28 01/11/19 04:00 97.7 114 22 114/61 (78) 96 01/11/19 04:00 114 01/11/19 00:00 97.4 105 23 131/65 (87) 96 01/11/19 00:00 105 01/10/19 21:49 139/78 01/10/19 21:39 96 Nasal Cannula 2.0 28 01/10/19 21:00 Room Air 01/10/19 20:00 110 01/10/19 20:00 98.1 110 20 139/78 (98) 96 01/10/19 17:13 98 117/76 01/10/19 16:00 97.5 98 23 117/76 (90) 93 01/10/19 16:00 106 01/10/19 12:00 97.9 116 22 129/77 (94) 97 01/10/19 12:00 139 01/10/19 09:16 142 106/63 01/10/19 09:15 142 01/10/19 09:00 Room Air 01/10/19 09:00 106/63 01/10/19 08:00 96 01/10/19 08:00 98.5 142 22 106/63 (77) 94 Intake and Output 01/10/19 01/11/19 18:59 06:59 Intake Total 300 ml 350 ml Output Total 700 ml Balance -400 ml 350 ml Intake Oral 300 ml 350 ml Output Urine Total 700 ml # Voids 3 2 Height (Feet): 5 Height (Inches): 3.00 Weight (Pounds): 167 Objective General Appearance: WD/WN, alert Neck: supple Cardiovascular: irreg irreg Respiratory/Chest: chest wall non-tender, lungs clear, normal breath sounds Abdomen: normal bowel sounds, non tender, soft, no organomegaly Edema: no edema noted Arm (L), no edema noted Arm (R), no edema noted Leg (L), no edema noted Leg (R), no edema noted Pedal (L), no edema noted Pedal (R), no edema noted Generalized Neurologic: glass cutter II-XII grossly normal, no motor/sensory deficits, abnormal gait , alert, oriented x 3 Claus Batista MD Jan 11, 2019 07:53
[2019-01-11 08:00] VITALS: BP 123/65
[2019-01-11] MEDS: Spironolactone 25mg tab ORAL SCH (09:03)
[2019-01-11] MEDS: dilTIAZem HCl CD 180mg cap ORAL SCH ×2 (09:03→18:05)
[2019-01-11] MEDS: Lisinopril 20mg tab ORAL SCH ×2 (09:04→21:26)
[2019-01-11] MEDS: Eliquis 5mg tablet ORAL SCH ×2 (09:04→18:06)
[2019-01-11] MEDS: Aspirin EC 81mg tab ORAL SCH (09:04)
[2019-01-11] MEDS: Digoxin 0.125mg tab ORAL SCH (09:05)
[2019-01-11] MEDS: Furosemide 40mg tab ORAL SCH (09:05)
--- NOTE | 2019-01-11 10:53 | Pulmonology Progress Note ---
Assessment/Plan Assessment/Plan 1. Atrial fibrillation with rapid ventricular response and cardiomyopathy per history. 2. History of pulmonary edema. 3. History of elevated natriuretic peptide, possibly consistent with elevated pulmonary pressure. 4. History of asthma. 5. History of obstructive sleep apnea. PLAN supportive care oxygen rate control improved dig and cardizem may need amio ambien and robitussin breo daily and monitor defer care and rate control to cardiology impression, plan, and exam edited and reviewed in detail care discussed with RN Subjective Allergies: Coded Allergies: Dust (Verified Allergy, Mild, Itching, 11/06/15) Subjective care noted and reviewed tachycardic but better Objective Last 24 Hour Vital Signs Date Time Temp Pulse Resp B/P (MAP) Pulse Ox O2 Delivery O2 Flow Rate FiO2 01/11/19 09:05 77 01/11/19 09:04 123/65 01/11/19 09:03 77 123/65 01/11/19 09:00 Room Air 01/11/19 09:00 Nasal Cannula 2.0 28 01/11/19 09:00 Nasal Cannula 2.0 28 01/11/19 08:00 98.5 77 23 123/65 (84) 96 01/11/19 07:24 95 Nasal Cannula 2.0 28 01/11/19 04:00 97.7 114 22 114/61 (78) 96 01/11/19 04:00 114 01/11/19 00:00 97.4 105 23 131/65 (87) 96 01/11/19 00:00 105 01/10/19 21:49 139/78 01/10/19 21:39 96 Nasal Cannula 2.0 28 01/10/19 21:00 Room Air 01/10/19 20:00 110 01/10/19 20:00 98.1 110 20 139/78 (98) 96 01/10/19 17:13 98 117/76 01/10/19 16:00 97.5 98 23 117/76 (90) 93 01/10/19 16:00 106 01/10/19 12:00 97.9 116 22 129/77 (94) 97 01/10/19 12:00 139 Intake and Output 01/10/19 01/11/19 19:00 07:00 Intake Total 300 ml 350 ml Output Total 700 ml Balance -400 ml 350 ml Intake Oral 300 ml 350 ml Output Urine Total 700 ml # Voids 3 2 Objective WDWN NAD clear breath sounds bilaterally without rhonchi or wheeze S1S2 iRR tachy without MRG NABS nontender no HSM no CCE nonfocal Current Medications Medications (Trade) Dose Ordered Sig/Aisha Route PRN Reason Start Time Stop Time Status Last Admin Dose Admin Acetaminophen (Tylenol) 650 mg Q4H PRN ORAL Mild Pain/Temp > 100.5 01/07/19 19:30 02/05/19 19:29 Al Hydroxide/Mg Hydroxide (Mylanta) 30 ml Q4H PRN ORAL Abdominal cramps 01/07/19 19:30 02/05/19 19:29 Amiodarone HCl (Cordarone) 200 mg Q8HR ORAL 01/10/19 15:19 02/09/19 15:18 01/11/19 06:28 Apixaban (Eliquis) 5 mg BID ORAL 01/08/19 09:00 02/06/19 08:59 01/11/19 09:04 Aspirin (Ecotrin) 81 mg DAILY ORAL 01/08/19 09:00 02/06/19 08:59 01/11/19 09:04 Atorvastatin Calcium (Lipitor) 40 mg BEDTIME ORAL 01/07/19 21:00 02/05/19 20:59 01/10/19 21:50 Dextrose (Dextrose 50%) 25 ml Q30M PRN IV Hypoglycemia 01/07/19 19:30 02/05/19 22:29 Dextrose (Dextrose 50%) 50 ml Q30M PRN IV Hypoglycemia 01/07/19 19:30 02/05/19 22:29 Digoxin (Lanoxin) 0.125 mg DAILY ORAL 01/08/19 09:00 02/06/19 08:59 01/11/19 09:05 Diltiazem HCl (Cardizem CD) 180 mg BID ORAL 01/09/19 18:00 02/08/19 17:59 01/11/19 09:03 Fluticasone/ Vilanterol (Breo Ellipta 200/25) 1 puffs DAILY INH 01/08/19 09:00 02/05/19 21:59 01/10/19 21:57 Furosemide (Lasix) 40 mg DAILY ORAL 01/09/19 09:00 02/08/19 08:59 01/11/19 09:05 Guaifenesin/ Dextromethorphan (Robitussin DM Syrup) 5 ml Q4H PRN ORAL For Cough 01/07/19 19:00 02/06/19 18:59 01/08/19 21:17 Insulin Aspart (NovoLOG) BEFORE MEALS AND HS SUBQ 01/07/19 21:00 02/06/19 06:29 01/11/19 06:29 Lisinopril (Prinivil) 20 mg Q12HR ORAL 01/09/19 21:00 02/08/19 20:59 01/11/19 09:04 Methocarbamol (Robaxin) 750 mg TIDPRN PRN ORAL For muscle pain/spasm 01/07/19 19:30 02/05/19 19:29 Pantoprazole (Protonix) 40 mg ACBREAKFAST ORAL 01/08/19 06:30 02/06/19 06:29 01/11/19 06:28 Spironolactone (Aldactone) 25 mg DAILY ORAL 01/09/19 09:00 02/08/19 08:59 01/11/19 09:03 Zolpidem Tartrate (Ambien) 5 mg HSPRN PRN ORAL Insomnia 01/07/19 20:30 01/13/19 20:29 01/10/19 23:55 Wilfred Boo MD Jan 11, 2019 10:53
[2019-01-11] MEDS ORDERED: Zolpidem 5mg tab ORAL PRN (11:00)
[2019-01-11 12:00] VITALS: BP 129/60
[2019-01-11 16:00] VITALS: BP 114/67
--- NOTE | 2019-01-11 16:30 | Progress Note ---
DATE: 01/11/2019 SUBJECTIVE: The patient remains on several antiarrhythmic drugs. Her heart rate has now improved. She is ambulatory. Monitor atrial fibrillation. OBJECTIVE: VITAL SIGNS: Blood pressure 123/65, pulse 77, respirations 18. LUNGS: Clear. CARDIAC: Irregularly irregular. Normal S1, S2. A 1/6 systolic apical murmur. ABDOMEN: Soft. No edema. LABORATORY DATA: Labs are pending today. IMPRESSION: 1. Paroxysmal atrial fibrillation with rapid ventricular response. 2. Ischemic heart disease. 3. Hypertensive cardiomyopathy. 4. Acute on chronic systolic and diastolic congestive heart failure. 5. COPD. PLAN: 1. Recheck labs. 2. Continued titration of digoxin and diltiazem as amiodarone loading is ongoing. 3. Long-term medication regimen will have to be determined in view of underlying lung disease. 4. Baseline thyroid function studies will be obtained as well. Travis Martínez M.D. DR: ANGELA JOB#: [id number] CC:
--- NOTE | 2019-01-11 19:07 | Cardiac Electrophysiology PN ---
Assessment/Plan Status: stable, progressing Status Narrative Mrs. Bourne's HR has improved , w/ digoxin and diltiazem. Continue Eliquis Would recommend ESTRADA/CV , followed by Dominik, to attempt to maintain SR Will hold amiodarone, as pt would like to consider ablation if does not maintain SR post -cv Assessment/Plan As noted above- continue diltiazem, digoxin and eliquis Would favor ESTRADA/CV Would not continue amiodarone, as inc risk for pulm toxicity in view of underlying lung disease and also pt would like to consider ablation ( needs to be off amiodarone x 1 month prior to ablation) Subjective ROS Limited/Unobtainable: No Subjective Cardiac EP Pt feels better- less dyspneic Objective Last 24 Hour Vital Signs Date Time Temp Pulse Resp B/P (MAP) Pulse Ox O2 Delivery O2 Flow Rate FiO2 01/11/19 18:05 70 114/67 01/11/19 16:00 98.3 70 23 114/67 (83) 97 01/11/19 15:14 113 01/11/19 12:00 97.7 77 22 129/60 (83) 94 01/11/19 11:49 96 01/11/19 09:05 77 01/11/19 09:04 123/65 01/11/19 09:03 77 123/65 01/11/19 09:00 Room Air 01/11/19 09:00 Nasal Cannula 2.0 28 01/11/19 09:00 Nasal Cannula 2.0 28 01/11/19 08:00 98.5 77 23 123/65 (84) 96 01/11/19 07:35 98 01/11/19 07:24 95 Nasal Cannula 2.0 28 01/11/19 04:00 97.7 114 22 114/61 (78) 96 01/11/19 04:00 114 01/11/19 00:00 97.4 105 23 131/65 (87) 96 01/11/19 00:00 105 01/10/19 21:49 139/78 01/10/19 21:39 96 Nasal Cannula 2.0 28 01/10/19 21:00 Room Air 01/10/19 20:00 110 01/10/19 20:00 98.1 110 20 139/78 (98) 96 General Appearance: WD/WN, alert EENT: PERRL/EOMI Neck: non-tender, supple, no JVD Rhythm: Afib Cardiovascular: normal rate, regular rhythm, systolic murmur Respiratory/Chest: lungs clear Abdomen: normal bowel sounds, soft, no mass Extremities: non-tender, no swelling Intake and Output 01/10/19 01/11/19 19:00 07:00 Intake Total 300 ml 350 ml Output Total 700 ml Balance -400 ml 350 ml Intake Oral 300 ml 350 ml Output Urine Total 700 ml # Voids 3 2 Soco Hawkins MD Jan 11, 2019 19:07
[2019-01-11 20:00] VITALS: BP 123/54
[2019-01-11] MEDS: Atorvastatin 20mg tab ORAL SCH (21:25)
[2019-01-11] MEDS: Guaifenesin/DM 10ml syrup ORAL PRN (22:34)
[2019-01-12] VITALS: BP 105/54
[2019-01-12 04:00] VITALS: BP 140/81
[2019-01-12] MEDS: NovoLOG Insulin Flexpen SUBQ SCH ×2 (06:07→12:02)
[2019-01-12] MEDS: Breo Ellipta 200/25mcg-14 dose INH SCH (07:39)
[2019-01-12 08:00] VITALS: BP 112/68
--- NOTE | 2019-01-12 08:00 | Pulmonology Progress Note ---
Assessment/Plan Assessment/Plan 1. Atrial fibrillation with rapid ventricular response and cardiomyopathy per history. 2. History of pulmonary edema. 3. History of elevated natriuretic peptide, possibly consistent with elevated pulmonary pressure. 4. History of asthma. 5. History of obstructive sleep apnea. PLAN supportive care dc home dig and cardizem may need amio ambien and robitussin breo daily and monitor defer care and plan to admit for possible ablation impression, plan, and exam edited and reviewed in detail care discussed with RN Subjective Allergies: Coded Allergies: Dust (Verified Allergy, Mild, Itching, 11/06/15) Subjective care noted and reviewed tachycardia better cleared by cards Objective Last 24 Hour Vital Signs Date Time Temp Pulse Resp B/P (MAP) Pulse Ox O2 Delivery O2 Flow Rate FiO2 01/12/19 07:54 Room Air 01/12/19 07:45 77 18 97 Room Air 21 01/12/19 07:39 77 18 97 Room Air 21 01/12/19 04:00 88 01/12/19 04:00 98.6 75 16 140/81 (100) 98 01/12/19 00:00 97.8 74 16 105/54 (71) 96 01/12/19 00:00 78 01/11/19 21:26 123/54 01/11/19 21:00 Room Air 01/11/19 20:00 98.7 68 18 123/54 (77) 97 01/11/19 20:00 108 01/11/19 19:00 96 Nasal Cannula 2.0 28 01/11/19 18:05 70 114/67 01/11/19 16:00 98.3 70 23 114/67 (83) 97 01/11/19 15:14 113 01/11/19 12:00 97.7 77 22 129/60 (83) 94 01/11/19 11:49 96 01/11/19 09:05 77 01/11/19 09:04 123/65 01/11/19 09:03 77 123/65 01/11/19 09:00 Room Air 01/11/19 09:00 Nasal Cannula 2.0 28 01/11/19 09:00 Nasal Cannula 2.0 28 Intake and Output 01/11/19 01/12/19 18:59 06:59 Intake Total 360 ml Balance 360 ml Intake Oral 360 ml # Voids 5 2 Objective WDWN NAD clear breath sounds bilaterally without rhonchi or wheeze S1S2 iRRR without MRG NABS nontender no HSM no CCE nonfocal Current Medications Medications (Trade) Dose Ordered Sig/Aisha Route PRN Reason Start Time Stop Time Status Last Admin Dose Admin Acetaminophen (Tylenol) 650 mg Q4H PRN ORAL Mild Pain/Temp > 100.5 01/07/19 19:30 02/05/19 19:29 Al Hydroxide/Mg Hydroxide (Mylanta) 30 ml Q4H PRN ORAL Abdominal cramps 01/07/19 19:30 02/05/19 19:29 Amiodarone HCl (Cordarone) 200 mg Q12HR ORAL 01/11/19 21:00 02/10/19 20:59 01/11/19 21:25 Apixaban (Eliquis) 5 mg BID ORAL 01/08/19 09:00 02/06/19 08:59 01/11/19 18:06 Aspirin (Ecotrin) 81 mg DAILY ORAL 01/08/19 09:00 02/06/19 08:59 01/11/19 09:04 Atorvastatin Calcium (Lipitor) 40 mg BEDTIME ORAL 01/07/19 21:00 02/05/19 20:59 01/11/19 21:25 Dextrose (Dextrose 50%) 25 ml Q30M PRN IV Hypoglycemia 01/07/19 19:30 02/05/19 22:29 Dextrose (Dextrose 50%) 50 ml Q30M PRN IV Hypoglycemia 01/07/19 19:30 02/05/19 22:29 Digoxin (Lanoxin) 0.25 mg DAILY ORAL 01/12/19 09:00 02/06/19 08:59 Diltiazem HCl (Cardizem CD) 180 mg BID ORAL 01/09/19 18:00 02/08/19 17:59 01/11/19 18:05 Fluticasone/ Vilanterol (Breo Ellipta 200/25) 1 puffs DAILY INH 01/08/19 09:00 02/05/19 21:59 01/12/19 07:39 Furosemide (Lasix) 40 mg DAILY ORAL 01/09/19 09:00 02/08/19 08:59 01/11/19 09:05 Guaifenesin/ Dextromethorphan (Robitussin DM Syrup) 10 ml Q4H PRN ORAL For Cough 01/11/19 11:00 02/10/19 10:59 01/11/19 22:34 Insulin Aspart (NovoLOG) BEFORE MEALS AND HS SUBQ 01/07/19 21:00 02/06/19 06:29 01/12/19 06:07 Lisinopril (Prinivil) 20 mg Q12HR ORAL 01/09/19 21:00 02/08/19 20:59 01/11/19 21:26 Methocarbamol (Robaxin) 750 mg TIDPRN PRN ORAL For muscle pain/spasm 01/07/19 19:30 02/05/19 19:29 Pantoprazole (Protonix) 40 mg ACBREAKFAST ORAL 01/08/19 06:30 02/06/19 06:29 01/12/19 06:06 Spironolactone (Aldactone) 25 mg DAILY ORAL 01/09/19 09:00 02/08/19 08:59 01/11/19 09:03 Zolpidem Tartrate (Ambien) 5 mg HSPRN PRN ORAL Insomnia 01/11/19 11:00 01/18/19 10:59 01/11/19 23:34 Wilfred Boo MD Jan 12, 2019 08:00
[2019-01-12 08:35] LABS: BASOPHILS % (AUTO) 0.8 % (0.0-2.0); EOSINOPHILS % (AUTO) 3.1 % (0.0-3.0); HEMATOCRIT 39.8 % (37.0-47.0); HEMOGLOBIN 13.2 G/DL (12.0-16.0); MEAN CORPUSCULAR VOLUME 84 FL (80-99); MONOCYTES % (AUTO) 9.3 % (1.0-10.0); NEUTROPHILS % (AUTO) 53.7 % (45.0-75.0); PLATELET COUNT 348 K/UL (150-450); RED BLOOD COUNT 4.76 M/UL (4.20-5.40); RED CELL DISTRIBUTION WIDTH 12.7 % (11.6-14.8); WHITE BLOOD COUNT 6.8 K/UL (4.8-10.8)
[2019-01-12 09:03] LABS: ALANINE AMINOTRANSFERASE 45 U/L (12-78); ALBUMIN 3.2 G/DL (3.4-5.0); ALBUMIN/GLOBULIN RATIO 0.9 (1.0-2.7); ALKALINE PHOSPHATASE 93 U/L (46-116); ANION GAP 11 mmol/L (5-15); ASPARTATE AMINO TRANSFERASE 25 U/L (15-37); BILIRUBIN,TOTAL 1.4 MG/DL (0.2-1.0); BLOOD UREA NITROGEN 15 mg/dL (7-18); CALCIUM 9.6 MG/DL (8.5-10.1); CARBON DIOXIDE 26 MMOL/L (21-32); CHLORIDE 104 MMOL/L (98-107); CREATININE 0.8 MG/DL (0.55-1.30); POTASSIUM 3.3 MMOL/L (3.5-5.1); SODIUM 141 MMOL/L (136-145)
[2019-01-12] MEDS: Eliquis 5mg tablet ORAL SCH (09:08)
[2019-01-12] MEDS: Furosemide 40mg tab ORAL SCH (09:09)
[2019-01-12] MEDS: Aspirin EC 81mg tab ORAL SCH (09:09)
[2019-01-12] MEDS: Spironolactone 25mg tab ORAL SCH (09:09)
[2019-01-12] MEDS: Amiodarone 200mg tab ORAL SCH (09:09)
[2019-01-12] MEDS: Lisinopril 20mg tab ORAL SCH (09:10)
[2019-01-12] MEDS: dilTIAZem HCl CD 180mg cap ORAL SCH (09:11)
[2019-01-12 09:20] LABS: BILIRUBIN,DIRECT 0.3 MG/DL (0.0-0.3)
--- NOTE | 2019-01-12 09:27 | General Progress Note ---
Assessment/Plan Problem List: (1) Dyspnea ICD Codes: R06.00 - Dyspnea, unspecified SNOMED: 907070502 (2) SOB (shortness of breath) ICD Codes: R06.02 - Shortness of breath SNOMED: 852280586 (3) Bronchitis ICD Codes: J40 - Bronchitis, not specified as acute or chronic SNOMED: 05584250 (4) COPD exacerbation ICD Codes: J44.1 - Chronic obstructive pulmonary disease with (acute) exacerbation SNOMED: 957154436, 625120756 (5) CHF (congestive heart failure) ICD Codes: I50.9 - Heart failure, unspecified SNOMED: 08975006 Qualifiers: Qualified Codes: I50.42 - Chronic combined systolic (congestive) and diastolic (congestive) heart failure Status: stable, progressing Assessment/Plan: o2 resp rx lasix prn BP rx rate control tele sleeping meds dc planning Subjective ROS Limited/Unobtainable: No Constitutional: Reports: malaise, weakness HEENT: Reports: no symptoms Cardiovascular: Reports: no symptoms Respiratory: Reports: cough, shortness of breath Gastrointestinal/Abdominal: Reports: no symptoms Genitourinary: Reports: no symptoms Neurologic/Psychiatric: Reports: no symptoms Endocrine: Reports: no symptoms Hematologic/Lymphatic: Reports: no symptoms Allergies: Coded Allergies: Dust (Verified Allergy, Mild, Itching, 11/06/15) All Systems: reviewed and negative except above Subjective afib better controlled. HR less than 100. feels "better." wants to go home Objective Last 24 Hour Vital Signs Date Time Temp Pulse Resp B/P (MAP) Pulse Ox O2 Delivery O2 Flow Rate FiO2 01/12/19 09:11 72 114/70 01/12/19 09:10 72 01/12/19 09:10 114/70 01/12/19 08:00 98.0 63 20 112/68 (83) 97 01/12/19 07:54 Room Air 01/12/19 07:45 77 18 97 Room Air 21 01/12/19 07:39 77 18 97 Room Air 21 01/12/19 04:00 88 01/12/19 04:00 98.6 75 16 140/81 (100) 98 01/12/19 00:00 97.8 74 16 105/54 (71) 96 01/12/19 00:00 78 01/11/19 21:26 123/54 01/11/19 21:00 Room Air 01/11/19 20:00 98.7 68 18 123/54 (77) 97 01/11/19 20:00 108 01/11/19 19:00 96 Nasal Cannula 2.0 28 01/11/19 18:05 70 114/67 01/11/19 16:00 98.3 70 23 114/67 (83) 97 01/11/19 15:14 113 01/11/19 12:00 97.7 77 22 129/60 (83) 94 01/11/19 11:49 96 Intake and Output 01/11/19 01/12/19 18:59 06:59 Intake Total 360 ml Balance 360 ml Intake Oral 360 ml # Voids 5 2 Laboratory Tests 01/12/19 07:06: White Blood Count 6.8, Red Blood Count 4.76, Hemoglobin 13.2, Hematocrit 39.8, Mean Corpuscular Volume 84, Mean Corpuscular Hemoglobin 27.7, Mean Corpuscular Hemoglobin Concent 33.2, Red Cell Distribution Width 12.7, Platelet Count 348, Mean Platelet Volume 7.1, Neutrophils (%) (Auto) 53.7, Lymphocytes (%) (Auto) 33.0, Monocytes (%) (Auto) 9.3, Eosinophils (%) (Auto) 3.1H, Basophils (%) (Auto ) 0.8, Sodium Level 141, Potassium Level 3.3L, Chloride Level 104, Carbon Dioxide Level 26, Anion Gap 11, Blood Urea Nitrogen 15, Creatinine 0.8, Estimat Glomerular Filtration Rate , Glucose Level 143H, Calcium Level 9.6, Magnesium Level 2.0, Total Bilirubin 1.4H, Direct Bilirubin 0.3, Aspartate Amino Transf ( AST/SGOT) 25, Alanine Aminotransferase (ALT/SGPT) 45, Alkaline Phosphatase 93, Pro-B-Type Natriuretic Peptide 1270H, Total Protein 6.9, Albumin 3.2L, Globulin 3.7, Albumin/Globulin Ratio 0.9L, Digoxin Level 0.9 Height (Feet): 5 Height (Inches): 3.00 Weight (Pounds): 162 Objective General Appearance: WD/WN, alert Neck: supple Cardiovascular: irreg irreg Respiratory/Chest: chest wall non-tender, lungs clear, normal breath sounds Abdomen: normal bowel sounds, non tender, soft, no organomegaly Edema: no edema noted Arm (L), no edema noted Arm (R), no edema noted Leg (L), no edema noted Leg (R), no edema noted Pedal (L), no edema noted Pedal (R), no edema noted Generalized Neurologic: manager urology II-XII grossly normal, no motor/sensory deficits, abnormal gait , alert, oriented x 3 Claus Batista MD Jan 12, 2019 09:27
[2019-01-12] MEDS: Guaifenesin/DM 10ml syrup ORAL PRN (10:02)
[2019-01-12 12:00] VITALS: BP 110/60
[2019-01-12] MEDS ORDERED: CARDIZEM CD180 MG ORAL (12:46)
--- NOTE | 2019-01-13 11:54 | Discharge Summary ---
Discharge Summary Discharge Summary _ DATE OF ADMISSION: 01/06/2019 DATE OF DISCHARGE: 01/12/2019 DISCHARGED BY: Dr. Batista REASON FOR ADMISSION: 73 years old female with past medical history of hypertension, cardiomyopathy, atrial fibrillation, hypercholesterolemia, carotid stenosis, diabetes mellitus, pulmonary hypertension, asthma, obstructive sleep apnea, was recently discharged from [facility]. Patient presented with worsening shortness of breath and rapid atrial fibrillation in the [employer] office. Patient was referred to emergency room from the office. EKG showed tachyarrhythmia, suggestive of atrial fibrillation. Patient denied any pain , no dizziness. She denied fever, chills , nausea , vomiting, diarrhea , dysuria, joint pain. She denied edema or calf pain. She denied fever, chills . No signs of bleeding. Patient is on Eliquis along with aspirin. Upon evaluation vital signs revealed tachycardia with heart rate 141 , blood pressure was 127/94 , pulse oximetry was stable on room air. EKG revealed atrial fibrillation with rapid ventricular response, no evidence of acute injury. Chest x-ray showed developing interstitial congestion versus artifact cardiomegaly. Increased markings bilaterally. Troponin negative, pro BNP elevated -6411. Patient received metoprolol and esmolol for heart rate control , however heart rate still remained rapid . Metoprolol was repeated , but patient continued to be tachycardic. Patient started on Cardizem . Heart rate was finally controlled. Repeated EKG showed atrial fibrillation with rate of 54 , no injury . Patient received Lasix in the emergency department and admitted to [facility] per further management. CONSULTANTS: cold water machine operator Dr. Martínez cold water machine operator taper machine Dr. Hawkins pulmonary [facility] COURSE: Patient admitted to [facility]. Patient started on diuretic with close monitoring of volumes and cardiorenal parameters. Rate control and anticoagulation continued. Hemoglobin and hematocrit were closely monitored. GI prophylaxis provided. Supplemental oxygen provided as needed to keep pulse oximetry above 92%. BiPAP provided at nighttime due to history of obstructive sleep apnea. Heart rate eventually was controlled with digoxin , amiodarone and Cardizem. Amiodarone initially was avoided due to underlying lung disease , however despite digoxin and Cardizem patient did not have adequate rate control. Patient started on amiodarone . Rate was controlled. Heel Sander taper machine seen and evaluated patient and recommended consider ESTRADA and cardioversion, if patient remains in atrial fibrillation with difficult to control ventricular rate. Over the longer term she may be a candidate for catheter ablation. Last Echo on previous admission in November 2018 revealed global left ventricular hypokinesis with ejection fraction 35% and mild left ventricular hypertrophy. Increased left arterial pressure grade 3. Right ventricular systolic pressure of 48 consistent with moderate pulmonary hypertension. Guideline directed medical therapy for systolic and diastolic congestive heart failure continued with JULI inhibitor, spironolactone and Lasix. Volumes and cardiorenal parameters were closely monitored. Pro BNP from initial 6411 down to 1270. Blood pressure was managed with JULI inhibitor , Cardizem. Antiplatelet therapy with aspirin continued. Statin continued. Patient was continue on anticoagulation for thromboembolic stroke prevention with Eliquis. Hemoglobin and hematocrit remained stable. No evidence of bleeding. GI prophylaxis provided. Supplemental oxygen was on board as needed to keep pulse oximetry above 92%. Pulmonary toilet provided as needed. Patient was continued on Breo inhaler. Blood sugar was managed with sliding scale of insulin. Renal parameters and electrolytes were closely monitored. Electrolytes/magnesium and potassium, replaced . FINAL DIAGNOSES: Paroxysmal atrial fibrillation/flutter with rapid ventricular response Acute on chronic systolic and diastolic congestive heart failure Hypertensive cardiomyopathy Hypertensive heart disease Ischemic heart disease COPD Pulmonary edema Asthma Obstructive sleep apnea Electrolyte imbalance/hypokalemia, hypomagnesemia DISCHARGE MEDICATIONS: See Medication Reconciliation list. DISCHARGE INSTRUCTIONS: Patient was discharged home with home health services. Follow up with primary care provider in one week. I have been assigned to dictate discharge summary for this account. I was not involved in the patient's management. Camilla Mi NP Jan 13, 2019 11:54
--- NOTE | 2019-01-14 04:00 | Progress Note ---
DATE: 01/12/2019 CARDIOLOGY PROGRESS NOTE SUBJECTIVE: The patient feels better with less shortness of breath and is anxious to go home. The patient will need to undergo cardioversion and possible ablation in the future if her symptoms failed to improve and heart rate control fails on current. OBJECTIVE: VITAL SIGNS: Blood pressure 114/70, pulse 72, and respirations 18. LUNGS: Coarse breath sounds. No wheezing or rales. HEART: Irregularly irregular rhythm. Normal S1, S2. ABDOMEN: Soft. EXTREMITIES: No edema. IMPRESSION: 1. Acute on chronic systolic and diastolic congestive heart failure, now clinically compensated. 2. Paroxysmal atrial fibrillation, now with controlled ventricular response. 3. Chronic obstructive pulmonary disease with no active bronchospasm. 4. Hypertensive heart disease with controlled blood pressure. PLAN: 1. Avoid antiarrhythmic with amiodarone for now. 2. Discharge on digitalis and diltiazem with maintenance dose diuretic. 3. Cardioembolic prophylaxis with apixaban. 4. We will follow as outpatient and arrange cardioversion in the next 1 to 3 weeks based on clinical course. Travis Martínez M.D. DR: DANA JOB#: [id number] CC:
== END 2019-01-12 13:39 | disposition home health service (06) | DRG 308 ==
LOC: EMR 15:10 → 2W 15:19 → EDBEDREQ 18:42 → 2W 19:09 → 2E 01-07 18:59
DX: I48.0 Paroxysmal atrial fibrillation (principal); I50.43 Acute on chronic combined systolic (congestive) and diastolic (congestive) heart failure; J44.1 Chronic obstructive pulmonary disease with (acute) exacerbation; I11.0 Hypertensive heart disease with heart failure; I51.3 Intracardiac thrombosis, not elsewhere classified; G47.33 Obstructive sleep apnea (adult) (pediatric); E11.9 Type 2 diabetes mellitus without complications; I27.20 Pulmonary hypertension, unspecified; I43 Cardiomyopathy in diseases classified elsewhere; E87.6 Hypokalemia; E78.5 Hyperlipidemia, unspecified; I25.10 Atherosclerotic heart disease of native coronary artery without angina pectoris; Z79.01 Long term (current) use of anticoagulants; J40 Bronchitis, not specified as acute or chronic
CPT/HCPCS: 36415; 71045; 80048; 80053; 80162; 81003; 82248; 82550; 82962; 83735; 83880; 84484; 85025; 85610; 85730; 93005; 93306; 94640; 94664; 96374; 96375; 96376; 99291; J1815; J8499

== ENCOUNTER 2019-02-28 12:34 | Emergency (ER) | payer MEDICARE, OTHER ==
[~2019-02-28] VITALS: Ht 162.6 cm; Wt 80.7 kg
[~2019-02-28 12:34] MED LIST changes: +CARDIZEM CD180 MG ORAL
--- NOTE | 2019-02-28 13:00 | NUR ---
ED Nurse Note: Patient walked into ED c/o generalized weakness and feeling tired since this morning. patient reports hx of a-fib. patient is alert wake x4 ambulatory. breathing unlabored and even brother at bedside.
[2019-02-28] MEDS ORDERED: CARVEDILOL6.25 MG ORAL (13:02)
[2019-02-28] MEDS ORDERED: BREO ELLIPTA 11 EACH IH (13:02)
[2019-02-28] MEDS ORDERED: ZOLPIDEM TARTRAT5 MG ORAL (13:02)
[2019-02-28] MEDS ORDERED: MONTELUKAST SOD10 MG ORAL (13:02)
[2019-02-28] MEDS ORDERED: ISOSORBIDE MONO30 M1 PO (13:02)
[2019-02-28] MEDS ORDERED: VENTOLIN HFA18 GM INH (13:02)
[2019-02-28] MEDS ORDERED: PHENERGAN SUPP25 MG RECTAL (13:02)
[2019-02-28] MEDS ORDERED: BENZONATATE200 MG ORAL (13:02)
[2019-02-28 13:46] VITALS: BP 131/92
[2019-02-28 14:07] LABS: BASOPHILS % (AUTO) 0.8 % (0.0-2.0); EOSINOPHILS % (AUTO) 0.4 % (0.0-3.0); HEMATOCRIT 43.3 % (37.0-47.0); HEMOGLOBIN 13.9 G/DL (12.0-16.0); LYMPHOCYTES % (AUTO) 17.7 % (20.0-45.0); MEAN CORPUSCULAR VOLUME 86 FL (80-99); MONOCYTES % (AUTO) 9.1 % (1.0-10.0); PLATELET COUNT 329 K/UL (150-450); RED BLOOD COUNT 5.02 M/UL (4.20-5.40); RED CELL DISTRIBUTION WIDTH 13.7 % (11.6-14.8); WHITE BLOOD COUNT 7.2 K/UL (4.8-10.8)
--- NOTE | 2019-02-28 14:07 | Emergency Room Report ---
History of Present Illness General Chief Complaint: General Complaint Source: Patient Present Illness HPI 73-year-old female presents with generalized weakness since this morning at 10 AM, patient denies any aggravating alleviating factors, severity is moderate, patient denies any chest pain she just feels more tired than usual, no nausea no vomiting no abdominal pain patient denies any cough or congestion, patient presents for evaluation. Has a history of hypertension hyperlipidemia, atrial fibrillation, anticoagulation, patient states she recently started taking carvedilol a month ago Allergies: Coded Allergies: Dust (Verified Allergy, Mild, Itching, 11/06/15) Patient History Past Medical History: see triage record Last Menstrual Period: menopause Reviewed Nursing Documentation: PMH: Agreed; PSxH: Agreed Nursing Documentation-PMH Hx Cardiac Problems: Yes - atrial defibrilation Hx Hypertension: Yes Hx Pacemaker: No Hx Asthma: Yes Hx COPD: No Hx Diabetes: Yes Hx Cancer: No Hx Gastrointestinal Problems: No Hx Neurological Problems: Yes Hx Cerebrovascular Accident: No Hx Dementia: Yes Hx Seizures: No Review of Systems Constitutional: Reports: weakness; Denies: chills, fever Eye: Denies: blurred vision, double vision ENT: Denies: throat pain, nasal discharge Respiratory: Denies: cough, shortness of breath Cardiovascular: Denies: chest pain, palpitations Gastrointestinal: Denies: abdominal pain, diarrhea, nausea, vomiting Genitourinary: Denies: dysuria, pain Musculoskeletal: Denies: back pain, muscle pain Skin: Denies: rash, lesions Neurological: Denies: headache, focal weakness Hematologic/Lymphatic: Denies: easy bleeding, easy bruising All Other Systems: negative except mentioned in HPI Physical Exam Vital Signs Date Time Temp Pulse Resp B/P (MAP) Pulse Ox O2 Delivery O2 Flow Rate FiO2 02/28/19 12:54 98.6 107 18 138/96 (110) 96 Room Air Sp02 EP Interpretation: reviewed, normal General Appearance: well appearing, no apparent distress, alert Head: normocephalic, atraumatic Eyes: bilateral eye PERRL, bilateral eye EOMI ENT: uvula midline, moist mucus membranes Neck: supple, thyroid normal, supple/symm/no masses Respiratory: lungs clear, no respiratory distress, no retraction, no accessory muscle use Cardiovascular #1: normal peripheral pulses, no edema, no gallop, no murmur, irregularly irregular Gastrointestinal: non tender, soft, no guarding, no rebound Musculoskeletal: normal inspection Neurologic: alert, oriented x3 Psychiatric: mood/affect normal Skin: no rash, warm/dry Medical Decision Making Diagnostic Impression: Primary Impression: Generalized weakness ER Course Patient with generalized weakness will order a broad work-up for possible UTI versus occult infection versus hypothyroidism, versus ACS, patient states if blood work is all negative she does not want to be admitted to the hospital, patient states she will follow-up with her doctor Ema Patient refused CXR 2:12pm aware of risks and benefits Evaluation 2:48 PM, joint decision-making was made with patient not to pursue inpatient care, risks and benefits discussed, patient states she wants to follow -up with Dr. Boo Laboratory Tests Test 02/28/19 13:40 02/28/19 14:10 White Blood Count 7.2 K/UL (4.8-10.8) Red Blood Count 5.02 M/UL (4.20-5.40) Hemoglobin 13.9 G/DL (12.0-16.0) Hematocrit 43.3 % (37.0-47.0) Mean Corpuscular Volume 86 FL (80-99) Mean Corpuscular Hemoglobin 27.7 PG (27.0-31.0) Mean Corpuscular Hemoglobin Concent 32.1 G/DL (32.0-36.0) Red Cell Distribution Width 13.7 % (11.6-14.8) Platelet Count 329 K/UL (150-450) Mean Platelet Volume 7.1 FL (6.5-10.1) Neutrophils (%) (Auto) 72.0 % (45.0-75.0) Lymphocytes (%) (Auto) 17.7 % (20.0-45.0) L Monocytes (%) (Auto) 9.1 % (1.0-10.0) Eosinophils (%) (Auto) 0.4 % (0.0-3.0) Basophils (%) (Auto) 0.8 % (0.0-2.0) Prothrombin Time 11.4 SEC (9.30-11.50) Prothrombin Time INR 1.1 (0.9-1.1) PTT 28 SEC (23-33) Sodium Level 138 MMOL/L (136-145) Potassium Level 4.8 MMOL/L (3.5-5.1) Chloride Level 102 MMOL/L (98-107) Carbon Dioxide Level 27 MMOL/L (21-32) Anion Gap 9 mmol/L (5-15) Blood Urea Nitrogen 14 mg/dL (7-18) Creatinine 0.8 MG/DL (0.55-1.30) Estimate Glomerular Filtration Rate mL/min (>60) Glucose Level 153 MG/DL (74-106) H Lactic Acid Level 0.90 mmol/L (0.4-2.0) Calcium Level 9.4 MG/DL (8.5-10.1) Phosphorus Level 3.7 MG/DL (2.5-4.9) Magnesium Level 2.2 MG/DL (1.8-2.4) Total Bilirubin 1.0 MG/DL (0.2-1.0) Aspartate Amino Transferase (AST) 39 U/L (15-37) H Alanine Aminotransferase (ALT) 33 U/L (12-78) Alkaline Phosphatase 54 U/L (46-116) Total Creatine Kinase 114 U/L (26-308) Creatine Kinase MB 1.0 NG/ML (0.0-3.6) Creatine Kinase MB Relative Index 0.8 Troponin I 0.018 ng/mL (0.000-0.056) Pro-B-Type Natriuretic Peptide 5035 pg/mL (0-125) H Total Protein 7.4 G/DL (6.4-8.2) Albumin 3.7 G/DL (3.4-5.0) Globulin 3.7 g/dL Albumin/Globulin Ratio 1.0 (1.0-2.7) Lipase 119 U/L (73-393) Thyroid Stimulating Hormone (TSH) 1.327 uiU/mL (0.358-3.740) Free Thyroxine 1.34 NG/DL (0.76-1.46) Free Triiodothyronine 2.2 pg/mL (2.3-4.2) L Urine Color Pale yellow Urine Appearance Clear Urine pH 7 (4.5-8.0) Urine Specific [place] 1.005 (1.005-1.035) Urine Protein Negative (NEGATIVE) Urine Glucose (UA) Negative (NEGATIVE) Urine Ketones Negative (NEGATIVE) Urine Blood 3+ (NEGATIVE) H Urine Nitrite Negative (NEGATIVE) Urine Bilirubin Negative (NEGATIVE) Urine Urobilinogen Normal MG/DL (0.0-1.0) Urine Leukocyte Esterase Negative (NEGATIVE) Urine RBC 5-10 /HPF (0 - 2) H Urine WBC 0 /HPF (0 - 2) Urine Squamous Epithelial Cells Occasional /LPF Urine Bacteria Occasional /HPF (NONE) EKG Diagnostic Results EKG Time: 13:19 EP Interpretation: Atrial fibrillation, rate 98, QTc 543, no acute ST elevations, left axis de Rate: normal Rhythm: other - afib ST Segments: no acute changes Rhythm Strip Diag. Results Rhythm Strip Time: 14:07 EP Interpretation: yes Rate: 99 Rhythm: other - afib, 2 pvc Last Vital Signs Date Time Temp Pulse Resp B/P (MAP) Pulse Ox O2 Delivery O2 Flow Rate FiO2 02/28/19 13:47 85 22 Room Air 02/28/19 13:46 98.6 131/92 100 Disposition: HOME, SELF-CARE Condition: Stable Scripts Albuterol Sulfate* (ALBUTEROL SULFATE MDI*) 8.5 Gm Hfa.aer.ad 2 PUFF INH Q6H PRN for Bronchospasm, #1 INH 0 Refills Prov: Jose Eduardo Jones MD 02/28/19 Referrals: Wilfred Boo MD Patient Instructions: Weakness Additional Instructions: The patient was provided with discharge instructions, notified to follow-up with a primary care doctor and or specialist in the next 24-48 hours, and to return to the ED if they have worsening of their symptoms. Please note that this report is being documented using DRAGON technology. This can lead to erroneous entry secondary to incorrect interpretation by the dictating instrument. Jose Eduardo Jones MD Feb 28, 2019 14:07
--- NOTE | 2019-02-28 14:12 | NUR ---
ED Nurse Note: patient refused cxr to be done, c/o "too much radiation." notified tamar Sandhuo.
[2019-02-28 14:13] LABS: INR 1.1 (0.9-1.1)
[2019-02-28 14:19] LABS: ANION GAP 9 mmol/L (5-15); BLOOD UREA NITROGEN 14 mg/dL (7-18); CALCIUM 9.4 MG/DL (8.5-10.1); CARBON DIOXIDE 27 MMOL/L (21-32); CHLORIDE 102 MMOL/L (98-107); CREATININE 0.8 MG/DL (0.55-1.30); POTASSIUM 4.8 MMOL/L (3.5-5.1); SODIUM 138 MMOL/L (136-145)
[2019-02-28 14:30] LABS: APPEARANCE,URINE CLEAR; BILIRUBIN, URINE NEGATIVE (NEGATIVE); COLOR,URINE PALE YELLOW; GLUCOSE, URINE (UA) NEGATIVE (NEGATIVE); KETONES,URINE NEGATIVE (NEGATIVE); LEUKOCYTE ESTERASE ,URINE NEGATIVE (NEGATIVE); NITRITE,URINE NEGATIVE (NEGATIVE); PH,URINE 7 (4.5-8.0); PROTEIN,URINE NEGATIVE (NEGATIVE); UROBILINOGEN,URINE NORMAL MG/DL (0.0-1.0)
[2019-02-28 14:32] LABS: ALANINE AMINOTRANSFERASE 33 U/L (12-78); ALBUMIN 3.7 G/DL (3.4-5.0); ALKALINE PHOSPHATASE 54 U/L (46-116); ASPARTATE AMINO TRANSFERASE 39 U/L (15-37); CREATINE KINASE 114 U/L (26-308); PHOSPHORUS 3.7 MG/DL (2.5-4.9)
[2019-02-28] MEDS ORDERED: ALBUTEROL SULF8.5 GM INH (14:58)
[2019-02-28 15:25] VITALS: BP 131/92
--- NOTE | 2019-02-28 15:25 | NUR ---
ER DISCHARGE NOTE: Patient is cleared to be discharged per ERMD, pt is aox4, on room air, with stable vital signs. pt was given dc and prescription instructions, pt was able to verbalize understanding, pt id band and iv site removed without complications. pt is able to ambulate with steady gait. pt took all belongings.
--- NOTE | 2019-03-01 12:16 | Cardiology Report ---
APPROVED REPORT EKG Measurement Heart [id number] Atrial fibrillation Left axis deviation Anterior infarct, age undetermined Prolonged QT Abnormal ECG
== END 2019-02-28 15:25 | disposition home or self-care (01) ==
LOC: EMR 13:34 → CANBEDREQ 15:31
DX: R53.1 Weakness (principal); I10 Essential (primary) hypertension; E78.5 Hyperlipidemia, unspecified; E11.9 Type 2 diabetes mellitus without complications; F03.90 Unspecified dementia, unspecified severity, without behavioral disturbance, psychotic disturbance, mood disturbance, and anxiety; I48.91 Unspecified atrial fibrillation
CPT/HCPCS: 36415; 80053; 81003; 82550; 82553; 83605; 83690; 83735; 83880; 84100; 84439; 84443; 84481; 84484; 85025; 85610; 85730; 87040; 93005; 99285

== ENCOUNTER 2019-04-04 10:51 | Emergency (ER) | payer MEDICARE, OTHER ==
[~2019-04-04] VITALS: Ht 165.1 cm; Wt 83.9 kg
[~2019-04-04 10:51] MED LIST changes: +BENZONATATE200 MG ORAL; +BREO ELLIPTA 11 EACH IH; +CARVEDILOL6.25 MG ORAL; +ISOSORBIDE MONO30 M1 PO; +MONTELUKAST SOD10 MG ORAL; +PHENERGAN SUPP25 MG RECTAL; +VENTOLIN HFA18 GM INH; +ZOLPIDEM TARTRAT5 MG ORAL
[2019-04-04 10:56] VITALS: BP 143/88
[2019-04-04] MEDS ORDERED: UNOBMED (10:58)
--- NOTE | 2019-04-04 11:06 | NUR ---
ED Nurse Note: Pt walked in with her brother due to right shoulder pain x 3 1/2 days. Per pt she was washing her clothes and the pain began. Denies fall/trauma. AAO x4, ambulatory and still able to move her right shoulder. No apparent disclocation.
[2019-04-04] MEDS ORDERED: LIDODERM700 M1 TOPIC (11:20)
[2019-04-04] MEDS ORDERED: NAPROXEN250 MG ORAL (11:20)
--- NOTE | 2019-04-04 11:20 | Emergency Room Report ---
History of Present Illness General Chief Complaint: Shoulder Injury Source: Patient, Medical Record Present Illness HPI 73-year-old female presents with right shoulder pain after hand washing laundry 5 days prior to arrival, she is been having 3 days of right shoulder pain aggravated with movement alleviated with rest achy in nature, mild severity intermittent. Patient denies any chest pain shortness of breath no abdominal pain no dyspnea on exertion, patient states she has a really bad ache in her right shoulder. Allergies: Coded Allergies: Dust (Verified Allergy, Mild, Itching, 11/06/15) Patient History Past Medical History: see triage record Reviewed Nursing Documentation: PMH: Agreed; PSxH: Agreed Nursing Documentation-PMH Past Medical History: No History, Except For Hx Cardiac Problems: Yes - atrial defibrilation Hx Hypertension: Yes Hx Pacemaker: No Hx Asthma: Yes Hx COPD: No Hx Diabetes: Yes Hx Cancer: No Hx Gastrointestinal Problems: No Hx Neurological Problems: Yes Hx Cerebrovascular Accident: No Hx Dementia: Yes Hx Seizures: No Review of Systems All Other Systems: negative except mentioned in HPI Physical Exam Vital Signs Date Time Temp Pulse Resp B/P (MAP) Pulse Ox O2 Delivery O2 Flow Rate FiO2 04/04/19 10:56 98.2 76 16 143/88 (106) 96 Room Air Sp02 EP Interpretation: reviewed, normal General Appearance: well appearing, no apparent distress, alert Head: normocephalic, atraumatic Eyes: bilateral eye PERRL, bilateral eye EOMI ENT: uvula midline, moist mucus membranes Neck: supple, thyroid normal, supple/symm/no masses Respiratory: lungs clear, no respiratory distress, no retraction, no accessory muscle use Cardiovascular #1: normal peripheral pulses, regular rate, rhythm, no edema, no gallop, no murmur Gastrointestinal: non tender, soft, no guarding, no rebound Musculoskeletal: other - Right shoulder tender to palpation, no bony deformity 2+ radial pulses radial median ulnar nerve intact, sensation intact over the right lateral bicep, empty can test positive, Neurologic: alert, oriented x3 Psychiatric: mood/affect normal Skin: no rash, warm/dry Medical Decision Making Diagnostic Impression: Primary Impression: Shoulder injury Qualified Codes: S49.91XA - Unspecified injury of right shoulder and upper arm , initial encounter Additional Impression: Rotator cuff injury Qualified Codes: S46.001A - Unspecified injury of muscle(s) and tendon(s) of the rotator cuff of right shoulder, initial encounter ER Course 73-year-old female presents with rotator cuff injury versus strain, versus fracture Will provide patient with pain medication Disposition home with return precautions Last Vital Signs Date Time Temp Pulse Resp B/P (MAP) Pulse Ox O2 Delivery O2 Flow Rate FiO2 04/04/19 10:56 98.2 76 16 143/88 96 Room Air Disposition: HOME, SELF-CARE Condition: Stable Scripts Lidocaine Patch* (Lidoderm Patch*) 1 Each Adh..patch 1 PATCH TOPIC DAILY, #7 PATCH 0 Refills Patch(es) may remain in place for up to 12 hours in any 24-hour period. Prov: Jose Eduardo Jones MD 04/04/19 Naproxen* (NAPROSYN*) 250 Mg Tablet 250 MG ORAL BID PRN for For Pain, #20 TAB 0 Refills Prov: Jose Eduardo Jones MD 04/04/19 Referrals: Wilfred Boo MD Patient Instructions: Shoulder Sprain, Shoulder Pain Additional Instructions: The patient was provided with discharge instructions, notified to follow-up with a primary care doctor and or specialist in the next 24-48 hours, and to return to the ED if they have worsening of their symptoms. Please note that this report is being documented using [employer] technology. This can lead to erroneous entry secondary to incorrect interpretation by the dictating instrument. Jose Eduardo Jones MD Apr 04, 2019 11:20
[2019-04-04 11:30] VITALS: BP 142/75
[2019-04-04] MEDS ORDERED: Ketorolac 60mg Inj IM ONE (11:30)
[2019-04-04] MEDS ORDERED: HYDROcodone/Acetamin 5/325 tab ORAL ONE (11:30)
--- NOTE | 2019-04-04 11:30 | NUR ---
ER DISCHARGE NOTE: Patient is cleared to be discharged per ERMD, pt is aox4, on room air, with stable vital signs. pt/brother were given dc and prescription instructions, pt/brother were able to verbalize understanding, pt id band removed. pt is able to ambulate with steady gait. pt/brother took all belongings.
== END 2019-04-04 11:30 | disposition home or self-care (01) ==
LOC: EMR 11:05
DX: S46.001A Unspecified injury of muscle(s) and tendon(s) of the rotator cuff of right shoulder, initial encounter (principal); S49.91XA Unspecified injury of right shoulder and upper arm, initial encounter; F03.90 Unspecified dementia, unspecified severity, without behavioral disturbance, psychotic disturbance, mood disturbance, and anxiety; E11.9 Type 2 diabetes mellitus without complications; J45.909 Unspecified asthma, uncomplicated; I10 Essential (primary) hypertension; Z91.048 Other nonmedicinal substance allergy status; X58.XXXA Exposure to other specified factors, initial encounter; Y93.E2 Activity, laundry; Y92.9 Unspecified place or not applicable
CPT/HCPCS: 96372; 99283

== ENCOUNTER 2019-04-27 08:52 | Emergency (ER) | payer MEDICARE, OTHER ==
[~2019-04-27] VITALS: Ht 160 cm; Wt 73.5 kg
[~2019-04-27 08:52] MED LIST changes: +NAPROXEN250 MG ORAL; +UNOBMED
--- NOTE | 2019-04-27 09:00 | NUR ---
ED Nurse Note: pt presents to ED accompanied by brother who states that pt has not been able to sleep for the past 2 days. Pt's PCP is Dr. Boo. pt denies any CP, N/V, cough or fever. pt is ambulatory and stable, AOx4.
--- NOTE | 2019-04-27 09:17 | Emergency Room Report ---
History of Present Illness General Chief Complaint: General Complaint Source: Patient Present Illness HPI Disclaimer: Please note that this report is being documented using [employer] technology. This can lead to erroneous entry secondary to incorrect interpretation by the dictating instrument. HPI: This is 73-year-old female with history of cardiomyopathy, atrial fibrillation status post ablation procedure, hypertension, hypercholesterolemia , carotid stenosis, diabetes, pulmonary hypertension, asthma, HEMANT presents for evaluation of poor sleep. She states that she has had poor sleep since January when the ablation. She had first attributed to polypharmacy however her medications are continuously adjusted downward. Over the past 4 9 she reports very poor sleep and states she did not sleep at all last night. She feels generalized fatigue. Denies any fevers, chills, headaches, blurred vision, sore throat, nasal congestion, chest pain, shortness of breath, abdominal pain, nausea, vomiting, diarrhea, constipation or new rash. There is no other change in her baseline health. Review of her chart shows HEMANT as listed on her diagnoses but she states she does not use a CPAP or any other devices for HEMANT. Unsure whether or not she has ever had a sleep study. She is requesting evaluation of her heart but denies any symptoms at this time. She does appear very anxious. PMH: Hypertension, hyperlipidemia, cardiomyopathy, atrial fibrillation status post ablation, carotid stenosis, diabetes, HEMANT PSH: A. fib ablation procedure Allergies: None listed Social Hx: Denies drug or alcohol use Allergies: Coded Allergies: Dust (Verified Allergy, Mild, Itching, 11/06/15) Patient History Now: No Nursing Documentation-PMH Past Medical History: No History, Except For Hx Cardiac Problems: Yes - atrial defibrilation Hx Hypertension: Yes Hx Pacemaker: No Hx Asthma: Yes Hx COPD: No Hx Diabetes: Yes Hx Cancer: No Hx Gastrointestinal Problems: No Hx Neurological Problems: Yes Hx Cerebrovascular Accident: No Hx Dementia: Yes Hx Seizures: No Review of Systems All Other Systems: negative except mentioned in HPI Physical Exam Vital Signs Date Time Temp Pulse Resp B/P (MAP) Pulse Ox O2 Delivery O2 Flow Rate FiO2 04/27/19 08:55 98.1 73 16 159/90 (113) 98 Room Air General: Awake and alert, no acute distress HEENT: NC/AT. EOMI. PERRLA. Moist mucous membranes Chest Wall: Nontender. Cardiovascular: RRR. S1 and S2 normal. No murmur appreciated Resp: Normal work of breathing. No cough, wheezing or crackles appreciated Abdomen: Abdomen is soft, nondistended. Nontender Skin: Intact. No abrasions, laceration or rash over the exposed skin MSK: Normal tone and bulk. Moving all extremities. No obvious deformity. Neuro: Awake and alert. Mentating appropriately. Medical Decision Making Diagnostic Impression: Primary Impression: Insomnia ER Course 73-year-old female with multiple medical conditions presents for evaluation of poor sleep over the past few days, no sleep last evening and general feeling of tiredness. She does have HEMANT listed in her medical record however she has no knowledge of this and states she has never used a mask or other device. EKG was obtained showing sinus rhythm, normal axis with prolonged QT. I cannot pull up any prior EKGs for comparison. Discussed with her PMD who will follow her up in clinic. She has no other complaints and I see no need for emergent blood work or imaging at this time. She will be discharged to follow-up with PMD as an outpatient. Stable for discharge home. We discussed reasons to return to the emergency department. She understands and agrees with this treatment plan. EKG Diagnostic Results EKG Time: 09:20 Rate: normal Rhythm: NSR ST Segments: no acute changes Other Impression Sinus rhythm, normal axis, prolonged QTc interval at [address] segment changes. Rhythm Strip Diag. Results Rhythm Strip Time: 09:20 EP Interpretation: yes Rate: 70s Rhythm: NSR, no PVC's, no ectopy Last Vital Signs Date Time Temp Pulse Resp B/P (MAP) Pulse Ox O2 Delivery O2 Flow Rate FiO2 04/27/19 08:55 98.1 73 16 159/90 (113) 98 Room Air Disposition: HOME, SELF-CARE Condition: Stable Alonzo Arreguin MD Apr 27, 2019 09:17
[2019-04-27 09:20] VITALS: BP 159/90
--- NOTE | 2019-04-27 09:40 | NUR ---
ED Nurse Note: pt ambulates to restroom with steady gait
[2019-04-27 10:02] VITALS: BP 147/97
--- NOTE | 2019-04-27 10:02 | NUR ---
ED Nurse Note: pt is stable and will be d/c home to f/u with PCP. pt and brother understand to return to ED for any worsening symptoms or concerns.
== END 2019-04-27 10:02 | disposition home or self-care (01) ==
LOC: EMR 09:30
DX: G47.00 Insomnia, unspecified (principal); F03.90 Unspecified dementia, unspecified severity, without behavioral disturbance, psychotic disturbance, mood disturbance, and anxiety; E11.9 Type 2 diabetes mellitus without complications; J45.909 Unspecified asthma, uncomplicated; I10 Essential (primary) hypertension; I48.91 Unspecified atrial fibrillation; E78.5 Hyperlipidemia, unspecified; G47.33 Obstructive sleep apnea (adult) (pediatric); I65.29 Occlusion and stenosis of unspecified carotid artery; E78.00 Pure hypercholesterolemia, unspecified
CPT/HCPCS: 93005; 99283

== ENCOUNTER 2019-09-15 11:38 | Emergency (ER) | payer MEDICARE, OTHER ==
[~2019-09-15] VITALS: Ht 160 cm; Wt 68.0 kg
--- NOTE | 2019-09-15 11:55 | NUR ---
ED Nurse Note: Pt ambulated to ED c/o lower back pain x3 days. pt denies trauma or fall to area. pt states lidocaine patch did not alleviate her pain
[2019-09-15 12:00] VITALS: BP 122/70
--- NOTE | 2019-09-15 12:46 | NUR ---
ED Nurse Note: urine sent
--- NOTE | 2019-09-15 12:58 | Emergency Room Report ---
History of Present Illness General Chief Complaint: Back Pain-No Injury Source: Patient Present Illness HPI 73-year-old female presents to the emergency department complaining of 9 out of 10 severity pain to the left lower lumbar area x4 days. Patient was seen by her primary care doctor who prescribed her lidocaine patches because that is what worked for her pain in the past however she states her pain is not improved. She denies trauma or fall. She denies abdominal pain, dysuria, urinary frequency or urgency. She denies fevers or chills. She denies saddle anesthesia, paresthesias of the lower extremities or loss of gross motor movements or weakness in the lower extremities. She denies night sweats, hx of cancer, or recent spinal procedures. No other aggravating or relieving factors. Patient also attempted to relieve her pain with Advil which did not provide improvement. Allergies: Coded Allergies: Dust (Verified Allergy, Mild, Itching, 11/06/15) Patient History Past Medical History: see triage record Past Surgical History: none Pertinent Family History: none Now: No Reviewed Nursing Documentation: PMH: Agreed; PSxH: Agreed Nursing Documentation-PMH Hx Cardiac Problems: Yes - atrial defibrilation Hx Hypertension: Yes Hx Pacemaker: No Hx Asthma: Yes Hx COPD: No Hx Diabetes: Yes Hx Cancer: No Hx Gastrointestinal Problems: No Hx Neurological Problems: Yes Hx Cerebrovascular Accident: No Hx Dementia: Yes Hx Seizures: No Review of Systems All Other Systems: negative except mentioned in HPI Physical Exam Vital Signs Date Time Temp Pulse Resp B/P (MAP) Pulse Ox O2 Delivery O2 Flow Rate FiO2 09/15/19 11:55 98.2 78 16 122/70 (87) 98 Room Air Sp02 EP Interpretation: reviewed, normal General Appearance: no apparent distress, alert, GCS 15, non-toxic Head: normocephalic, atraumatic Eyes: bilateral eye normal inspection, bilateral eye PERRL ENT: hearing grossly normal, normal voice Neck: full range of motion Respiratory: lungs clear, normal breath sounds, speaking full sentences Cardiovascular #1: regular rate, rhythm Gastrointestinal: normal bowel sounds, non tender, soft, non-distended, no guarding Rectal: deferred Genitourinary: normal inspection, no CVA tenderness Musculoskeletal: normal range of motion, gait/station normal, tender - Left sided lumbar Paraspinal and upper gluteal TTP, FROM with exacerbation of pain temporarily in certain flexed positions, no LE weakness, pt. is NVI, no erythema , midline bony ttp, step-offs or obvious deformity. Neurologic: alert, motor strength/tone normal, oriented x3, sensory intact, responsive, speech normal Psychiatric: judgement/insight normal Skin: no rash, normal color Medical Decision Making PA Attestation Dr. Lynn Is my supervising Physician whom patient management has been discussed with. Diagnostic Impression: Primary Impression: Back pain Qualified Codes: M54.5 - Low back pain ER Course 73-year-old female presents to the emergency department complaining of 9 out of 10 severity pain to the left lower lumbar area x4 days. Patient was seen by her primary care doctor who prescribed her lidocaine patches because that is what worked for her pain in the past however she states her pain is not improved. She denies trauma or fall. She denies abdominal pain, dysuria, urinary frequency or urgency. She denies fevers or chills. She denies saddle anesthesia, paresthesias of the lower extremities or loss of gross motor movements or weakness in the lower extremities. She denies night sweats, hx of cancer, or recent spinal procedures. No other aggravating or relieving factors. Patient also attempted to relieve her pain with Advil which did not provide improvement. Ddx considered but are not limited to Fracture, dislocation, contusion, epidural abscess, Sprain/Strain/Spasm Vital signs: are WNL, pt. is afebrile H&PE are most consistent with MSK low back pain, isolated to soft tissues. No midline spinous process tenderness. ORDERS: -X-ray not required at this time, no spinous process tenderness -UA: Most indicative of contamination: presence of equal amounts of bacteria and squamous cells, no elevation in inflammatory markers, nitrite negative. ED INTERVENTIONS: - IM Toradol 15mg. -Tramadol IM Re-Evaluation: pt. states her pain has subsided with ED interventions DISCHARGE: At this time pt. is stable for d/c to home. Will provide printed patient care instructions, and any necessary prescriptions. Care plan and follow up instructions have been discussed with the patient prior to discharge. Labs Test 09/15/19 12:40 Urine Color Yellow Urine Appearance Clear Urine pH 6 (4.5-8.0) Urine Specific [place] 1.020 (1.005-1.035) Urine Protein Negative (NEGATIVE) Urine Glucose (UA) Negative (NEGATIVE) Urine Ketones Negative (NEGATIVE) Urine Blood 3+ (NEGATIVE) Urine Nitrite Negative (NEGATIVE) Urine Bilirubin Negative (NEGATIVE) Urine Urobilinogen Normal MG/DL (0.0-1.0) Urine Leukocyte Esterase 1+ (NEGATIVE) Urine RBC 10-15 /HPF (0 - 2) Urine WBC 2-4 /HPF (0 - 2) Urine Squamous Epithelial Cells Moderate /LPF (NONE/OCC) Urine Bacteria Few /HPF (NONE) Last Vital Signs Date Time Temp Pulse Resp B/P (MAP) Pulse Ox O2 Delivery O2 Flow Rate FiO2 09/15/19 12:00 98.2 76 16 122/70 98 Room Air Status: improved Disposition: HOME, SELF-CARE Condition: Stable Scripts Methocarbamol* (ROBAXIN-750*) 750 Mg Tablet 750 MG PO TID, #21 TAB 0 Refills Prov: Love Altman 09/15/19 Patient Instructions: Sciatica, Back Pain, Adult Additional Instructions: Take medications as directed. Do not drink alcohol, drive, or operate heavy machinery while taking Robaxin ( Muscle Relaxers) as this may cause drowsiness. Follow up with a Primary Care Provider in 3-5 days, even if your symptoms have resolved. Return sooner to ED if new symptoms occur, or current symptoms become worse. - Please note that this Emergency Department Report was dictated using [employer] sales and service manager technology software, occasionally this can lead to erroneous entry secondary to interpretation by the dictation equipment. Love Altman Sep 15, 2019 12:58
[2019-09-15] MEDS ORDERED: traMADol 50mg tab ORAL ONE (13:00)
[2019-09-15] MEDS ORDERED: Ketorolac 30mg Inj IM ONE (13:00)
[2019-09-15 13:41] LABS: APPEARANCE,URINE CLEAR; BILIRUBIN, URINE NEGATIVE (NEGATIVE); GLUCOSE, URINE (UA) NEGATIVE (NEGATIVE); KETONES,URINE NEGATIVE (NEGATIVE); LEUKOCYTE ESTERASE ,URINE 1+ (NEGATIVE); NITRITE,URINE NEGATIVE (NEGATIVE); PH,URINE 6 (4.5-8.0); PROTEIN,URINE NEGATIVE (NEGATIVE); UROBILINOGEN,URINE NORMAL MG/DL (0.0-1.0)
[2019-09-15] MEDS ORDERED: ROBAXIN-750750 MG PO ×2 (13:45)
--- NOTE | 2019-09-15 13:50 | NUR ---
ER DISCHARGE NOTE: Patient is cleared to be discharged per ERMD, pt is aox4, on room air, with stable vital signs. pt was given dc and prescription instructions, pt was able to verbalize understanding, pt id band removed. pt is able to ambulate with steady gait. pt took all belongings.
[2019-09-15 14:28] VITALS: BP 132/75
[2019-09-15 14:43] LABS: COLOR,URINE YELLOW
== END 2019-09-15 13:50 | disposition home or self-care (01) ==
LOC: EMR 13:50
DX: M54.5 Low back pain (principal); I10 Essential (primary) hypertension; J45.909 Unspecified asthma, uncomplicated; E11.9 Type 2 diabetes mellitus without complications; F03.90 Unspecified dementia, unspecified severity, without behavioral disturbance, psychotic disturbance, mood disturbance, and anxiety; Z91.09 Other allergy status, other than to drugs and biological substances
CPT/HCPCS: 81001; 96372; 99283; J1885

== ENCOUNTER 2019-09-20 19:32 | Emergency (ER) | payer MEDICARE, OTHER ==
[~2019-09-20] VITALS: Ht 162.6 cm; Wt 82.1 kg
--- NOTE | 2019-09-20 19:45 | NUR ---
Note undone in EDM - 09/20/19 at 2030 by [email or web address] ED Nurse Note: PT WALKED TO ED FROM HOME C/O LEFT LOWER BACK PAIN X1-2WKS. DENIES FEVER, CHILLS, NVD, OR SOB. PT DENIES DYSURIA. Pt from home came in due to left lower back pain x 1-2 weeks. Denies fever or chills. No difficulty in urinating.
--- NOTE | 2019-09-20 19:45 | NUR ---
ED Nurse Note: PT WALKED TO ED FROM HOME C/O LEFT LOWER BACK PAIN X1-2WKS. DENIES FEVER, CHILLS, NVD, OR SOB. PT DENIES DYSURIA. VSS, NAD, FAMILY AND ERPA AT BEDSIDE
--- NOTE | 2019-09-20 20:03 | NUR ---
ED Nurse Note: PT WENT FOR XR VIA WHEELCHAIR
--- NOTE | 2019-09-20 20:17 | NUR ---
ED Nurse Note: PT BACK FROM XR VIA WHEELCHAIR
[2019-09-20 20:28] VITALS: BP 144/79
[2019-09-20] MEDS ORDERED: Ketorolac 30mg Inj IM ONE (20:45)
--- NOTE | 2019-09-20 20:45 | NUR ---
ED Nurse Note: PT AMBULATED TO THE RESTROOM
--- NOTE | 2019-09-20 20:47 | Emergency Room Report ---
History of Present Illness General Chief Complaint: Back Pain-No Injury Source: Patient, Medical Record (Zeferino Lee) Present Illness HPI 74-year-old female with no known significant medical history who has been here before for chronic back pain here complaining of worsening back pain x2 days. Denies any fall or injury. Reports that has been to primary however has only been using lidocaine patches with minimal relief. Denies any pain radiation, tingling or numbness. The pain 10 out of 10 at this time. Denies urinary or bowel incontinence. Denies urinary frequency and urgency. Denies fever and chills, no other associated symptoms. Sitting comfortably with stable vital signs. (Zeferino Lee) Allergies: Coded Allergies: Dust (Verified Allergy, Mild, Itching, 11/06/15) Patient History Past Medical History: see triage record Past Surgical History: none Pertinent Family History: none Immunizations: UTD Reviewed Nursing Documentation: PMH: Agreed; PSxH: Agreed (Zeferino Lee) Nursing Documentation-PMH Past Medical History: No History, Except For Hx Cardiac Problems: Yes - atrial defibrilation Hx Hypertension: Yes Hx Pacemaker: No Hx Asthma: Yes Hx COPD: No Hx Diabetes: Yes Hx Cancer: No Hx Gastrointestinal Problems: No Hx Neurological Problems: Yes Hx Cerebrovascular Accident: No Hx Dementia: Yes Hx Seizures: No (Zeferino Lee) Review of Systems All Other Systems: negative except mentioned in HPI (Zeferino Lee) Physical Exam Vital Signs Date Time Temp Pulse Resp B/P (MAP) Pulse Ox O2 Delivery O2 Flow Rate FiO2 09/20/19 19:38 97.5 71 16 144/79 (100) 95 Room Air Sp02 EP Interpretation: reviewed, normal General Appearance: no apparent distress, alert, GCS 15, non-toxic Head: normocephalic, atraumatic Eyes: bilateral eye normal inspection, bilateral eye PERRL ENT: hearing grossly normal, normal pharynx, no angioedema, normal voice Neck: full range of motion, supple/symm/no masses Respiratory: chest non-tender, lungs clear, normal breath sounds, no rhonchi, no retraction, speaking full sentences Cardiovascular #1: regular rate, rhythm, no edema, no murmur Gastrointestinal: normal bowel sounds, non tender, soft, non-distended, no guarding, no rebound Genitourinary: no CVA tenderness Musculoskeletal: back normal, normal range of motion, digits/nails normal, no calf tenderness, pelvis stable, non-tender Neurologic: alert, motor strength/tone normal, oriented x3, sensory intact, responsive, speech normal Psychiatric: judgement/insight normal, memory normal, mood/affect normal, no suicidal/homicidal ideation Skin: no rash Lymphatic: no adenopathy (Zeferino Lee) Medical Decision Making PA Attestation All my diagnosis and treatment plans were reviewed ad discussed with my supervising physician Dr. Leone (Zeferino Lee) Medicare Attestation The history of Tayla Angulo has been reviewed and management options for her have been examined and discussed by Jeremy Leone. I have personally examined and interviewed the patient. (Jeremy Leone MD) Diagnostic Impression: Primary Impression: Chronic back pain ER Course 74-year-old female with no known significant medical history who has been here before for chronic back pain here complaining of worsening back pain x2 days. Denies any fall or injury. Reports that has been to primary however has only been using lidocaine patches with minimal relief. Denies any pain radiation, tingling or numbness. The pain 10 out of 10 at this time. Denies urinary or bowel incontinence. Denies urinary frequency and urgency. Denies fever and chills, no other associated symptoms. Sitting comfortably with stable vital signs. Ddx considered but are not limited to: Lumbar spine sprain, strain, fracture, contusion, neuropathy, chronic back pain Vital signs: are WNL, pt. is afebrile H&PE are most consistent with: Chronic back pain ORDERS: Lumbar spine x-ray, Motrin, Voltaren gel ER intervention: Toradol as patient requested that DISCHARGE: At this time pt. is stable for d/c to home. Will provide printed patient care instructions, and any necessary prescriptions. Care plan and follow up instructions have been discussed with the patient prior to discharge. Patient to follow primary doctor as well as physical therapy as there is arthritic changes on x-ray. If worsening symptoms return to emergency room (Zeferino Lee) Other X-Ray Diagnostic Results Other X-Ray Diagnostic Results : X-Ray ordered: L spine # of Views/Limited Vs Complete: 3 View Indication: Pain PA Xray: Interpretation reviewed, by supervising MD, and agrees with findings. Interpretation: no dislocation, no soft tissue swelling, no fractures Impression: No acute disease Electronically Signed by: Zeferino Talley PA-C (Zeferino Lee) Last Vital Signs Date Time Temp Pulse Resp B/P (MAP) Pulse Ox O2 Delivery O2 Flow Rate FiO2 09/20/19 20:28 97.5 73 16 144/79 97 Room Air Status: improved (Zeferino Lee) Disposition: HOME, SELF-CARE Condition: Stable Scripts Diclofenac Sodium (VOLTAREN) 100 Gm Gel..gram. 2 GM TP TID, #100 GM Prov: Zeferino Lee 09/20/19 Ibuprofen* (MOTRIN*) 600 Mg Tablet 600 MG ORAL Q8H PRN for For Pain, #30 TAB 0 Refills Prov: Zeferino Lee 09/20/19 Patient Instructions: Back Pain, Adult Additional Instructions: Follow-up with primary care provider for referral to addictions recovery specialist as well as pain management, take medication as directed, if worsening symptoms return to the emergency room Zeferino Lee Sep 20, 2019 20:47 Jeremy Leone MD Sep 22, 2019 14:03
[2019-09-20] MEDS ORDERED: IBUPROFEN600 MG ORAL (20:48)
[2019-09-20] MEDS ORDERED: VOLTAREN100 G1 TP (20:48)
[2019-09-20 20:55] VITALS: BP 139/77
--- NOTE | 2019-09-20 20:55 | NUR ---
ER DISCHARGE NOTE: Patient is cleared to be discharged per ERMD, pt is aox4, on room air, with stable vital signs. pt was given dc and prescription instructions, pt was able to verbalize understanding, pt id band removed without complications. pt is able to ambulate with steady gait. pt took all belongings accompanied by spouse
--- NOTE | 2019-09-21 12:25 | Diagnostic Imaging Report ---
Indication: Back pain Comparison: 01/14/2011 Findings: 3 views of the lumbar spine were obtained. Multilevel narrowing of intervertebral disks and associated endplate and facet osteophytes are present. No malalignment identified. Bones are osteopenic. No acute fracture definitely seen. Impression: Mild spondylosis. No acute injury appreciated.
== END 2019-09-20 20:55 | disposition home or self-care (01) ==
LOC: EMR 20:00
DX: M54.5 Low back pain (principal); G89.29 Other chronic pain; I10 Essential (primary) hypertension; E11.9 Type 2 diabetes mellitus without complications
CPT/HCPCS: 72020; 96372; 99283; J1885

== ENCOUNTER 2019-09-21 20:17 | Emergency (ER) | payer MEDICARE, OTHER ==
[~2019-09-21] VITALS: Ht 160 cm; Wt 72.6 kg
[~2019-09-21 20:17] MED LIST changes: +VOLTAREN100 G1 TP
--- NOTE | 2019-09-21 20:56 | Emergency Room Report ---
History of Present Illness General Chief Complaint: Back Pain-No Injury Source: Patient, Family Member Present Illness HPI Patient is a 74-year-old female who presents after persistent low back pain. Patient had been having symptoms for proximally 3 weeks. She reports having multiple previous visits for similar type pain in the past. Pain had not change in location. This is unchanged with movements. She had recent plain film x-rays for her low back which showed no evidence of fracture. There is multilevel degenerative changes noted. Pain is unchanged by standing or position. She had not been vomiting or having any urinary symptoms. Denies any diarrhea. Had recently finished a course of antibiotics. Denies any numbness or weakness to her extremities. Patient been able to ambulate without assistance. She had previously been prescribed muscle relaxants as well as [place] by her physician. Allergies: Coded Allergies: Dust (Verified Allergy, Mild, Itching, 11/06/15) Patient History Past Medical History: see triage record Last Menstrual Period: na Reviewed Nursing Documentation: PMH: Agreed; PSxH: Agreed Nursing Documentation-PMH Past Medical History: No History, Except For Hx Cardiac Problems: Yes - atrial fib Hx Hypertension: Yes Hx Pacemaker: No Hx Asthma: Yes Hx COPD: No Hx Diabetes: Yes Hx Cancer: No Hx Gastrointestinal Problems: No Hx Neurological Problems: Yes Hx Cerebrovascular Accident: No Hx Dementia: Yes Hx Seizures: No Review of Systems All Other Systems: negative except mentioned in HPI Physical Exam Vital Signs Date Time Temp Pulse Resp B/P (MAP) Pulse Ox O2 Delivery O2 Flow Rate FiO2 09/21/20 20:27 98.1 77 20 128/77 (94) 98 Room Air Sp02 EP Interpretation: reviewed, normal General Appearance: normal inspection, well appearing, no apparent distress, alert, GCS 15 Head: atraumatic ENT: normal ENT inspection, hearing grossly normal, normal voice Neck: normal inspection, full range of motion, supple, no bony tend Respiratory: normal inspection, lungs clear, normal breath sounds, no respiratory distress, no retraction, no wheezing Cardiovascular #1: regular rate, rhythm, no edema Gastrointestinal: normal inspection, normal bowel sounds, non tender, soft, no guarding, no hernia Genitourinary: no CVA tenderness Musculoskeletal: normal inspection, back normal, normal range of motion Neurologic: alert, motor strength/tone normal, assistant controller III-XII nml as tested, oriented x3, responsive, speech normal, normal inspection Psychiatric: normal inspection, judgement/insight normal, mood/affect normal Medical Decision Making Diagnostic Impression: Primary Impression: Chronic lower back pain ER Course Present for low back pain. Differential diagnosis include was not limited to urinary tract infection, lumbar spinal stenosis, compression fracture, disc herniation among others. Because of complexity of patient's case laboratory tests and imaging studies were ordered. Patient was noted to have a benign exam despite her significant past medical history. Patient was given medications for symptomatic management of pain. She had recent negative imaging studies. Patient appears to be stable for outpatient management. Patient was advised to follow-up with pain management. Patient is currently on Eliquis but does not show any evidence of active bleeding. She has normal gait and able to range of motion to her back well. Patient was advised to follow-up with her primary care physician for reevaluation in the next 1 to 2 days. She is advised to return if any worsening or concerns. Last Vital Signs Date Time Temp Pulse Resp B/P (MAP) Pulse Ox O2 Delivery O2 Flow Rate FiO2 09/21/19 20:27 98.1 77 20 128/77 (94) 98 Room Air Status: improved Disposition: HOME, SELF-CARE Condition: Stable Eduardo Marquez MD Sep 21, 2019 20:56
[2019-09-21] MEDS ORDERED: Ketorolac 60mg Inj IM ONE (21:00)
[2019-09-21] MEDS ORDERED: traMADol 50mg tab ORAL ONE (21:00)
--- NOTE | 2019-09-21 21:00 | NUR ---
ER Nurse Note: Pt walked in c/o chronic LT lower back pain since unk time. Pt stated 10/10 pain. Pt stated she was in the ER for the same s/s but has not followed up with her primary care physican. Pt VSS, no signs of distress; [facility]
--- NOTE | 2019-09-21 21:30 | NUR ---
ER DISCHARGE NOTE: Patient is cleared to be discharged per ERMD, pt is aox4, on room air, with stable vital signs. pt was given dc and prescription instructions, pt was able to verbalize understanding, pt id band removed without complications. pt is able to ambulate with steady gait. pt took all belongings.
[2019-09-21 21:40] VITALS: BP 128/77
== END 2019-09-21 21:25 | disposition home or self-care (01) ==
LOC: EMR 21:21
DX: G89.29 Other chronic pain (principal); M54.5 Low back pain; I48.91 Unspecified atrial fibrillation; I10 Essential (primary) hypertension; E11.9 Type 2 diabetes mellitus without complications; F03.90 Unspecified dementia, unspecified severity, without behavioral disturbance, psychotic disturbance, mood disturbance, and anxiety; Z79.01 Long term (current) use of anticoagulants
CPT/HCPCS: 96372; 99283

== ENCOUNTER 2019-09-26 19:59 | Emergency (ER) | payer MEDICARE, OTHER ==
[~2019-09-26] VITALS: Ht 167.6 cm; Wt 81.6 kg
[2019-09-26 20:15] VITALS: BP 140/92
--- NOTE | 2019-09-26 20:15 | NUR ---
ED Nurse Note: Patient walked in to ED with family member c/o lower back pain x2 weeks. Denies fall/ trauma. Pt alert and oriented, verbally responsive. Not in any distress. VSS.
[2019-09-26] MEDS ORDERED: Methocarbamol 750mg tab ORAL ONE (20:30)
[2019-09-26] MEDS ORDERED: oxyCODONE HCL/Acetaminophen 5/325mg ORAL ONE (20:30)
[2019-09-26] MEDS ORDERED: Dexamethasone 4mg/ml vial IM ONE (20:30)
[2019-09-26] MEDS ORDERED: Ketorolac 30mg Inj IM ONE (20:30)
[2019-09-26] MEDS ORDERED: ROBAXIN-750750 MG PO (20:36)
[2019-09-26] MEDS ORDERED: NAPROXEN250 MG ORAL (20:36)
[2019-09-26] MEDS ORDERED: TYLENOL325 MG ORAL (20:36)
[2019-09-26] MEDS ORDERED: LIDODERM700 M1 TOPIC (20:36)
--- NOTE | 2019-09-26 20:36 | Emergency Room Report ---
History of Present Illness General Chief Complaint: Back Pain-No Injury Source: Patient Present Illness HPI 74-year-old female presents with right lower back pain, worsened with movement alleviated throughout severity is mild, no bowel bladder retention/incontinence no perianal numbness, no focal weakness patient reports that she has not been able to seen her pain management doctor however has an appointment tomorrow just needs a little bit of pain control to get through the night and will follow -up. She denies any fevers chills Allergies: Coded Allergies: Dust (Verified Allergy, Mild, Itching, 11/06/15) Patient History Past Medical History: see triage record Reviewed Nursing Documentation: PMH: Agreed; PSxH: Agreed Nursing Documentation-PMH Past Medical History: No History, Except For Hx Cardiac Problems: Yes - atrial fib Hx Hypertension: Yes Hx Pacemaker: No Hx Asthma: Yes Hx COPD: No Hx Diabetes: Yes Hx Cancer: No Hx Gastrointestinal Problems: No Hx Neurological Problems: Yes Hx Cerebrovascular Accident: No Hx Dementia: Yes Hx Seizures: No Review of Systems All Other Systems: negative except mentioned in HPI Physical Exam Vital Signs Date Time Temp Pulse Resp B/P (MAP) Pulse Ox O2 Delivery O2 Flow Rate FiO2 09/26/19 20:09 98.2 80 16 140/92 (108) 95 Room Air General Appearance: well appearing, no apparent distress Head: normocephalic, atraumatic ENT: hearing grossly normal, normal voice Neck: full range of motion, supple Respiratory: no respiratory distress, speaking full sentences Musculoskeletal: other - Back: No midline tenderness no step-offs, right lower back laterally is tender to palpation along the muscle, reproduces complaint straight leg raise positive right leg, 5-5 plantar dorsiflexion at the ankle, 5- 5 flexion extension at the knee, 5-5 strength hip extension flexion bilaterally , 2+ patellar reflexes 2+ Achilles reflex sensation grossly intact gait intact Neurologic: alert, normal gait Psychiatric: mood/affect normal Skin: no rash Medical Decision Making Diagnostic Impression: Primary Impression: Back pain Qualified Codes: M54.5 - Low back pain ER Course The patient presents with acute onset of back pain. Clinically this patient can be ruled out for serious pathology given there is a completely normal neurological exam, no history of IV drug use, and no history of bowel or bladder incontinence, no perianal numbness/tingling, no constipation or urinary retention. Once the patient's pain was adequately controlled, the patient was able to ambulate and be discharged in stable condition with anticipatory guidance provided. Patient with negative lumbar x-ray 09/20/2019 patient with no red flags of back pain will provide patient with medications patient will follow-up tomorrow in the morning with her pain management doctor Last Vital Signs Date Time Temp Pulse Resp B/P (MAP) Pulse Ox O2 Delivery O2 Flow Rate FiO2 09/26/19 20:09 98.2 80 16 140/92 (108) 95 Room Air Disposition: HOME, SELF-CARE Condition: Stable Scripts Methocarbamol* (ROBAXIN-750*) 750 Mg Tablet 750 MG PO TID, #21 TAB 0 Refills Prov: Jose Eduardo Jones MD 09/26/19 Acetaminophen (Tylenol) 325 Mg Tablet 650 MG ORAL Q6H PRN for Prn Pain/Headache/Temp > 101, #30 TAB 0 Refills Prov: Jose Eduardo Jones MD 09/26/19 Naproxen* (NAPROSYN*) 250 Mg Tablet 250 MG ORAL TID PRN for For Pain, #9 TAB 0 Refills Prov: Jose Eduardo Jones MD 09/26/19 Lidocaine Patch* (Lidoderm Patch*) 1 Each Adh..patch 1 PATCH TOPIC DAILY, #7 PATCH 0 Refills Patch(es) may remain in place for up to 12 hours in any 24-hour period. Prov: Jose Eduardo Jones MD 09/26/19 Referrals: [facility]. [facility] Patient Instructions: Back Pain, Adult Additional Instructions: The patient was provided with discharge instructions, notified to follow-up with a primary care doctor and or specialist in the next 24-48 hours, and to return to the ED if they have worsening of their symptoms. Please note that this report is being documented using [employer] technology. This can lead to erroneous entry secondary to incorrect interpretation by the dictating instrument. FOLLOW-UP WITH PAIN MANAGEMENT DOCTOR TOMORROW 09/27/2019 Jose Eduardo Jones MD Sep 26, 2019 20:36
[2019-09-26 20:40] VITALS: BP 140/92
--- NOTE | 2019-09-26 20:40 | NUR ---
ED Nurse Note: Pt cleared by ERMD for discharge. DC instructions/prescription was given and explained to pt and verbalized understanding of teachings. All medical deviecs such as ID band removed. Pt is AAO x4, ambulatory and left with all personal belongings. Accompanied by her brother.
== END 2019-09-26 20:40 | disposition home or self-care (01) ==
LOC: EMR 20:31
DX: M54.5 Low back pain (principal); I48.91 Unspecified atrial fibrillation; I10 Essential (primary) hypertension; J45.909 Unspecified asthma, uncomplicated; E11.9 Type 2 diabetes mellitus without complications; F03.90 Unspecified dementia, unspecified severity, without behavioral disturbance, psychotic disturbance, mood disturbance, and anxiety; Z91.09 Other allergy status, other than to drugs and biological substances
CPT/HCPCS: 96372; 99283; J1100; J1885

== ENCOUNTER 2019-09-28 14:10 | Emergency (ER) | payer MEDICARE, OTHER ==
[~2019-09-28] VITALS: Ht 170.2 cm; Wt 77.6 kg
[2019-09-28 14:26] VITALS: BP 133/77
[2019-09-28] MEDS ORDERED: traMADol 50mg tab ORAL ONE (15:30)
--- NOTE | 2019-09-28 15:32 | Emergency Room Report ---
History of Present Illness General Chief Complaint: Back Pain-No Injury Source: Medical Record (Love Altman) Present Illness HPI 74-year-old female presents to the emergency department complaining of 10 out of 10 severity exacerbation of chronic back pain. Patient reports she has been having exacerbations approximately 4 times this previous month which responds well to injected Toradol. Patient reports that she has an appointment tomorrow for epidural injection. Patient denies trauma or fall. She denies any fevers, chills or recent spinal procedures. Patient denies significant changes in weight or night sweats. Patient reports pain is worse at night and is causing her difficulty with sleep. No other aggravating or relieving factors at this time. She denies saddle anesthesia, lower extremity paresthesias, incontinence of bowel or bladder. Or urinary retention. (Love Altman) Allergies: Coded Allergies: Dust (Verified Allergy, Mild, Itching, 11/06/15) Patient History Past Medical History: see triage record Past Surgical History: none Pertinent Family History: none Now: No Reviewed Nursing Documentation: PMH: Agreed; PSxH: Agreed (Love Altman) Nursing Documentation-PMH Past Medical History: No History, Except For Hx Cardiac Problems: Yes - atrial fib Hx Hypertension: Yes Hx Pacemaker: No Hx Asthma: Yes Hx COPD: No Hx Diabetes: Yes Hx Cancer: No Hx Gastrointestinal Problems: No Hx Neurological Problems: Yes Hx Cerebrovascular Accident: No Hx Dementia: Yes Hx Seizures: No (Love Altman) Review of Systems All Other Systems: negative except mentioned in HPI (Love Altman) Physical Exam Vital Signs Date Time Temp Pulse Resp B/P (MAP) Pulse Ox O2 Delivery O2 Flow Rate FiO2 09/28/19 14:19 97.9 74 18 133/77 (95) 96 Room Air Sp02 EP Interpretation: reviewed, normal General Appearance: no apparent distress, alert, GCS 15, non-toxic Head: normocephalic, atraumatic Eyes: bilateral eye normal inspection, bilateral eye PERRL ENT: hearing grossly normal, normal voice Neck: full range of motion Respiratory: lungs clear, normal breath sounds, speaking full sentences Cardiovascular #1: regular rate, rhythm Gastrointestinal: non tender, soft Genitourinary: normal inspection, no CVA tenderness Musculoskeletal: normal range of motion, gait/station normal, tender - Mild Tenderness to palpation to paraspinal muscles of the lower back R>L without midline tenderness. Neurologic: alert, motor strength/tone normal, oriented x3, sensory intact, responsive, speech normal Psychiatric: judgement/insight normal Skin: normal color, normal inspection (Love Altman) Medical Decision Making PA Attestation Dr. Leone is my supervising Physician whom patient management has been discussed with. (Love Altman) Medicare Attestation The history of Tayla Angulo has been reviewed and management options for her have been examined and discussed by Jeremy Leone. I have personally examined and interviewed the patient. (Jeremy Leone MD) Diagnostic Impression: Primary Impression: Chronic back pain Qualified Codes: M54.5 - Low back pain; G89.29 - Other chronic pain ER Course 74-year-old female presents to the emergency department complaining of 10 out of 10 severity exacerbation of chronic back pain. Patient reports she has been having exacerbations approximately 4 times this previous month which responds well to injected Toradol. Patient reports that she has an appointment tomorrow for epidural injection. Patient denies trauma or fall. She denies any fevers, chills or recent spinal procedures. Patient denies significant changes in weight or night sweats. Patient reports pain is worse at night and is causing her difficulty with sleep. No other aggravating or relieving factors at this time. She denies saddle anesthesia, lower extremity paresthesias, incontinence of bowel or bladder. Or urinary retention. Ddx considered: epidural abscess, fracture, sprain/strain, meningitis, spinal chord injury, sciatica, cauda equina, Pyelonephritis, renal calculi just to name a few. Vital signs reviewed and are WNL during ED visit. Pt. is afebrile with no signs of infection No new symptoms, and denies recent trauma. No saddle anesthesia noted, Pt. denies incontinence Neurovascular is intact ROM is limited due to pain * Mild Tenderness to palpation to paraspinal muscles of the lower back R>L without midline tenderness. *Pt. describes pain today as moderate and radiates across the lower back. ORDERS: none warranted at this time. INTERVENTIONS: -Tramadol PO -Lidoderm TP D/W Pt. that for further pain management is it recommended to consult PCP or a Chronic Pain management doctor. A provider who can safely prescribe controlled substances with close follow up. DISCHARGE: At this time pt. is stable for d/c to home. Will provide printed patient care instructions, and any necessary prescriptions. Care plan and follow up instructions have been discussed with the patient prior to discharge. (Love Altman) Last Vital Signs Date Time Temp Pulse Resp B/P (MAP) Pulse Ox O2 Delivery O2 Flow Rate FiO2 09/28/19 14:26 97.9 70 18 133/77 96 Room Air (Love Altman) Disposition: HOME, SELF-CARE Condition: Stable Scripts Tramadol Hcl* (ULTRAM*) 50 Mg Tablet 50 MG ORAL Q6H PRN for For Pain, #3 TAB 0 Refills Prov: Love Altman 09/28/19 Patient Instructions: Back Pain, Adult Additional Instructions: Take medications as directed. Do not drink alcohol, drive, or operate heavy machinery while taking Tramdol as this may cause drowsiness. Follow up with a Primary Care Provider in 3-5 days, even if your symptoms have resolved. --Please review list of primary care clinics, if you do not already have a primary care provider Return sooner to ED if new symptoms occur, or current symptoms become worse. - Please note that this Emergency Department Report was dictated using [employer] technology software, occasionally this can lead to erroneous entry secondary to interpretation by the dictation equipment. Love Altman Sep 28, 2019 15:32 Jeremy Leone MD Oct 12, 2019 14:39
[2019-09-28] MEDS ORDERED: TRAMADOL HCL50 MG ORAL (16:05)
[2019-09-28 16:22] VITALS: BP 128/79
== END 2019-09-28 16:20 | disposition home or self-care (01) ==
LOC: EMR 14:35
DX: M54.5 Low back pain (principal); G89.29 Other chronic pain; I10 Essential (primary) hypertension; E11.9 Type 2 diabetes mellitus without complications
CPT/HCPCS: 99282

== ENCOUNTER 2019-10-08 06:40 | Emergency (ER) | payer MEDICARE, OTHER ==
[~2019-10-08] VITALS: Ht 165.1 cm; Wt 74.8 kg
--- NOTE | 2019-10-08 07:07 | NUR ---
ED Nurse Note: Pt walked in from home c/o chronic, severe back pain 05/06. Pt denies injury. Respirations even and unlabored on room air. Vitals stable as documented.
[2019-10-08 07:09] VITALS: BP 138/83
[2019-10-08] MEDS ORDERED: MEDROL DOSEPAK4 MG ORAL (07:19)
[2019-10-08 07:30] VITALS: BP 134/85
--- NOTE | 2019-10-08 07:30 | NUR ---
ER DISCHARGE NOTE: Patient is cleared to be discharged per ERMD, pt is aox4, on room air, with stable vital signs as documented. pt was given dc and prescription instructions, pt was able to verbalize understanding, pt id band removed. pt is able to ambulate with steady gait. pt took all belongings.
--- NOTE | 2019-10-08 07:40 | Emergency Room Report ---
History of Present Illness General Chief Complaint: Back Pain-No Injury Source: Patient Present Illness HPI Patient presents with complaints of lower back pain patient has Longstanding history of discomfort in the same location reports that she had her initial epidural had some minimal improvement however the pain has returned Denies any saddle paresthesia denies any vomiting or diarrhea Patient is ambulatory in the ER without focal deficit Denies any loss of control of bowel or urination COVID-19 risk:Travel to affect: No Allergies: Coded Allergies: Dust (Verified Allergy, Mild, Itching, 11/06/15) Patient History Past Medical History: see triage record Reviewed Nursing Documentation: PMH: Agreed; PSxH: Agreed Nursing Documentation-PMH Hx Cardiac Problems: Yes - atrial fib Hx Hypertension: Yes Hx Pacemaker: No Hx Asthma: Yes Hx COPD: No Hx Diabetes: Yes Hx Cancer: No Hx Gastrointestinal Problems: No Hx Neurological Problems: Yes Hx Cerebrovascular Accident: No Hx Dementia: Yes Hx Seizures: No Review of Systems All Other Systems: negative except mentioned in HPI Physical Exam Vital Signs Date Time Temp Pulse Resp B/P (MAP) Pulse Ox O2 Delivery O2 Flow Rate FiO2 10/08/19 06:51 98.1 78 18 138/83 (101) 96 Room Air Sp02 EP Interpretation: reviewed, normal General Appearance: well appearing, no apparent distress Head: normocephalic, atraumatic Eyes: bilateral eye PERRL, bilateral eye EOMI ENT: hearing grossly normal, EOM grossly intact Neck: supple Respiratory: lungs clear, no respiratory distress Cardiovascular #1: regular rate, rhythm Gastrointestinal: non tender, soft Genitourinary: no CVA tenderness Musculoskeletal: other - Discomfort reproduced at the left posterior superior iliac crest region however no midline step-offs patient also bearing weight and ambulatory without focal deficit Neurologic: alert, oriented x3 Psychiatric: normal inspection Skin: no rash Lymphatic: no adenopathy Medical Decision Making Diagnostic Impression: Primary Impression: Back pain ER Course Multiple differentials and consideration including but not limited to neurological, neurosurgical, musculoskeletal, infectious process Patient has a benign medical evaluation Patient is under care of pain management and has had received recent epidural injection patient also appears to have Medications from multiple emergency rooms including ours, [facility] , and another physician It was discussed with the patient the need for improved outpatient follow-up discussion for possible other intervention Patient will follow closely Last Vital Signs Date Time Temp Pulse Resp B/P (MAP) Pulse Ox O2 Delivery O2 Flow Rate FiO2 10/08/19 07:09 98.1 72 18 138/83 96 Room Air Status: unchanged Disposition: HOME, SELF-CARE Condition: Stable Scripts Methylprednisolone (Methylprednisolone*) 4MG Dspk 4 MG ORAL DIRECTED for 6 Days, #21 EA 0 Refills Day 1: Two tablets before breakfast, one after lunch, one after dinner, and two at bedtime. If started late in the day, take all six tablets at once or divide into two or three doses, unless otherwise directed by prescriber. Day 2: One tablet before breakfast, one after lunch, one after dinner, and two at bedtime Day 3: One tablet before breakfast, one after lunch, one after dinner, and one at bedtime Day 4: One tablet before breakfast, one after lunch, and one at bedtime Day 5: One tablet before breakfast and one at bedtime Day 6: One tablet before breakfast Prov: Luis Alberto Barlow DO 10/08/19 Referrals: Wilfred Boo MD (PCP) Patient Instructions: Back Pain, Adult Additional Instructions: It would be strongly suggested to discuss more invasive procedures with your pain management physician/primary physician with possible surgical considerations. Neurosurgical referral would be recommended. Patient is provided with the discharge instructions notified to follow up with primary doctor in the next 2-3 days otherwise return to the er with any worsening symptoms. Please note that this report is being documented using [employer] technology. This can lead to erroneous entry secondary to incorrect interpretation by the dictating instrument. Luis Alberto Barlow DO Oct 08, 2019 07:40
== END 2019-10-08 07:30 | disposition home or self-care (01) ==
LOC: EMR 06:58
DX: M54.5 Low back pain (principal); I10 Essential (primary) hypertension; J45.909 Unspecified asthma, uncomplicated; E11.9 Type 2 diabetes mellitus without complications; I48.91 Unspecified atrial fibrillation; F03.90 Unspecified dementia, unspecified severity, without behavioral disturbance, psychotic disturbance, mood disturbance, and anxiety
CPT/HCPCS: 99282

== ENCOUNTER 2019-11-17 23:38 | Emergency (ER) | payer MEDICARE, OTHER ==
[~2019-11-17] VITALS: Ht 162.6 cm; Wt 78.9 kg
[~2019-11-17 23:38] MED LIST changes: +MEDROL DOSEPAK4 MG ORAL
[2019-11-17 23:56] VITALS: BP 135/89
[2019-11-18] MEDS ORDERED: HYDROmorphone 1mg/ml Carpuject IM ONE
[2019-11-18] MEDS ORDERED: MEDROL DOSEPAK4 MG ORAL (00:01)
--- NOTE | 2019-11-18 00:02 | Emergency Room Report ---
History of Present Illness General Chief Complaint: Back Pain-No Injury Source: Patient, Family Member, Medical Record Present Illness HPI This is a 74-year-old female with a history of chronic back pain with sciatica. She has a history of degenerative disc disease with stenosis of the L5-S1 on the left side. She presents with chief complaint of lower back pain. This is a chronic issue. Pain is sharp and rating down her left leg. No relief with her hydrocodone and Neurontin. She had epidural shots in the past and helped. Brother try to make an appointment with her pain specialist again for epidural but because of the coronavirus pandemic, the office is closed. Patient complaining of increasing pain tonight. No incontinence of bowel or urine. No fever chills. No paresthesia. It is 10 out of 10. No trauma. Allergies: Coded Allergies: Dust (Verified Allergy, Mild, Itching, 11/06/15) COVID-19 Screening Contact w/high risk pt: No Recent Travel to affected area: No Experienced COVID-19 symptoms?: No Patient History Past Medical History: see triage record, old chart reviewed Past Surgical History: other Pertinent Family History: none Social History: Denies: smoking Now: No Immunizations: other Reviewed Nursing Documentation: PMH: Agreed; PSxH: Agreed Nursing Documentation-PMH Past Medical History: No History, Except For Hx Cardiac Problems: Yes - atrial fib Hx Hypertension: Yes Hx Pacemaker: No Hx Asthma: Yes Hx COPD: No Hx Diabetes: Yes Hx Cancer: No Hx Gastrointestinal Problems: No Hx Neurological Problems: Yes Hx Cerebrovascular Accident: No Hx Dementia: Yes Hx Seizures: No Review of Systems Eye: Denies: eye pain, blurred vision ENT: Denies: ear pain, nose congestion, throat swelling Respiratory: Denies: cough, shortness of breath Cardiovascular: Denies: chest pain, palpitations Gastrointestinal: Denies: abdominal pain, diarrhea, nausea, vomiting Musculoskeletal: Reports: back pain; Denies: joint pain Skin: Denies: rash Neurological: Denies: headache, numbness Endocrine: Denies: increased thirst, increased urine Hematologic/Lymphatic: Denies: easy bruising All Other Systems: negative except mentioned in HPI Physical Exam Vital Signs Date Time Temp Pulse Resp B/P (MAP) Pulse Ox O2 Delivery O2 Flow Rate FiO2 11/17/19 23:39 97.9 95 24 148/91 (110) 92 Room Air Vitals unremarkable Sp02 EP Interpretation: reviewed, normal General Appearance: well appearing, no apparent distress, alert Head: normocephalic, atraumatic Eyes: bilateral eye PERRL, bilateral eye EOMI ENT: hearing grossly normal, normal pharynx Neck: full range of motion, supple, no meningismus Respiratory: chest non-tender, lungs clear, normal breath sounds Cardiovascular #1: regular rate, rhythm, no murmur Gastrointestinal: normal bowel sounds, non tender, no mass, no organomegaly, no bruit, non-distended Musculoskeletal: back normal - Tenderness to the lower back. No step-off. No anesthesia., normal range of motion, gait/station normal Psychiatric: mood/affect normal Medical Decision Making Diagnostic Impression: Primary Impression: Back pain Qualified Codes: M54.42 - Lumbago with sciatica, left side ER Course Patient presents with acute exacerbation chronic lower back pain with sciatica. No evidence of cauda equina syndrome, spinal epidural abscess or neoplastic process. No trauma. She has no urinary complaint. Will discharge home. Last Vital Signs Date Time Temp Pulse Resp B/P (MAP) Pulse Ox O2 Delivery O2 Flow Rate FiO2 11/17/19 23:56 97.9 82 22 135/89 94 Room Air Status: improved Disposition: HOME, SELF-CARE Condition: Stable Scripts Methylprednisolone (Methylprednisolone*) 4MG Dspk 4 MG ORAL DIRECTED for 6 Days, #21 EA 0 Refills Day 1: Two tablets before breakfast, one after lunch, one after dinner, and two at bedtime. If started late in the day, take all six tablets at once or divide into two or three doses, unless otherwise directed by prescriber. Day 2: One tablet before breakfast, one after lunch, one after dinner, and two at bedtime Day 3: One tablet before breakfast, one after lunch, one after dinner, and one at bedtime Day 4: One tablet before breakfast, one after lunch, and one at bedtime Day 5: One tablet before breakfast and one at bedtime Day 6: One tablet before breakfast Prov: Micah Martinez MD 11/18/19 Patient Instructions: Back Pain, Adult Additional Instructions: Follow-up with your pain specialist as scheduled. Follow up with your doctor in 7 days. Return if symptoms worsen. Micah Martinez MD Nov 18, 2019 00:02
[2019-11-18 00:20] VITALS: BP 135/89
--- NOTE | 2019-11-18 00:20 | NUR ---
ER DISCHARGE NOTE: Patient is cleared to be discharged per ERMD, pt is aox4, on room air, with stable vital signs. pt was given dc instructions, pt was able to verbalize understanding, pt id band removed. pt is able to ambulate with steady gait. pt took all belongings. pt stable upon discharge.
== END 2019-11-18 00:20 | disposition home or self-care (01) ==
LOC: EMR 11-18 00:20
DX: M54.42 Lumbago with sciatica, left side (principal); I10 Essential (primary) hypertension; F03.90 Unspecified dementia, unspecified severity, without behavioral disturbance, psychotic disturbance, mood disturbance, and anxiety
CPT/HCPCS: 96372; 99283; J1170

== ENCOUNTER 2019-11-20 00:42 | Emergency (ER) | payer MEDICARE, OTHER ==
[~2019-11-20] VITALS: Ht 154.9 cm; Wt 63.0 kg
[2019-11-20 01:10] VITALS: BP 122/85
[2019-11-20] MEDS ORDERED: Ketorolac 60mg Inj IM ONE (01:15)
[2019-11-20] MEDS ORDERED: LIDODERM700 M1 TOPIC (01:19)
[2019-11-20 01:25] VITALS: BP 122/85
--- NOTE | 2019-11-20 01:25 | NUR ---
ER DISCHARGE NOTE: Patient is cleared to be discharged per ERMD, pt is aox4, on room air, with stable vital signs. pt was given dc and prescription instructions, pt was able to verbalize understanding, pt id band removed without complications. pt is able to ambulate with steady gait. pt took all belongings. pt with brother and angry she did not get right pain shot and asking to call MD.
--- NOTE | 2019-11-20 05:32 | Emergency Room Report ---
History of Present Illness General Chief Complaint: Back Pain-No Injury Source: Patient Present Illness HPI Patient is a 74-year-old female presents after increased back pain. She reports having prior history of chronic pain to the back. Denies any recent trauma. Had previous imaging studies including and had multiple prior visits for similar type pain. She denies any change. Reports having gradually worsening pain. Prior history of asthma as well as CHF. Allergies: Coded Allergies: Dust (Verified Allergy, Mild, Itching, 11/06/15) COVID-19 Screening Contact w/high risk pt: No Recent Travel to affected area: No Experienced COVID-19 symptoms?: No Patient History Past Medical History: see triage record Reviewed Nursing Documentation: PMH: Agreed; PSxH: Agreed Nursing Documentation-PMH Hx Cardiac Problems: Yes - atrial fib Hx Hypertension: Yes Hx Pacemaker: No Hx Asthma: Yes Hx COPD: No Hx Diabetes: Yes Hx Cancer: No Hx Gastrointestinal Problems: No Hx Neurological Problems: Yes Hx Cerebrovascular Accident: No Hx Dementia: Yes Hx Seizures: No Review of Systems All Other Systems: negative except mentioned in HPI Physical Exam Vital Signs Date Time Temp Pulse Resp B/P (MAP) Pulse Ox O2 Delivery O2 Flow Rate FiO2 11/20/19 00:58 98.1 87 20 122/85 (97) 96 Room Air Sp02 EP Interpretation: reviewed, normal General Appearance: normal inspection, well appearing, no apparent distress, alert, GCS 15, non-toxic, Chronically Ill Head: atraumatic ENT: normal ENT inspection, hearing grossly normal, normal voice Neck: normal inspection, full range of motion, supple, no bony tend Respiratory: normal inspection, lungs clear, normal breath sounds, no respiratory distress, no retraction, no wheezing Cardiovascular #1: regular rate, rhythm, no edema Gastrointestinal: normal inspection, normal bowel sounds, non tender, soft, no guarding, no hernia Genitourinary: no CVA tenderness Musculoskeletal: normal inspection, back normal, normal range of motion Neurologic: alert, motor strength/tone normal, ribbon weaver III-XII nml as tested, oriented x3, responsive, speech normal, normal inspection Psychiatric: normal inspection, judgement/insight normal, mood/affect normal Medical Decision Making Diagnostic Impression: Primary Impression: Exacerbation of chronic back pain ER Course Patient present for low back pain. Differential diagnosis include was not limited to sciatica, arthritis, compression fracture among others. Patient has a benign exam and does not appear to require any imaging or laboratory testing at this time. Patient has similar symptoms multiple visits in the past. Patient was advised to follow-up with her primary care physician Dr. Boo for pain management referral. Patient reportedly had previous epidural use and states this had relieved pain in the past. She is advised to continue to follow -up with her primary care physician. She was given injection of Toradol for pain. Last Vital Signs Date Time Temp Pulse Resp B/P (MAP) Pulse Ox O2 Delivery O2 Flow Rate FiO2 11/20/19 01:25 98.1 20 122/85 96 Room Air 11/20/19 00:58 87 Status: improved Disposition: HOME, SELF-CARE Condition: Stable Scripts Lidocaine Patch* (Lidoderm Patch*) 1 Each Adh..patch 1 PATCH TOPIC DAILY, #30 PATCH Patch(es) may remain in place for up to 12 hours in any 24-hour period. Prov: Eduardo Marquez MD 11/20/19 Patient Instructions: Back Pain, Adult Additional Instructions: Follow up with your doctor for further management of chronic back pain. Return if you begin having fever, bowel or bladder dysfunction. 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 Eduardo Marquez MD Nov 20, 2019 05:31
== END 2019-11-20 01:25 | disposition home or self-care (01) ==
LOC: EMR 00:59
DX: M54.9 Dorsalgia, unspecified (principal); G89.29 Other chronic pain; I50.9 Heart failure, unspecified; E11.9 Type 2 diabetes mellitus without complications; I11.0 Hypertensive heart disease with heart failure
CPT/HCPCS: 96372; 99283

== ENCOUNTER 2019-11-22 11:36 | Emergency (ER) | payer MEDICARE, OTHER ==
[~2019-11-22] VITALS: Ht 157.5 cm; Wt 63.5 kg
--- NOTE | 2019-11-22 11:45 | NUR ---
ED Nurse Note: pt presents to ED c/o lower back pain that is chronic for the pt. she states she is scheduled for an epidural but is unsure when. pt ambulated from triage to bed 4 with a steady gait. she denies any recent trauma or injury to the area, no urinary symptoms at this time. pt repeats "please give me a shot, i'm dying."
[2019-11-22 11:47] VITALS: BP 128/79
[2019-11-22] MEDS ORDERED: HYDROcodone/Acetamin 5/325 tab ORAL ONE (12:15)
[2019-11-22] MEDS ORDERED: Ketorolac 30mg Inj IM ONE (12:15)
[2019-11-22] MEDS ORDERED: TYLENOL325 MG ORAL (12:25)
[2019-11-22] MEDS ORDERED: LIDODERM700 M1 TOPIC (12:25)
[2019-11-22] MEDS ORDERED: ROBAXIN-750750 MG PO (12:25)
--- NOTE | 2019-11-22 12:25 | Emergency Room Report ---
History of Present Illness General Chief Complaint: Lower Back Pain or Injury Source: Patient Present Illness HPI 74-year-old female history of sciatic pain presents with left lower back pain, aggravated with movement alleviated with rest and radiates down the left leg, states the same pain she is chronically had over the years, no perianal numbness no bowel bladder retention/incontinence, no fevers no chills no history of IV drug use Allergies: Coded Allergies: Dust (Verified Allergy, Mild, Itching, 11/06/15) COVID-19 Screening Contact w/high risk pt: No Recent Travel to affected area: No Experienced COVID-19 symptoms?: No Patient History Past Medical History: see triage record Last Menstrual Period: na Reviewed Nursing Documentation: PMH: Agreed; PSxH: Agreed Nursing Documentation-PMH Past Medical History: No History, Except For Hx Cardiac Problems: Yes - atrial fib Hx Hypertension: Yes Hx Pacemaker: No Hx Asthma: Yes Hx COPD: No Hx Diabetes: Yes Hx Cancer: No Hx Gastrointestinal Problems: No Hx Neurological Problems: Yes Hx Cerebrovascular Accident: No Hx Dementia: Yes Hx Seizures: No Review of Systems All Other Systems: negative except mentioned in HPI Physical Exam Vital Signs Date Time Temp Pulse Resp B/P (MAP) Pulse Ox O2 Delivery O2 Flow Rate FiO2 11/22/19 11:39 98.2 80 19 128/79 (95) 97 Room Air General Appearance: well appearing, no apparent distress Head: normocephalic, atraumatic ENT: hearing grossly normal, normal voice Neck: full range of motion, supple Respiratory: no respiratory distress, speaking full sentences Musculoskeletal: other - Gait intact, 5-5 strength plantar dorsiflexion at ankles, flexion extension at knee 5/5 strength, hips, 2+ patellar reflexes bilaterally sensation grossly intact straight leg raise positive left leg Neurologic: alert, normal gait Psychiatric: mood/affect normal Skin: no rash Medical Decision Making Diagnostic Impression: Primary Impression: Low back pain Qualified Codes: M54.42 - Lumbago with sciatica, left side; G89.29 - Other chronic pain ER Course The patient presents with acute on chronic back pain. Clinically this patient can be ruled out for serious pathology given there is a completely normal neurological exam, no history of IV drug use, and no history of bowel or bladder incontinence, no perianal numbness/tingling, no constipation or urinary retention. Once the patient's pain was adequately controlled, the patient was able to ambulate and be discharged in stable condition with anticipatory guidance provided. Patient with appt for epidural shot November 24 CT/MRI/US Diagnostic Results CT/MRI/US Diagnostic Results : Impression Procedure: CT Abdomen Pelvis WO Contrast Indication: Abdominal pain, left lower back pain Technique: Spiral acquisitions obtained through the abdomen and pelvis. No oral contrast utilized, per emergency room physician request No IV contrast utilized , per emergency room physician request.. Multiplanar reconstructions were generated. Total dose length product 226 mGycm. CTDIvol(s) 4 mGy. Dose reduction achieved using automated exposure control Comparison: 05/02/2016 contrast study Findings: Lack of enteric contrast limits assessment of the GI tract. Again demonstrated is colonic diverticulosis. No evidence of acute diverticulitis. The appendix is normal. No small bowel distention. No free or loculated intraperitoneal gas or fluid is evident. The distal esophagus, stomach, duodenum are unremarkable. Lack of IV contrast limits assessment of the solid organs. Gallbladder questionably contains small gallstones. No biliary ductal dilatation. The liver demonstrates a calcification in the left lobe. No other definite focal abnormality. The pancreas, spleen, adrenals, kidneys are unremarkable. No renal or ureteral calculi, hydronephrosis, or hydroureter. The uterus is absent. No pelvic mass demonstrated. Somewhat prominent pelvic lymph nodes are present bilaterally, but this appears unchanged from the previous exam. The bladder is unremarkable. Included lung bases demonstrate posterior dependent atelectatic changes. The heart is mildly enlarged. Again demonstrated are degenerative changes of the lumbar spine. There is a compression fracture of the L4 vertebral body, and evidence of prior vertebral augmentation procedure. These findings are new since the prior study. There is multilevel degenerative spondylosis, with evidence of multifocal disc bulges and possible areas of spinal stenosis. Impression: Limited assessment of the GI tract, due to lack of enteric contrast administration No definite acute abnormality Diverticulosis. No evidence of diverticulitis Questionable cholelithiasis Cardiomegaly Degenerative spondylosis. Consider MRI for better characterization of the lumbar spine given stated clinical history of left lower back pain L4 compression fracture with evidence of prior vertebral augmentation procedure for such Other findings as noted, including evidence of prior hysterectomy, left hepatic lobe granulomatous calcification, basilar dependent pulmonary atelectatic changes. The CT scanner at [facility] is accredited by the [employer] and the scans are performed using protocols designed to limit radiation exposure to as low as reasonably achievable to attain images of sufficient resolution adequate for diagnostic evaluation. Dictated By: Rajesh Del Cid MD Electronically Signed By: Rajesh Del Cid MD Signed Date/Time 11/22/19 3194 CC: Jose Eduardo Jones MD Last Vital Signs Date Time Temp Pulse Resp B/P (MAP) Pulse Ox O2 Delivery O2 Flow Rate FiO2 11/22/19 11:47 98.2 87 19 128/79 97 Room Air Disposition: HOME, SELF-CARE Condition: Stable Scripts Acetaminophen (Tylenol) 325 Mg Tablet 650 MG ORAL Q6H PRN for Prn Pain/Headache/Temp > 101, #30 TAB 0 Refills Prov: Jose Eduardo Jones MD 11/22/19 Methocarbamol* (ROBAXIN-750*) 750 Mg Tablet 750 MG PO QID, #28 TAB 0 Refills Prov: Jose Eduardo Jones MD 11/22/19 Lidocaine Patch* (Lidoderm Patch*) 1 Each Adh..patch 1 PATCH TOPIC DAILY PRN for For Pain, #7 PATCH 0 Refills Patch(es) may remain in place for up to 12 hours in any 24-hour period. Prov: Jose Eduardo Jones MD 11/22/19 Referrals: Wilfred Boo MD (PCP) Patient Instructions: Back Pain, Adult Additional Instructions: The patient was provided with discharge instructions, notified to follow-up with a primary care doctor and or specialist in the next 24-48 hours, and to return to the ED if they have worsening of their symptoms. Please note that this report is being documented using [employer] technology. This can lead to erroneous entry secondary to incorrect interpretation by the dictating instrument. Jose Eduardo Jones MD Nov 22, 2019 12:25
--- NOTE | 2019-11-22 12:35 | NUR ---
ED Nurse Note: pt went to CT
--- NOTE | 2019-11-22 13:00 | NUR ---
ED Nurse Note: back from CT
--- NOTE | 2019-11-22 13:19 | Diagnostic Imaging Report ---
Indication: Abdominal pain, left lower back pain Technique: Spiral acquisitions obtained through the abdomen and pelvis. No oral contrast utilized, per emergency room physician request No IV contrast utilized, per emergency room physician request.. Multiplanar reconstructions were generated. Total dose length product 226 mGycm. CTDIvol(s) 4 mGy. Dose reduction achieved using automated exposure control Comparison: 05/02/2016 contrast study Findings: Lack of enteric contrast limits assessment of the GI tract. Again demonstrated is colonic diverticulosis. No evidence of acute diverticulitis. The appendix is normal. No small bowel distention. No free or loculated intraperitoneal gas or fluid is evident. The distal esophagus, stomach, duodenum are unremarkable. Lack of IV contrast limits assessment of the solid organs. Gallbladder questionably contains small gallstones. No biliary ductal dilatation. The liver demonstrates a calcification in the left lobe. No other definite focal abnormality. The pancreas, spleen, adrenals, kidneys are unremarkable. No renal or ureteral calculi, hydronephrosis, or hydroureter. The uterus is absent. No pelvic mass demonstrated. Somewhat prominent pelvic lymph nodes are present bilaterally, but this appears unchanged from the previous exam. The bladder is unremarkable. Included lung bases demonstrate posterior dependent atelectatic changes. The heart is mildly enlarged. Again demonstrated are degenerative changes of the lumbar spine. There is a compression fracture of the L4 vertebral body, and evidence of prior vertebral augmentation procedure. These findings are new since the prior study. There is multilevel degenerative spondylosis, with evidence of multifocal disc bulges and possible areas of spinal stenosis. Impression: Limited assessment of the GI tract, due to lack of enteric contrast administration No definite acute abnormality Diverticulosis. No evidence of diverticulitis Questionable cholelithiasis Cardiomegaly Degenerative spondylosis. Consider MRI for better characterization of the lumbar spine given stated clinical history of left lower back pain L4 compression fracture with evidence of prior vertebral augmentation procedure for such Other findings as noted, including evidence of prior hysterectomy, left hepatic lobe granulomatous calcification, basilar dependent pulmonary atelectatic changes. The CT scanner at [facility] is accredited by the [employer] and the scans are performed using protocols designed to limit radiation exposure to as low as reasonably achievable to attain images of sufficient resolution adequate for diagnostic evaluation.
[2019-11-22] MEDS ORDERED: HYDROmorphone 1mg/ml Carpuject IM ONE (14:15)
--- NOTE | 2019-11-22 14:18 | NUR ---
ED Nurse Note: Pt cleared by health care Provider for discharge. DC instructions/prescription was given and explained to pt and verbalized understanding of teachings. All medical devices such as ID band removed. Pt is AAO x4, ambulatory and left with all personal belongings. brother taking pt home
[2019-11-22 14:19] VITALS: BP 128/79
[2019-11-23] MEDS ORDERED: TYLENOL EXTRA500 MG ORAL (11:12)
[2019-11-23] MEDS ORDERED: LIDODERM700 M1 TOPIC (11:12)
== END 2019-11-22 14:20 | disposition home or self-care (01) ==
LOC: EMR 11:58
DX: M54.42 Lumbago with sciatica, left side (principal); G89.29 Other chronic pain; Z91.09 Other allergy status, other than to drugs and biological substances; I10 Essential (primary) hypertension; E11.9 Type 2 diabetes mellitus without complications; K57.90 Diverticulosis of intestine, part unspecified, without perforation or abscess without bleeding; I51.7 Cardiomegaly; M47.9 Spondylosis, unspecified; Z90.710 Acquired absence of both cervix and uterus; M51.26 Other intervertebral disc displacement, lumbar region
CPT/HCPCS: 74176; 96372; 99284; J1170; J1885

== ENCOUNTER 2019-11-23 10:35 | Emergency (ER) | payer MEDICARE, OTHER ==
[~2019-11-23] VITALS: Ht 152.4 cm; Wt 62.6 kg
[2019-11-23 10:38] VITALS: BP 142/88
[2019-11-23] MEDS ORDERED: Acetaminophen 500mg (ES) tab ORAL ONE (11:00)
[2019-11-23] MEDS ORDERED: TYLENOL EXTRA500 MG ORAL (11:12)
[2019-11-23] MEDS ORDERED: LIDODERM700 M1 TOPIC (11:12)
[2019-11-23 11:15] VITALS: BP 145/90
--- NOTE | 2019-11-23 11:26 | Emergency Room Report ---
History of Present Illness General Chief Complaint: Lower Back Pain or Injury Source: Patient Present Illness HPI 74-year-old female presents complaining of back pain. History of chronic back pain. Denies any fall or injury. Has been here multiple times for similar presentation. States that she was treated here recently with a shot and wants another shot. Pain is 10 out of 10, throbbing, nonradiating. Denies bowel or bladder incontinence. Denies any leg or motor weakness. No other aggravating relieving factors. Denies any other associated symptoms Allergies: Coded Allergies: Dust (Verified Allergy, Mild, Itching, 11/06/15) COVID-19 Screening Contact w/high risk pt: No Recent Travel to affected area: No Experienced COVID-19 symptoms?: No Patient History Past Medical History: DM, CHF, AFib, asthma Pertinent Family History: none Social History: Denies: smoking, alcohol use, drug use Last Menstrual Period: na Now: No Immunizations: UTD Reviewed Nursing Documentation: PMH: Agreed; PSxH: Agreed Nursing Documentation-PMH Hx Cardiac Problems: Yes - atrial fib Hx Hypertension: Yes Hx Pacemaker: No Hx Asthma: Yes Hx COPD: No Hx Diabetes: Yes Hx Cancer: No Hx Gastrointestinal Problems: No Hx Neurological Problems: Yes Hx Cerebrovascular Accident: No Hx Dementia: Yes Hx Seizures: No Review of Systems All Other Systems: negative except mentioned in HPI Physical Exam Vital Signs Date Time Temp Pulse Resp B/P (MAP) Pulse Ox O2 Delivery O2 Flow Rate FiO2 11/23/19 10:38 98.1 81 18 142/88 (106) 98 Room Air Sp02 EP Interpretation: reviewed, normal General Appearance: alert, GCS 15, non-toxic, mild distress Head: normocephalic, atraumatic Eyes: bilateral eye normal inspection, bilateral eye PERRL ENT: hearing grossly normal, normal pharynx, no angioedema, normal voice Neck: full range of motion, supple/symm/no masses Respiratory: chest non-tender, lungs clear, normal breath sounds, speaking full sentences Cardiovascular #1: regular rate, rhythm, no edema Cardiovascular #2: 2+ carotid (R), 2+ carotid (L), 2+ radial (R), 2+ radial (L) , 2+ dorsalis pedis (R), 2+ dorsalis pedis (L) Gastrointestinal: normal bowel sounds, non tender, soft, non-distended, no guarding, no rebound Rectal: deferred Genitourinary: normal inspection, no CVA tenderness Musculoskeletal: normal range of motion, gait/station normal, other - paraspinal lumbar tenderness Neurologic: alert, motor strength/tone normal, oriented x3, sensory intact, responsive, speech normal Psychiatric: judgement/insight normal, memory normal, mood/affect normal, no suicidal/homicidal ideation Reflexes: 3+ bicep (R), 3+ bicep (L), 3+ tricep (R), 3+ tricep (L), 3+ knee (R) , 3+ knee (L) Skin: no rash Lymphatic: no adenopathy Medical Decision Making Diagnostic Impression: Primary Impression: Exacerbation of chronic back pain ER Course Hospital Course 74-year-old female presents ED complaining of lower back pain Differential diagnoses include: pyelonephritis, kidney stone, muscle strain, Lspine fracture Clinical course Patient placed on stretcher. After initial history exam reveals elderly female. There is some paraspinal lumbar pain. No vertebral pain. No focal deficits. I reviewed EMR. Patient was seen here 4 times in the last 4 days for same back pain. Patient had received multiple pain injections during that time. Patient is well-known to [facility]. Is here for chronic back pain several times. I spoke to PMD Dr. Boo. states patient goes from ER to ER for treatment. She is scheduled for an epidural next week. I explained that we patient will not receive any injections today. He agrees. Tylenol, Lidoderm patch here. Safe for discharge for close outpatient follow-up Diagnosis - exacerbation of chronic back pain Stable and discharged to home with prescription for Tylenol, Lidoderm. Followup with PMD. Return to ED if symptoms recur or worsen Last Vital Signs Date Time Temp Pulse Resp B/P (MAP) Pulse Ox O2 Delivery O2 Flow Rate FiO2 11/23/19 11:15 98.3 79 16 145/90 99 Room Air Status: improved Disposition: HOME, SELF-CARE Condition: Stable Scripts Lidocaine Patch* (Lidoderm Patch*) 1 Each Adh..patch 1 PATCH TOPIC DAILY, #7 PATCH 0 Refills Patch(es) may remain in place for up to 12 hours in any 24-hour period. Prov: Jeremy Leone MD 11/23/19 Acetaminophen* (TYLENOL EXTRA STRENGTH*) 500 Mg Tablet 500 MG ORAL Q8H PRN for Prn Headache/Temp > 101, #30 TAB 0 Refills Prov: Jeremy Leone MD 11/23/19 Referrals: Wilfred Boo MD (PCP) [facility] Open 24 hour /7 days a week by Appointment Only [address] [facility] [address] [facility] [address] Patient Instructions: Low Back Sprain With Rehab-SportsMed Jeremy Leone MD Nov 23, 2019 11:26
== END 2019-11-23 11:15 | disposition home or self-care (01) ==
LOC: EMR 11:00
DX: M54.5 Low back pain (principal); G89.29 Other chronic pain; E11.9 Type 2 diabetes mellitus without complications; I11.0 Hypertensive heart disease with heart failure; I50.9 Heart failure, unspecified; F03.90 Unspecified dementia, unspecified severity, without behavioral disturbance, psychotic disturbance, mood disturbance, and anxiety
CPT/HCPCS: 99282

== ENCOUNTER 2019-12-14 12:55 | Emergency (ER) | payer MEDICARE, OTHER ==
[~2019-12-14] VITALS: Ht 162.6 cm; Wt 70.3 kg
[2019-12-14 12:59] VITALS: BP 145/90
--- NOTE | 2019-12-14 13:13 | NUR ---
ED Nurse Note: Pt walked into ED w/ c/o back apin 04/06. Pt is having lumbar surgery in 2 days, type of surgery unspecified. Pt is alert and ox4, ambulatory with assist. Pt states she was having too much pain before surgery and wants pain meds.
[2019-12-14] MEDS ORDERED: Ketorolac 30mg Inj IM ONE (13:15)
[2019-12-14 13:40] VITALS: BP 145/90
--- NOTE | 2019-12-14 13:40 | NUR ---
ER DISCHARGE NOTE: Patient is cleared to be discharged per ERMD Dr Leone, pt is aox4, on room air, with stable vital signs. pt was given dc instructions, pt was able to verbalize understanding, pt id band removed without complications. pt is able to ambulate with steady gait. pt took all belongings.
--- NOTE | 2019-12-14 15:12 | Emergency Room Report ---
History of Present Illness General Chief Complaint: Back Pain-No Injury Source: Patient Present Illness HPI 74-year-old female presents with back pain. History of chronic back pain. Pain is 10 out of 10, throbbing, nonradiating. Denies any recent fall or injury. States that she is scheduled for surgery next week. Denies any bowel or bladder continence. Denies any leg or motor weakness. No other aggravating relieving factors. 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: No Patient History Past Medical History: DM, HTN, AFib, asthma, dementia Past Surgical History: none Pertinent Family History: none Social History: Denies: smoking, alcohol use, drug use Last Menstrual Period: na Now: No Immunizations: UTD Reviewed Nursing Documentation: PMH: Agreed; PSxH: Agreed Nursing Documentation-PMH Past Medical History: No History, Except For Hx Cardiac Problems: Yes - atrial fib Hx Hypertension: Yes Hx Pacemaker: No Hx Asthma: Yes Hx COPD: No Hx Diabetes: Yes Hx Cancer: No Hx Gastrointestinal Problems: No Hx Neurological Problems: Yes Hx Cerebrovascular Accident: No Hx Dementia: Yes Hx Seizures: No Review of Systems All Other Systems: negative except mentioned in HPI Physical Exam Vital Signs Date Time Temp Pulse Resp B/P (MAP) Pulse Ox O2 Delivery O2 Flow Rate FiO2 12/14/19 12:59 97.9 78 18 145/90 (108) 99 Room Air Sp02 EP Interpretation: reviewed, normal General Appearance: no apparent distress, alert, GCS 15, non-toxic Head: normocephalic, atraumatic Eyes: bilateral eye normal inspection, bilateral eye PERRL ENT: hearing grossly normal, normal pharynx, no angioedema, normal voice Neck: full range of motion, supple/symm/no masses Respiratory: chest non-tender, lungs clear, normal breath sounds, speaking full sentences Cardiovascular #1: regular rate, rhythm, no edema Cardiovascular #2: 2+ carotid (R), 2+ carotid (L), 2+ radial (R), 2+ radial (L) , 2+ dorsalis pedis (R), 2+ dorsalis pedis (L) Gastrointestinal: normal bowel sounds, non tender, soft, non-distended, no guarding, no rebound Rectal: deferred Genitourinary: normal inspection, no CVA tenderness Musculoskeletal: back normal, normal range of motion, gait/station normal, tender - paraspinal lumbar tenderness Neurologic: alert, motor strength/tone normal, oriented x3, sensory intact, responsive, speech normal Psychiatric: judgement/insight normal, memory normal, mood/affect normal, no suicidal/homicidal ideation Reflexes: 3+ bicep (R), 3+ bicep (L), 3+ tricep (R), 3+ tricep (L), 3+ knee (R) , 3+ knee (L) Skin: no rash Lymphatic: no adenopathy Medical Decision Making Diagnostic Impression: Primary Impression: Exacerbation of chronic back pain ER Course Hospital Course 74-year-old female presents ED complaining of lower back pain. Differential diagnoses include: pyelonephritis, kidney stone, muscle strain, Lspine fracture Clinical course Patient placed on stretcher. After initial history physical exam reveals elderly female in no acute distress. There is some paraspinal lumbar tenderness. 5 out of 5 strength in lower extremities. No sensory deficits. Patient is well-known to [facility]. Is been here multiple times for chronic back pain. I have spoken to the PMD about this patient in the past. Patient is known to go from ER to ER for pain medications. Patient understands she will not receive any narcotic medication here. Patient given Toradol. Patient will not receive any prescriptions. Patient states she has surgery scheduled for next week. Pain improved after medication. Safe for discharge close outpatient follow-up Diagnosis - exacerbation of chronic back pain Stable and discharged to home. Followup with PMD. Return to ED if symptoms recur or worsen Last Vital Signs Date Time Temp Pulse Resp B/P (MAP) Pulse Ox O2 Delivery O2 Flow Rate FiO2 12/14/19 13:47 97.9 12/14/19 13:40 78 18 145/90 99 Room Air Status: improved Disposition: HOME, SELF-CARE Condition: Stable Referrals: Wilfred Boo MD (PCP) Patient Instructions: Back Pain, Adult Jeremy Leone MD December 14, 2019 15:12
== END 2019-12-14 13:47 | disposition home or self-care (01) ==
LOC: EMR 13:15
DX: M54.9 Dorsalgia, unspecified (principal); G89.29 Other chronic pain; E11.9 Type 2 diabetes mellitus without complications; I10 Essential (primary) hypertension; F03.90 Unspecified dementia, unspecified severity, without behavioral disturbance, psychotic disturbance, mood disturbance, and anxiety
CPT/HCPCS: 96372; 99283; J1885

== ENCOUNTER 2020-01-09 02:31 | Emergency (ER) | payer MEDICARE, OTHER ==
[~2020-01-09] VITALS: Ht 160 cm; Wt 68.0 kg
--- NOTE | 2020-01-09 02:46 | NUR ---
ED Nurse Note: PT WALKED IN TO ED C/O BILAT KNEE PAIN. PT STATES LUMBAR SX ON DECEMBER 14. VSS, NAD, AMBULATORY, AAOX4. ERMD AT BEDSIDE. NO TRAUMA OR INJURY. DENIES FALL.
--- NOTE | 2020-01-09 02:51 | NUR ---
ED Nurse Note: applied tegaderm dressing on surgical site per ermd verbal order
--- NOTE | 2020-01-09 02:57 | Emergency Room Report ---
History of Present Illness General Chief Complaint: Lower Extremity Injury Source: Patient, Family Member Present Illness HPI This a 74-year-old female with history of chronic back pain. She is well-known to this ER. She presents with chief complaint of bilateral knee pain. She had recent lumbar surgery. She is taking pain medication already. She has been complaining of bilateral knee pain for the last day or so. No trauma. No fever chills. No swelling. Pain is 7 out of 10. Worse with walking. Better with rest. Denies any other complaint. Allergies: Coded Allergies: Dust (Verified Allergy, Mild, Itching, 11/06/15) COVID-19 Screening Contact w/high risk pt: No Recent Travel to affected area: No Experienced COVID-19 symptoms?: No COVID-19 Testing performed AIRPORT DRIVER: No Patient History Past Medical History: see triage record, old chart reviewed Past Surgical History: other - lumbar surgery Pertinent Family History: none Social History: Denies: smoking Now: No Immunizations: other Reviewed Nursing Documentation: PMH: Agreed; PSxH: Agreed Nursing Documentation-PMH Hx Cardiac Problems: Yes - atrial fib Hx Hypertension: Yes Hx Pacemaker: No Hx Asthma: Yes Hx COPD: No Hx Diabetes: Yes Hx Cancer: No Hx Gastrointestinal Problems: No Hx Neurological Problems: Yes - lumbar surgery December 15, 2019 Hx Cerebrovascular Accident: No Hx Dementia: Yes Hx Seizures: No Review of Systems Eye: Denies: eye pain, blurred vision ENT: Denies: ear pain, nose congestion, throat swelling Respiratory: Denies: cough, shortness of breath Cardiovascular: Denies: chest pain, palpitations Gastrointestinal: Denies: abdominal pain, diarrhea, nausea, vomiting Musculoskeletal: Reports: joint pain; Denies: back pain Skin: Denies: rash Neurological: Denies: headache, numbness Endocrine: Denies: increased thirst, increased urine Hematologic/Lymphatic: Denies: easy bruising All Other Systems: negative except mentioned in HPI Physical Exam Vital Signs Date Time Temp Pulse Resp B/P (MAP) Pulse Ox O2 Delivery O2 Flow Rate FiO2 01/09/20 02:39 98.4 81 16 145/87 (106) 96 Room Air Vitals unremarkable Sp02 EP Interpretation: reviewed, normal General Appearance: well appearing, no apparent distress, alert Head: normocephalic, atraumatic Eyes: bilateral eye PERRL, bilateral eye EOMI ENT: hearing grossly normal, normal pharynx Neck: full range of motion, supple, no meningismus Respiratory: chest non-tender, lungs clear, normal breath sounds Cardiovascular #1: regular rate, rhythm, no murmur Gastrointestinal: normal bowel sounds, non tender, no mass, no organomegaly, no bruit, non-distended Musculoskeletal: back normal - Surgical site is clean. No redness or drainage. , normal range of motion, gait/station normal, other - Bilateral knees show no trauma. No redness. No swelling. Psychiatric: mood/affect normal Medical Decision Making Diagnostic Impression: Primary Impression: Osteoarthritis of knees, bilateral Qualified Codes: M17.0 - Bilateral primary osteoarthritis of knee ER Course Patient with bilateral knee pain. She is walking around without any difficulty. Is no evidence any redness or swelling. No evidence of any septic joint. No trauma. Will discharge home with reassurance. Last Vital Signs Date Time Temp Pulse Resp B/P (MAP) Pulse Ox O2 Delivery O2 Flow Rate FiO2 01/09/20 02:39 98.4 81 16 145/87 (106) 96 Room Air Status: improved Disposition: HOME, SELF-CARE Condition: Stable Additional Instructions: Take your pain medication. Follow-up with your doctor as scheduled. Return if symptoms worsen. Micah Martinez MD Jan 09, 2020 02:57
[2020-01-09 03:00] VITALS: BP 145/87
[2020-01-09] MEDS ORDERED: Ketorolac 30mg Inj IM ONE (03:00)
--- NOTE | 2020-01-09 03:00 | NUR ---
ER DISCHARGE NOTE: Patient is cleared to be discharged per ERMD, pt is aox4, on room air, with stable vital signs. pt was given dc instructions, pt was able to verbalize understanding, pt id band removed without complications. pt is able to ambulate with steady gait. pt took all belongings.
[2020-01-12] MEDS ORDERED: LIDOCAINE HC28.35 GM TP (13:17)
== END 2020-01-09 03:00 | disposition home or self-care (01) ==
LOC: EMR 02:45
DX: M17.0 Bilateral primary osteoarthritis of knee (principal); I10 Essential (primary) hypertension; E11.9 Type 2 diabetes mellitus without complications; F03.90 Unspecified dementia, unspecified severity, without behavioral disturbance, psychotic disturbance, mood disturbance, and anxiety
CPT/HCPCS: 96372; 99283; J1885

== ENCOUNTER 2020-01-11 14:58 | Emergency (ER) | payer MEDICARE, OTHER ==
[~2020-01-11] VITALS: Ht 162.6 cm; Wt 72.6 kg
--- NOTE | 2020-01-11 15:15 | Emergency Room Report ---
History of Present Illness General Chief Complaint: Lower Extremity Injury Source: Patient Present Illness HPI 74-year-old female presents to the emergency complaining of 10 out of 10 severity low back pain with radiation to bilateral knees pain x1 month. Patient reports that she had surgery approximately 1 month ago. Patient denies recent trauma or fall. She reports that she requires pain injections. Patient endorses that she has been to several emergency departments over the last few days. She denies fevers or chills. She denies incontinence or urinary retention. Patient denies numbness or tingling. Patient is well-known to this emergency department and comes frequently requesting Toradol pain injection. Patient has been known to present multiple days in a row back to back. Her primary care physician has been contacted multiple times as well and reports that the patient also frequents [facility] another nearby emergency department regularly for the same symptoms. Dr. Boo ( pt. PCP) was contacted and he recommended admission for uncontrolled pain and nursing facility /rehab. Pt. also reports burning rash on the right foot. Denies itching. Allergies: Coded Allergies: Dust (Verified Allergy, Mild, Itching, 11/06/15) COVID-19 Screening Contact w/high risk pt: No Recent Travel to affected area: No Experienced COVID-19 symptoms?: No COVID-19 Testing performed SALESPERSON [place] AND [employer]: No Patient History Past Medical History: see triage record, other - lumbar-microdiscectomy Past Surgical History: none Pertinent Family History: none Last Menstrual Period: na Reviewed Nursing Documentation: PMH: Agreed; PSxH: Agreed Nursing Documentation-PMH Past Medical History: No History, Except For Hx Cardiac Problems: Yes - atrial fib Hx Hypertension: Yes Hx Pacemaker: No Hx Asthma: Yes Hx COPD: No Hx Diabetes: Yes Hx Cancer: No Hx Gastrointestinal Problems: No Hx Neurological Problems: Yes - lumbar surgery December 15, 2019 Hx Cerebrovascular Accident: No Hx Dementia: Yes Hx Seizures: No Review of Systems All Other Systems: negative except mentioned in HPI Physical Exam Vital Signs Date Time Temp Pulse Resp B/P (MAP) Pulse Ox O2 Delivery O2 Flow Rate FiO2 01/11/20 15:02 99.1 92 20 127/76 (93) 99 Room Air Sp02 EP Interpretation: reviewed, normal General Appearance: no apparent distress, alert, GCS 15, non-toxic Head: normocephalic, atraumatic Eyes: bilateral eye normal inspection, bilateral eye PERRL ENT: hearing grossly normal, normal voice Neck: full range of motion Respiratory: lungs clear, normal breath sounds, speaking full sentences Cardiovascular #1: regular rate, rhythm, no edema, normal capillary refill Gastrointestinal: non tender, soft Genitourinary: normal inspection, no CVA tenderness Musculoskeletal: normal range of motion - Both knees, pt. ambulatory. pt. able to sit up from lying flat on her own without assisitance. , gait/station normal , tender - TTP to the L-spine area. There is a surgical scare noted midline without erytehma or warmth. No d/c. , other - no swelling, no bruising, no increased laxity of the knees. Neurologic: alert, motor strength/tone normal, oriented x3, sensory intact, responsive, speech normal Psychiatric: judgement/insight normal Skin: normal color, rash - dry erythematous rash to the plantar aspect of the right foot distally and in the webs of the first 3 toes. no blisters or vessicles. no niklosy sign, other - There is a surgical scare noted midline without erytehma or warmth. No d/c. Medical Decision Making PA Attestation Dr. Marquez is my supervising Physician whom patient management has been discussed with. Diagnostic Impression: Primary Impression: Chronic pain Qualified Codes: G89.29 - Other chronic pain ER Course 74-year-old female presents to the emergency complaining of 10 out of 10 severity low back pain with radiation to bilateral knees pain x1 month. Patient reports that she had surgery approximately 1 month ago. Patient denies recent trauma or fall. She reports that she requires pain injections. Patient endorses that she has been to several emergency departments over the last few days. She denies fevers or chills. She denies incontinence or urinary retention. Patient denies numbness or tingling. Patient is well-known to this emergency department and comes frequently requesting Toradol pain injection. Patient has been known to present multiple days in a row back to back. Her primary care physician has been contacted multiple times as well and reports that the patient also frequents [facility] another nearby emergency department regularly for the same symptoms. Dr. Boo ( pt. PCP) was contacted and he recommended admission for uncontrolled pain and nursing facility /rehab. Pt. also reports burning rash on the right foot. Denies itching. Ddx considered: epidural abscess, fracture, sprain/strain, meningitis, spinal chord injury, sciatica, cauda equina, Pyelonephritis, renal calculi, tinea, cellulitis, neuropathy, SJS, medication side-effects. just to name a few. Vital signs reviewed and are WNL during ED visit. Pt. is afebrile with no signs of infection No new symptoms, and denies recent trauma. No saddle anesthesia noted, Pt. denies incontinence Neurovascular is intact ROM is limited due to pain * Mild Tenderness to palpation to paraspinal muscles of the lower back with midline tenderness.- SUrgical scare noted, healed. no signs of infection. *Pt. describes pain today as moderate and radiates across the lower back. ORDERS: -CBC: WNL -BMP: WNL -UA: Most indicative of contamination: presence of equal amounts of bacteria and squamous cells, no elevation in inflammatory markers, nitrite negative. Will await culture results before starting on abx. -MRI L-Spine w. contrast: See results below. INTERVENTIONS: - Tylenol PO --Declined TORADOL INJECTION: PT. is not having an emergent condition which requires Toradol as the treatment. Pt. with habitual visits to ED's requesting Toradol. I do not feel that this pt. will benefit from additional doses. It will unnecessarily put her at risk of medication side effects or infection at the injection site. . I feel that continued administration of Toradol IM in the emergency department will not provide sufficient benefits and is counter-intuitive to proper follow up and outpatient management. D/w pt. that her PCP recommends admission to SNF for continued uncontrolled pain. Pt. declines. D/W Pt. that for further pain management is it recommended to consult PCP or a Chronic Pain management doctor. A provider who can safely prescribe controlled substances with close follow up. DISCHARGE: At this time pt. is stable for d/c to home. Will provide printed patient care instructions, and any necessary prescriptions. Care plan and follow up instructions have been discussed with the patient prior to discharge. Labs Test 01/11/20 15:58 01/11/20 16:09 Urine Color Pale yellow Urine Appearance Clear Urine pH 7 (4.5-8.0) Urine Specific [place] 1.005 (1.005-1.035) Urine Protein Negative (NEGATIVE) Urine Glucose (UA) Negative (NEGATIVE) Urine Ketones Negative (NEGATIVE) Urine Blood 2+ (NEGATIVE) Urine Nitrite Negative (NEGATIVE) Urine Bilirubin Negative (NEGATIVE) Urine Urobilinogen Normal MG/DL (0.0-1.0) Urine Leukocyte Esterase 2+ (NEGATIVE) Urine RBC 2-4 /HPF (0 - 2) Urine WBC 0-2 /HPF (0 - 2) Urine Squamous Epithelial Cells Moderate /LPF (NONE/OCC) Urine Bacteria Few /HPF (NONE) White Blood Count 8.2 K/UL (4.8-10.8) Red Blood Count 4.04 M/UL (4.20-5.40) Hemoglobin 11.6 G/DL (12.0-16.0) Hematocrit 37.6 % (37.0-47.0) Mean Corpuscular Volume 93 FL (80-99) Mean Corpuscular Hemoglobin 28.8 PG (27.0-31.0) Mean Corpuscular Hemoglobin Concent 31.0 G/DL (32.0-36.0) Red Cell Distribution Width 15.1 % (11.6-14.8) Platelet Count 380 K/UL (150-450) Mean Platelet Volume 7.3 FL (6.5-10.1) Neutrophils (%) (Auto) 72.1 % (45.0-75.0) Lymphocytes (%) (Auto) 18.0 % (20.0-45.0) Monocytes (%) (Auto) 9.2 % (1.0-10.0) Eosinophils (%) (Auto) 0.0 % (0.0-3.0) Basophils (%) (Auto) 0.8 % (0.0-2.0) Sodium Level 138 MMOL/L (136-145) Potassium Level 3.6 MMOL/L (3.5-5.1) Chloride Level 102 MMOL/L (98-107) Carbon Dioxide Level 28 MMOL/L (21-32) Anion Gap 8 mmol/L (5-15) Blood Urea Nitrogen 11 mg/dL (7-18) Creatinine 0.9 MG/DL (0.55-1.30) Estimat Glomerular Filtration Rate > 60 mL/min (>60) Glucose Level 115 MG/DL (74-106) Calcium Level 9.0 MG/DL (8.5-10.1) CT/MRI/US Diagnostic Results CT/MRI/US Diagnostic Results : Imaging Test Ordered: MRI L-SPine w & w/o Contrast Impression " IMPRESSION: Vertebrae: Status post L3-L5 posterior fusion. No definite acute fracture. L4 compression status post vertebroplasty. Spinal cord: Unremarkable. Normal signal. No abnormal enhancement. Soft tissues: Posterior paraspinal edema. No definite abscess. 1. Status post L3-L5 posterior fusion. Limited due to metallic artifact. 2. No definite acute fracture." Per official radiology report- Please see report for specific details. Last Vital Signs Date Time Temp Pulse Resp B/P (MAP) Pulse Ox O2 Delivery O2 Flow Rate FiO2 01/11/20 15:02 99.1 92 20 127/76 (93) 99 Room Air Status: improved Disposition: HOME, SELF-CARE Condition: Stable Scripts Lidocaine Hcl (LIDOCAINE HCL) 28.35 Gm Cream..g. 2 GM TP BID, #28 GM Prov: Zeferino Lee 01/12/20 Clotrimazole* (LOTRIMIN*) 15 Gm Cream..g. 1 APPLIC TOPIC TWICE A DAY, #15 GM To the right foot Prov: Love Altman 01/11/20 Lidocaine Patch* (Lidoderm Patch*) 1 Each Adh..patch 1 PATCH TOPIC DAILY, #30 PATCH 0 Refills Patch(es) may remain in place for up to 12 hours in any 24-hour period. Prov: Love Altman 01/11/20 Acetaminophen* (TYLENOL EXTRA STRENGTH*) 500 Mg Tablet 500 MG ORAL Q6H, #20 TAB 0 Refills Prov: Love Altman 01/11/20 Referrals: [facility] Patient Instructions: Chronic Pain Additional Instructions: Take medications as directed. Follow up with your PCP, an BOAT JOINER HELPER and a report specialist in 3-5 days, even if your symptoms have resolved. * Also consider psychiatric eval. --Please review list of primary care clinics, if you do not already have a primary care provider who can give you an Orthopedic Referral. Return sooner to ED if new symptoms occur, or current symptoms become worse. - Please note that this Emergency Department Report was dictated using Crossfadergrader green meat technology software, occasionally this can lead to erroneous entry secondary to interpretation by the dictation equipment. Love Altman Jan 11, 2020 15:15
[2020-01-11] MEDS ORDERED: Gadavist 7.5mMol/7.5ml vial IV PRN (15:45)
[2020-01-11 16:18] LABS: BASOPHILS % (AUTO) 0.8 % (0.0-2.0); HEMATOCRIT 37.6 % (37.0-47.0); HEMOGLOBIN 11.6 G/DL (12.0-16.0); MEAN CORPUSCULAR VOLUME 93 FL (80-99); MONOCYTES % (AUTO) 9.2 % (1.0-10.0); NEUTROPHILS % (AUTO) 72.1 % (45.0-75.0); PLATELET COUNT 380 K/UL (150-450); RED BLOOD COUNT 4.04 M/UL (4.20-5.40); RED CELL DISTRIBUTION WIDTH 15.1 % (11.6-14.8); WHITE BLOOD COUNT 8.2 K/UL (4.8-10.8)
[2020-01-11 16:20] LABS: APPEARANCE,URINE CLEAR; BILIRUBIN, URINE NEGATIVE (NEGATIVE); COLOR,URINE PALE YELLOW; GLUCOSE, URINE (UA) NEGATIVE (NEGATIVE); KETONES,URINE NEGATIVE (NEGATIVE); LEUKOCYTE ESTERASE ,URINE 2+ (NEGATIVE); NITRITE,URINE NEGATIVE (NEGATIVE); PH,URINE 7 (4.5-8.0); PROTEIN,URINE NEGATIVE (NEGATIVE); UROBILINOGEN,URINE NORMAL MG/DL (0.0-1.0)
[2020-01-11 16:28] LABS: ANION GAP 8 mmol/L (5-15); BLOOD UREA NITROGEN 11 mg/dL (7-18); CARBON DIOXIDE 28 MMOL/L (21-32); CHLORIDE 102 MMOL/L (98-107); CREATININE 0.9 MG/DL (0.55-1.30); POTASSIUM 3.6 MMOL/L (3.5-5.1); SODIUM 138 MMOL/L (136-145)
--- NOTE | 2020-01-11 18:34 | Diagnostic Imaging Report ---
EXAM: MR Lumbar Spine With and without Intravenous Contrast CLINICAL HISTORY: PAIN TECHNIQUE: Magnetic resonance images of the lumbar spine with and without intravenous contrast in multiple planes. COMPARISON: 11/22/2019 CT abdomen and pelvis. FINDINGS: Limitations: Limited due to metallic artifact. Vertebrae: Status post L3-L5 posterior fusion. No definite acute fracture. L4 compression status post vertebroplasty. Spinal cord: Unremarkable. Normal signal. No abnormal enhancement. Soft tissues: Posterior paraspinal edema. No definite abscess. DISCS/SPINAL CANAL/NEURAL FORAMINA: L1-L2: Ligamentum flavum hypertrophy. Facet arthropathy. No significant spinal canal stenosis. No significant neuroforaminal stenosis. L2-L3: Ligamentum flavum hypertrophy. Facet arthropathy. No significant spinal canal stenosis. No significant neuroforaminal stenosis. L3-L4: Postop changes. Limited due to metallic artifact. Ligamentum flavum hypertrophy. Facet arthropathy. Mild broad bulge. Mild-moderate spinal canal stenosis. No definite neuroforaminal stenosis. L4-L5: Postop changes. Limited due to metallic artifact. Ligamentum flavum hypertrophy. Facet arthropathy. Mild broad bulge. No significant spinal canal stenosis. No definite neuroforaminal stenosis. L5-S1: Limited due to metallic artifact. Ligamentum flavum hypertrophy. Facet arthropathy. Mild broad bulge. No significant spinal canal stenosis. No definite neuroforaminal stenosis. IMPRESSION: 1. Status post L3-L5 posterior fusion. Limited due to metallic artifact. 2. No definite acute fracture.
[2020-01-11] MEDS ORDERED: TYLENOL EXTRA500 MG ORAL (18:43)
[2020-01-11] MEDS ORDERED: LIDODERM700 M1 TOPIC (18:43)
[2020-01-11] MEDS ORDERED: CLOTRIMAZOLE15 GM TOPIC (18:53)
[2020-01-11 19:06] VITALS: BP 127/76
[2020-01-12] MEDS ORDERED: LIDOCAINE HC28.35 GM TP (13:17)
== END 2020-01-11 19:06 | disposition home or self-care (01) ==
LOC: EMR 15:15 → CANBEDREQ 18:44 → EMR 19:06
DX: G89.29 Other chronic pain (principal); M54.5 Low back pain; M25.562 Pain in left knee; M25.561 Pain in right knee; I10 Essential (primary) hypertension; E11.9 Type 2 diabetes mellitus without complications; F03.90 Unspecified dementia, unspecified severity, without behavioral disturbance, psychotic disturbance, mood disturbance, and anxiety; Z98.1 Arthrodesis status; R60.0 Localized edema
CPT/HCPCS: 36415; 72149; 80048; 81003; 85025; 99284; A9585

== ENCOUNTER 2020-01-18 18:09 | Emergency (ER) | payer MEDICARE, OTHER ==
[~2020-01-18] VITALS: Ht 152.4 cm; Wt 74.8 kg
[~2020-01-18 18:09] MED LIST changes: +CLOTRIMAZOLE15 GM TOPIC; +LIDOCAINE HC28.35 GM TP
[2020-01-18 19:17] VITALS: BP 102/61
[2020-01-18] MEDS ORDERED: NEURONTIN100 MG ORAL (20:24)
[2020-01-18] MEDS ORDERED: Ketorolac 60mg Inj IM ONE (20:30)
[2020-01-18 20:36] VITALS: BP 102/61
--- NOTE | 2020-01-18 20:57 | Emergency Room Report ---
History of Present Illness General Chief Complaint: Pain Source: Patient Present Illness HPI Patient presents with complaints of burning sensation to both of her feet also had some initial discomfort to the right hip and posterior thigh area Patient has had chronic history of back pain Denies any recent fall or trauma denies any fevers or chills patient had recent presentation with some similar complaints had MRI of the L-spine Was recommended for admission however refused admission denies any fevers or chills denies any saddle paresthesia Any loss of control of urination or bowel movement Allergies: Coded Allergies: Dust (Verified Allergy, Mild, Itching, 11/06/15) COVID-19 Screening Contact w/high risk pt: No Recent Travel to affected area: No Experienced COVID-19 symptoms?: No COVID-19 Testing performed RIDING DOUBLE: No Patient History Past Medical History: see triage record Last Menstrual Period: na Reviewed Nursing Documentation: PMH: Agreed; PSxH: Agreed Nursing Documentation-PMH Past Medical History: No History, Except For Hx Cardiac Problems: Yes - atrial fib Hx Hypertension: Yes Hx Pacemaker: No Hx Asthma: Yes Hx COPD: No Hx Diabetes: Yes Hx Cancer: No Hx Gastrointestinal Problems: No Hx Neurological Problems: Yes - lumbar surgery December 15, 2019 Hx Cerebrovascular Accident: No Hx Dementia: Yes Hx Seizures: No Review of Systems All Other Systems: negative except mentioned in HPI Physical Exam Vital Signs Date Time Temp Pulse Resp B/P (MAP) Pulse Ox O2 Delivery O2 Flow Rate FiO2 01/18/20 18:39 97.7 99 20 102/61 (75) 98 Room Air Sp02 EP Interpretation: reviewed, normal General Appearance: well appearing, no apparent distress Head: normocephalic, atraumatic Eyes: bilateral eye PERRL, bilateral eye EOMI ENT: hearing grossly normal, normal pharynx, TMs + canals normal, uvula midline Neck: full range of motion, supple, no meningismus, no bony tend Respiratory: lungs clear, normal breath sounds, no rhonchi, no respiratory distress, no retraction, no accessory muscle use Cardiovascular #1: normal peripheral pulses, regular rate, rhythm, no edema, no gallop, no JVD, no murmur Gastrointestinal: normal bowel sounds, non tender, soft, no mass, no organomegaly, non-distended, no guarding, no hernia, no pulsatile mass, no rebound Genitourinary: no CVA tenderness Musculoskeletal: normal inspection Neurologic: motor strength/tone normal, geotechnical engineer III-XII nml as tested, oriented x3 , sensory intact, responsive Psychiatric: mood/affect normal Skin: no rash Lymphatic: normal inspection, no adenopathy Medical Decision Making Diagnostic Impression: Primary Impression: neuropathy ER Course Multiple differentials including but not limited to neurological, neurosurgical , orthopedic infectious process entertained, Patient has a fairly benign medical evaluation at this time ambulatory appropriate musculoskeletal tone sensory intact Patient appears to have some correlation with neuropathy as well Patient has appropriate outpatient follow-up and is recommended to follow-up in the next 2 to 3 days Last Vital Signs Date Time Temp Pulse Resp B/P (MAP) Pulse Ox O2 Delivery O2 Flow Rate FiO2 01/18/20 20:36 97.7 79 20 102/61 98 Room Air Status: improved Disposition: HOME, SELF-CARE Condition: Improved Scripts Gabapentin* (NEURONTIN*) 100 Mg Capsule 200 MG ORAL BID, #12 CAP Prov: Luis Alberto Barlow DO 01/18/20 Referrals: Wilfred Boo MD (PCP) Patient Instructions: Neuropathic Pain Additional Instructions: Patient is provided with the discharge instructions notified to follow up with primary doctor in the next 2-3 days otherwise return to the er with any worsening symptoms. Please note that this report is being documented using Evgen technology. This can lead to erroneous entry secondary to incorrect interpretation by the dictating instrument. Luis Alberto Barlow DO Jan 18, 2020 20:57
== END 2020-01-18 20:37 | disposition home or self-care (01) ==
LOC: EMR 18:30
DX: G62.9 Polyneuropathy, unspecified (principal); M25.572 Pain in left ankle and joints of left foot; M25.571 Pain in right ankle and joints of right foot; M25.551 Pain in right hip; M79.651 Pain in right thigh; I10 Essential (primary) hypertension; E11.40 Type 2 diabetes mellitus with diabetic neuropathy, unspecified
CPT/HCPCS: 96372; 99283

== ENCOUNTER 2020-01-25 21:17 | Emergency (ER) | payer MEDICARE, OTHER ==
[~2020-01-25] VITALS: Ht 162.6 cm; Wt 49.9 kg
[~2020-01-25 21:17] MED LIST changes: +NEURONTIN100 MG ORAL
[2020-01-25 21:30] VITALS: BP 133/89
--- NOTE | 2020-01-25 21:30 | NUR ---
ED Nurse Note: Pt walked into ED accompanied by brother for c/o bilat foot pain onset one day ago. Pt notes her feet feel like they are burning. Pt has had similar complaints in the past and instructed to follow up with pain management clinic, which brother states they have not. Pt is aaox4, breathing is normal and unlabored. She is ambulatory with steady gait. No cough, SOB or fever.
--- NOTE | 2020-01-25 21:47 | Emergency Room Report ---
History of Present Illness General Chief Complaint: Pain Source: Patient Present Illness HPI Patient is a 74-year-old female presents after increased bilateral burning sensation to both feet. Previous history of chronic pain as well as difficulty with injections patient had previous back surgery as well as MRI to her lumbar spine. Patient is previously been referred to pain management. Had not been vomiting or having any fever. Denies any other locations of discomfort.Patient had prior recent ER visits for similar symptoms in the past. Onset of symptoms over the past few days. Had previously been on narcotics as well as multiple other medications for pain. Allergies: Coded Allergies: Dust (Verified Allergy, Mild, Itching, 11/06/15) COVID-19 Screening Contact w/high risk pt: No Recent Travel to affected area: No Experienced COVID-19 symptoms?: No COVID-19 Testing performed CUSHION FILLER: No COVID-19 Screening: Negative COVID-19 Patient History Past Medical History: see triage record Last Menstrual Period: n/a Reviewed Nursing Documentation: PMH: Agreed; PSxH: Agreed Nursing Documentation-PMH Past Medical History: No History, Except For Hx Cardiac Problems: Yes - atrial fib Hx Hypertension: Yes Hx Pacemaker: No Hx Asthma: Yes Hx COPD: No Hx Diabetes: Yes Hx Cancer: No Hx Gastrointestinal Problems: No Hx Neurological Problems: Yes - lumbar surgery December 15, 2019 Hx Cerebrovascular Accident: No Hx Dementia: Yes Hx Seizures: No Review of Systems All Other Systems: negative except mentioned in HPI Physical Exam Vital Signs Date Time Temp Pulse Resp B/P (MAP) Pulse Ox O2 Delivery O2 Flow Rate FiO2 01/25/20 21:29 98.1 88 18 133/89 (104) 97 Room Air General Appearance: well appearing, no apparent distress, alert, GCS 15, Chronically Ill Head: normocephalic, atraumatic ENT: hearing grossly normal, normal voice Neck: full range of motion, supple Respiratory: no respiratory distress, speaking full sentences Cardiovascular #1: normal inspection, no edema Gastrointestinal: normal inspection Musculoskeletal: normal inspection, swelling, no calf tenderness Neurologic: alert, motor strength/tone normal, wireless development manager III-XII nml as tested, oriented x3, normal gait Psychiatric: mood/affect normal Skin: no rash, other - Bilateral lower extremity discomfort without any evidence of erythema or discoloration, brisk cap refill Medical Decision Making Diagnostic Impression: Primary Impression: Chronic pain ER Course Patient presented for bilateral lower extremity pain. Differential diagnosis include was not limited to neuropathy, contact dermatitis, among others. Patient has a benign exam and does not appear to require any imaging or laboratory testing at this time. Patient has prior history of chronic pain and is previously been referred to pain management. She was again advised to follow -up with pain management physician. She was given prescription for gabapentin. She was advised to follow-up with Dr. Boo. Does not appear to require any imaging studies at this time. Does not appear to be in any acute distress and pain appears to be chronic in nature. The patient is advised to follow up with primary care doctor in 1-2 days. Patient is advised to return if any worsening condition or if any changes in status that are concerning. This report is dictated with [email or web address] integrated circuits inspector software which may occasionally lead to discrepancies related to use of this software. Last Vital Signs Date Time Temp Pulse Resp B/P (MAP) Pulse Ox O2 Delivery O2 Flow Rate FiO2 01/25/20 21:29 98.1 88 18 133/89 (104) 97 Room Air Status: improved Disposition: HOME, SELF-CARE Condition: Stable Scripts Gabapentin* (GABAPENTIN*) 100 Mg Capsule 200 MG ORAL THREE TIMES A DAY, #20 CAP Prov: Eduardo Marquez MD 01/25/20 Diclofenac Sodium (VOLTAREN) 100 Gm Gel..gram. 5 GM TP TWICE A WEEK, #100 GM Prov: Eduardo Marquez MD 01/25/20 Eduardo Marquez MD Jan 25, 2020 21:47
[2020-01-25] MEDS ORDERED: GABAPENTIN100 MG ORAL (21:50)
[2020-01-25] MEDS ORDERED: VOLTAREN100 G1 TP (21:50)
[2020-01-25 22:05] VITALS: BP 129/85
== END 2020-01-25 22:30 | disposition home or self-care (01) ==
LOC: EMR 22:09
DX: G89.29 Other chronic pain (principal); M25.572 Pain in left ankle and joints of left foot; M25.571 Pain in right ankle and joints of right foot; I10 Essential (primary) hypertension; F03.90 Unspecified dementia, unspecified severity, without behavioral disturbance, psychotic disturbance, mood disturbance, and anxiety; E11.9 Type 2 diabetes mellitus without complications
CPT/HCPCS: 99282

== ENCOUNTER 2020-05-14 11:50 | Emergency (ER) | payer MEDICARE, OTHER ==
[~2020-05-14] VITALS: Ht 162.6 cm; Wt 64.4 kg
[~2020-05-14 11:50] MED LIST changes: +DEBROX15 M1 RIGHT EAR; +GABAPENTIN100 MG ORAL
--- NOTE | 2020-05-14 12:06 | NUR ---
ED Nurse Note: Patient from [facility] and walked in due to reports of elevated blood pressure of 147/64. Pt denies any CP, dizziness or headache. Patient takes carvedilol at home. AAO x4, ambulatory with non labored breathing.
--- NOTE | 2020-05-14 12:15 | NUR ---
ED Nurse Note: Dr Leone at the bed side.
[2020-05-14 12:17] VITALS: BP 141/95
[2020-05-14 13:33] VITALS: BP 125/70
--- NOTE | 2020-05-14 13:33 | NUR ---
ER DISCHARGE NOTE: Patient is cleared to be discharged per ERMD, pt is aox4, on room air, with stable vital signs. pt was given dc instructions, pt was able to verbalize understanding, pt id band removed. pt is able to ambulate with steady gait. pt took all belongings and left with her brother.
--- NOTE | 2020-05-15 06:27 | Emergency Room Report ---
History of Present Illness General Chief Complaint: Hypertension Source: Patient, Medical Record Present Illness HPI 74-year-old female presents to ED for high blood pressure. Brother at bedside. States that when he checked her blood pressure today BP was "high". Was 145 systolic. This is high for her. States she takes carvedilol. States that the states that she takes carvedilol. States that when her blood pressure was high he gave her a second dose of the medication. Patient denies any dizziness or headache. Denies any chest pain or shortness of breath. No other aggravating relieving factors. Denies any other associated symptoms Allergies: Coded Allergies: Dust (Verified Allergy, Mild, Itching, 11/06/15) COVID-19 Screening Contact w/high risk pt: No Recent Travel to affected area: No Experienced COVID-19 symptoms?: No COVID-19 Testing performed BEHAVIORAL HEALTH AIDE: No Patient History Past Medical History: DM, HTN, AFib, asthma Past Surgical History: other - Back surgery Pertinent Family History: none Social History: Denies: smoking, alcohol use, drug use Now: No Immunizations: UTD Reviewed Nursing Documentation: PMH: Agreed; PSxH: Agreed Nursing Documentation-PMH Past Medical History: No History, Except For Hx Cardiac Problems: Yes - atrial fib Hx Hypertension: Yes Hx Pacemaker: No Hx Asthma: Yes Hx COPD: No Hx Diabetes: Yes Hx Cancer: No Hx Gastrointestinal Problems: No Hx Neurological Problems: Yes - lumbar surgery December 15, 2019 Hx Cerebrovascular Accident: No Hx Dementia: Yes Hx Seizures: No Review of Systems All Other Systems: negative except mentioned in HPI Physical Exam Vital Signs Date Time Temp Pulse Resp B/P (MAP) Pulse Ox O2 Delivery O2 Flow Rate FiO2 05/14/20 11:56 98.4 84 14 147/94 (111) 94 Room Air Sp02 EP Interpretation: reviewed, normal General Appearance: no apparent distress, alert, GCS 15, non-toxic Head: normocephalic, atraumatic Eyes: bilateral eye normal inspection, bilateral eye PERRL ENT: hearing grossly normal, normal pharynx, no angioedema, normal voice Neck: full range of motion, supple/symm/no masses Respiratory: chest non-tender, lungs clear, normal breath sounds, speaking full sentences Cardiovascular #1: regular rate, rhythm, no edema Cardiovascular #2: 2+ carotid (R), 2+ carotid (L), 2+ radial (R), 2+ radial (L), 2+ dorsalis pedis (R), 2+ dorsalis pedis (L) Gastrointestinal: normal bowel sounds, non tender, soft, non-distended, no guarding, no rebound Rectal: deferred Genitourinary: normal inspection, no CVA tenderness Musculoskeletal: back normal, normal range of motion, gait/station normal, non- tender Neurologic: alert, motor strength/tone normal, oriented x3, sensory intact, responsive, speech normal Psychiatric: judgement/insight normal, memory normal, mood/affect normal, no suicidal/homicidal ideation Reflexes: 3+ bicep (R), 3+ bicep (L), 3+ tricep (R), 3+ tricep (L), 3+ knee (R), 3+ knee (L) Lymphatic: no adenopathy Medical Decision Making Diagnostic Impression: Primary Impression: Hypertension Qualified Codes: I10 - Essential (primary) hypertension ER Course Hospital Course 74-year-old female presents with high blood pressure. Denies any complaints Differential diagnoses include: hypertensive urgency, hypertensive emergency, arrythmia, SD/ACS Clinical course Patient placed on stretcher. After initial history physical exam reveals elderly female in no acute distress. No focal deficits. Speaking comfortably during exam. Denies pain. Patient observed in ED. During ED course patient's BP did go down. I discussed findings with patient and brother. I explained that while systolic BP of 145 is "elevated" it is not something that requires emergent evaluation or treatment especially if patient is asymptomatic. I also explained that taking a second dose of a long-acting medication such as carvedilol could be more dangerous and drop her blood pressure. I provided patient and brother with hold parameters on her medication. Safe for discharge with close outpatient follow-up. States she has a PMD I. I feel this is a highly complex case requiring extensive working including EKG/Rhythm strip, Xray/CT/US, Blood/urine lab work, repeat exams while in ED, and administration of strong opiates/narcotics for pain control, admission to hospital or close patient follow up. Diagnosis - hypertension Stable and discharged to home. Instructed to followup with PMD. Return to ED if symptoms recur or worsen Last Vital Signs Date Time Temp Pulse Resp B/P (MAP) Pulse Ox O2 Delivery O2 Flow Rate FiO2 05/14/20 13:33 98.3 79 20 125/70 98 Room Air Status: improved Disposition: HOME, SELF-CARE Condition: Stable Referrals: Wilfred Boo MD (PCP) Patient Instructions: Hypertension, Saei-ps-Flxn Jeremy Leone MD May 15, 2020 06:26
== END 2020-05-14 13:33 | disposition home or self-care (01) ==
LOC: EMR 12:26
DX: I10 Essential (primary) hypertension (principal); E11.9 Type 2 diabetes mellitus without complications; Z91.048 Other nonmedicinal substance allergy status; F03.90 Unspecified dementia, unspecified severity, without behavioral disturbance, psychotic disturbance, mood disturbance, and anxiety
CPT/HCPCS: 99282

== ENCOUNTER 2020-05-31 02:39 | Inpatient (IN) | payer MEDICARE, OTHER ==
[~2020-05-31] VITALS: Ht 165.1 cm; Wt 64.9 kg
[2020-05-31] MEDS ORDERED: Albuterol 90mcg Inhaler 8gm INH ONE (03:00)
[2020-05-31] MEDS ORDERED: LORazepam Inj 2mg/ml 1ml IV ONE (03:00)
--- NOTE | 2020-05-31 03:00 | NUR ---
ED Nurse Note: Patient walked to the ED from home accompanied by brother with c/o SOB. Pts brother stated that he gave carvedilol last night and a sleeping pill bought in [place] before onset of SOB. O2 sat at bedside 97%, RR at 22bpm. Patient denies CP, flu like s/sx, fever and chills, N&V, trauma or injury. Patient is AAOX4 and ambulatory. Placed on monitor bed
--- NOTE | 2020-05-31 03:00 | Emergency Room Report ---
History of Present Illness General Chief Complaint: Dyspnea/Respdistress Source: Patient, Family Member Present Illness HPI This is a 74-year-old female with a history of high blood pressure, diabetes, A. fib for which she is taking Eliquis. She presents with chief complaint of shor tness of breath. Onset 2030 minutes prior to arrival. She said that she felt like she cannot take her breath. Her brother said that her blood pressure was high today. He said the her systolic was in the 140s and diastolic in the 120s to 130s. He gave her her carvedilol. She denies any fever chills. No nausea no vomiting. Worse with inspiration. Better with rest. Denies any chest pain. Denies any sore throat. No exertional component. Never had this problem before. Allergies: Coded Allergies: Dust (Verified Allergy, Mild, Itching, 11/06/15) COVID-19 Screening Contact w/high risk pt: No Recent Travel to affected area: No Experienced COVID-19 symptoms?: Yes COVID-19 Testing performed LUMBER CHECKER: No Patient History Past Medical History: see triage record, old chart reviewed, DM, HTN, AFib Past Surgical History: other Pertinent Family History: none Social History: Denies: smoking Last Menstrual Period: n/a Now: No Immunizations: other Reviewed Nursing Documentation: PMH: Agreed; PSxH: Agreed Nursing Documentation-PMH Hx Cardiac Problems: Yes - atrial fib Hx Hypertension: Yes Hx Pacemaker: No Hx Asthma: Yes Hx COPD: No Hx Diabetes: Yes Hx Cancer: No Hx Gastrointestinal Problems: No Hx Neurological Problems: Yes - lumbar surgery December 15, 2019 Hx Cerebrovascular Accident: No Hx Dementia: Yes Hx Seizures: No Physical Exam Vital Signs Date Time Temp Pulse Resp B/P (MAP) Pulse Ox O2 Delivery O2 Flow Rate FiO2 05/31/20 02:42 97.7 86 22 152/95 (114) 93 Room Air Medical Decision Making Diagnostic Impression: Primary Impression: Acute exacerbation of CHF (congestive heart failure) Qualified Codes: I50.9 - Heart failure, unspecified Additional Impression: UTI (urinary tract infection) Qualified Codes: N30.00 - Acute cystitis without hematuria ER Course This patient presents with acute onset of shortness of breath. Chest x-ray and lab showed CHF. She has a history of cardiomyopathy with ejection fraction around 35% on the last echocardiogram. She diuresed well here. Antibiotics also given. No evidence of ACS, PE, dissection to name a few. Will admit for further work-up and diuresis. I contacted Dr. Thompson for admission. EKG Diagnostic Results Rate: normal Rhythm: NSR ST Segments: other - NSST changes Rhythm Strip Diag. Results EP Interpretation: yes Rate: 86 Rhythm: NSR, no PVC's, no ectopy Chest X-Ray Diagnostic Results Chest X-Ray Diagnostic Results : Chest X-Ray Ordered: Yes # of Views/Limited/Complete: 1 View Indication: Shortness of Breath EP Interpretation: Yes Interpretation: no consolidation, no effusion, no pneumothorax, other - CM with vasc congestion Impression: Other - chf Electronically Signed by: Micah Martinez MD Last Vital Signs Date Time Temp Pulse Resp B/P (MAP) Pulse Ox O2 Delivery O2 Flow Rate FiO2 05/31/20 02:42 97.7 86 22 152/95 (114) 93 Room Air Status: improved Disposition: ADMITTED INPATIENT Condition: Serious Micah Martinez MD May 31, 2020 03:00
--- NOTE | 2020-05-31 03:01 | NUR ---
ED Nurse Note: ERmd at bedside
--- NOTE | 2020-05-31 03:15 | NUR ---
ED Nurse Note: Blood sent to lab
--- NOTE | 2020-05-31 03:16 | NUR ---
ED Nurse Note: Rapid covid test sent Breathing tx done Urine sent to lab
[2020-05-31 03:21] LABS: BASOPHILS % (AUTO) 0.7 % (0.0-2.0); EOSINOPHILS % (AUTO) 1.8 % (0.0-3.0); HEMATOCRIT 41.3 % (37.0-47.0); HEMOGLOBIN 13.1 G/DL (12.0-16.0); LYMPHOCYTES % (AUTO) 22.9 % (20.0-45.0); MEAN CORPUSCULAR VOLUME 88 FL (80-99); MONOCYTES % (AUTO) 8.1 % (1.0-10.0); NEUTROPHILS % (AUTO) 66.5 % (45.0-75.0); PLATELET COUNT 271 K/UL (150-450); RED BLOOD COUNT 4.68 M/UL (4.20-5.40); RED CELL DISTRIBUTION WIDTH 13.8 % (11.6-14.8); WHITE BLOOD COUNT 7.6 K/UL (4.8-10.8)
--- NOTE | 2020-05-31 03:30 | NUR ---
ED Nurse Note: CXR done
[2020-05-31 03:33] LABS: CALCIUM 8.6 MG/DL (8.5-10.1); CREATININE 1.3 MG/DL (0.55-1.30); POTASSIUM 3.4 MMOL/L (3.5-5.1)
[2020-05-31 03:44] LABS: ALBUMIN 3.5 G/DL (3.4-5.0); BILIRUBIN,TOTAL 1.1 MG/DL (0.2-1.0)
[2020-05-31 03:48] LABS: APPEARANCE,URINE CLEAR; BILIRUBIN, URINE NEGATIVE (NEGATIVE); COLOR,URINE PALE YELLOW; GLUCOSE, URINE (UA) NEGATIVE (NEGATIVE); KETONES,URINE NEGATIVE (NEGATIVE); LEUKOCYTE ESTERASE ,URINE 3+ (NEGATIVE); NITRITE,URINE NEGATIVE (NEGATIVE); PH,URINE 6 (4.5-8.0); PROTEIN,URINE 1+ (NEGATIVE); UROBILINOGEN,URINE NORMAL MG/DL (0.0-1.0)
[2020-05-31 03:49] LABS: BILIRUBIN,DIRECT 0.2 MG/DL (0.0-0.3)
[2020-05-31 03:52] VITALS: BP 160/98
[2020-05-31] MEDS ORDERED: cefTRIAXone 1 GM in NS 55 ML IVPB ONE (04:15)
--- NOTE | 2020-05-31 05:00 | NUR ---
ED Nurse Note: Post furo output approx 900mls of urine
[2020-05-31] MEDS ORDERED: AMBIEN5 MG ORAL (05:13)
[2020-05-31] MEDS ORDERED: FUROSEMIDE40 MG ORAL (05:13)
[2020-05-31] MEDS ORDERED: ELIQUIS5 MG ORAL (05:13)
[2020-05-31] MEDS ORDERED: DOCUSATE SODIU100 MG ORAL (05:13)
[2020-05-31] MEDS ORDERED: AMIODARONE HCL400 M1 ORAL (05:13)
--- NOTE | 2020-05-31 05:14 | NUR ---
ED Nurse Note: Report given to Ravindra EATON
--- NOTE | 2020-05-31 05:15 | NUR ---
TRANSFER TO FLOOR: Patient transferred to TELE at rm 202-1 via gurney, accompanied by RN and histopathology technician. Belongings checked and given to RN. Patient transferred safely to bed and endorsed to RN
[2020-05-31 05:30] VITALS: BP 141/87
--- NOTE | 2020-05-31 05:30 | NUR ---
NURSE NOTES: Patient arrived to unit via stretcher. Report received from Augusto ED RN. Patient is noted to be awake and alert x 4. Patient has no complaints of chest pain or shortness of breath at this time. Patient was able to get up out of bed with minimal assistance. Patient ambulated with steady gait to bathroom to void. Was endorsed to Ravindra EATON that patient was given lasix in ED, was endorsed to Ravindra EATON that patient voided 1,000 cc of urine in the ED. Patient has no again voided. Endorsed to Ravindra EATON that urine sample was obtained in ED. Patient safely in bed. Patients legs and feet appear to be swollen bilaterally per observation of Ravindra EATON, patient is unsure if there is a change in her legs at this time. No pitting edema is noted by Ravindra EATON. Patient is noted to have diminished lung sounds at the base, but has an oxygen saturation of 98 % on room with no complaints of chest pain or shortness of breath. Patient is noted to have clean, dry, and intact skin. Patient is noted to have 20 tita IV acces in left AC. ID band noted. Patients vital signs as followed Oxygen: 98 % room air Respirations: 18 respirations a minute Heart rate: 84 beats per minute Blood Pressure: 141/87 Temperature: 97.7 degrees Fahrenheit Patient's brother is currently at beside. Patient's brother assistce with taking care of patient and assisted Ravindra EATON with patient's healthy history and home medications. Patient's brother and patient informed Ravindra EATON that she took three doses of Carvedilol this morning. Patient claims that her diastolic pressure was greater than 120, thus why she took the medication more than once. It was after the third dose that the patient became short of breath and decided to seek medical attention. Note that patient is not currently short of breath. Fall safety reviewed with patient. Proper use of call light reviewed with patient. Patient verbalized understanding. Bed is locked and in lowest position. Call light in reach. Ravindra EATON paged admitting doctor, Doctor Boo regarding admitting orders.
--- NOTE | 2020-05-31 07:26 | NUR ---
NURSE HAND-OFF REPORT: Important Events on Shift: Patient was recent admission. admission completed. Doctor Lynne currently in the room speaking to patient. patient in stable condition. Patient Status: full code Diet: cardiac Pending Orders: none Pending Results/Labs:none Pending MD notification:none Latest Vital Signs: Temperature 97.0 , Pulse 84 , B/P 141 /87 , Respiratory Rate 18 , O2 SAT 98 , Room Air, O2 Flow Rate . Vital Sign Comment: within normal limits. EKG Rhythm: 1st Degree AV block Rhythm change?: MD Notified?: - MD Response: Latest Galaviz Fall Score: 25 Fall Risk: Medium Risk Safety Measures: Call light Within Reach, Bed Alarm , Side Rails Side Rails x2, Bed position Low and Locked. Fall Precautions: Yellow Socks Yellow Gown Door Sign Patient Fall Education Report given to Josefa EATON.
--- NOTE | 2020-05-31 07:28 | NUR ---
NURSE NOTES: Received patietn in bed. Awake, A/O x4. On room air, respirations unlabored. Brother at bedside. Patient denies pain. IV in the Left AC, site intact. Bed at the lowest position, side rails up x2.
[2020-05-31] MEDS ORDERED: Carvedilol 6.25mg Tab ORAL SCH (09:00)
[2020-05-31] MEDS ORDERED: Amiodarone 200mg tab ORAL SCH (09:00)
[2020-05-31] MEDS ORDERED: Eliquis 5mg tablet ORAL SCH (09:00)
[2020-05-31] MEDS ORDERED: Docusate 100mg cap ORAL SCH (09:00)
[2020-05-31] MEDS ORDERED: Aspirin EC 81mg tab ORAL SCH (09:00)
[2020-05-31 09:24] VITALS: BP 145/91
[2020-05-31 09:32] VITALS: BP 145/91
--- NOTE | 2020-05-31 09:42 | Diagnostic Imaging Report ---
Indication: Leg pain Technique: Grayscale and duplex images of the bilateral lower extremity veins Comparison: None Findings: Bilaterally, grayscale and duplex images demonstrate no evidence of intraluminal thrombus. Normal phasic Doppler waveforms, demonstrating normal augmentation response and no evidence of valvular insufficiency. Greater saphenous vein(s) and tibial veins are patent. Normal compressibility. Impression: Negative for evidence of lower extremity deep venous thrombosis bilaterally
--- NOTE | 2020-05-31 09:44 | Consultation ---
Consult Note Consult Note 73-year-old female presents with worsening shortness of breath and atrial fibrillation She does have cardiomyopathy. She was previously intubated but has been stable. Patient brought to the emergency room and was given IV lasix with improvement. The patient denies any chest pain at present. No radiation of pain. care noted and reviewed PAST MEDICAL HISTORY: Notable for obstructive sleep apnea, asthma, hypertension, cardiomyopathy, atrial fibrillation, hypercholesteremia, carotid stenosis, diabetes, and pulmonary hypertension. MEDICATIONS: Reviewed. ALLERGIES: Reviewed. SOCIAL HISTORY: The patient is a nonsmoker and nondrinker. She is retired at present. She lives with her brother. REVIEW OF SYSTEMS: All 10 points reviewed are otherwise negative. The patient's medications and allergies are reviewed in detail. PHYSICAL EXAMINATION: GENERAL: A well-developed female. The patient is currently in NAD HEENT: Negative. Extraocular movements are intact. NECK: Supple. LUNGS: Fairly clear overall. No rhonchi or wheezes. some crackles CARDIAC: Irregularly irregular and rate controlled ABDOMEN: Soft, nontender, and nondistended. EXTREMITIES: No cyanosis, clubbing, or edema. NEUROLOGIC: Grossly nonfocal. LABORATORY DATA: Labs Test 05/31/20 03:15 05/31/20 03:40 White Blood Count 7.6 K/UL (4.8-10.8) Red Blood Count 4.68 M/UL (4.20-5.40) Hemoglobin 13.1 G/DL (12.0-16.0) Hematocrit 41.3 % (37.0-47.0) Mean Corpuscular Volume 88 FL (80-99) Mean Corpuscular Hemoglobin 28.0 PG (27.0-31.0) Mean Corpuscular Hemoglobin Concent 31.7 G/DL (32.0-36.0) Red Cell Distribution Width 13.8 % (11.6-14.8) Platelet Count 271 K/UL (150-450) Mean Platelet Volume 8.4 FL (6.5-10.1) Neutrophils (%) (Auto) 66.5 % (45.0-75.0) Lymphocytes (%) (Auto) 22.9 % (20.0-45.0) Monocytes (%) (Auto) 8.1 % (1.0-10.0) Eosinophils (%) (Auto) 1.8 % (0.0-3.0) Basophils (%) (Auto) 0.7 % (0.0-2.0) D-Dimer 0.41 mg/L FEU (0.00-0.49) Sodium Level 139 MMOL/L (136-145) Potassium Level 3.4 MMOL/L (3.5-5.1) Chloride Level 104 MMOL/L (98-107) Carbon Dioxide Level 26 MMOL/L (21-32) Anion Gap 9 mmol/L (5-15) Blood Urea Nitrogen 30 mg/dL (7-18) Creatinine 1.3 MG/DL (0.55-1.30) Estimat Glomerular Filtration Rate 39.9 mL/min (>60) Glucose Level 166 MG/DL (74-106) Calcium Level 8.6 MG/DL (8.5-10.1) Total Bilirubin 1.1 MG/DL (0.2-1.0) Direct Bilirubin 0.2 MG/DL (0.0-0.3) Aspartate Amino Transf (AST/SGOT) 44 U/L (15-37) Alanine Aminotransferase (ALT/SGPT) 39 U/L (12-78) Alkaline Phosphatase 83 U/L (46-116) Troponin I 0.018 ng/mL (0.000-0.056) Pro-B-Type Natriuretic Peptide 5852 pg/mL (0-125) Total Protein 6.9 G/DL (6.4-8.2) Albumin 3.5 G/DL (3.4-5.0) Globulin 3.4 g/dL Albumin/Globulin Ratio 1.0 (1.0-2.7) Urine Color Pale yellow Urine Appearance Clear Urine pH 6 (4.5-8.0) Urine Specific [place] 1.015 (1.005-1.035) Urine Protein 1+ (NEGATIVE) Urine Glucose (UA) Negative (NEGATIVE) Urine Ketones Negative (NEGATIVE) Urine Blood 4+ (NEGATIVE) Urine Nitrite Negative (NEGATIVE) Urine Bilirubin Negative (NEGATIVE) Urine Urobilinogen Normal MG/DL (0.0-1.0) Urine Leukocyte Esterase 3+ (NEGATIVE) Urine RBC 10-15 /HPF (0 - 2) Urine WBC 15-20 /HPF (0 - 2) Urine Squamous Epithelial Cells Few /LPF (NONE/OCC) Urine Bacteria Few /HPF (NONE) IMPRESSION: 1. Atrial fibrillation 2. Pulmonary edema. 3. Cardiomyopathy 4. History of asthma. 5. History of obstructive sleep apnea. 6. Insomnia 7. Chronic pain PLAN respiratory care diurese monitor oxygen needs continue with home meds on anticoagulation monitor rate stabilize d/w brother dc planning soon impression, plan, and exam edited and reviewed in detail care discussed with Wilfred Ricks MD May 31, 2020 09:44
--- NOTE | 2020-05-31 09:44 | Pulmonology Progress Note ---
Subjective Allergies: Coded Allergies: Dust (Verified Allergy, Mild, Itching, 11/06/15) Objective Last 24 Hour Vital Signs Date Time Temp Pulse Resp B/P (MAP) Pulse Ox O2 Delivery O2 Flow Rate FiO2 05/31/20 09:32 86 145/91 05/31/20 09:24 96.4 86 24 145/91 (109) 98 05/31/20 06:25 Room Air 05/31/20 05:30 97.0 84 18 141/87 (105) 98 05/31/20 05:16 97.7 76 20 149/87 97 Room Air 05/31/20 03:52 78 22 Room Air 05/31/20 03:52 97.7 76 22 160/98 97 Room Air 05/31/20 03:04 80 29 160/98 97 05/31/20 02:42 97.7 86 22 152/95 (114) 93 Room Air Microbiology Date/Time Source Procedure Growth Status 05/31/20 03:15 Nasopharynx SARS-CoV-2 RdRp Gene Assay - Final Complete Laboratory Tests 05/31/20 03:15: White Blood Count 7.6, Red Blood Count 4.68, Hemoglobin 13.1, Hematocrit 41.3, Mean Corpuscular Volume 88, Mean Corpuscular Hemoglobin 28.0, Mean Corpuscular Hemoglobin Concent 31.7L, Red Cell Distribution Width 13.8, Platelet Count 271, Mean Platelet Volume 8.4, Neutrophils (%) (Auto) 66.5, Lymphocytes (%) (Auto) 22.9, Monocytes (%) (Auto) 8.1, Eosinophils (%) (Auto) 1.8, Basophils (%) (Auto) 0.7, D-Dimer 0.41, Sodium Level 139, Potassium Level 3.4L, Chloride Level 104, Carbon Dioxide Level 26, Anion Gap 9, Blood Urea Nitrogen 30H, Creatinine 1.3, Estimat Glomerular Filtration Rate 39.9, Glucose Level 166H, Calcium Level 8.6, Total Bilirubin 1.1H, Direct Bilirubin 0.2, Aspartate Amino Transf (AST/SGOT) 44H, Alanine Aminotransferase (ALT/SGPT) 39, Alkaline Phosphatase 83, Troponin I 0.018, Pro-B-Type Natriuretic Peptide 5852H, Total Protein 6.9, Albumin 3.5, Globulin 3.4, Albumin/Globulin Ratio 1.0 05/31/20 03:40: Urine Color Pale yellow, Urine Appearance Clear, Urine pH 6, Urine Specific [place] 1.015, Urine Protein 1+H, Urine Glucose (UA) Negative, Urine Ketones Negative, Urine Blood 4+H, Urine Nitrite Negative, Urine Bilirubin Negative, Urine Urobilinogen Normal, Urine Leukocyte Esterase 3+H, Urine RBC 10-15H, Urine WBC 15-20H, Urine Squamous Epithelial Cells Few, Urine Bacteria Few Current Medications Medications (Trade) Dose Ordered Sig/Aisha Route PRN Reason Start Time Stop Time Status Last Admin Dose Admin Acetaminophen (Tylenol) 650 mg Q4H PRN ORAL Mild Pain (Pain Scale 1-3) 05/31/20 07:00 06/30/20 06:59 Al Hydroxide/Mg Hydroxide (Mylanta) 30 ml Q4H PRN ORAL dyspepsia 05/31/20 07:00 06/30/20 06:59 Amiodarone HCl (Cordarone) 400 mg EVERY 12 HOURS ORAL 05/31/20 09:00 08/29/20 08:59 05/31/20 09:31 Apixaban (Eliquis) 5 mg BID ORAL 05/31/20 09:00 08/29/20 08:59 05/31/20 09:31 Aspirin (Ecotrin) 81 mg DAILY ORAL 05/31/20 09:00 07/15/20 08:59 Carvedilol (Coreg) 6.25 mg EVERY 12 HOURS ORAL 05/31/20 09:00 06/30/20 08:59 05/31/20 09:32 Ceftriaxone Sodium 1 gm/ Dextrose 55 ml @ 110 mls/hr Q24H IVPB 06/01/20 04:00 06/08/20 03:59 Docusate Sodium (Colace) 100 mg TWICE A DAY ORAL 05/31/20 09:00 06/30/20 08:59 05/31/20 09:30 Furosemide (Lasix) 40 mg DAILY IV 05/31/20 09:00 06/30/20 08:59 05/31/20 09:30 Gabapentin (Neurontin) 200 mg THREE TIMES A DAY ORAL 05/31/20 09:00 06/30/20 08:59 05/31/20 09:30 Montelukast Sodium (Singulair) 10 mg QPM ORAL 05/31/20 16:30 08/29/20 16:29 Pantoprazole (Protonix) 40 mg DAILY ORAL 05/31/20 09:00 06/30/20 08:59 05/31/20 09:32 Zolpidem Tartrate (Ambien) 5 mg HSPRN PRN ORAL Insomnia 05/31/20 21:00 06/07/20 20:59 Wilfred Boo MD May 31, 2020 09:44
--- NOTE | 2020-05-31 10:00 | History and Physical Report ---
DATE OF ADMISSION: 05/31/2020 CHIEF COMPLAINT: Shortness of breath, hypertension, atrial fibrillation, chronic back pain HISTORY OF PRESENT ILLNESS: The patient presented with complaints of uncontrolled hypertension and shortness of breath. According to the patient and her brother, she had diastolic pressures in the 120 to 130 range. Brother gave her extra doses of carvedilol without any improvement. Because of her high blood pressure and shortness of breath, she presented to the emergency room. On evaluation there, the patient complained mostly of sore throat and mild shortness of breath. She denies any chest pain. No fevers or chills. Denies any cough. PAST MEDICAL HISTORY: As above. PAST SURGICAL HISTORY: Includes back surgery. CURRENT MEDICATIONS: Reconciled and reviewed. ALLERGIES: Include dust. FAMILY HISTORY: Noncontributory. SOCIAL HISTORY: Negative for tobacco, ethanol, or drugs. REVIEW OF SYSTEMS: GENERAL: No fevers or chills. HEENT: No headaches or visual changes. CARDIOPULMONARY: Positive shortness of breath, but no chest pain or palpitations. GASTROINTESTINAL: No nausea or vomiting. GENITOURINARY: No urgency or frequency. MUSCULOSKELETAL: No joint pain or swelling. NEUROLOGIC: No evidence of seizures. PHYSICAL EXAMINATION: VITAL SIGNS: Temperature 97, pulse 84, respirations 18, and blood pressure 160/98. GENERAL: The patient is well developed, in no apparent distress. HEENT: Head is normocephalic and atraumatic. Sclerae are anicteric. Oropharynx is clear. NECK: Supple. HEART: Regular rate and rhythm. LUNGS: Clear. ABDOMEN: Soft, nontender, and nondistended. EXTREMITIES: Without clubbing, cyanosis, or edema. NEUROLOGIC: Motor strength is 5/5 bilaterally. There is a well-healed scar in the lumbar area. LABORATORY DATA: Sodium 139, potassium 3.4. Troponin 0.018. Natriuretic peptide level is 5800. Urine showed 15 to 20 wbc's. ASSESSMENT: This is a pleasant female with history of hypertension, atrial fibrillation, and diabetes, admitted with complaints of shortness of breath possibly secondary to CHF exacerbation and uncontrolled hypertension. The patient also appears to have urinary tract infection. PLAN: 1. Monitor on tele. 2. Titrate antihypertensive regimen. 3. Follow up urine cultures. 4. Empiric antibiotics for UTI. 5. Check a venous duplex of the legs. Claus Batista M.D. DR: KYLE JOB#: [id number] CC:
--- NOTE | 2020-05-31 12:12 | NUR ---
CASE MANAGEMENT:REVIEW 74YR OLD MALE PRESENTED TO ER CC: SOB SI: ACUTE CHF EXACERBATION. UTI 97.7 86 22 152/95 93% ON RA BNP+5852 IS: IV ATIVAN ALBUTEROL INH IV LASIX IV ROCEPHIN CXR : TO TELEMETRY IS: IV LASIX
--- NOTE | 2020-05-31 13:12 | NUR ---
NURSE NOTES: Received order from Dr. Boo to discharge patient to home. Continue home meds. No antibiotics upon discharge.
--- NOTE | 2020-05-31 14:00 | NUR ---
NURSE NOTES: Patient dc to home with brother in private car. Belongings list verified, ID band removed, IV removed.
--- NOTE | 2020-05-31 15:00 | Cardiology Report ---
APPROVED REPORT EKG Measurement Heart [id number] <Conclusion> Sinus rhythm with 1st degree AV block Pulmonary disease pattern Incomplete right bundle branch block Left anterior fascicular block Septal infarct, age undetermined Abnormal ECG
[2020-05-31] MEDS ORDERED: Montelukast 10mg tablet ORAL SCH (16:30)
--- NOTE | 2020-05-31 16:53 | Diagnostic Imaging Report ---
Indication: Shortness of breath Technique: One view of the chest Comparison: 04/09/2020 Findings: There is mild cardiomegaly. Interim development of bilateral interstitial edema with Raffy B-lines. The pleural spaces are grossly clear. Impression: Cardiomegaly with evidence of congestive heart failure
[2020-05-31] MEDS ORDERED: Zolpidem 5mg tab ORAL PRN (21:00)
[2020-06-01] MEDS ORDERED: cefTRIAXone 1 GM in D5W 55 ML IVPB SCH (04:00)
--- NOTE | 2020-06-01 16:22 | Discharge Summary ---
Discharge Summary Discharge Summary _ DATE OF ADMISSION: 05/31/2020 DATE OF DISCHARGE: 05/31/2020 DISCHARGED BY: Dr Batista REASON FOR ADMISSION: 74 years old female with past medical history of congestive heart failure, heart surgery in 2019, atrial fibrillation, hypertension, asthma, diabetes mellitus, presented with shortness of breath. Onset was reported as 20-30 minutes prior to arrival to ED. Patient was unable to catch her breath. Blood pressure was high this morning, according to her brother, who accompanied her. He gave her carvedilol. Shortness of breath was worse with inspiration and better with rest . No chest pain , no sore throat ,no exertional component She denied fever and chills. No nausea , no vomiting . Upon evaluation blood pressure was 152/95 , pulse oximetry was 93% on room air. No leukocytosis , stable hemoglobin, hematocrit Troponin negative, proBNP 5854 . BUN 30, creatinine 1.3 Urinalysis revealed pyuria , + 1 protein , +3 leukocyte esterase, pyuria and few bacteria. Chest x-ray revealed cardiomegaly with evidence of congestive heart failure. In emergency department patient received nebulizing treatment with albuterol . IV Lasix. empiric antibiotic and admitted for further management. CONSULTANTS: pulmonary [facility] COURSE: Patient admitted to telemetry floor. Repeated troponin was negative. EKG revealed no acute ischemic changes . Patient was ruled out for acute myocardial infarction. Venous duplex bilateral lower extremity revealed no evidence of acute DVT i. Diuresis with IV Lasix provided with close monitoring of volumes and renal parameters. Supplemental oxygen provided and titrated to keep pulse oximetry above 92%. Pulse oximetry remained stable on room air. Patient was on empiric antibiotics for probable UTI. Home medication continued, including aspirin , Eliquis and amiodarone. GI prophylaxis provided. Telemetry showed sinus rhythm. Bowel regimen instituted. Supportive care provided. Shortness of breath improved. Blood pressure controlled Patient clinically stabilized and was ready for discharge home. Rapid and unexpected improvement patient condition, patient was discharged in 1 day FINAL DIAGNOSES: Shortness of breath likely due to CHF exacerbation and uncontrolled hypertension Possible urinary tract infection Hypertension with hypertensive urgency Atrial fibrillation Diabetes mellitus DISCHARGE MEDICATIONS: See Medication Reconciliation list. DISCHARGE INSTRUCTIONS: Patient was discharged home, Up with a primary care provider in 1 week. I have been assigned to dictate discharge summary for this account. I was not involved in the management of this patient. Camilla Mi NP Jun 01, 2020 16:22
== END 2020-05-31 14:00 | disposition home or self-care (01) | DRG 305 ==
LOC: EMR 03:00 → 2E 04:13 → EDBEDREQ 04:57
DX: I16.0 Hypertensive urgency (principal); N39.0 Urinary tract infection, site not specified; I42.9 Cardiomyopathy, unspecified; I11.0 Hypertensive heart disease with heart failure; I50.9 Heart failure, unspecified; I48.91 Unspecified atrial fibrillation; E11.9 Type 2 diabetes mellitus without complications; G89.29 Other chronic pain; M54.9 Dorsalgia, unspecified; G47.33 Obstructive sleep apnea (adult) (pediatric); J45.909 Unspecified asthma, uncomplicated; E78.00 Pure hypercholesterolemia, unspecified; I27.20 Pulmonary hypertension, unspecified; G47.00 Insomnia, unspecified; Z79.01 Long term (current) use of anticoagulants; Z79.82 Long term (current) use of aspirin
CPT/HCPCS: 36415; 71045; 80053; 81003; 82248; 83880; 84484; 85025; 85379; 87086; 93005; 93970; 96365; 96375; 99285; U0002

== ENCOUNTER 2020-09-24 14:33 | Emergency (ER) | payer MEDICARE, OTHER ==
[~2020-09-24] VITALS: Ht 152.4 cm; Wt 68.0 kg
[~2020-09-24 14:33] MED LIST changes: +AMIODARONE HCL400 M1 ORAL; +DOCUSATE SODIU100 MG ORAL; +ELIQUIS5 MG ORAL; +FUROSEMIDE40 MG ORAL
[2020-09-24 15:08] VITALS: BP 140/88
--- NOTE | 2020-09-24 15:11 | NUR ---
Patient is reporting to ER for elevated B/P that started this morning. Brought in to the hospital by her brother. She has a history of HTN and DM. 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 Tested negative for COVID 1 month ago and has taken her 1st COVID vaccine on Sep 21 with 2nd pending for October 16. Independently ambulatory. AAOX4.
--- NOTE | 2020-09-24 15:25 | Emergency Room Report ---
History of Present Illness General Chief Complaint: General Complaint Source: Patient, Family Member Present Illness HPI Disclaimer: Please note that this report is being documented using [employer] technology. This can lead to erroneous entry secondary to incorrect interpretation by the dictating instrument. HPI: This is 75-year-old female with history of cardiomyopathy, atrial fibrillation status post ablation procedure and recent pacemaker at [facility] presenting for elevated blood pressure readings at home. She presents with her brother who mostly takes care of her medications and knows most of her medical history. States that this morning he was taking her blood pressure as he routinely does and found systolic pressures in the 140s with diastolics in the 80s. Denied any symptoms at that time. He gave an extra dose of carvedilol 6.25 mg followed by another dose of carvedilol 3.125 mg after blood pressure failed to improve. Stayed in the same range. Patient denied chest pain, palpitations, shortness of breath, cough, congestion, headache, vision changes, neck or back pain, nausea, vomiting or other symptoms at this time. Otherwise in her normal state of health. Came in for evaluation of blood pressure. Received COVID-19 vaccine at [facility] on 09/21. No reported side effect PMH: Hypertension, hyperlipidemia, cardiomyopathy, atrial fibrillation status post ablation, carotid stenosis, diabetes, HEMANT PSH: A. 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: No COVID-19 Screening: Negative COVID-19 Nursing Documentation-PMH Past Medical History: No Stated History Hx Cardiac Problems: No Hx Hypertension: Yes Hx Pacemaker: No Hx Asthma: No Hx COPD: No Hx Diabetes: Yes Hx Cancer: No Hx Gastrointestinal Problems: No Hx Dialysis: No History Of Psychiatric Problem: No Hx Neurological Problems: No Hx Cerebrovascular Accident: No Hx Dementia: Yes Hx Seizures: No Review of Systems All Other Systems: negative except mentioned in HPI Physical Exam Vital Signs Date Time Temp Pulse Resp B/P (MAP) Pulse Ox O2 Delivery O2 Flow Rate FiO2 09/24/20 14:44 72 18 140/88 (105) 95 Room Air 09/24/20 15:08 97.9 General: Awake and alert, no acute distress HEENT: NC/AT. EOMI. Chest Wall: No tenderness, pacemaker palpable in left upper chest Cardiovascular: RRR. S1 and S2 normal. No murmur appreciated Resp: Normal work of breathing. No cough, wheezing or crackles appreciated Abdomen: Abdomen is soft, nondistended. Nontender Skin: Intact. No abrasions, laceration or rash over the exposed skin MSK: Normal tone and bulk. Moving all extremities. No obvious deformity. Neuro: Awake and alert. Mentating appropriately. Medical Decision Making Diagnostic Impression: Primary Impression: Asymptomatic hypertension ER Course 75-year-old female history of hypertension presents for evaluation of elevated blood pressure readings at home. According to her brother he was concerned that the blood pressure did not move after receiving multiple dose of medication but the patient is asymptomatic. There are no complaints at this time and has been compliant with blood pressure regimen received extra dose of medication today. I discussed at length with her brother who takes care of her primarily that he should not be giving multiple medication doses so close together could cause significant drop in blood pressure and may be dangerous. We discussed blood pressure ranges that are acceptable to be treated at home versus those that need to come into the hospital. She is well-appearing I do not believe she requires work-up in the emergency department today. Patient will follow up with PMD, Dr. Boo to discuss blood pressure control. Stable for outpatient follow-up. Last Vital Signs Date Time Temp Pulse Resp B/P (MAP) Pulse Ox O2 Delivery O2 Flow Rate FiO2 09/24/20 15:08 97.9 140/88 09/24/20 15:08 72 16 Room Air 09/24/20 14:44 95 Disposition: HOME, SELF-CARE Condition: Stable Patient Instructions: Hypertension Additional Instructions: Please follow-up with your primary care doctor in the next 1 to 3 days to discuss this emergency department visit and for reevaluation. If you have any new or worsening symptoms please return to the emergency department for reev aluation. Please note that this report is being documented using [employer] technology. This can lead to erroneous entry secondary to incorrect interpretation by the dictating instrument. Alonzo Arreguin MD Sep 24, 2020 15:25
--- NOTE | 2020-09-24 15:26 | NUR ---
ED Nurse Note: Pt cleared by health care Provider for discharge. DC instructions given and explained to pt and verbalized understanding of teachings. All medical deviecs such as ID band removed. Pt is AAO x4, ambulatory and left with all personal belongings.
== END 2020-09-24 15:27 | disposition home or self-care (01) ==
LOC: EMR 15:05
DX: I10 Essential (primary) hypertension (principal); Z95.0 Presence of cardiac pacemaker; E78.5 Hyperlipidemia, unspecified; E11.9 Type 2 diabetes mellitus without complications; G47.33 Obstructive sleep apnea (adult) (pediatric); I42.9 Cardiomyopathy, unspecified
CPT/HCPCS: 99281

== ENCOUNTER 2020-09-30 12:52 | Emergency (ER) | payer MEDICARE, OTHER ==
[~2020-09-30] VITALS: Ht 165.1 cm; Wt 61.2 kg
[2020-09-30] MEDS ORDERED: AUGMENTIN 875-1 EAC1 ORAL (13:26)
[2020-09-30 13:29] VITALS: BP 130/80
[2020-09-30] MEDS ORDERED: Lidocaine 2% Visc 15ml soln ORAL ONE (13:30)
[2020-09-30] MEDS ORDERED: Augmentin 875mg Tab ORAL ONE (13:30)
--- NOTE | 2020-09-30 13:40 | Emergency Room Report ---
History of Present Illness General Chief Complaint: Sore Throat Source: Patient Present Illness HPI Patient is a 68-year-old female recent history of pacemaker placement [facility] presents to the ER complaining of throat pain for 2 days. Patient denies any cough, fever, chills, difficulty swallowing, changes to her voice or drooling. She denies any chest pain or shortness of breath. She s tates that it is painful when she swallows. She states she has had throat infections before and is requesting antibiotics. Allergies: Coded Allergies: Dust (Verified Allergy, Mild, Itching, 11/06/15) COVID-19 Screening Contact w/high risk pt: No Recent Travel to affected area: No Experienced COVID-19 symptoms?: No COVID-19 Testing performed HOSTEL PARENT: No Patient History Reviewed Nursing Documentation: PMH: Agreed; PSxH: Agreed Nursing Documentation-PMH Hx Cardiac Problems: No Hx Hypertension: Yes Hx Pacemaker: No Hx Asthma: No Hx COPD: No Hx Diabetes: Yes Hx Cancer: No Hx Gastrointestinal Problems: No Hx Dialysis: No Hx Neurological Problems: No Hx Cerebrovascular Accident: No Hx Dementia: Yes Hx Seizures: No Review of Systems All Other Systems: negative except mentioned in HPI Physical Exam Vital Signs Date Time Temp Pulse Resp B/P (MAP) Pulse Ox O2 Delivery O2 Flow Rate FiO2 09/30/20 13:15 98.2 62 18 130/80 (97) 98 Room Air Sp02 EP Interpretation: reviewed, normal General Appearance: no apparent distress, alert, GCS 15, non-toxic Head: normocephalic, atraumatic Eyes: bilateral eye normal inspection, bilateral eye PERRL ENT: hearing grossly normal, normal pharynx, no angioedema, normal voice, pharyngeal erythema, other - No tonsillar exudate, tonsillar swelling or peritonsillar abscess Neck: full range of motion, no meningismus Respiratory: chest non-tender, normal breath sounds, no respiratory distress, other - Left upper anterior chest wall status post pacemaker placement with surrounding hematoma and ecchymosis Cardiovascular #1: regular rate, rhythm Gastrointestinal: non tender, soft, no guarding, no rebound Rectal: deferred Musculoskeletal: normal range of motion Neurologic: application internship III-XII nml as tested Psychiatric: no suicidal/homicidal ideation Skin: no rash Lymphatic: other - Left tender cervical adenopathy Medical Decision Making Diagnostic Impression: Primary Impression: Pharyngitis ER Course Patient given Augmentin as well as viscous lidocaine. Patient has no problems swallowing. She has no meningismus. Patient has no changes to her voice and no drooling. After discussing risks and benefits of further diagnostics, treatment plans, as well as indications for and risks of admission, the patient is agreeable to being discharged home. I have explained that their evaluation and treatment in the emergency department today is an important step towards them achieving better health but that their evaluation today is not intended to replace further evaluation and treatment by a physician in their local clinic. I have explained that while the current findings suggest no immediate life threatening emergency they will require further evaluation and treatment by a physician of their choice in their area. They understand that it will be necessary for them to review the final reports of their ED visit with their clinic physician. We have reviewed indications for return to the Emergency Department. I have explained that additional time may need to pass and/or additional testing as an outpatient may be necessary before a definitive diagnosis can be made. They tell me they are willing to follow up as instructed within the timeframe I recommend. They appear to understand what we discussed. Additionally they understand that if they are unable to be seen by an outpatient physician they are welcome, and in fact should, return to the Emergency Department for a repeat evaluation. The patient is stable at time of discharge. Last Vital Signs Date Time Temp Pulse Resp B/P (MAP) Pulse Ox O2 Delivery O2 Flow Rate FiO2 09/30/20 13:29 98.2 18 130/80 98 Room Air 09/30/20 13:15 62 Disposition: HOME, SELF-CARE Condition: Stable Scripts Amoxicillin/Potassium Clav 875-125* (AUGMENTIN 875-125 TABLET*) 1 Each Tablet 1 TAB ORAL TWICE A DAY, #14 TAB Prov: Kimberly Lynn M.D. 09/30/20 Referrals: [facility] Patient Instructions: Pharyngitis, [id number] Additional Instructions: The patient was provided with discharge instructions, notified to follow-up with a primary care doctor and or specialist in the next 24-48 hours, and to return to the ED if they have worsening of their symptoms. Please note that this report is being documented using [employer] technology. This can lead to erroneous entry secondary to incorrect interpretation by the dictating instrument. Kimberly Lynn M.D. Sep 30, 2020 13:39
== END 2020-09-30 13:42 | disposition home or self-care (01) ==
LOC: EMR 13:26
DX: J02.9 Acute pharyngitis, unspecified (principal); I10 Essential (primary) hypertension; E11.9 Type 2 diabetes mellitus without complications; F03.90 Unspecified dementia, unspecified severity, without behavioral disturbance, psychotic disturbance, mood disturbance, and anxiety; Z91.09 Other allergy status, other than to drugs and biological substances
CPT/HCPCS: 99282

== ENCOUNTER 2020-10-10 18:30 | Emergency (ER) | payer MEDICARE, OTHER ==
[~2020-10-10] VITALS: Ht 160 cm; Wt 72.6 kg
[~2020-10-10 18:30] MED LIST changes: +AUGMENTIN 875-1 EAC1 ORAL
[2020-10-10] MEDS ORDERED: Ketorolac 30mg Inj IM ONE (19:00)
[2020-10-10] MEDS ORDERED: TYLENOL EXTRA500 MG ORAL (19:28)
[2020-10-10] MEDS ORDERED: LIDODERM700 M1 TOPIC (19:28)
[2020-10-10 19:37] VITALS: BP 143/81
--- NOTE | 2020-10-13 15:24 | Emergency Room Report ---
History of Present Illness General Chief Complaint: Lower Back Pain or Injury Source: Patient Present Illness HPI 75-year-old female presents for back pain. Walked in. Having pain for the last 3 days. Throbbing, 6 out of 10, nonradiating. Denies any fall or injury. Denies any bowel or bladder deficits. Denies any leg or motor weakness. No other aggravating relieving factors. Denies any other associated symptoms Allergies: Coded Allergies: Dust (Verified Allergy, Mild, Itching, 11/06/15) COVID-19 Screening Contact w/high risk pt: No Recent Travel to affected area: No Experienced COVID-19 symptoms?: No COVID-19 Testing performed SUPERVISOR BENZENE REFINING: No Patient History Past Medical History: DM, HTN Pertinent Family History: none Social History: Denies: smoking, alcohol use, drug use Now: No Immunizations: UTD Reviewed Nursing Documentation: PMH: Agreed; PSxH: Agreed Nursing Documentation-PMH Past Medical History: No History, Except For Hx Cardiac Problems: No Hx Hypertension: Yes Hx Pacemaker: No Hx Asthma: No Hx COPD: No Hx Diabetes: Yes Hx Cancer: No Hx Gastrointestinal Problems: No Hx Dialysis: No Hx Neurological Problems: No Hx Cerebrovascular Accident: No Hx Dementia: Yes Hx Seizures: No Review of Systems All Other Systems: negative except mentioned in HPI Physical Exam Vital Signs Date Time Temp Pulse Resp B/P (MAP) Pulse Ox O2 Delivery O2 Flow Rate FiO2 10/10/20 18:35 98.2 72 19 143/81 (101) 95 Room Air Sp02 EP Interpretation: reviewed, normal General Appearance: no apparent distress, alert, GCS 15, non-toxic Head: normocephalic, atraumatic Eyes: bilateral eye normal inspection, bilateral eye PERRL ENT: hearing grossly normal, normal pharynx, no angioedema, normal voice Neck: full range of motion, supple/symm/no masses Respiratory: chest non-tender, lungs clear, normal breath sounds, speaking full sentences Cardiovascular #1: regular rate, rhythm, no edema Cardiovascular #2: 2+ carotid (R), 2+ carotid (L), 2+ radial (R), 2+ radial (L), 2+ dorsalis pedis (R), 2+ dorsalis pedis (L) Gastrointestinal: normal bowel sounds, non tender, soft, non-distended, no guarding, no rebound Rectal: deferred Genitourinary: normal inspection, no CVA tenderness Musculoskeletal: back normal, normal range of motion, gait/station normal, tender - parapsinal lumbar tenderness Neurologic: alert, motor strength/tone normal, oriented x3, sensory intact, responsive, speech normal Psychiatric: judgement/insight normal, memory normal, mood/affect normal, no suicidal/homicidal ideation Reflexes: 3+ bicep (R), 3+ bicep (L), 3+ tricep (R), 3+ tricep (L), 3+ knee (R), 3+ knee (L) Skin: no rash Lymphatic: no adenopathy Medical Decision Making Diagnostic Impression: Primary Impression: Exacerbation of chronic back pain ER Course Hospital Course 75-year-old female presents ED complaining of lower back pain. No evidence of trauma Differential diagnoses include: pyelonephritis, kidney stone, muscle strain, Lspine fracture Clinical course Patient placed on stretcher. After initial history and physical I ordered toradol and lidoderm patch. Patient well-known to [facility]. Has been here multiple times for pain related complaints. Has had recent back surgery. Safe for discharge with close outpatient follow-up. States she has a PMD Diagnosis - exacerbation of chronic back pain. Stable and discharged to home. Followup with PMD. Return to ED if symptoms recur or worsen Last Vital Signs Date Time Temp Pulse Resp B/P (MAP) Pulse Ox O2 Delivery O2 Flow Rate FiO2 10/10/20 19:37 98.2 19 143/81 95 Room Air 10/10/20 18:35 72 Status: improved Disposition: HOME, SELF-CARE Condition: Stable Scripts Lidocaine Patch* (Lidoderm Patch*) 1 Each Adh..patch 1 PATCH TOPIC DAILY, #7 PATCH 0 Refills Patch(es) may remain in place for up to 12 hours in any 24-hour period. Prov: Jeremy Leone MD 10/10/20 Acetaminophen* (TYLENOL EXTRA STRENGTH*) 500 Mg Tablet 500 MG ORAL Q8H PRN for Prn Headache/Temp > 101, #30 TAB 0 Refills Prov: Jeremy Leone MD 10/10/20 Referrals: Wilfred Boo MD (PCP) Patient Instructions: Low Back Sprain With Rehab-Sports[facility] Jeremy Leone MD Oct 13, 2020 15:24
== END 2020-10-10 19:39 | disposition home or self-care (01) ==
LOC: EMR 18:59
DX: M54.5 Low back pain (principal)
CPT/HCPCS: 96372; 99283; J1885